=== PATIENT | male | born 1970 | race American Indian/Alaskan Native ===

== ENCOUNTER 2018-06-04 22:02 | Inpatient (IN) | payer OTHER ==
[2018-06-04 22:39] LABS: BASO # 0.1 K/uL (0.0-0.2); BASO % 0.5 % (0.0-2.0); EOS # 0.1 K/uL (0.0-0.7); EOS % 0.4 % (0.0-4.0); HEMOGLOBIN 8.1 g/dL (12.0-18.0); LYMPH # 3.1 K/uL (1.0-4.3); LYMPH % 21.9 % (20.0-40.0); MEAN CELL VOLUME 86.6 fL (80.0-94.0); MEAN CORPUSCULAR HEMOGLOBIN 28.3 pg (27.0-31.0); MEAN CORPUSCULAR HGB CONC 32.7 g/dL (33.0-37.0); MEAN PLATELET VOLUME 7.8 fL (7.2-11.7); MONO # 1.3 K/uL (0.0-0.8); MONO % 8.7 % (0.0-10.0); NEUT # 9.8 K/uL (1.8-7.0); NEUT % 68.5 % (50.0-75.0); RBC 2.86 Mil/uL (4.40-5.90); RED CELL DISTRIBUTION WIDTH 17.2 % (11.5-14.5); WHITE BLOOD COUNT 14.4 K/uL (4.8-10.8)
[2018-06-04 23:05] LABS: ALB/GLOB RATIO 1.1 (1.0-2.1); ALBUMIN 4.2 g/dL (3.5-5.0)
[2018-06-04 23:08] LABS: TROPONIN I 11.7 ng/mL (0.00-0.120)
[2018-06-04] MEDS ORDERED: Labetalol 25mg/5ml Syringe IVP STA (23:13)
--- NOTE | 2018-06-04 23:14 | C.PDOC ---
History Of Present Illness 47yo male with history of hypertension (ran out of medications 2 days ago), stage 4 kidney failure (last creatinine was 7.5), CAD, 2x Coronary stents (last placed 08/[address] Alba) comes to ER with complaints of a stuttering chest pain, present all day and noted to be 5/10 earlier but now is 3/10. Patient states he has had the stuttering pain for 1-2 months and the worst episode was on 05/18/18 where the pain was 10/10 and associated with shortness of breath, nausea and vomiting; patient states he did not seek medical care at that time. He had severe pain again yesterday with nausea, vomiting and shortness of breath and came today for evaluation. At present, denies any nausea, vomiting and shortness of breath and offers no other complaints. PMD: Dr. Alec Allen Gis Professor: Dr. Davison Medications reviewed, patient has no known allergies Time Seen by Provider: 06/04/18 22:23 Chief Complaint (Nursing): Chest Pain History Per: Patient History/Exam Limitations: no limitations Onset/Duration Of Symptoms: Intermittent Episodes, Persistent Current Symptoms Are (Timing): Still Present Severity: Moderate Pain Scale Rating Of: 3 Quality: "Pain" Past Medical History Reviewed: Historical Data, Nursing Documentation, Vital Signs Vital Signs: Last Vital Signs Temp 98.3 F 06/04/18 22:11 Pulse 83 06/05/18 01:21 Resp 16 06/05/18 01:21 BP 203/146 H 06/05/18 01:21 Pulse Ox 95 06/05/18 01:21 - Medical History PMH: CAD, HTN, End Stage Renal Disease Surgical History: Coronary Stent Other Surgeries: deviated septum repair, gastric sleeve Family History: States: No Known Family Hx - Social History Hx Tobacco Use: No Hx Alcohol Use: Yes Hx Substance Use: No - Immunization History Hx Influenza Vaccination: No Hx Pneumococcal Vaccination: No Review Of Systems Except As Marked, All Systems Reviewed And Found Negative. Constitutional: Negative for: Fever, Chills, Weakness, Malaise, Weight loss Eyes: Negative for: Vision Change, Eyelid Inflammation ENT: Negative for: Nose Congestion Cardiovascular: Positive for: Chest Pain. Negative for: Palpitations, Orthopnea , Paroxysmal Noc. Dyspnea, Edema Respiratory: Negative for: Cough, Shortness of Breath, Hemoptysis, SOB with Excertion, Pleuritic Pain, Sputum Gastrointestinal: Negative for: Nausea, Vomiting, Constipation Genitourinary: Negative for: Dysuria Musculoskeletal: Negative for: Shoulder Pain, Arm Pain Skin: Negative for: Rash Neurological: Negative for: Weakness, Numbness Psych: Negative for: Anxiety Physical Exam - Physical Exam Appears: Non-toxic Skin: Normal Color, Warm, Dry Head: Atraumatic, Normacephalic Eye(s): bilateral: Normal Inspection, PERRL, EOMI Ear(s): Bilateral: Normal Nose: Normal Oral Mucosa: Moist Throat: Normal Neck: Normal, Supple Chest: Symmetrical, No Tenderness Cardiovascular: Rhythm Regular, Other (elevated blood pressure) Respiratory: Normal Breath Sounds Gastrointestinal/Abdominal: Normal Exam, Soft, No Tenderness Back: Normal Inspection, No CVA Tenderness, No Vertebral Tenderness, No Paraspinal Tenderness Extremity: Normal ROM, No Pedal Edema Extremity: Bilateral: Atraumatic, No Pedal Edema, Normal Color And Temperature, Normal ROM Neurological/Psych: Oriented x3, Normal Speech, Normal Cognition, Normal Motor, Normal Sensation ED Course And Treatment - Laboratory Results Result Diagrams: 06/04/18 22:34 06/04/18 22:34 ECG: Interpreted By Me, Viewed By Me ECG Rhythm: Sinus Rhythm Interpretation Of ECG: WV 174, QRS 102, QT/QTc 432/525. Prolonged QT. LVH with repolarization changes. Deep inverted T-wave in V5 and V6. ST elevation in V3 V4 suspicious for ST elevation TX. Rate From EC O2 Sat by Pulse Oximetry: 100 (RA) Pulse Ox Interpretation: Normal Critical Care Time - Critical Care Note Total Time (in mins): 45 Documented critical care: time excludes all time spent performing seperately billable procedures. Medical Decision Making Medical Decision Making: Impression: Chest pain [address] Alba 2320 Case discussed with patient's PMD Dr. Alec Allen who recommends admission to Dr. Coronado [address] Davison, patient's manager of pharmacy who is aware. 2326 Code heart called [address] Alba who recommends treating patient as a NSTEMI. [address] Coronado Plan: * Aspirin 324mg PO * Plavix 300mg PO * Fentanyl 50mcg IVP * Heparin 4000 units IV * Labetalol 20mg IVP * Nitroglycerin 0.4mg SL [address] Coronado. [address] Heller branch sales manager utilization management um nurse, patient to be admitted to ICU. 0055 CXR reviewed and shows cardiomegaly. No pulmonary vascular congestion noted. [address] in contacting Dr. Coronado, 5 calls placed. Call placed to Dr. Burrell medicine utilization management um nurse. Disposition - Disposition Disposition Time: 01:48 Condition: GUARDED - POA Core Measure Indicators: Code Heart, Chest Pain - Clinical Impression Clinical Impression: Chest pain, NSTEMI (non-ST elevated myocardial infarction), Acute renal failure , Hypertensive emergency - Scribe Statement The provider has reviewed the documentation as recorded by the Ranjith Eastman Provider Attestation: All medical record entries made by the Ranjith were at my direction and personally dictated by me. I have reviewed the chart and agree that the record accurately reflects my personal performance of the history, physical exam, medical decision making, and the department course for this patient. I have also personally directed, reviewed, and agree with the discharge instructions and disposition.
[2018-06-05] MEDS ORDERED: Nitroglycerin 50mg in D5W 50 MG/250 ML BOTTLE IV ONE (00:26)
[2018-06-05] MEDS ORDERED: Nitroglycerin 50mg in D5W 50 MG/250 ML BOTTLE IV SCH (00:30)
[2018-06-05] MEDS: Heparin25000 units/250ml 1/2NS 25,000 UNITS/250 ML BAG IV PRN ×2 (00:44→19:33)
--- NOTE | 2018-06-05 01:07 | CP.PCM.CON ---
History of Present Illness - History of Present Illness History of Present Illness: 47yo M. PMHx HTN, stage 4 CKD, CAD, stents x 2. p/w chest pain, NSTEMI, acute on chronic kidney injury. Review of Systems - Review of Systems All systems: reviewed and no additional remarkable complaints except - Cardiovascular Cardiovascular: Chest Pain Past Patient History - Past Social History Smoking Status: Never Smoked - CARDIAC Hx Hypertension: Yes - ENDOCRINE/METABOLIC Hx Diabetes Mellitus Type 2: Yes - MUSCULOSKELETAL/RHEUMATOLOGICAL Hx Falls: No - PSYCHIATRIC Hx Substance Use: No - SURGICAL HISTORY Hx Coronary Stent: Yes - ANESTHESIA Hx Anesthesia: Yes Hx Anesthesia Reactions: No Hx Malignant Hyperthermia: No Meds Allergies/Adverse Reactions: Allergies Allergy/AdvReac Type Severity Reaction Status Date / Time No Known Allergies Allergy Verified 06/04/18 22:17 - Medications Medications: Current Medications Heparin Sodium/Sodium Chloride (Heparin 58844 Units/250ml 1/2 Normal Saline) 25 ,000 units in 250 mls @ 12.791 mls/hr IV .[id number] PRN; Protocol; 12 UNITS/KG/HR PRN Reason: ADJUST RATE PER PROTOCOL Last Admin: 06/05/18 00:44 Dose: 12 units/kg/hr, 12.791 mls/hr Nitroglycerin/Dextrose (Nitroglycerin 50 Mg/250 Ml D5w) 50 mg in 250 mls @ 18 mls/hr IV .[id number] CLARICE; 60 MCG/MIN PRN Reason: Protocol Last Titration: 06/05/18 01:01 Dose: 70 mcg/min, 21 mls/hr Physical Exam - Head Exam Head Exam: ATRAUMATIC, NORMAL INSPECTION - Eye Exam Eye Exam: EOMI, Normal appearance, PERRL - ENT Exam ENT Exam: Mucous Membranes Moist, Normal Exam - Neck Exam Neck exam: Positive for: Normal Inspection - Respiratory Exam Respiratory Exam: Clear to Auscultation Bilateral, NORMAL BREATHING PATTERN - Cardiovascular Exam Cardiovascular Exam: REGULAR RHYTHM - GI/Abdominal Exam GI & Abdominal Exam: Normal Bowel Sounds, Soft. absent: Tenderness - Neurological Exam Neurological exam: Alert, CN II-XII Intact, Normal Gait, Oriented x3, Reflexes Normal - Psychiatric Exam Psychiatric exam: Normal Affect, Normal Mood Results - Vital Signs Recent Vital Signs: Last Vital Signs Temp 98.3 F 06/04/18 22:11 Pulse 80 06/05/18 01:02 Resp 14 06/05/18 01:02 BP 200/132 H 06/05/18 01:02 Pulse Ox 100 06/05/18 01:03 - Labs Result Diagrams: 06/04/18 22:34 06/04/18 22:34 Labs: Laboratory Results - last 24 hr 06/04/18 06/04/18 06/04/18 22:34 22:34 23:44 WBC 14.4 H RBC 2.86 L Hgb 8.1 L Hct 24.7 L MCV 86.6 MCH 28.3 MCHC 32.7 L RDW 17.2 H Plt Count 279 MPV 7.8 Neut % (Auto) 68.5 Lymph % (Auto) 21.9 Barren % (Auto) 8.7 Eos % (Auto) 0.4 Baso % (Auto) 0.5 Neut # (Auto) 9.8 H Lymph # (Auto) 3.1 Barren # (Auto) 1.3 H Eos # (Auto) 0.1 Baso # (Auto) 0.1 APTT 38 H Sodium 144 Potassium 4.0 Chloride 108 H Carbon Dioxide 20 L Anion Gap 20 BUN 81 H Creatinine 10.5 H* Est GFR ( Amer) 6 Est GFR (Non-Af Amer) 5 Random Glucose 118 H Calcium 9.0 Total Bilirubin 0.5 AST 44 ALT 28 Alkaline Phosphatase 66 Troponin I 11.7000 H* Total Protein 7.9 Albumin 4.2 Globulin 3.7 Albumin/Globulin Ratio 1.1 Triglycerides 135 Cholesterol 197 LDL Cholesterol Direct 113 HDL Cholesterol 29 L Assessment & Plan (1) NSTEMI (non-ST elevated myocardial infarction) Assessment and Plan: 47yo M. PMHx HTN, stage 4 CKD, CAD, stents x 2. p/w chest pain, NSTEMI, acute on chronic kidney injury. Neuro: alert and oriented x 3 Pulm: no acute issues, breathing spontaneously on room air. CV: hemodynamically stable. EKG changes indicative of NSTEMI, continue heparin drip, ASA, Plavix. Nitro drip relieving chest pain, and lowering BP. Eventual cath, cardio - DrMg Alba. Hem: no acute issues Renal: worsening acute on chronic kidney injury, will monitor. NS@75 Endo: no acute issues GI: heart healthy diet. ID: no acute issues DVT proph - heparin gtt GI proph - protonix Code status - full code Critical Care Time spent 35 minutes Multi-disciplinary rounds were performed with house staff, nursing, speech therapy, respiratory therapy, pharmacy and nutrition with integrated input from the primary team/attending and other consulting services. The documented time is cumulative and includes review of patient data/exams/labs/chart review and examination of the patient on rounds and throughout the day; time is exclusive of any procedures or teaching time. Status: Acute
[2018-06-05 06:59] LABS: BASO # 0.1 K/uL (0.0-0.2); BASO % 0.9 % (0.0-2.0); EOS # 0.1 K/uL (0.0-0.7); EOS % 0.9 % (0.0-4.0); HEMOGLOBIN 7.5 g/dL (12.0-18.0); LYMPH # 3.1 K/uL (1.0-4.3); LYMPH % 25.3 % (20.0-40.0); MEAN CELL VOLUME 88.2 fL (80.0-94.0); MEAN CORPUSCULAR HEMOGLOBIN 28.8 pg (27.0-31.0); MEAN CORPUSCULAR HGB CONC 32.6 g/dL (33.0-37.0); MEAN PLATELET VOLUME 8.2 fL (7.2-11.7); MONO # 1.2 K/uL (0.0-0.8); MONO % 9.6 % (0.0-10.0); NEUT # 7.8 K/uL (1.8-7.0); NEUT % 63.3 % (50.0-75.0); RBC 2.62 Mil/uL (4.40-5.90); WHITE BLOOD COUNT 12.3 K/uL (4.8-10.8)
[2018-06-05] MEDS: Nitroglycerin 50mg in D5W 50 MG/250 ML BOTTLE IV SCH ×4 (07:28→21:15)
[2018-06-05 08:13] LABS: ALB/GLOB RATIO 1.1 (1.0-2.1); ALBUMIN 3.6 g/dL (3.5-5.0); CALCIUM 8.7 mg/dl (8.6-10.4)
[2018-06-05] MEDS: Pantoprazole 20 mg EC Tab PO SCH (09:09)
--- NOTE | 2018-06-05 09:23 | RAD ---
Date of service: 06/04/2018 HISTORY: chest pain COMPARISON: Comparison made with prior study 12/08/2013. TECHNIQUE: Chest PA and lateral FINDINGS: LUNGS: No active pulmonary disease. PLEURA: No significant pleural effusion identified. No pneumothorax apparent. CARDIOVASCULAR: Heart size appears borderline/mildly enlarged. OSSEOUS STRUCTURES: Minor multilevel degenerative spondylosis of the thoracic spine. VISUALIZED UPPER ABDOMEN: Normal. OTHER FINDINGS: None. IMPRESSION: No active disease.
[2018-06-05 09:51] LABS: CK-MB 12.4 ng/mL (0.0-3.38)
[2018-06-05 09:57] LABS: TROPONIN I 10.4 ng/mL (0.00-0.120)
[2018-06-05] MEDS ORDERED: Labetalol 25mg/5ml Syringe IVP ONE (11:45)
[2018-06-05 18:08] LABS: CK-MB 9.44 ng/mL (0.0-3.38); TROPONIN I 8.06 ng/mL (0.00-0.120)
--- NOTE | 2018-06-05 20:21 | CP.CCUPN ---
<Gissell Casiano P - Last Filed: 06/05/18 20:09> CCU Subjective - Physician Review Subjective (Free Text): PGY-1 critical care consult note for Dr. Montelongo. Patient seen and evaluated at bedside. States he feels better. Chest pain, shortness of breath, nausea and vomiting have resolved. Overnight blood pressure was elevated in 190s, nitro drip was titrated to 140mcg with improvement of bp. Patient is complaining of low back pain that worsens with lying in bed and improves with sitting. Patient with Cr of 10.1. Patient states he saw his loan assistant Dr. Guillen approximately 1.5 months ago ( Cr at the time was 5) and was told he needed dialysis. Patient missed his scheduled vein mapping session 1 month ago because he was contemplating getting a second opinion, but never followed up. CCU Objective - Vital Signs / Intake & Output Vital Signs (Last 4 hours): Vital Signs Pulse Resp BP Pulse Ox 06/05/18 19:32 89 18 158/90 H 98 06/05/18 19:27 80 20 158/90 H 97 06/05/18 19:00 81 22 95 06/05/18 18:00 90 27 H 98 06/05/18 17:59 92 H 22 159/99 H 99 06/05/18 17:00 82 24 97 06/05/18 16:58 80 26 H 173/113 H 97 Intake and Output (Last 8hrs): Intake & Output 06/05/18 06/05/18 06/05/18 06:59 14:59 22:59 Intake Total 343.8 1722.0 1056.0 Output Total 1000 1000 200 Balance -656.2 722.0 856.0 Weight 290 lb 12.635 oz Intake: IV 54 250 500 Intake, IV Amount 289.8 572.0 256.0 Left Antecubital 76.8 128.0 64.0 Right Antecubital 213 444 192 Oral 0 900 300 Output: Urine 1000 1000 200 Urine, Voided 1000 1000 200 Other: # Voids Urine, Voided 1 1 1 # Bowel Movements 0 0 - Physical Exam Head: Positive for: Atraumatic, Normocephalic Extroacular Muscles: Positive for: EOMI Neck: Positive for: Normal Range of Motion Respiratory/Chest: Positive for: Clear to Auscultation. Negative for: Wheezes, Rales, Rhonchi Cardiovascular: Positive for: Regular Rate and Rhythm, Normal S1, S2 Abdomen: Positive for: Normal Bowel Sounds. Negative for: Tenderness, Distention, Rebound, Guarding Back: Negative for: Paraspinal Tenderness Lower Extremity: Negative for: Edema, CALF TENDERNESS Neurological: Positive for: CN II-XII Intact, Speech Normal, Motor Func Grossly Intact Skin: Positive for: Warm, Dry Psychiatric: Positive for: Alert, Oriented x 3 - Medications Active Medications: Active Medications Generic Name Dose Route Start Last Admin Trade Name Freq PRN Reason Stop Dose Admin Acetaminophen 650 mg 06/05/18 08:30 06/05/18 09:08 Tylenol 325mg Tab PO 650 mg Q6 PRN Administration Pain, Mild (1-3) Allopurinol 100 mg 06/06/18 10:00 Zyloprim PO DAILY [facility] Aspirin 81 mg 06/06/18 10:00 Ecotrin PO DAILY [facility] Calcitriol 0.25 mcg 06/06/18 09:00 Rocaltrol PO MWF [facility] Clonidine HCl 0.2 mg 06/05/18 22:00 Catapres PO Q8H [facility] Clopidogrel Bisulfate 75 mg 06/06/18 10:00 Plavix PO DAILY [facility] Diltiazem HCl 300 mg 06/06/18 10:00 Cardizem Cd PO DAILY [facility] Heparin Sodium/Sodium Chloride 25,000 units in 250 mls @ 12.791 mls/hr 00:15 06/05/18 19:33 Heparin 16115 Units/250ml 1/2 Normal Saline IV 12 units/kg/hr .[id number] PRN 12.791 mls/hr ADJUST RATE PER PROTOCOL Administration Protocol 12 UNITS/KG/HR Nitroglycerin/Dextrose 50 mg in 250 mls @ 36 mls/hr 06/05/18 07:18 06/05/18 19:32 Nitroglycerin 50 Mg/250 Ml D5w IV 160 mcg/min .[id number] [facility] 48 mls/hr Protocol Administration 120 MCG/MIN Pantoprazole Sodium 20 mg 06/05/18 10:00 06/05/18 09:09 Protonix Ec Tab PO 20 mg DAILY [facility] Administration Rosuvastatin Calcium 40 mg 06/05/18 22:00 Crestor PO HS [facility] Sitagliptin Phosphate 25 mg 06/06/18 10:00 Januvia PO DAILY [facility] - Patient Studies Lab Studies: Lab Studies 06/05/18 06/05/18 06/05/18 Range/Units 17:11 12:41 06:53 WBC (4.8-10.8) K/uL RBC (4.40-5.90) Mil/uL Hgb (12.0-18.0) g/dL Hct (35.0-51.0) % MCV (80.0-94.0) fL MCH (27.0-31.0) pg MCHC (33.0-37.0) g/dL RDW (11.5-14.5) % Plt Count (130-400) K/uL MPV (7.2-11.7) fL Neut % (Auto) (50.0-75.0) % Lymph % (Auto) (20.0-40.0) % Morgan % (Auto) (0.0-10.0) % Eos % (Auto) (0.0-4.0) % Baso % (Auto) (0.0-2.0) % Neut # (Auto) (1.8-7.0) K/uL Lymph # (Auto) (1.0-4.3) K/uL Morgan # (Auto) (0.0-0.8) K/uL Eos # (Auto) (0.0-0.7) K/uL Baso # (Auto) (0.0-0.2) K/uL APTT 75 H 79 H D (21-34) SECONDS Sodium (132-148) mmol/L Potassium (3.6-5.2) mmol/L Chloride (98-107) mmol/L Carbon Dioxide (22-30) mmol/L Anion Gap (10-20) BUN (9-20) mg/dL Creatinine (0.8-1.5) mg/dL Est GFR ( Amer) Est GFR (Non-Af Amer) Random Glucose (75-110) mg/dL Calcium (8.6-10.4) mg/dl Phosphorus (2.5-4.5) mg/dL Magnesium (1.6-2.3) mg/dL Total Bilirubin (0.2-1.3) mg/dL AST (17-59) U/L ALT (21-72) U/L Alkaline Phosphatase (38-126) U/L Total Creatine Kinase 469 H (55-170) U/L CK-MB (Mass) 9.44 H (0.0-3.38) ng/mL Troponin I 8.0600 H* (0.00-0.120) ng/mL Total Protein (6.3-8.3) g/dL Albumin (3.5-5.0) g/dL Globulin (2.2-3.9) gm/dL Albumin/Globulin Ratio (1.0-2.1) Triglycerides (0-149) mg/dL Cholesterol (0-199) mg/dL LDL Cholesterol Direct (0-129) mg/dL HDL Cholesterol (30-70) mg/dL 06/05/18 06/05/18 06/04/18 Range/Units 06:53 06:53 23:44 WBC 12.3 H (4.8-10.8) K/uL RBC 2.62 L (4.40-5.90) Mil/uL Hgb 7.5 L (12.0-18.0) g/dL Hct 23.1 L (35.0-51.0) % MCV 88.2 (80.0-94.0) fL MCH 28.8 (27.0-31.0) pg MCHC 32.6 L (33.0-37.0) g/dL RDW 17.0 H (11.5-14.5) % Plt Count 243 (130-400) K/uL MPV 8.2 (7.2-11.7) fL Neut % (Auto) 63.3 (50.0-75.0) % Lymph % (Auto) 25.3 (20.0-40.0) % Morgan % (Auto) 9.6 (0.0-10.0) % Eos % (Auto) 0.9 (0.0-4.0) % Baso % (Auto) 0.9 (0.0-2.0) % Neut # (Auto) 7.8 H (1.8-7.0) K/uL Lymph # (Auto) 3.1 (1.0-4.3) K/uL Morgan # (Auto) 1.2 H (0.0-0.8) K/uL Eos # (Auto) 0.1 (0.0-0.7) K/uL Baso # (Auto) 0.1 (0.0-0.2) K/uL APTT 38 H (21-34) SECONDS Sodium 142 (132-148) mmol/L Potassium 4.0 (3.6-5.2) mmol/L Chloride 107 (98-107) mmol/L Carbon Dioxide 19 L (22-30) mmol/L Anion Gap 20 (10-20) BUN 81 H (9-20) mg/dL Creatinine 10.1 H* (0.8-1.5) mg/dL Est GFR ( Amer) 7 Est GFR (Non-Af Amer) 6 Random Glucose 164 H (75-110) mg/dL Calcium 8.7 (8.6-10.4) mg/dl Phosphorus 7.2 H (2.5-4.5) mg/dL Magnesium 1.8 (1.6-2.3) mg/dL Total Bilirubin 0.5 (0.2-1.3) mg/dL AST 38 (17-59) U/L ALT 32 (21-72) U/L Alkaline Phosphatase 55 (38-126) U/L Total Creatine Kinase 579 H (55-170) U/L CK-MB (Mass) 12.4 H (0.0-3.38) ng/mL Troponin I 10.4000 H* (0.00-0.120) ng/mL Total Protein 6.7 (6.3-8.3) g/dL Albumin 3.6 (3.5-5.0) g/dL Globulin 3.2 (2.2-3.9) gm/dL Albumin/Globulin Ratio 1.1 (1.0-2.1) Triglycerides (0-149) mg/dL Cholesterol (0-199) mg/dL LDL Cholesterol Direct (0-129) mg/dL HDL Cholesterol (30-70) mg/dL 06/04/18 06/04/18 Range/Units 22:34 22:34 WBC 14.4 H (4.8-10.8) K/uL RBC 2.86 L (4.40-5.90) Mil/uL Hgb 8.1 L (12.0-18.0) g/dL Hct 24.7 L (35.0-51.0) % MCV 86.6 (80.0-94.0) fL MCH 28.3 (27.0-31.0) pg MCHC 32.7 L (33.0-37.0) g/dL RDW 17.2 H (11.5-14.5) % Plt Count 279 (130-400) K/uL MPV 7.8 (7.2-11.7) fL Neut % (Auto) 68.5 (50.0-75.0) % Lymph % (Auto) 21.9 (20.0-40.0) % Morgan % (Auto) 8.7 (0.0-10.0) % Eos % (Auto) 0.4 (0.0-4.0) % Baso % (Auto) 0.5 (0.0-2.0) % Neut # (Auto) 9.8 H (1.8-7.0) K/uL Lymph # (Auto) 3.1 (1.0-4.3) K/uL Morgan # (Auto) 1.3 H (0.0-0.8) K/uL Eos # (Auto) 0.1 (0.0-0.7) K/uL Baso # (Auto) 0.1 (0.0-0.2) K/uL APTT (21-34) SECONDS Sodium 144 (132-148) mmol/L Potassium 4.0 (3.6-5.2) mmol/L Chloride 108 H (98-107) mmol/L Carbon Dioxide 20 L (22-30) mmol/L Anion Gap 20 (10-20) BUN 81 H (9-20) mg/dL Creatinine 10.5 H* (0.8-1.5) mg/dL Est GFR ( Amer) 6 Est GFR (Non-Af Amer) 5 Random Glucose 118 H (75-110) mg/dL Calcium 9.0 (8.6-10.4) mg/dl Phosphorus (2.5-4.5) mg/dL Magnesium (1.6-2.3) mg/dL Total Bilirubin 0.5 (0.2-1.3) mg/dL AST 44 (17-59) U/L ALT 28 (21-72) U/L Alkaline Phosphatase 66 (38-126) U/L Total Creatine Kinase (55-170) U/L CK-MB (Mass) (0.0-3.38) ng/mL Troponin I 11.7000 H* (0.00-0.120) ng/mL Total Protein 7.9 (6.3-8.3) g/dL Albumin 4.2 (3.5-5.0) g/dL Globulin 3.7 (2.2-3.9) gm/dL Albumin/Globulin Ratio 1.1 (1.0-2.1) Triglycerides 135 (0-149) mg/dL Cholesterol 197 (0-199) mg/dL LDL Cholesterol Direct 113 (0-129) mg/dL HDL Cholesterol 29 L (30-70) mg/dL Laboratory Results - last 24 hr 06/04/18 06/04/18 06/04/18 22:34 22:34 23:44 WBC 14.4 H RBC 2.86 L Hgb 8.1 L Hct 24.7 L MCV 86.6 MCH 28.3 MCHC 32.7 L RDW 17.2 H Plt Count 279 MPV 7.8 Neut % (Auto) 68.5 Lymph % (Auto) 21.9 Morgan % (Auto) 8.7 Eos % (Auto) 0.4 Baso % (Auto) 0.5 Neut # (Auto) 9.8 H Lymph # (Auto) 3.1 Morgan # (Auto) 1.3 H Eos # (Auto) 0.1 Baso # (Auto) 0.1 APTT 38 H Sodium 144 Potassium 4.0 Chloride 108 H Carbon Dioxide 20 L Anion Gap 20 BUN 81 H Creatinine 10.5 H* Est GFR ( Amer) 6 Est GFR (Non-Af Amer) 5 Random Glucose 118 H Calcium 9.0 Phosphorus Magnesium Total Bilirubin 0.5 AST 44 ALT 28 Alkaline Phosphatase 66 Total Creatine Kinase CK-MB (Mass) Troponin I 11.7000 H* Total Protein 7.9 Albumin 4.2 Globulin 3.7 Albumin/Globulin Ratio 1.1 Triglycerides 135 Cholesterol 197 LDL Cholesterol Direct 113 HDL Cholesterol 29 L 06/05/18 06/05/18 06/05/18 06:53 06:53 06:53 WBC 12.3 H RBC 2.62 L Hgb 7.5 L Hct 23.1 L MCV 88.2 MCH 28.8 MCHC 32.6 L RDW 17.0 H Plt Count 243 MPV 8.2 Neut % (Auto) 63.3 Lymph % (Auto) 25.3 Morgan % (Auto) 9.6 Eos % (Auto) 0.9 Baso % (Auto) 0.9 Neut # (Auto) 7.8 H Lymph # (Auto) 3.1 Morgan # (Auto) 1.2 H Eos # (Auto) 0.1 Baso # (Auto) 0.1 APTT 79 H D Sodium 142 Potassium 4.0 Chloride 107 Carbon Dioxide 19 L Anion Gap 20 BUN 81 H Creatinine 10.1 H* Est GFR ( Amer) 7 Est GFR (Non-Af Amer) 6 Random Glucose 164 H Calcium 8.7 Phosphorus 7.2 H Magnesium 1.8 Total Bilirubin 0.5 AST 38 ALT 32 Alkaline Phosphatase 55 Total Creatine Kinase 579 H CK-MB (Mass) 12.4 H Troponin I 10.4000 H* Total Protein 6.7 Albumin 3.6 Globulin 3.2 Albumin/Globulin Ratio 1.1 Triglycerides Cholesterol LDL Cholesterol Direct HDL Cholesterol 06/05/18 06/05/18 12:41 17:11 WBC RBC Hgb Hct MCV MCH MCHC RDW Plt Count MPV Neut % (Auto) Lymph % (Auto) Morgan % (Auto) Eos % (Auto) Baso % (Auto) Neut # (Auto) Lymph # (Auto) Morgan # (Auto) Eos # (Auto) Baso # (Auto) APTT 75 H Sodium Potassium Chloride Carbon Dioxide Anion Gap BUN Creatinine Est GFR ( Amer) Est GFR (Non-Af Amer) Random Glucose Calcium Phosphorus Magnesium Total Bilirubin AST ALT Alkaline Phosphatase Total Creatine Kinase 469 H CK-MB (Mass) 9.44 H Troponin I 8.0600 H* Total Protein Albumin Globulin Albumin/Globulin Ratio Triglycerides Cholesterol LDL Cholesterol Direct HDL Cholesterol EKG/Cardiology Studies: Cardiology / EKG Studies 06/04/18 22:24 ELECTROCARDIOGRAM Stat Comment: Mode Of Transportation: BED Reason For Exam: chest pain Review of Systems - Review of Systems All systems: reviewed and no additional remarkable complaints except (as per HPI ) Critical Care Progress Note - Prophylaxis GI Prophylaxis GI: PPI - Prophylaxis DVT Prophylaxis DVT: Heparin SQ - Nutrition Nutrition: Nutrition Category Date Time Status Renal Diet [DIET] Diets 06/05/18 Breakfast Active Assessment/Plan - Assessment and Plan (Free Text) Plan: 47 yo M PMHx of HTN, DM2, stage 5 CKD, CAD with stent placement x2 (latest 2016) presented to ED with chest pain, SOB, nausea and vomiting. Admitted to ICU for NSTEMI and hypertensive emergency. On Heparin drip, nitro drip, ASA, plavix. placed on home antihypertensive meds. Elevated Cr, nephro consulted. Neuro: Patient awake, alert, oriented x3. Resting comfortably. Acetaminophen 650mg PO Q6H PRN for back pain Cardio: Patient chest pain free today Troponin downtrendin.7->10.4->8.06 Heparin drip Nitro drip ASA 81mg clonidine 0.2mg PO Q8H Plavix 75mg PO daily Diltiazem 300mg PO daily Crestor 40mg PO HS Pulm: Maintain SpO2>95% GI: Renal diet Renal: Cr. 10.1, increased from 5 one month ago Elevated troponin possibly secondary to worsening renal function. Dr. Villatoro consulted. Recommending dialysis. calcitriol ID: WBC: 12. 3, no bands afebrile Heme: H/H: 7.5/23.1 monitor Endo: Sitagliptin 25mg daily Ppx: Protonix, Heparin drip Discussed with Dr. Montelongo. <Candelario Montelongo - Last Filed: 06/10/18 21:50> CCU Objective - Vital Signs / Intake & Output Vital Signs (Last 4 hours): Vital Signs Temp Pulse Resp BP Pulse Ox 06/10/18 21:26 142/77 06/10/18 21:00 77 21 93 L 06/10/18 20:26 79 22 132/82 90 L 06/10/18 20:00 98.9 F 80 18 91 L 06/10/18 19:26 77 13 140/78 87 L 06/10/18 19:00 78 16 92 L 06/10/18 18:30 79 32 H 90 L 06/10/18 18:27 79 23 136/77 93 L 06/10/18 18:00 77 25 H 129/78 90 L 06/10/18 17:57 78 29 H 129/78 89 L Intake and Output (Last 8hrs): Intake & Output 06/10/18 06/10/18 06/10/18 06:59 14:59 22:59 Intake Total 100 500 640 Output Total 600 550 400 Balance -500 -50 240 Weight 235 lb 14.4 oz Intake: IV 200 Intake, IV Amount 30 0 Left Antecubital 10 0 Right Antecubital 10 Right Wrist 10 0 Oral 100 270 640 Output: Urine 600 550 400 Urine, Voided 600 550 400 Emesis 0 Other: # Voids Urine, Voided 0 1 # Bowel Movements 0 0 0 - Medications Active Medications: Active Medications Generic Name Dose Route Start Last Admin Trade Name Freq PRN Reason Stop Dose Admin Acetaminophen 650 mg 06/05/18 08:30 06/05/18 09:08 Tylenol 325mg Tab PO 650 mg Q6 PRN Administration Pain, Mild (1-3) Allopurinol 100 mg 06/06/18 10:00 06/10/18 09:28 Zyloprim PO 100 mg DAILY [facility] Administration Aspirin 81 mg 06/06/18 10:00 06/10/18 09:28 Ecotrin PO 81 mg DAILY [facility] Administration Calcitriol 0.25 mcg 06/06/18 09:00 06/09/18 09:00 Rocaltrol PO Not Given MWF [facility] Clonidine HCl 0.2 mg 06/05/18 22:00 06/10/18 21:28 Catapres PO 0.2 mg Q8H [facility] Administration Dextrose 0 ml 06/05/18 20:46 Dextrose 50% Inj IV STAT PRN Hypoglycemia Protocol Protocol Dextrose 0 gm 06/05/18 20:46 Glutose 15 PO ONCE PRN Hypoglycemia Protocol Protocol Diltiazem HCl 300 mg 06/06/18 10:00 06/10/18 09:28 Cardizem Cd PO 300 mg DAILY [facility] Administration Epoetin Ender 20,000 unit 06/09/18 09:00 06/09/18 16:39 Procrit SC 20,000 unit MWF [facility] Administration Glucagon 0 mg 06/05/18 20:46 Glucagen Diagnostic Kit IM STAT PRN Hypoglycemia Protocol Protocol Heparin Sodium (Porcine) 5,000 units 06/09/18 14:00 06/10/18 21:28 Heparin SC 5,000 units Q8 [facility] Administration Hydralazine HCl 100 mg 06/06/18 10:30 06/10/18 17:21 Apresoline PO 100 mg TID [facility] Administration Dextrose 1,000 mls @ 0 mls/hr 06/05/18 20:46 Dextrose 5% In Water 1000 Ml IV .Q0M PRN Hypoglycemia Protocol Protocol Per Protocol Isosorbide Mononitrate 30 mg 06/06/18 10:15 06/10/18 09:28 Imdur Er PO 30 mg DAILY [facility] Administration Pantoprazole Sodium 20 mg 06/05/18 10:00 06/10/18 09:28 Protonix Ec Tab PO 20 mg DAILY [facility] Administration Rosuvastatin Calcium 40 mg 06/05/18 22:00 06/10/18 21:28 Crestor PO 40 mg HS [facility] Administration Sevelamer Carbonate 0.8 gm 06/06/18 08:00 06/10/18 16:12 Renvela PO 0.8 gm TIDCC [facility] Administration Sitagliptin Phosphate 25 mg 06/06/18 10:00 06/10/18 09:29 Januvia PO Not Given DAILY [facility] Sodium Chloride 0 ml 06/07/18 03:30 06/07/18 04:10 Johnson Baby Saline 30 Ml KASIE 1 spr Q4H PRN Administration Dry nasal passages Ticagrelor 90 mg 06/11/18 18:00 Brilinta PO BID [facility] Vitamin B Complex/Vit C/Folic Acid 1 tab 06/09/18 08:00 06/10/18 08:09 Nephro-Gabriela PO Not Given 0800 [facility] - Patient Studies Lab Studies: Lab Studies 06/10/18 06/10/18 06/10/18 Range/Units 16:07 12:40 07:37 WBC (4.8-10.8) K/uL RBC (4.40-5.90) Mil/uL Hgb (12.0-18.0) g/dL Hct (35.0-51.0) % MCV (80.0-94.0) fL MCH (27.0-31.0) pg MCHC (33.0-37.0) g/dL RDW (11.5-14.5) % Plt Count (130-400) K/uL MPV (7.2-11.7) fL Neut % (Auto) (50.0-75.0) % Lymph % (Auto) (20.0-40.0) % Morgan % (Auto) (0.0-10.0) % Eos % (Auto) (0.0-4.0) % Baso % (Auto) (0.0-2.0) % Neut # (Auto) (1.8-7.0) K/uL Lymph # (Auto) (1.0-4.3) K/uL Morgan # (Auto) (0.0-0.8) K/uL Eos # (Auto) (0.0-0.7) K/uL Baso # (Auto) (0.0-0.2) K/uL Sodium (132-148) mmol/L Potassium (3.6-5.2) mmol/L Chloride (98-107) mmol/L Carbon Dioxide (22-30) mmol/L Anion Gap (10-20) BUN (9-20) mg/dL Creatinine (0.8-1.5) mg/dL Est GFR ( Amer) Est GFR (Non-Af Amer) POC Glucose (mg/dL) 160 H 127 H 120 H (65-110) mg/dL Random Glucose (75-110) mg/dL Calcium (8.6-10.4) mg/dl Phosphorus (2.5-4.5) mg/dL Magnesium (1.6-2.3) mg/dL Total Bilirubin (0.2-1.3) mg/dL AST (17-59) U/L ALT (21-72) U/L Alkaline Phosphatase (38-126) U/L Total Protein (6.3-8.3) g/dL Albumin (3.5-5.0) g/dL Globulin (2.2-3.9) gm/dL Albumin/Globulin Ratio (1.0-2.1) 06/10/18 06/10/18 06/09/18 Range/Units 05:57 05:57 21:24 WBC 14.1 H (4.8-10.8) K/uL RBC 2.93 L (4.40-5.90) Mil/uL Hgb 8.5 L (12.0-18.0) g/dL Hct 25.9 L (35.0-51.0) % MCV 88.1 (80.0-94.0) fL MCH 29.1 (27.0-31.0) pg MCHC 33.0 (33.0-37.0) g/dL RDW 16.5 H (11.5-14.5) % Plt Count 221 (130-400) K/uL MPV 8.8 (7.2-11.7) fL Neut % (Auto) 68.8 (50.0-75.0) % Lymph % (Auto) 19.3 L (20.0-40.0) % Morgan % (Auto) 9.4 (0.0-10.0) % Eos % (Auto) 2.0 (0.0-4.0) % Baso % (Auto) 0.5 (0.0-2.0) % Neut # (Auto) 9.7 H (1.8-7.0) K/uL Lymph # (Auto) 2.7 (1.0-4.3) K/uL Morgan # (Auto) 1.3 H (0.0-0.8) K/uL Eos # (Auto) 0.3 (0.0-0.7) K/uL Baso # (Auto) 0.1 (0.0-0.2) K/uL Sodium 138 (132-148) mmol/L Potassium 4.4 (3.6-5.2) mmol/L Chloride 103 (98-107) mmol/L Carbon Dioxide 27 (22-30) mmol/L Anion Gap 13 (10-20) BUN 40 H (9-20) mg/dL Creatinine 6.6 H (0.8-1.5) mg/dL Est GFR ( Amer) 11 Est GFR (Non-Af Amer) 9 POC Glucose (mg/dL) 94 (65-110) mg/dL Random Glucose 111 H (75-110) mg/dL Calcium 8.9 (8.6-10.4) mg/dl Phosphorus 4.9 H (2.5-4.5) mg/dL Magnesium 1.9 (1.6-2.3) mg/dL Total Bilirubin 0.3 (0.2-1.3) mg/dL AST 14 L (17-59) U/L ALT 22 (21-72) U/L Alkaline Phosphatase 52 (38-126) U/L Total Protein 6.2 L (6.3-8.3) g/dL Albumin 3.4 L (3.5-5.0) g/dL Globulin 2.8 (2.2-3.9) gm/dL Albumin/Globulin Ratio 1.2 (1.0-2.1) Laboratory Results - last 24 hr 06/09/18 06/10/18 06/10/18 21:24 05:57 05:57 WBC 14.1 H RBC 2.93 L Hgb 8.5 L Hct 25.9 L MCV 88.1 MCH 29.1 MCHC 33.0 RDW 16.5 H Plt Count 221 MPV 8.8 Neut % (Auto) 68.8 Lymph % (Auto) 19.3 L Morgan % (Auto) 9.4 Eos % (Auto) 2.0 Baso % (Auto) 0.5 Neut # (Auto) 9.7 H Lymph # (Auto) 2.7 Morgan # (Auto) 1.3 H Eos # (Auto) 0.3 Baso # (Auto) 0.1 Sodium 138 Potassium 4.4 Chloride 103 Carbon Dioxide 27 Anion Gap 13 BUN 40 H Creatinine 6.6 H Est GFR ( Amer) 11 Est GFR (Non-Af Amer) 9 POC Glucose (mg/dL) 94 Random Glucose 111 H Calcium 8.9 Phosphorus 4.9 H Magnesium 1.9 Total Bilirubin 0.3 AST 14 L ALT 22 Alkaline Phosphatase 52 Total Protein 6.2 L Albumin 3.4 L Globulin 2.8 Albumin/Globulin Ratio 1.2 06/10/18 06/10/18 06/10/18 07:37 12:40 16:07 WBC RBC Hgb Hct MCV MCH MCHC RDW Plt Count MPV Neut % (Auto) Lymph % (Auto) Morgan % (Auto) Eos % (Auto) Baso % (Auto) Neut # (Auto) Lymph # (Auto) Morgan # (Auto) Eos # (Auto) Baso # (Auto) Sodium Potassium Chloride Carbon Dioxide Anion Gap BUN Creatinine Est GFR ( Amer) Est GFR (Non-Af Amer) POC Glucose (mg/dL) 120 H 127 H 160 H Random Glucose Calcium Phosphorus Magnesium Total Bilirubin AST ALT Alkaline Phosphatase Total Protein Albumin Globulin Albumin/Globulin Ratio EKG/Cardiology Studies: Cardiology / EKG Studies 06/10/18 07:15 EKG [ELECTROCARDIOGRAM] DAILY Comment: Mode Of Transportation: PORTABLE Reason For Exam: CAD 06/11/18 07:15 EKG [ELECTROCARDIOGRAM] DAILY Comment: Mode Of Transportation: PORTABLE Reason For Exam: CAD Critical Care Progress Note - Nutrition Nutrition: Nutrition Category Date Time Status Renal Diet [DIET] Diets 06/10/18 Dinner Active Attending/Attestation - Attestation I have personally seen and examined this patient.: Yes I have fully participated in the care of the patient.: Yes I have reviewed all pertinent clinical information: Yes Notes (Text): 06/05/18 Today: May The Patient was seen and examined at the bedside, Medical records reviewed, and management issues were discussed and formulated with the house staff. I have reviewed all the relevant clinical, laboratory, hemodynamic, radiographic data and medications Events reviewed Pain issues, skin care, head of the bed elevation, glycemic control were addressed. Agree with above resident's assessment and treatment plans of care as transcribed in Dr. Casiano's note.
[2018-06-05] MEDS ORDERED: Glucagon Recombinant 1 mg Inj IM PRN (20:46)
[2018-06-05] MEDS ORDERED: Dextrose 50% SYRINGE Inj (50 ml) IV PRN (20:46)
--- NOTE | 2018-06-05 21:31 | CP.PCM.CON ---
Past Patient History - Past Medical History & Family History Past Medical History?: Yes - Past Social History Smoking Status: Never Smoked - CARDIAC Hx Hypertension: Yes - PULMONARY Hx Respiratory Disorders: No - NEUROLOGICAL Hx Neurological Disorder: No - HEENT Hx HEENT Problems: No - RENAL Hx Chronic Kidney Disease: Yes Hx Dialysis: No - ENDOCRINE/METABOLIC Hx Diabetes Mellitus Type 2: Yes - HEMATOLOGICAL/ONCOLOGICAL Hx Blood Disorders: No - INTEGUMENTARY Hx Dermatological Problems: No - MUSCULOSKELETAL/RHEUMATOLOGICAL Hx Falls: No - GASTROINTESTINAL Hx Gastrointestinal Disorders: No - GENITOURINARY/GYNECOLOGICAL Hx Genitourinary Disorders: No - PSYCHIATRIC Hx Substance Use: No - SURGICAL HISTORY Hx Coronary Stent: Yes - ANESTHESIA Hx Anesthesia: Yes Hx Anesthesia Reactions: No Hx Malignant Hyperthermia: No Meds Allergies/Adverse Reactions: Allergies Allergy/AdvReac Type Severity Reaction Status Date / Time No Known Allergies Allergy Verified 06/04/18 22:17 - Medications Medications: Current Medications Acetaminophen (Tylenol 325mg Tab) 650 mg PO Q6 PRN PRN Reason: Pain, Mild (1-3) Last Admin: 06/05/18 09:08 Dose: 650 mg Allopurinol (Zyloprim) 100 mg PO DAILY [facility] Aspirin (Ecotrin) 81 mg PO DAILY [facility] Calcitriol (Rocaltrol) 0.25 mcg PO MWF [facility] Clonidine HCl (Catapres) 0.2 mg PO Q8H [facility] Clopidogrel Bisulfate (Plavix) 75 mg PO DAILY [facility] Dextrose (Dextrose 50% Inj) 0 ml IV STAT PRN; Protocol PRN Reason: Hypoglycemia Protocol Dextrose (Glutose 15) 0 gm PO ONCE PRN; Protocol PRN Reason: Hypoglycemia Protocol Diltiazem HCl (Cardizem Cd) 300 mg PO DAILY [facility] Glucagon (Glucagen Diagnostic Kit) 0 mg IM STAT PRN; Protocol PRN Reason: Hypoglycemia Protocol Heparin Sodium/Sodium Chloride (Heparin 37641 Units/250ml 1/2 Normal Saline) 25 ,000 units in 250 mls @ 12.791 mls/hr IV .[id number] PRN; Protocol; 12 UNITS/KG/HR PRN Reason: ADJUST RATE PER PROTOCOL Last Admin: 06/05/18 19:33 Dose: 12 units/kg/hr, 12.791 mls/hr Nitroglycerin/Dextrose (Nitroglycerin 50 Mg/250 Ml D5w) 50 mg in 250 mls @ 36 mls/hr IV .Q6H57M [facility]; 120 MCG/MIN PRN Reason: Protocol Last Admin: 06/05/18 19:32 Dose: 160 mcg/min, 48 mls/hr Dextrose (Dextrose 5% In Water 1000 Ml) 1,000 mls @ 0 mls/hr IV .Q0M PRN; Protocol; Per Protocol PRN Reason: Hypoglycemia Protocol Pantoprazole Sodium (Protonix Ec Tab) 20 mg PO DAILY [facility] Last Admin: 06/05/18 09:09 Dose: 20 mg Rosuvastatin Calcium (Crestor) 40 mg PO HS [facility] Sitagliptin Phosphate (Januvia) 25 mg PO DAILY [facility] Results - Vital Signs Recent Vital Signs: Last Vital Signs Temp 98.1 F 06/05/18 16:00 Pulse 89 06/05/18 19:32 Resp 18 06/05/18 19:32 BP 158/90 H 06/05/18 19:32 Pulse Ox 98 06/05/18 19:32 - Labs Result Diagrams: 06/05/18 06:53 06/05/18 06:53 Labs: Laboratory Results - last 24 hr 06/04/18 06/04/18 06/04/18 22:34 22:34 23:44 WBC 14.4 H RBC 2.86 L Hgb 8.1 L Hct 24.7 L MCV 86.6 MCH 28.3 MCHC 32.7 L RDW 17.2 H Plt Count 279 MPV 7.8 Neut % (Auto) 68.5 Lymph % (Auto) 21.9 [place] % (Auto) 8.7 Eos % (Auto) 0.4 Baso % (Auto) 0.5 Neut # (Auto) 9.8 H Lymph # (Auto) 3.1 [place] # (Auto) 1.3 H Eos # (Auto) 0.1 Baso # (Auto) 0.1 APTT 38 H Sodium 144 Potassium 4.0 Chloride 108 H Carbon Dioxide 20 L Anion Gap 20 BUN 81 H Creatinine 10.5 H* Est GFR ( Amer) 6 Est GFR (Non-Af Amer) 5 Random Glucose 118 H Calcium 9.0 Phosphorus Magnesium Total Bilirubin 0.5 AST 44 ALT 28 Alkaline Phosphatase 66 Total Creatine Kinase CK-MB (Mass) Troponin I 11.7000 H* Total Protein 7.9 Albumin 4.2 Globulin 3.7 Albumin/Globulin Ratio 1.1 Triglycerides 135 Cholesterol 197 LDL Cholesterol Direct 113 HDL Cholesterol 29 L 06/05/18 06/05/18 06/05/18 06:53 06:53 06:53 WBC 12.3 H RBC 2.62 L Hgb 7.5 L Hct 23.1 L MCV 88.2 MCH 28.8 MCHC 32.6 L RDW 17.0 H Plt Count 243 MPV 8.2 Neut % (Auto) 63.3 Lymph % (Auto) 25.3 [place] % (Auto) 9.6 Eos % (Auto) 0.9 Baso % (Auto) 0.9 Neut # (Auto) 7.8 H Lymph # (Auto) 3.1 [place] # (Auto) 1.2 H Eos # (Auto) 0.1 Baso # (Auto) 0.1 APTT 79 H D Sodium 142 Potassium 4.0 Chloride 107 Carbon Dioxide 19 L Anion Gap 20 BUN 81 H Creatinine 10.1 H* Est GFR ( Amer) 7 Est GFR (Non-Af Amer) 6 Random Glucose 164 H Calcium 8.7 Phosphorus 7.2 H Magnesium 1.8 Total Bilirubin 0.5 AST 38 ALT 32 Alkaline Phosphatase 55 Total Creatine Kinase 579 H CK-MB (Mass) 12.4 H Troponin I 10.4000 H* Total Protein 6.7 Albumin 3.6 Globulin 3.2 Albumin/Globulin Ratio 1.1 Triglycerides Cholesterol LDL Cholesterol Direct HDL Cholesterol 06/05/18 06/05/18 12:41 17:11 WBC RBC Hgb Hct MCV MCH MCHC RDW Plt Count MPV Neut % (Auto) Lymph % (Auto) [place] % (Auto) Eos % (Auto) Baso % (Auto) Neut # (Auto) Lymph # (Auto) [place] # (Auto) Eos # (Auto) Baso # (Auto) APTT 75 H Sodium Potassium Chloride Carbon Dioxide Anion Gap BUN Creatinine Est GFR ( Amer) Est GFR (Non-Af Amer) Random Glucose Calcium Phosphorus Magnesium Total Bilirubin AST ALT Alkaline Phosphatase Total Creatine Kinase 469 H CK-MB (Mass) 9.44 H Troponin I 8.0600 H* Total Protein Albumin Globulin Albumin/Globulin Ratio Triglycerides Cholesterol LDL Cholesterol Direct HDL Cholesterol
--- NOTE | 2018-06-05 22:59 | CP.PCM.CON ---
History of Present Illness - History of Present Illness History of Present Illness: Patient seen and evaluated Admitted for ARF, anemia and Non ST [facility] Past Patient History - Past Medical History & Family History Past Medical History?: Yes - Past Social History Smoking Status: Never Smoked - CARDIAC Hx Hypertension: Yes - PULMONARY Hx Respiratory Disorders: No - NEUROLOGICAL Hx Neurological Disorder: No - HEENT Hx HEENT Problems: No - RENAL Hx Chronic Kidney Disease: Yes Hx Dialysis: No - ENDOCRINE/METABOLIC Hx Diabetes Mellitus Type 2: Yes - HEMATOLOGICAL/ONCOLOGICAL Hx Blood Disorders: No - INTEGUMENTARY Hx Dermatological Problems: No - MUSCULOSKELETAL/RHEUMATOLOGICAL Hx Falls: No - GASTROINTESTINAL Hx Gastrointestinal Disorders: No - GENITOURINARY/GYNECOLOGICAL Hx Genitourinary Disorders: No - PSYCHIATRIC Hx Substance Use: No - SURGICAL HISTORY Hx Coronary Stent: Yes - ANESTHESIA Hx Anesthesia: Yes Hx Anesthesia Reactions: No Hx Malignant Hyperthermia: No Meds Allergies/Adverse Reactions: Allergies Allergy/AdvReac Type Severity Reaction Status Date / Time No Known Allergies Allergy Verified 06/04/18 22:17 - Medications Medications: Current Medications Acetaminophen (Tylenol 325mg Tab) 650 mg PO Q6 PRN PRN Reason: Pain, Mild (1-3) Last Admin: 06/05/18 09:08 Dose: 650 mg Allopurinol (Zyloprim) 100 mg PO DAILY [facility] Aspirin (Ecotrin) 81 mg PO DAILY [facility] Calcitriol (Rocaltrol) 0.25 mcg PO MWF [facility] Clonidine HCl (Catapres) 0.2 mg PO Q8H [facility] Last Admin: 06/05/18 21:48 Dose: 0.2 mg Clopidogrel Bisulfate (Plavix) 75 mg PO DAILY [facility] Dextrose (Dextrose 50% Inj) 0 ml IV STAT PRN; Protocol PRN Reason: Hypoglycemia Protocol Dextrose (Glutose 15) 0 gm PO ONCE PRN; Protocol PRN Reason: Hypoglycemia Protocol Diltiazem HCl (Cardizem Cd) 300 mg PO DAILY [facility] Glucagon (Glucagen Diagnostic Kit) 0 mg IM STAT PRN; Protocol PRN Reason: Hypoglycemia Protocol Heparin Sodium/Sodium Chloride (Heparin 92918 Units/250ml 1/2 Normal Saline) 25 ,000 units in 250 mls @ 12.791 mls/hr IV .[id number] PRN; Protocol; 12 UNITS/KG/HR PRN Reason: ADJUST RATE PER PROTOCOL Last Admin: 06/05/18 19:33 Dose: 12 units/kg/hr, 12.791 mls/hr Nitroglycerin/Dextrose (Nitroglycerin 50 Mg/250 Ml D5w) 50 mg in 250 mls @ 36 mls/hr IV .Q6H57M [facility]; 120 MCG/MIN PRN Reason: Protocol Last Admin: 06/05/18 19:32 Dose: 160 mcg/min, 48 mls/hr Dextrose (Dextrose 5% In Water 1000 Ml) 1,000 mls @ 0 mls/hr IV .Q0M PRN; Protocol; Per Protocol PRN Reason: Hypoglycemia Protocol Pantoprazole Sodium (Protonix Ec Tab) 20 mg PO DAILY [facility] Last Admin: 06/05/18 09:09 Dose: 20 mg Rosuvastatin Calcium (Crestor) 40 mg PO [facility] Last Admin: 06/05/18 21:48 Dose: 40 mg Sitagliptin Phosphate (Januvia) 25 mg PO DAILY [facility] Results - Vital Signs Recent Vital Signs: Last Vital Signs Temp 98.2 F 06/05/18 20:00 Pulse 83 06/05/18 21:00 Resp 16 06/05/18 21:00 BP 165/105 H 06/05/18 20:58 Pulse Ox 99 06/05/18 21:00 - Labs Result Diagrams: 06/05/18 06:53 06/05/18 06:53 Labs: Laboratory Results - last 24 hr 06/04/18 06/04/18 06/05/18 22:34 23:44 06:53 WBC 12.3 H RBC 2.62 L Hgb 7.5 L Hct 23.1 L MCV 88.2 MCH 28.8 MCHC 32.6 L RDW 17.0 H Plt Count 243 MPV 8.2 Neut % (Auto) 63.3 Lymph % (Auto) 25.3 [place] % (Auto) 9.6 Eos % (Auto) 0.9 Baso % (Auto) 0.9 Neut # (Auto) 7.8 H Lymph # (Auto) 3.1 [place] # (Auto) 1.2 H Eos # (Auto) 0.1 Baso # (Auto) 0.1 APTT 38 H Sodium 144 Potassium 4.0 Chloride 108 H Carbon Dioxide 20 L Anion Gap 20 BUN 81 H Creatinine 10.5 H* Est GFR ( Amer) 6 Est GFR (Non-Af Amer) 5 Random Glucose 118 H Calcium 9.0 Phosphorus Magnesium Total Bilirubin 0.5 AST 44 ALT 28 Alkaline Phosphatase 66 Total Creatine Kinase CK-MB (Mass) Troponin I 11.7000 H* Total Protein 7.9 Albumin 4.2 Globulin 3.7 Albumin/Globulin Ratio 1.1 Triglycerides 135 Cholesterol 197 LDL Cholesterol Direct 113 HDL Cholesterol 29 L Blood Type Blood Type Confirm Antibody Screen 06/05/18 06/05/18 06/05/18 06:53 06:53 12:41 WBC RBC Hgb Hct MCV MCH MCHC RDW Plt Count MPV Neut % (Auto) Lymph % (Auto) [place] % (Auto) Eos % (Auto) Baso % (Auto) Neut # (Auto) Lymph # (Auto) [place] # (Auto) Eos # (Auto) Baso # (Auto) APTT 79 H D 75 H Sodium 142 Potassium 4.0 Chloride 107 Carbon Dioxide 19 L Anion Gap 20 BUN 81 H Creatinine 10.1 H* Est GFR ( Amer) 7 Est GFR (Non-Af Amer) 6 Random Glucose 164 H Calcium 8.7 Phosphorus 7.2 H Magnesium 1.8 Total Bilirubin 0.5 AST 38 ALT 32 Alkaline Phosphatase 55 Total Creatine Kinase 579 H CK-MB (Mass) 12.4 H Troponin I 10.4000 H* Total Protein 6.7 Albumin 3.6 Globulin 3.2 Albumin/Globulin Ratio 1.1 Triglycerides Cholesterol LDL Cholesterol Direct HDL Cholesterol Blood Type Blood Type Confirm Antibody Screen 06/05/18 06/05/18 17:11 21:23 WBC RBC Hgb Hct MCV MCH MCHC RDW Plt Count MPV Neut % (Auto) Lymph % (Auto) [place] % (Auto) Eos % (Auto) Baso % (Auto) Neut # (Auto) Lymph # (Auto) [place] # (Auto) Eos # (Auto) Baso # (Auto) APTT Sodium Potassium Chloride Carbon Dioxide Anion Gap BUN Creatinine Est GFR ( Amer) Est GFR (Non-Af Amer) Random Glucose Calcium Phosphorus Magnesium Total Bilirubin AST ALT Alkaline Phosphatase Total Creatine Kinase 469 H CK-MB (Mass) 9.44 H Troponin I 8.0600 H* Total Protein Albumin Globulin Albumin/Globulin Ratio Triglycerides Cholesterol LDL Cholesterol Direct HDL Cholesterol Blood Type B NEGATIVE Blood Type Confirm B NEGATIVE Antibody Screen Negative
--- NOTE | 2018-06-05 23:40 | CP.PCM.CON ---
History of Present Illness - History of Present Illness History of Present Illness: pt is seen and examined, full consult is dictated #[id number] Past Patient History - Past Medical History & Family History Past Medical History?: Yes - Past Social History Smoking Status: Never Smoked - CARDIAC Hx Hypertension: Yes - PULMONARY Hx Respiratory Disorders: No - NEUROLOGICAL Hx Neurological Disorder: No - HEENT Hx HEENT Problems: No - RENAL Hx Chronic Kidney Disease: Yes Hx Dialysis: No - ENDOCRINE/METABOLIC Hx Diabetes Mellitus Type 2: Yes - HEMATOLOGICAL/ONCOLOGICAL Hx Blood Disorders: No - INTEGUMENTARY Hx Dermatological Problems: No - MUSCULOSKELETAL/RHEUMATOLOGICAL Hx Falls: No - GASTROINTESTINAL Hx Gastrointestinal Disorders: No - GENITOURINARY/GYNECOLOGICAL Hx Genitourinary Disorders: No - PSYCHIATRIC Hx Substance Use: No - SURGICAL HISTORY Hx Coronary Stent: Yes - ANESTHESIA Hx Anesthesia: Yes Hx Anesthesia Reactions: No Hx Malignant Hyperthermia: No Meds Allergies/Adverse Reactions: Allergies Allergy/AdvReac Type Severity Reaction Status Date / Time No Known Allergies Allergy Verified 06/04/18 22:17 - Medications Medications: Current Medications Acetaminophen (Tylenol 325mg Tab) 650 mg PO Q6 PRN PRN Reason: Pain, Mild (1-3) Last Admin: 06/05/18 09:08 Dose: 650 mg Allopurinol (Zyloprim) 100 mg PO DAILY [facility] Aspirin (Ecotrin) 81 mg PO DAILY [facility] Calcitriol (Rocaltrol) 0.25 mcg PO MWF [facility] Clonidine HCl (Catapres) 0.2 mg PO Q8H [facility] Last Admin: 06/05/18 21:48 Dose: 0.2 mg Clopidogrel Bisulfate (Plavix) 75 mg PO DAILY [facility] Dextrose (Dextrose 50% Inj) 0 ml IV STAT PRN; Protocol PRN Reason: Hypoglycemia Protocol Dextrose (Glutose 15) 0 gm PO ONCE PRN; Protocol PRN Reason: Hypoglycemia Protocol Diltiazem HCl (Cardizem Cd) 300 mg PO DAILY [facility] Glucagon (Glucagen Diagnostic Kit) 0 mg IM STAT PRN; Protocol PRN Reason: Hypoglycemia Protocol Heparin Sodium/Sodium Chloride (Heparin 99701 Units/250ml 1/2 Normal Saline) 25 ,000 units in 250 mls @ 12.791 mls/hr IV .[id number] PRN; Protocol; 12 UNITS/KG/HR PRN Reason: ADJUST RATE PER PROTOCOL Last Admin: 06/05/18 19:33 Dose: 12 units/kg/hr, 12.791 mls/hr Nitroglycerin/Dextrose (Nitroglycerin 50 Mg/250 Ml D5w) 50 mg in 250 mls @ 36 mls/hr IV .Q6H57M [facility]; 120 MCG/MIN PRN Reason: Protocol Last Admin: 06/05/18 19:32 Dose: 160 mcg/min, 48 mls/hr Dextrose (Dextrose 5% In Water 1000 Ml) 1,000 mls @ 0 mls/hr IV .Q0M PRN; Protocol; Per Protocol PRN Reason: Hypoglycemia Protocol Pantoprazole Sodium (Protonix Ec Tab) 20 mg PO DAILY [facility] Last Admin: 06/05/18 09:09 Dose: 20 mg Rosuvastatin Calcium (Crestor) 40 mg PO [facility] Last Admin: 06/05/18 21:48 Dose: 40 mg Sitagliptin Phosphate (Januvia) 25 mg PO DAILY [facility] Results - Vital Signs Recent Vital Signs: Last Vital Signs Temp 98.4 F 06/05/18 23:20 Pulse 87 06/05/18 23:20 Resp 18 06/05/18 23:20 BP 137/57 L 06/05/18 23:20 Pulse Ox 97 06/05/18 23:00 - Labs Result Diagrams: 06/05/18 06:53 06/05/18 06:53 Labs: Laboratory Results - last 24 hr 06/04/18 06/05/18 06/05/18 23:44 06:53 06:53 WBC 12.3 H RBC 2.62 L Hgb 7.5 L Hct 23.1 L MCV 88.2 MCH 28.8 MCHC 32.6 L RDW 17.0 H Plt Count 243 MPV 8.2 Neut % (Auto) 63.3 Lymph % (Auto) 25.3 [place] % (Auto) 9.6 Eos % (Auto) 0.9 Baso % (Auto) 0.9 Neut # (Auto) 7.8 H Lymph # (Auto) 3.1 [place] # (Auto) 1.2 H Eos # (Auto) 0.1 Baso # (Auto) 0.1 APTT 38 H Sodium 142 Potassium 4.0 Chloride 107 Carbon Dioxide 19 L Anion Gap 20 BUN 81 H Creatinine 10.1 H* Est GFR ( Amer) 7 Est GFR (Non-Af Amer) 6 Random Glucose 164 H Calcium 8.7 Phosphorus 7.2 H Magnesium 1.8 Total Bilirubin 0.5 AST 38 ALT 32 Alkaline Phosphatase 55 Total Creatine Kinase 579 H CK-MB (Mass) 12.4 H Troponin I 10.4000 H* Total Protein 6.7 Albumin 3.6 Globulin 3.2 Albumin/Globulin Ratio 1.1 Blood Type Blood Type Confirm Antibody Screen 06/05/18 06/05/18 06/05/18 06:53 12:41 17:11 WBC RBC Hgb Hct MCV MCH MCHC RDW Plt Count MPV Neut % (Auto) Lymph % (Auto) [place] % (Auto) Eos % (Auto) Baso % (Auto) Neut # (Auto) Lymph # (Auto) [place] # (Auto) Eos # (Auto) Baso # (Auto) APTT 79 H D 75 H Sodium Potassium Chloride Carbon Dioxide Anion Gap BUN Creatinine Est GFR ( Amer) Est GFR (Non-Af Amer) Random Glucose Calcium Phosphorus Magnesium Total Bilirubin AST ALT Alkaline Phosphatase Total Creatine Kinase 469 H CK-MB (Mass) 9.44 H Troponin I 8.0600 H* Total Protein Albumin Globulin Albumin/Globulin Ratio Blood Type Blood Type Confirm Antibody Screen 06/05/18 21:23 WBC RBC Hgb Hct MCV MCH MCHC RDW Plt Count MPV Neut % (Auto) Lymph % (Auto) [place] % (Auto) Eos % (Auto) Baso % (Auto) Neut # (Auto) Lymph # (Auto) [place] # (Auto) Eos # (Auto) Baso # (Auto) APTT Sodium Potassium Chloride Carbon Dioxide Anion Gap BUN Creatinine Est GFR ( Amer) Est GFR (Non-Af Amer) Random Glucose Calcium Phosphorus Magnesium Total Bilirubin AST ALT Alkaline Phosphatase Total Creatine Kinase CK-MB (Mass) Troponin I Total Protein Albumin Globulin Albumin/Globulin Ratio Blood Type B NEGATIVE Blood Type Confirm B NEGATIVE Antibody Screen Negative
--- NOTE | 2018-06-06 01:53 | CARD ---
APPROVED REPORT Date of service: 06/04/2018 EKG Measurement Heart [id number] <Conclusion> Normal sinus rhythm Left ventricular hypertrophy with repolarization abnormality Prolonged QT Abnormal ECG
[2018-06-06] MEDS: Nitroglycerin 50mg in D5W 50 MG/250 ML BOTTLE IV SCH ×3 (04:21→15:20)
[2018-06-06 06:57] LABS: BASO # 0.1 K/uL (0.0-0.2); BASO % 0.5 % (0.0-2.0); EOS # 0.2 K/uL (0.0-0.7); EOS % 1.6 % (0.0-4.0); HEMOGLOBIN 7.6 g/dL (12.0-18.0); LYMPH # 2.5 K/uL (1.0-4.3); LYMPH % 20.7 % (20.0-40.0); MEAN CELL VOLUME 86.4 fL (80.0-94.0); MEAN CORPUSCULAR HGB CONC 33.6 g/dL (33.0-37.0); MEAN PLATELET VOLUME 8.4 fL (7.2-11.7); MONO # 1.2 K/uL (0.0-0.8); MONO % 9.8 % (0.0-10.0); NEUT % 67.4 % (50.0-75.0); NRBC % 0.1 % (0.0-2.0); RBC 2.62 Mil/uL (4.40-5.90); RED CELL DISTRIBUTION WIDTH 16.7 % (11.5-14.5); WHITE BLOOD COUNT 11.9 K/uL (4.8-10.8)
[2018-06-06 07:55] LABS: IRON 58 ug/dL (49-181)
[2018-06-06] MEDS: Sevelamer Carb 0.8 gm/Packet PO SCH ×3 (08:00→17:02)
[2018-06-06 08:04] LABS: % IRON SATURATION 26 (20-55); TOTAL IRON BINDING CAPACITY 227 ug/dL (250-450)
[2018-06-06 08:10] LABS: ALB/GLOB RATIO 1.1 (1.0-2.1); ALBUMIN 3.4 g/dL (3.5-5.0); CALCIUM 8.7 mg/dl (8.6-10.4)
--- NOTE | 2018-06-06 08:37 | CON ---
Copied To: Thelma Guillen MD Attending MD: Thelma Guillen MD DATE: 06/05/2018 RENAL CONSULTATION LOCATION: The patient is located in ICU, bed 14B. REQUESTED BY: Juan Coronado MD REASON FOR EVALUATION: End-stage renal disease, anemia, for further management and initiation of the renal replacement therapy. HISTORY OF PRESENT ILLNESS: Mr. Aftab Talamantes is a 47-year-old obese male with a past medical history significant for morbidly obese, status post weight reduction surgery, diabetes, hypertension, nephrotic-range proteinuria, coronary artery disease, status post stents x2, first one about 9 years ago, second one about 6 months ago, hyperlipidemia, CKD 5 about four months ago with creatinine between 5 and 6, referred to the Vascular Surgery for evaluation, and AV fistula placement. The patient never went to Vascular Surgery. Now, the patient was admitted with a chief complaint of chest pain which started about two weeks ago while he was on a vacation which lasted for few hours and then subsided. 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 He suddenly developed chest discomfort associated with some nausea and some radiation of pain to the anterior chest wall and also to the right upper extremity. The patient claims his pain subsided after taking some rest, and he went home. That evening, that is two days ago, he ate his dinner, and suddenly, he felt again chest discomfort and felt nauseous and vomited all his dinner, and he felt nauseous for about 3 to 4 hours, associated with chest discomfort and pain radiating to the right arm and shoulder. The patient went to shower and took the shower for a period of time and the patient refused to go to the emergency room. The patient claims he was having shortness of breath and gasping for air and afraid of going to sleep on BiPAP, machine and claims he was sleeping in the chair. The next morning, the patient went to the PMD office, Dr. Alec Allen, who advised him to go to the emergency room immediately, pack his stuff and go to the hospital as soon as possible. The patient waited until his comes back from her work and came to the emergency room. The patient was found to have severe anemia and also elevated BUN and creatinine and also elevated troponin levels. The patient was admitted to ICU, on IV nitro and IV heparin. The patient is resting comfortably. No chest pain at this time. No nausea or vomiting at this time. PAST MEDICAL HISTORY: Significant for hypertension, diabetes, chronic kidney disease, anemia, secondary hyperparathyroidism, on nephrotic-range proteinuria. PAST SURGICAL HISTORY: Status post cardiac cath and stents x2, also status post weight reduction surgery. ALLERGIES: NO KNOWN DRUG ALLERGIES. SOCIAL HISTORY: He denies any smoking, alcohol, or drugs. He is , and he lives with his . FAMILY HISTORY: Not significant. MEDICATIONS: His current medications include as follows: Cardizem CD 300 mg p.o. daily, clonidine 0.2 mg p.o. every 8 hours, Crestor 40 mg p.o. at bedtime, aspirin 81 mg daily, heparin 12 units/kg per hour, Januvia 25 mg p.o. daily, nitroglycerin IV at 120 mcg per minute, Plavix 75 mg daily, Protonix 20 mg p.o. daily, Rocaltrol 0.25 mcg p.o. three times a week, Tylenol, and allopurinol 100 mg p.o. daily. REVIEW OF SYSTEMS: Significant for feeling nauseous, vomiting, chest discomfort, pain, and also feeling weak and tired, and also significant for anemia. All other review of systems are reviewed and negative except as mentioned above. PHYSICAL EXAMINATION: VITAL SIGNS: As follows: Blood pressure on admission in the emergency room 192/121 and then increased to this morning 226/100. His current blood pressure 137/57, pulse 87, respirations 18, temperature 98.4, saturation 93% to 97%. Height 5 feet 7 inches, weight is 290 pounds. GENERAL: Mr. Albin Ugalde is a 47-year-old obese male, well-built, well-nourished, not in distress. HEENT: Pupils normal and reactive to light and accommodation. Conjunctivae slightly pale. Sclerae anicteric. Tongue is moist. Trachea is midline. LUNGS: Symmetric on both sides. Bilateral breath sounds present. Clear to auscultation. CVS: Beaver at the fifth intercostal space, midclavicular line. S1, S2 audible. No murmur or gallop. ABDOMEN: Normal in appearance, soft, tympanitic. No guarding. No rigidity. No hepatosplenomegaly. GROCERY STORE CLERK: The patient is alert, awake, oriented x3. Nonfocal neuro examination. Cranial nerves II through XII grossly intact. Sensory and motor system within normal limits. EXTREMITIES: No cyanosis, no clubbing, no edema. LABORATORY DATA: His laboratory data include as follows: As of 06/04/2018 at 2234 hours, WBC 14.4, hemoglobin 8.1, hematocrit is 24.7, platelets 279. As of 06/05/2018 at 06:53 a.m., WBC 12.3, hemoglobin 7.5, hematocrit is 23, and platelets 243. His PT on admission is 38, and on IV heparin, PT is 79 and 75. Other laboratory data as of 06/04/2018: Sodium 144, potassium is 4, chloride 108, CO2 of 20, BUN 81, creatinine 10.5, glucose 118, calcium is 9. Total bili 0.5, AST 44, ALT 28, alkaline phosphatase 66. Troponin 11.7, total protein 7.9, albumin is 4.2, globulin 3.7, triglycerides 135, cholesterol 197, LDL is 113, HDL is 29. His other troponin levels are 10.4 and 8.06. Sodium 142, potassium is 4, chloride 107, CO2 of 19, BUN 81, creatinine 10.1, calcium 8.7, phosphorus 7.2, glucose 164, magnesium 1.8. Total bili 0.5, AST 38, ALT 32, alkaline phosphatase 55. CPK 579 and 464. Total protein is 6.7, albumin is 3.6. His other laboratory data as of 06/04/2018, no active disease. ASSESSMENT: In summary, Mr. Aftab Talamantes is a 47-year-old obese male with a history of hypertension, diabetes, coronary artery disease, hyperlipidemia, status post stents x2, nephrotic-range proteinuria, chronic kidney disease, anemia, secondary hyperparathyroidism, lost to follow up for the last four months after referring to the Vascular Surgery for hemodialysis access. The patient lost followup with the trauma registrar also and admitted with a chief complaint of chest pain two weeks ago, and also again, the patient developed chest pain two days ago with elevated troponin levels, low hemoglobin and hematocrit, and worsening renal function. 1. End-stage renal disease, most likely secondary to diabetic nephropathy, cannot rule out underlying chronic glomerulonephritis such as focal segmental glomerulosclerosis or hypertensive nephrosclerosis. 2. Anemia secondary to renal failure, rule out iron-deficiency anemia. 3. Acute myocardial infarction. 4. Diabetes. 5. Hyperphosphatemia, rule out secondary hyperparathyroidism. 6. Mild metabolic acidosis. 7. Anemia secondary to renal failure, cannot rule out iron-deficiency anemia. Discussed with the patient and the patient's at bedside in detail regarding the need for the renal replacement therapy. I agreed for Perm-A-Cath or temporary catheter placement and initiation of the renal replacement therapy. The patient is leaning towards peritoneal dialysis in the long-term. And also, we will do type and cross and transfuse one unit of packed red blood cells tonight and another unit during dialysis tomorrow after Steven catheter placement or Perm-A-Cath placement. 8. Uncontrolled hypertension secondary to noncompliance with medications. Continue all his current medications. Continue IV nitroglycerin. PLAN: 1. We will request Vascular Surgery consult for Perm-A-Cath or Steven catheter placement tomorrow. 2. We will check PTH intact level, and also we will add Renvela 800 mg p.o. t.i.d. with food and also check iron TIBC, ferritin levels, also stool for occult blood. 3. Repeat CBC, BMP in a.m. 4. Follow up with manager database administration, Dr. Ever Alba, for further management for acute myocardial infarction. 5. We will also add Nephrocaps and also calcitriol. We will continue calcitriol. We will add Epogen when the patient is medically stable, when the blood pressure is under control. 6. Also case discussed with , ICU attending vasiliy regarding the transfusion. The patient signed consent for the blood transfusion and for hemodialysis in a.m. Thelma Guillen MD
--- NOTE | 2018-06-06 10:08 | CP.PCM.PN ---
Subjective - Date & Time of Evaluation Date of Evaluation: 06/06/18 Time of Evaluation: 07:30 - Subjective Subjective: Vascular Surgery note for Dr. Byrnes Patient was seen and examined at bedside today in no acute distress. Nurse reported no overnight events. Patient is unclear about the severity of his condition, and it was re-explained to him. Denies CP, SOB, abdominal pain. Poor urination, no bowel movements overnight. Objective - Vital Signs/Intake and Output Vital Signs (last 24 hours): Temp Pulse Resp BP Pulse Ox 98.3 F 99 H 15 145/98 H 98 06/06/18 04:00 06/06/18 08:00 06/06/18 08:00 06/06/18 08:00 06/06/18 08:00 Intake and Output: 06/06/18 06/06/18 06:59 18:59 Intake Total 3822.4 567.6 Output Total 880 275 Balance 2942.4 292.6 - Medications Medications: Current Medications Acetaminophen (Tylenol 325mg Tab) 650 mg PO Q6 PRN PRN Reason: Pain, Mild (1-3) Last Admin: 06/05/18 09:08 Dose: 650 mg Allopurinol (Zyloprim) 100 mg PO DAILY [facility] Aspirin (Ecotrin) 81 mg PO DAILY [facility] Calcitriol (Rocaltrol) 0.25 mcg PO MWF [facility] Clonidine HCl (Catapres) 0.2 mg PO Q8H [facility] Last Admin: 06/06/18 06:24 Dose: 0.2 mg Clopidogrel Bisulfate (Plavix) 75 mg PO DAILY [facility] Dextrose (Dextrose 50% Inj) 0 ml IV STAT PRN; Protocol PRN Reason: Hypoglycemia Protocol Dextrose (Glutose 15) 0 gm PO ONCE PRN; Protocol PRN Reason: Hypoglycemia Protocol Diltiazem HCl (Cardizem Cd) 300 mg PO DAILY [facility] Glucagon (Glucagen Diagnostic Kit) 0 mg IM STAT PRN; Protocol PRN Reason: Hypoglycemia Protocol Heparin Sodium/Sodium Chloride (Heparin 42742 Units/250ml 1/2 Normal Saline) 25 ,000 units in 250 mls @ 12.791 mls/hr IV .[id number] PRN; Protocol; 12 UNITS/KG/HR PRN Reason: ADJUST RATE PER PROTOCOL Last Admin: 06/05/18 19:33 Dose: 12 units/kg/hr, 12.791 mls/hr Nitroglycerin/Dextrose (Nitroglycerin 50 Mg/250 Ml D5w) 50 mg in 250 mls @ 36 mls/hr IV .Q6H57M [facility]; 120 MCG/MIN PRN Reason: Protocol Last Admin: 06/06/18 08:00 Dose: 120 mcg/min, 36 mls/hr Dextrose (Dextrose 5% In Water 1000 Ml) 1,000 mls @ 0 mls/hr IV .Q0M PRN; Protocol; Per Protocol PRN Reason: Hypoglycemia Protocol Pantoprazole Sodium (Protonix Ec Tab) 20 mg PO DAILY [facility] Last Admin: 06/05/18 09:09 Dose: 20 mg Rosuvastatin Calcium (Crestor) 40 mg PO HS [facility] Last Admin: 06/05/18 21:48 Dose: 40 mg Sevelamer Carbonate (Renvela) 0.8 gm PO TIDCC [facility] Last Admin: 06/06/18 08:00 Dose: 0.8 gm Sitagliptin Phosphate (Januvia) 25 mg PO DAILY [facility] - Labs Labs: 06/06/18 06:46 06/06/18 06:46 APTT 62 SECONDS (21-34) H D 06/06/18 06:46 - Constitutional Appears: No Acute Distress - Head Exam Head Exam: ATRAUMATIC, NORMOCEPHALIC - Eye Exam Eye Exam: EOMI, Normal appearance - ENT Exam ENT Exam: Mucous Membranes Moist, Normal Exam - Respiratory Exam Respiratory Exam: NORMAL BREATHING PATTERN. absent: Respiratory Distress, Stridor - Cardiovascular Exam Cardiovascular Exam: +S1, +S2 - GI/Abdominal Exam GI & Abdominal Exam: Soft. absent: Firm, Guarding, Rigid, Tenderness - Neurological Exam Neurological Exam: Alert, Awake, Oriented x3 - Skin Skin Exam: Dry, Intact, Warm Assessment and Plan - Assessment and Plan (Free Text) Assessment: 47yoM with ESRD Plan: - unable to do Permacath placement without cardio clearance s/p NSTEMI ( troponins x3 elevated) - doing bedside femoral Shiley placement later this AM - has been NPO since midnight, remain NPO through procedure - f/u AM labs, today Cr remains elevated: 9.9 - may cont heparin and Plavix - medical management per primary - further recs per Dr. Fitz Hawkins PGY1
[2018-06-06] MEDS: Pantoprazole 20 mg EC Tab PO SCH (10:22)
[2018-06-06] MEDS: diltiaZEM 300 mg/24 Hours CD Cap PO SCH (10:24)
--- NOTE | 2018-06-06 12:38 | CP.PCM.HP ---
History of Present Illness - History of Present Illness History of Present Illness: COMPREHENSIVE HISTORY & PHYSICAL EXAM HPI Patient was admitted from the emergency room with chest pain. The EKG showed some T wave changes in the anterolateral leads and the first set of cardiac enzymes were positive. Patients creatinine was 10.0. Patient was admitted in the ICU ICU protocol for acute coronary syndrome and was started PAST HIST. Patient has history of coronary artery disease. Patient had 2 stents placed 2 years apart the [facility]. Patient also has a chronic renal insufficiency stage III with a creatinine of between 5-6. Patient has a history of hypertension and diabetes PERSONAL HIST: Smoking. N Alcohol. N Allergy N Travel_- . FAMILY HIST : ROS : Constitutional: Negative for weight change, chills, night sweats, fatigue and usage of assist device. Eyes: Negative for redness, swelling, itching, discharge, vision changes, blurry vision, double vision, glaucoma, cataracts, Ears: Negative for hearing loss, ringing, , tinnitus, vertigo Nose: Negative for rhinorrhea, stuffiness, sniffing, itching, postnasal drip, discoloration, nasal congestion and epistaxis. Throat: Negative for throat clearing, sore throat, hoarseness, difficulty swallowing and difficulty speaking. Respiratory: Negative for cough, , sputum production, chest tightness, wheezing, pleuritic chest pain ,daytime somnolence, chronic cough, hemoptysis, snoring at night, Cardiovascular: Negative for, orthopnea, PND, Edema of legs, leg cramps, angina , claudication, , irregular heartbeat, Neurology: Negative for irritability, muscle weakness, numbness and tingling, seizures, tremors, migraines, slurred speech, syncope, memory loss, mood changes , recurrent headaches Gastrointestinal: Negative for difficulty swallowing, diarrhea, constipation, black stools, rectal bleeding, nausea, flatulence, reflux, poor appetite, changes in bowel habits, abdominal pain Genitourinary: Negative for frequent urination, hematuria, discharge, incontinence, urinary retention, frequent UTI, Psychiatric: Negative for depression, anxiety/panic, suicidal tendencies, Musculoskeletal: Negative for swollen joints, back pain, , neck pain, morning stiffness of joints, . Skin: Negative for rash, ulcers, itching, dry skin and pigmented lesions. P/E: Constitutional: Appears stated age and in no apparent distress. Head: Normocephalic. Ears: External ear canals patent without inflammation. Tympanic membranes intact with normal light reflex and landmark. Eyes: Pupils are central, bilaterally equal, symmetrical and reacts to light with normal movements and no icterus or pallor. Nose: External nares are patent. Mucosa is pink Mouth-Throat: Good general appearance and condition. No post-pharyngeal/oropharyngeal erythema and tonsillar hypertrophy. Good dental hygiene. Neck-Lymphatic: Neck is supple with normal ROM, no thyromegaly, lymph nodes or masses. JVD is normal with no carotid bruit. Lungs: Clear to percussion and auscultation with bilateral normal air entry. Cardiovascular: S1 and S2 are normal with no murmurs, gallops and rub. GI Exam: No hepatomegaly. Abdomen is soft and non-tender. No Organomegaly , masses or hernias are evident and bowel sounds are normal and active. Neurology: Higher function and all cranial nerves intact, with no gross motor or sensory deficit. Superficial and deep reflexes are normal with downwards planters. No cerebellar deficit with normal gait. Musculoskeletal: No tender spots with normal curvature of the spine with no swelling or restricted ROM of the small and large joints. Extremities: Homans sign absent. Intact pulses with no pitting edema, calf tenderness or skin color changes. Skin: No rash, eruptions or abnormal skin pigmentation LAB/RADIOLOGY: ASSESMENT : Acute non-ST AK with stable hemodynamics. Acute on chronic renal failure. Hypertension PLAN: Continue the present management. Patient will need cardiac catheterization after stabilizing with dialysis. Present on Admission - Present on Admission Any Indicators Present on Admission: No Past Patient History - Past Medical History & Family History Past Medical History?: Yes - Past Social History Smoking Status: Never Smoked - CARDIAC Hx Hypertension: Yes - PULMONARY Hx Respiratory Disorders: No - NEUROLOGICAL Hx Neurological Disorder: No - HEENT Hx HEENT Problems: No - RENAL Hx Chronic Kidney Disease: Yes Hx Dialysis: No - ENDOCRINE/METABOLIC Hx Diabetes Mellitus Type 2: Yes - HEMATOLOGICAL/ONCOLOGICAL Hx Blood Disorders: No - INTEGUMENTARY Hx Dermatological Problems: No - MUSCULOSKELETAL/RHEUMATOLOGICAL Hx Falls: No - GASTROINTESTINAL Hx Gastrointestinal Disorders: No - GENITOURINARY/GYNECOLOGICAL Hx Genitourinary Disorders: No - PSYCHIATRIC Hx Substance Use: No - SURGICAL HISTORY Hx Coronary Stent: Yes - ANESTHESIA Hx Anesthesia: Yes Hx Anesthesia Reactions: No Hx Malignant Hyperthermia: No Meds Allergies/Adverse Reactions: Allergies Allergy/AdvReac Type Severity Reaction Status Date / Time No Known Allergies Allergy Verified 06/04/18 22:17 Results - Vital Signs Recent Vital Signs: Last Vital Signs Temp 98.8 F 06/06/18 08:00 Pulse 106 H 06/06/18 11:03 Resp 32 H 06/06/18 11:03 BP 157/89 H 06/06/18 11:58 Pulse Ox 97 06/06/18 08:00 - Labs Result Diagrams: 06/06/18 06:46 06/06/18 06:46 Labs: Laboratory Results - last 24 hr 06/05/18 06/05/18 06/05/18 12:41 17:11 21:23 WBC RBC Hgb Hct MCV MCH MCHC RDW Plt Count MPV Neut % (Auto) Lymph % (Auto) Bath % (Auto) Eos % (Auto) Baso % (Auto) Neut # (Auto) Lymph # (Auto) Bath # (Auto) Eos # (Auto) Baso # (Auto) APTT 75 H Sodium Potassium Chloride Carbon Dioxide Anion Gap BUN Creatinine Est GFR ( Amer) Est GFR (Non-Af Amer) Random Glucose Calcium Phosphorus Magnesium Iron TIBC % Saturation Total Bilirubin AST ALT Alkaline Phosphatase Total Creatine Kinase 469 H CK-MB (Mass) 9.44 H Troponin I 8.0600 H* Total Protein Albumin Globulin Albumin/Globulin Ratio Blood Type B NEGATIVE Blood Type Confirm B NEGATIVE Antibody Screen Negative 06/06/18 06/06/18 06/06/18 06:46 06:46 06:46 WBC 11.9 H RBC 2.62 L Hgb 7.6 L Hct 22.7 L MCV 86.4 MCH 29.0 MCHC 33.6 RDW 16.7 H Plt Count 240 MPV 8.4 Neut % (Auto) 67.4 Lymph % (Auto) 20.7 Bath % (Auto) 9.8 Eos % (Auto) 1.6 Baso % (Auto) 0.5 Neut # (Auto) 8.0 H Lymph # (Auto) 2.5 Bath # (Auto) 1.2 H Eos # (Auto) 0.2 Baso # (Auto) 0.1 APTT Sodium 140 Potassium 4.2 Chloride 106 Carbon Dioxide 21 L Anion Gap 18 BUN 78 H Creatinine 9.9 H* Est GFR ( Amer) 7 Est GFR (Non-Af Amer) 6 Random Glucose 116 H Calcium 8.7 Phosphorus 7.1 H Magnesium 1.7 Iron 58 TIBC 227 L % Saturation 26 Total Bilirubin 0.5 AST 37 ALT 27 Alkaline Phosphatase 56 Total Creatine Kinase CK-MB (Mass) Troponin I Total Protein 6.4 Albumin 3.4 L Globulin 3.0 Albumin/Globulin Ratio 1.1 Blood Type Blood Type Confirm Antibody Screen 06/06/18 06:46 WBC RBC Hgb Hct MCV MCH MCHC RDW Plt Count MPV Neut % (Auto) Lymph % (Auto) Bath % (Auto) Eos % (Auto) Baso % (Auto) Neut # (Auto) Lymph # (Auto) Bath # (Auto) Eos # (Auto) Baso # (Auto) APTT 62 H D Sodium Potassium Chloride Carbon Dioxide Anion Gap BUN Creatinine Est GFR ( Amer) Est GFR (Non-Af Amer) Random Glucose Calcium Phosphorus Magnesium Iron TIBC % Saturation Total Bilirubin AST ALT Alkaline Phosphatase Total Creatine Kinase CK-MB (Mass) Troponin I Total Protein Albumin Globulin Albumin/Globulin Ratio Blood Type Blood Type Confirm Antibody Screen
--- NOTE | 2018-06-06 14:51 | CP.PCM.PN ---
<Faye Mckeon - Last Filed: 06/06/18 18:54> Subjective - Date & Time of Evaluation Date of Evaluation: 06/06/18 Time of Evaluation: 14:51 - Subjective Subjective: Cardiology Progress Note - Dr Alba Patient seen and examined at bedside. Patient is s/p 2 units of PRBCs. Patient to be started on dialysis. Offers no complaints at this time. Denies chest pain or dyspnea. Objective - Vital Signs/Intake and Output Vital Signs (last 24 hours): Temp Pulse Resp BP Pulse Ox 98.8 F 106 H 32 H 157/89 H 97 06/06/18 08:00 06/06/18 11:03 06/06/18 11:03 06/06/18 11:58 06/06/18 08:00 Intake and Output: 06/06/18 06/06/18 06:59 18:59 Intake Total 3822.4 567.6 Output Total 880 275 Balance 2942.4 292.6 - Medications Medications: Current Medications Acetaminophen (Tylenol 325mg Tab) 650 mg PO Q6 PRN PRN Reason: Pain, Mild (1-3) Last Admin: 06/05/18 09:08 Dose: 650 mg Allopurinol (Zyloprim) 100 mg PO DAILY [facility] Last Admin: 06/06/18 10:24 Dose: 100 mg Aspirin (Ecotrin) 81 mg PO DAILY [facility] Last Admin: 06/06/18 10:23 Dose: 81 mg Calcitriol (Rocaltrol) 0.25 mcg PO MWF [facility] Last Admin: 06/06/18 10:22 Dose: 0.25 mcg Clonidine HCl (Catapres) 0.2 mg PO Q8H [facility] Last Admin: 06/06/18 14:14 Dose: 0.2 mg Clopidogrel Bisulfate (Plavix) 75 mg PO DAILY [facility] Last Admin: 06/06/18 10:23 Dose: 75 mg Dextrose (Dextrose 50% Inj) 0 ml IV STAT PRN; Protocol PRN Reason: Hypoglycemia Protocol Dextrose (Glutose 15) 0 gm PO ONCE PRN; Protocol PRN Reason: Hypoglycemia Protocol Diltiazem HCl (Cardizem Cd) 300 mg PO DAILY [facility] Last Admin: 06/06/18 10:24 Dose: 300 mg Glucagon (Glucagen Diagnostic Kit) 0 mg IM STAT PRN; Protocol PRN Reason: Hypoglycemia Protocol Hydralazine HCl (Apresoline) 100 mg PO TID [facility] Last Admin: 06/06/18 14:13 Dose: 100 mg Heparin Sodium/Sodium Chloride (Heparin 27921 Units/250ml 1/2 Normal Saline) 25 ,000 units in 250 mls @ 12.791 mls/hr IV .[id number] PRN; Protocol; 12 UNITS/KG/HR PRN Reason: ADJUST RATE PER PROTOCOL Last Admin: 06/05/18 19:33 Dose: 12 units/kg/hr, 12.791 mls/hr Nitroglycerin/Dextrose (Nitroglycerin 50 Mg/250 Ml D5w) 50 mg in 250 mls @ 36 mls/hr IV .Q6H57M CLARICE; 120 MCG/MIN PRN Reason: Protocol Last Admin: 06/06/18 08:00 Dose: 120 mcg/min, 36 mls/hr Dextrose (Dextrose 5% In Water 1000 Ml) 1,000 mls @ 0 mls/hr IV .Q0M PRN; Protocol; Per Protocol PRN Reason: Hypoglycemia Protocol Isosorbide Mononitrate (Imdur Er) 30 mg PO DAILY [facility] Last Admin: 06/06/18 10:22 Dose: 30 mg Pantoprazole Sodium (Protonix Ec Tab) 20 mg PO DAILY [facility] Last Admin: 06/06/18 10:22 Dose: 20 mg Rosuvastatin Calcium (Crestor) 40 mg PO HS [facility] Last Admin: 06/05/18 21:48 Dose: 40 mg Sevelamer Carbonate (Renvela) 0.8 gm PO TIDCC [facility] Last Admin: 06/06/18 12:11 Dose: 0.8 gm Sitagliptin Phosphate (Januvia) 25 mg PO DAILY [facility] Last Admin: 06/06/18 10:22 Dose: 25 mg - Labs Labs: 06/06/18 06:46 06/06/18 06:46 APTT 62 SECONDS (21-34) H D 06/06/18 06:46 - Constitutional Appears: Non-toxic, No Acute Distress - Head Exam Head Exam: ATRAUMATIC, NORMAL INSPECTION - Eye Exam Eye Exam: EOMI, Normal appearance - ENT Exam ENT Exam: Mucous Membranes Moist - Respiratory Exam Respiratory Exam: Clear to Ausculation Bilateral, NORMAL BREATHING PATTERN - Cardiovascular Exam Cardiovascular Exam: REGULAR RHYTHM, +S1, +S2 - GI/Abdominal Exam GI & Abdominal Exam: Soft. absent: Tenderness - Extremities Exam Extremities Exam: Normal Inspection - Neurological Exam Neurological Exam: Alert, Awake, Oriented x3 - Psychiatric Exam Psychiatric exam: Normal Affect, Normal Mood Assessment and Plan - Assessment and Plan (Free Text) Assessment: A/P: Patient is a 47 year old male with past medical history of CKD, diabetes mellitus, HTN who presented with chest pain and shortness of breath. Patient found to have NSTEMI and acute renal failure. NSTEMI -Stable, afebrile -F/U echocardiogram -Continue Aspirin 81mg PO daily and plavix 75mg PO daily -Continue Heparin drip -For possible cardiac cath on Saturday Hypercholesterolemia -Crestor 40mg PO HS Hypertension -Nitro drip -Hydralazine 100mg PO TID -Cardizem 300mg PO daily Acute on Chronic kidney disease -Patient to start HD -Nephro on consult, help appreciated Plan to be discussed with Dr Parth Mckeon DO PGY-2 <Ever Alba - Last Filed: 06/07/18 08:33> Objective - Vital Signs/Intake and Output Vital Signs (last 24 hours): Temp Pulse Resp BP Pulse Ox 98.5 F 73 23 156/86 H 97 06/07/18 04:00 06/07/18 07:00 06/07/18 07:00 06/07/18 06:31 06/07/18 07:00 Intake and Output: 06/07/18 06/07/18 06:59 18:59 Intake Total 1029.6 212.8 Output Total 200 0 Balance 829.6 212.8 - Medications Medications: Current Medications Acetaminophen (Tylenol 325mg Tab) 650 mg PO Q6 PRN PRN Reason: Pain, Mild (1-3) Last Admin: 06/05/18 09:08 Dose: 650 mg Allopurinol (Zyloprim) 100 mg PO DAILY [facility] Last Admin: 06/06/18 10:24 Dose: 100 mg Aspirin (Ecotrin) 81 mg PO DAILY [facility] Last Admin: 06/06/18 10:23 Dose: 81 mg Calcitriol (Rocaltrol) 0.25 mcg PO MWF [facility] Last Admin: 06/06/18 10:22 Dose: 0.25 mcg Clonidine HCl (Catapres) 0.2 mg PO Q8H [facility] Last Admin: 06/07/18 05:59 Dose: 0.2 mg Clopidogrel Bisulfate (Plavix) 75 mg PO DAILY [facility] Last Admin: 06/06/18 10:23 Dose: 75 mg Dextrose (Dextrose 50% Inj) 0 ml IV STAT PRN; Protocol PRN Reason: Hypoglycemia Protocol Dextrose (Glutose 15) 0 gm PO ONCE PRN; Protocol PRN Reason: Hypoglycemia Protocol Diltiazem HCl (Cardizem Cd) 300 mg PO DAILY [facility] Last Admin: 06/06/18 10:24 Dose: 300 mg Glucagon (Glucagen Diagnostic Kit) 0 mg IM STAT PRN; Protocol PRN Reason: Hypoglycemia Protocol Heparin Sodium (Porcine) (Heparin) 2,600 units IVP MWF [facility] Stop: 06/18/18 09:01 Last Admin: 06/06/18 22:04 Dose: 2,600 units Hydralazine HCl (Apresoline) 100 mg PO TID [facility] Last Admin: 06/06/18 17:02 Dose: 100 mg Heparin Sodium/Sodium Chloride (Heparin 08522 Units/250ml 1/2 Normal Saline) 25 ,000 units in 250 mls @ 12.791 mls/hr IV .[id number] PRN; Protocol; 12 UNITS/KG/HR PRN Reason: ADJUST RATE PER PROTOCOL Last Admin: 06/06/18 15:24 Dose: 12 units/kg/hr, 12.791 mls/hr Dextrose (Dextrose 5% In Water 1000 Ml) 1,000 mls @ 0 mls/hr IV .Q0M PRN; Protocol; Per Protocol PRN Reason: Hypoglycemia Protocol Isosorbide Mononitrate (Imdur Er) 30 mg PO DAILY [facility] Last Admin: 06/06/18 10:22 Dose: 30 mg Pantoprazole Sodium (Protonix Ec Tab) 20 mg PO DAILY [facility] Last Admin: 06/06/18 10:22 Dose: 20 mg Rosuvastatin Calcium (Crestor) 40 mg PO HS [facility] Last Admin: 06/06/18 22:29 Dose: 40 mg Sevelamer Carbonate (Renvela) 0.8 gm PO TIDCC [facility] Last Admin: 06/06/18 17:02 Dose: 0.8 gm Sitagliptin Phosphate (Januvia) 25 mg PO DAILY [facility] Last Admin: 06/06/18 10:22 Dose: 25 mg Sodium Chloride ([place] Baby Saline 30 Ml) 0 ml KASIE Q4H PRN PRN Reason: Dry nasal passages Last Admin: 06/07/18 04:10 Dose: 1 spr - Labs Labs: 06/07/18 06:11 06/07/18 06:11 APTT 52 SECONDS (21-34) H D 06/07/18 06:11 Assessment and Plan - Assessment and Plan (Free Text) Assessment: Patient seen and evaluated personally by me Plan of care d/w the medical psychotherapist and as documented
[2018-06-06] MEDS: Heparin25000 units/250ml 1/2NS 25,000 UNITS/250 ML BAG IV PRN (15:24)
--- NOTE | 2018-06-06 17:26 | PCM.PROC ---
Procedures Attestation:: I certify that I have explained the specified Operation(s) or Procedure(s), risks, benefits and reasonable alternatives to the Patient and/or other person responsible. The opportunity was given to ask questions and all questions answered - Central Line Placement Right Femoral Hemodialysis Access Aseptic technique was employed throughout the procedure: Hand Hygiene done prior to procedure, Full sterile barriers (mask, hair cover, sterile gown, sterile gloves), Full body sterile drape, Chloraprep Antiseptic: 2 minute prep for Femoral Pt. Placed on Pulse Ox Monitor: Yes Central Line Prep: Chlorhexidine-Alcohol Combination Local Anesthesia Used: Lidocaine 1% Amount of Anesthesia Used (mls): 5 Ultrasound Used for Placement: Yes Central Line Lumen Inserted: triple Central Line Length: 20 cm Post Procedure: Sutured in Place, Good Blood Return, All Ports Aspirated, Flushed, Capped, Sterile Dressing Applied Secured by: Suture Post procedure dressing: Clear vapor permeable, Chlorhexidine disc (Biopatch) Patient Tolerated Procedure: Well, No Complications Immediate Complications: None
--- NOTE | 2018-06-06 18:23 | CP.CCUPN ---
<Gissell Casiano P - Last Filed: 06/06/18 18:22> CCU Subjective - Physician Review Subjective (Free Text): PGY-1 critical care consult note for Dr. Perez. Patient seen and evaluated at bedside. Patient resting comfortably. States he feels better and back pain has improved. Denies chest pain, SOB, nausea, vomiting, abdominal pain, lightheadedness, and dizziness. Patient received 2 units of PRBC yesterday. Patient consented to dialysis and had femoral shiley placed today. CCU Objective - Vital Signs / Intake & Output Vital Signs (Last 4 hours): Vital Signs Pulse Resp BP Pulse Ox 06/06/18 16:00 87 17 06/06/18 15:59 95 H 17 159/75 H 06/06/18 15:20 87 18 143/72 98 06/06/18 15:00 87 26 H 98 06/06/18 14:58 90 13 143/72 99 Intake and Output (Last 8hrs): Intake & Output 06/06/18 06/06/18 06/06/18 06:59 14:59 22:59 Intake Total 2929.2 986.4 323 Output Total 480 275 Balance 2449.2 711.4 323 Weight 289 lb Intake: IV 250 500 323 Intake, IV Amount 1779.2 146.4 Left Antecubital 115.2 38.4 Right Antecubital 264 108 Right Wrist 1400 Oral 800 340 Blood Product 0 Apheresis Rbc Cp2d As3 Lr 0 2nd Unit [id number] Other 100 Apheresis Rbc Cp2d As3 Lr 100 2nd Unit [id number] Output: Urine 480 275 Urine, Voided 480 275 Other: # Voids Urine, Voided 1 # Bowel Movements 0 0 - Physical Exam Head: Positive for: Atraumatic, Normocephalic Extroacular Muscles: Positive for: EOMI Neck: Positive for: Normal Range of Motion Respiratory/Chest: Positive for: Clear to Auscultation. Negative for: Wheezes, Rales, Rhonchi Cardiovascular: Positive for: Regular Rate and Rhythm, Normal S1, S2 Abdomen: Positive for: Normal Bowel Sounds. Negative for: Tenderness, Distention, Rebound, Guarding Back: Negative for: Paraspinal Tenderness Lower Extremity: Negative for: Edema, CALF TENDERNESS Neurological: Positive for: CN II-XII Intact, Speech Normal, Motor Func Grossly Intact Skin: Positive for: Warm, Dry Psychiatric: Positive for: Alert, Oriented x 3 - Medications Active Medications: Active Medications Generic Name Dose Route Start Last Admin Trade Name Freq PRN Reason Stop Dose Admin Acetaminophen 650 mg 06/05/18 08:30 06/05/18 09:08 Tylenol 325mg Tab PO 650 mg Q6 PRN Administration Pain, Mild (1-3) Allopurinol 100 mg 06/06/18 10:00 06/06/18 10:24 Zyloprim PO 100 mg DAILY [facility] Administration Aspirin 81 mg 06/06/18 10:00 06/06/18 10:23 Ecotrin PO 81 mg DAILY [facility] Administration Calcitriol 0.25 mcg 06/06/18 09:00 06/06/18 10:22 Rocaltrol PO 0.25 mcg MWF [facility] Administration Clonidine HCl 0.2 mg 06/05/18 22:00 06/06/18 14:14 Catapres PO 0.2 mg Q8H [facility] Administration Clopidogrel Bisulfate 75 mg 06/06/18 10:00 06/06/18 10:23 Plavix PO 75 mg DAILY [facility] Administration Dextrose 0 ml 06/05/18 20:46 Dextrose 50% Inj IV STAT PRN Hypoglycemia Protocol Protocol Dextrose 0 gm 06/05/18 20:46 Glutose 15 PO ONCE PRN Hypoglycemia Protocol Protocol Diltiazem HCl 300 mg 06/06/18 10:00 06/06/18 10:24 Cardizem Cd PO 300 mg DAILY [facility] Administration Glucagon 0 mg 06/05/18 20:46 Glucagen Diagnostic Kit IM STAT PRN Hypoglycemia Protocol Protocol Hydralazine HCl 100 mg 06/06/18 10:30 06/06/18 17:02 Apresoline PO 100 mg TID [facility] Administration Heparin Sodium/Sodium Chloride 25,000 units in 250 mls @ 12.791 mls/hr 00:15 06/06/18 15:24 Heparin 17771 Units/250ml 1/2 Normal Saline IV 12 units/kg/hr .[id number] PRN 12.791 mls/hr ADJUST RATE PER PROTOCOL Administration Protocol 12 UNITS/KG/HR Nitroglycerin/Dextrose 50 mg in 250 mls @ 36 mls/hr 06/05/18 07:18 06/06/18 17:00 Nitroglycerin 50 Mg/250 Ml D5w IV 110 mcg/min .[id number] [facility] 33 mls/hr Protocol Titration 120 MCG/MIN Dextrose 1,000 mls @ 0 mls/hr 06/05/18 20:46 Dextrose 5% In Water 1000 Ml IV .Q0M PRN Hypoglycemia Protocol Protocol Per Protocol Isosorbide Mononitrate 30 mg 06/06/18 10:15 06/06/18 10:22 Imdur Er PO 30 mg DAILY [facility] Administration Pantoprazole Sodium 20 mg 06/05/18 10:00 06/06/18 10:22 Protonix Ec Tab PO 20 mg DAILY [facility] Administration Rosuvastatin Calcium 40 mg 06/05/18 22:00 06/05/18 21:48 Crestor PO 40 mg HS [facility] Administration Sevelamer Carbonate 0.8 gm 06/06/18 08:00 06/06/18 17:02 Renvela PO 0.8 gm TIDCC [facility] Administration Sitagliptin Phosphate 25 mg 06/06/18 10:00 06/06/18 10:22 Januvia PO 25 mg DAILY [facility] Administration - Patient Studies Lab Studies: Lab Studies 06/06/18 06/06/18 06/06/18 Range/Units 06:46 06:46 06:46 WBC 11.9 H (4.8-10.8) K/uL RBC 2.62 L (4.40-5.90) Mil/uL Hgb 7.6 L (12.0-18.0) g/dL Hct 22.7 L (35.0-51.0) % MCV 86.4 (80.0-94.0) fL MCH 29.0 (27.0-31.0) pg MCHC 33.6 (33.0-37.0) g/dL RDW 16.7 H (11.5-14.5) % Plt Count 240 (130-400) K/uL MPV 8.4 (7.2-11.7) fL Neut % (Auto) 67.4 (50.0-75.0) % Lymph % (Auto) 20.7 (20.0-40.0) % [place] % (Auto) 9.8 (0.0-10.0) % Eos % (Auto) 1.6 (0.0-4.0) % Baso % (Auto) 0.5 (0.0-2.0) % Neut # (Auto) 8.0 H (1.8-7.0) K/uL Lymph # (Auto) 2.5 (1.0-4.3) K/uL [place] # (Auto) 1.2 H (0.0-0.8) K/uL Eos # (Auto) 0.2 (0.0-0.7) K/uL Baso # (Auto) 0.1 (0.0-0.2) K/uL APTT 62 H D (21-34) SECONDS Sodium 140 (132-148) mmol/L Potassium 4.2 (3.6-5.2) mmol/L Chloride 106 (98-107) mmol/L Carbon Dioxide 21 L (22-30) mmol/L Anion Gap 18 (10-20) BUN 78 H (9-20) mg/dL Creatinine 9.9 H* (0.8-1.5) mg/dL Est GFR ( Amer) 7 Est GFR (Non-Af Amer) 6 Random Glucose 116 H (75-110) mg/dL Calcium 8.7 (8.6-10.4) mg/dl Phosphorus 7.1 H (2.5-4.5) mg/dL Magnesium 1.7 (1.6-2.3) mg/dL Iron (49-181) ug/dL TIBC (250-450) ug/dL % Saturation (20-55) Total Bilirubin 0.5 (0.2-1.3) mg/dL AST 37 (17-59) U/L ALT 27 (21-72) U/L Alkaline Phosphatase 56 (38-126) U/L Total Protein 6.4 (6.3-8.3) g/dL Albumin 3.4 L (3.5-5.0) g/dL Globulin 3.0 (2.2-3.9) gm/dL Albumin/Globulin Ratio 1.1 (1.0-2.1) Blood Type Blood Type Confirm Antibody Screen 06/06/18 06/05/18 Range/Units 06:46 21:23 WBC (4.8-10.8) K/uL RBC (4.40-5.90) Mil/uL Hgb (12.0-18.0) g/dL Hct (35.0-51.0) % MCV (80.0-94.0) fL MCH (27.0-31.0) pg MCHC (33.0-37.0) g/dL RDW (11.5-14.5) % Plt Count (130-400) K/uL MPV (7.2-11.7) fL Neut % (Auto) (50.0-75.0) % Lymph % (Auto) (20.0-40.0) % [place] % (Auto) (0.0-10.0) % Eos % (Auto) (0.0-4.0) % Baso % (Auto) (0.0-2.0) % Neut # (Auto) (1.8-7.0) K/uL Lymph # (Auto) (1.0-4.3) K/uL [place] # (Auto) (0.0-0.8) K/uL Eos # (Auto) (0.0-0.7) K/uL Baso # (Auto) (0.0-0.2) K/uL APTT (21-34) SECONDS Sodium (132-148) mmol/L Potassium (3.6-5.2) mmol/L Chloride (98-107) mmol/L Carbon Dioxide (22-30) mmol/L Anion Gap (10-20) BUN (9-20) mg/dL Creatinine (0.8-1.5) mg/dL Est GFR ( Amer) Est GFR (Non-Af Amer) Random Glucose (75-110) mg/dL Calcium (8.6-10.4) mg/dl Phosphorus (2.5-4.5) mg/dL Magnesium (1.6-2.3) mg/dL Iron 58 (49-181) ug/dL TIBC 227 L (250-450) ug/dL % Saturation 26 (20-55) Total Bilirubin (0.2-1.3) mg/dL AST (17-59) U/L ALT (21-72) U/L Alkaline Phosphatase (38-126) U/L Total Protein (6.3-8.3) g/dL Albumin (3.5-5.0) g/dL Globulin (2.2-3.9) gm/dL Albumin/Globulin Ratio (1.0-2.1) Blood Type B NEGATIVE Blood Type Confirm B NEGATIVE Antibody Screen Negative Laboratory Results - last 24 hr 06/05/18 06/06/18 06/06/18 21:23 06:46 06:46 WBC 11.9 H RBC 2.62 L Hgb 7.6 L Hct 22.7 L MCV 86.4 MCH 29.0 MCHC 33.6 RDW 16.7 H Plt Count 240 MPV 8.4 Neut % (Auto) 67.4 Lymph % (Auto) 20.7 [place] % (Auto) 9.8 Eos % (Auto) 1.6 Baso % (Auto) 0.5 Neut # (Auto) 8.0 H Lymph # (Auto) 2.5 [place] # (Auto) 1.2 H Eos # (Auto) 0.2 Baso # (Auto) 0.1 APTT Sodium Potassium Chloride Carbon Dioxide Anion Gap BUN Creatinine Est GFR ( Amer) Est GFR (Non-Af Amer) Random Glucose Calcium Phosphorus Magnesium Iron 58 TIBC 227 L % Saturation 26 Total Bilirubin AST ALT Alkaline Phosphatase Total Protein Albumin Globulin Albumin/Globulin Ratio Blood Type B NEGATIVE Blood Type Confirm B NEGATIVE Antibody Screen Negative 06/06/18 06/06/18 06:46 06:46 WBC RBC Hgb Hct MCV MCH MCHC RDW Plt Count MPV Neut % (Auto) Lymph % (Auto) [place] % (Auto) Eos % (Auto) Baso % (Auto) Neut # (Auto) Lymph # (Auto) [place] # (Auto) Eos # (Auto) Baso # (Auto) APTT 62 H D Sodium 140 Potassium 4.2 Chloride 106 Carbon Dioxide 21 L Anion Gap 18 BUN 78 H Creatinine 9.9 H* Est GFR ( Amer) 7 Est GFR (Non-Af Amer) 6 Random Glucose 116 H Calcium 8.7 Phosphorus 7.1 H Magnesium 1.7 Iron TIBC % Saturation Total Bilirubin 0.5 AST 37 ALT 27 Alkaline Phosphatase 56 Total Protein 6.4 Albumin 3.4 L Globulin 3.0 Albumin/Globulin Ratio 1.1 Blood Type Blood Type Confirm Antibody Screen Review of Systems - Review of Systems All systems: reviewed and no additional remarkable complaints except (as per HPI ) Critical Care Progress Note - Nutrition Nutrition: Nutrition Category Date Time Status Renal Diet [DIET] Diets 06/06/18 Dinner Active Assessment/Plan - Assessment and Plan (Free Text) Plan: 47 yo M PMHx of HTN, DM2, stage 5 CKD, CAD with stent placement x2 (latest 2016) presented to ED with chest pain, SOB, nausea and vomiting. Admitted to ICU for NSTEMI and hypertensive emergency. On Heparin drip, nitro drip, ASA, plavix. placed on home antihypertensive meds. Elevated Cr, nephro consulted. Patient consented to dialysis. Had R femoral Shiley placed 06/06/18. Tapering off nitro drip and transitioning to PO Neuro: Patient awake, alert, oriented x3. Resting comfortably. Acetaminophen 650mg PO Q6H PRN for back pain Cardio: Patient chest pain free today Troponin downtrendin.7->10.4->8.06 BP 160s-140s/100-70s today Heparin drip, stop at 12am 06/07 tapering off Nitro drip ASA 81mg Plavix 75mg PO daily Crestor 40mg PO HS clonidine 0.2mg PO Q8H Diltiazem 300mg PO daily Hydralazine 100mg PO TID Isosorbide Mononitrate ER 30mg PO daily Pulm: Maintain SpO2>95% GI: Renal diet Renal: Cr. 9.9, increased from 5.[address] Villatoro consulted. Recommending dialysis. Patient signed consent and had R femoral dialysis access placed today. Surgery consulted. F/u recs. calcitriol ID: WBC: 11.9, down trending afebrile Heme: H/H: 7.6/22.7 following 2 units of PRBC 06/04/18 monitor Endo: Sitagliptin 25mg daily MSK: Allopurinol 100mg PO daily Ppx: Protonix Discussed with Dr. Chen Perez. <Nohemy Perez - Last Filed: 06/06/18 19:01> CCU Subjective - Physician Review Critical Care Time Spent (in minutes): 32 CCU Objective - Vital Signs / Intake & Output Vital Signs (Last 4 hours): Vital Signs Pulse Resp BP Pulse Ox 06/06/18 16:00 87 17 06/06/18 15:59 95 H 17 159/75 H 06/06/18 15:20 87 18 143/72 98 06/06/18 15:00 87 26 H 98 Intake and Output (Last 8hrs): Intake & Output 06/06/18 06/06/18 06/06/18 06:59 14:59 22:59 Intake Total 2929.2 986.4 323 Output Total 480 275 Balance 2449.2 711.4 323 Weight 289 lb Intake: IV 250 500 323 Intake, IV Amount 1779.2 146.4 Left Antecubital 115.2 38.4 Right Antecubital 264 108 Right Wrist 1400 Oral 800 340 Blood Product 0 Apheresis Rbc Cp2d As3 Lr 0 2nd Unit [id number] Other 100 Apheresis Rbc Cp2d As3 Lr 100 2nd Unit [id number] Output: Urine 480 275 Urine, Voided 480 275 Other: # Voids Urine, Voided 1 # Bowel Movements 0 0 - Medications Active Medications: Active Medications Generic Name Dose Route Start Last Admin Trade Name Freq PRN Reason Stop Dose Admin Acetaminophen 650 mg 06/05/18 08:30 06/05/18 09:08 Tylenol 325mg Tab PO 650 mg Q6 PRN Administration Pain, Mild (1-3) Allopurinol 100 mg 06/06/18 10:00 06/06/18 10:24 Zyloprim PO 100 mg DAILY [facility] Administration Aspirin 81 mg 06/06/18 10:00 06/06/18 10:23 Ecotrin PO 81 mg DAILY [facility] Administration Calcitriol 0.25 mcg 06/06/18 09:00 06/06/18 10:22 Rocaltrol PO 0.25 mcg MWF [facility] Administration Clonidine HCl 0.2 mg 06/05/18 22:00 06/06/18 14:14 Catapres PO 0.2 mg Q8H [facility] Administration Clopidogrel Bisulfate 75 mg 06/06/18 10:00 06/06/18 10:23 Plavix PO 75 mg DAILY [facility] Administration Dextrose 0 ml 06/05/18 20:46 Dextrose 50% Inj IV STAT PRN Hypoglycemia Protocol Protocol Dextrose 0 gm 06/05/18 20:46 Glutose 15 PO ONCE PRN Hypoglycemia Protocol Protocol Diltiazem HCl 300 mg 06/06/18 10:00 06/06/18 10:24 Cardizem Cd PO 300 mg DAILY [facility] Administration Glucagon 0 mg 06/05/18 20:46 Glucagen Diagnostic Kit IM STAT PRN Hypoglycemia Protocol Protocol Hydralazine HCl 100 mg 06/06/18 10:30 06/06/18 17:02 Apresoline PO 100 mg TID [facility] Administration Heparin Sodium/Sodium Chloride 25,000 units in 250 mls @ 12.791 mls/hr 00:15 06/06/18 15:24 Heparin 44210 Units/250ml 1/2 Normal Saline IV 12 units/kg/hr .[id number] PRN 12.791 mls/hr ADJUST RATE PER PROTOCOL Administration Protocol 12 UNITS/KG/HR Nitroglycerin/Dextrose 50 mg in 250 mls @ 36 mls/hr 06/05/18 07:18 06/06/18 17:00 Nitroglycerin 50 Mg/250 Ml D5w IV 110 mcg/min .Q6H57M [facility] 33 mls/hr Protocol Titration 120 MCG/MIN Dextrose 1,000 mls @ 0 mls/hr 06/05/18 20:46 Dextrose 5% In Water 1000 Ml IV .Q0M PRN Hypoglycemia Protocol Protocol Per Protocol Isosorbide Mononitrate 30 mg 06/06/18 10:15 06/06/18 10:22 Imdur Er PO 30 mg DAILY [facility] Administration Pantoprazole Sodium 20 mg 06/05/18 10:00 06/06/18 10:22 Protonix Ec Tab PO 20 mg DAILY [facility] Administration Rosuvastatin Calcium 40 mg 06/05/18 22:00 06/05/18 21:48 Crestor PO 40 mg HS [facility] Administration Sevelamer Carbonate 0.8 gm 06/06/18 08:00 06/06/18 17:02 Renvela PO 0.8 gm TIDCC [facility] Administration Sitagliptin Phosphate 25 mg 06/06/18 10:00 06/06/18 10:22 Januvia PO 25 mg DAILY [facility] Administration - Patient Studies Lab Studies: Lab Studies 06/06/18 06/06/18 06/06/18 Range/Units 06:46 06:46 06:46 WBC 11.9 H (4.8-10.8) K/uL RBC 2.62 L (4.40-5.90) Mil/uL Hgb 7.6 L (12.0-18.0) g/dL Hct 22.7 L (35.0-51.0) % MCV 86.4 (80.0-94.0) fL MCH 29.0 (27.0-31.0) pg MCHC 33.6 (33.0-37.0) g/dL RDW 16.7 H (11.5-14.5) % Plt Count 240 (130-400) K/uL MPV 8.4 (7.2-11.7) fL Neut % (Auto) 67.4 (50.0-75.0) % Lymph % (Auto) 20.7 (20.0-40.0) % [place] % (Auto) 9.8 (0.0-10.0) % Eos % (Auto) 1.6 (0.0-4.0) % Baso % (Auto) 0.5 (0.0-2.0) % Neut # (Auto) 8.0 H (1.8-7.0) K/uL Lymph # (Auto) 2.5 (1.0-4.3) K/uL [place] # (Auto) 1.2 H (0.0-0.8) K/uL Eos # (Auto) 0.2 (0.0-0.7) K/uL Baso # (Auto) 0.1 (0.0-0.2) K/uL APTT 62 H D (21-34) SECONDS Sodium 140 (132-148) mmol/L Potassium 4.2 (3.6-5.2) mmol/L Chloride 106 (98-107) mmol/L Carbon Dioxide 21 L (22-30) mmol/L Anion Gap 18 (10-20) BUN 78 H (9-20) mg/dL Creatinine 9.9 H* (0.8-1.5) mg/dL Est GFR ( Amer) 7 Est GFR (Non-Af Amer) 6 Random Glucose 116 H (75-110) mg/dL Calcium 8.7 (8.6-10.4) mg/dl Phosphorus 7.1 H (2.5-4.5) mg/dL Magnesium 1.7 (1.6-2.3) mg/dL Iron (49-181) ug/dL TIBC (250-450) ug/dL % Saturation (20-55) Total Bilirubin 0.5 (0.2-1.3) mg/dL AST 37 (17-59) U/L ALT 27 (21-72) U/L Alkaline Phosphatase 56 (38-126) U/L Total Protein 6.4 (6.3-8.3) g/dL Albumin 3.4 L (3.5-5.0) g/dL Globulin 3.0 (2.2-3.9) gm/dL Albumin/Globulin Ratio 1.1 (1.0-2.1) Blood Type Blood Type Confirm Antibody Screen 06/06/18 06/05/18 Range/Units 06:46 21:23 WBC (4.8-10.8) K/uL RBC (4.40-5.90) Mil/uL Hgb (12.0-18.0) g/dL Hct (35.0-51.0) % MCV (80.0-94.0) fL MCH (27.0-31.0) pg MCHC (33.0-37.0) g/dL RDW (11.5-14.5) % Plt Count (130-400) K/uL MPV (7.2-11.7) fL Neut % (Auto) (50.0-75.0) % Lymph % (Auto) (20.0-40.0) % [place] % (Auto) (0.0-10.0) % Eos % (Auto) (0.0-4.0) % Baso % (Auto) (0.0-2.0) % Neut # (Auto) (1.8-7.0) K/uL Lymph # (Auto) (1.0-4.3) K/uL [place] # (Auto) (0.0-0.8) K/uL Eos # (Auto) (0.0-0.7) K/uL Baso # (Auto) (0.0-0.2) K/uL APTT (21-34) SECONDS Sodium (132-148) mmol/L Potassium (3.6-5.2) mmol/L Chloride (98-107) mmol/L Carbon Dioxide (22-30) mmol/L Anion Gap (10-20) BUN (9-20) mg/dL Creatinine (0.8-1.5) mg/dL Est GFR ( Amer) Est GFR (Non-Af Amer) Random Glucose (75-110) mg/dL Calcium (8.6-10.4) mg/dl Phosphorus (2.5-4.5) mg/dL Magnesium (1.6-2.3) mg/dL Iron 58 (49-181) ug/dL TIBC 227 L (250-450) ug/dL % Saturation 26 (20-55) Total Bilirubin (0.2-1.3) mg/dL AST (17-59) U/L ALT (21-72) U/L Alkaline Phosphatase (38-126) U/L Total Protein (6.3-8.3) g/dL Albumin (3.5-5.0) g/dL Globulin (2.2-3.9) gm/dL Albumin/Globulin Ratio (1.0-2.1) Blood Type B NEGATIVE Blood Type Confirm B NEGATIVE Antibody Screen Negative Laboratory Results - last 24 hr 06/05/18 06/06/18 06/06/18 21:23 06:46 06:46 WBC 11.9 H RBC 2.62 L Hgb 7.6 L Hct 22.7 L MCV 86.4 MCH 29.0 MCHC 33.6 RDW 16.7 H Plt Count 240 MPV 8.4 Neut % (Auto) 67.4 Lymph % (Auto) 20.7 [place] % (Auto) 9.8 Eos % (Auto) 1.6 Baso % (Auto) 0.5 Neut # (Auto) 8.0 H Lymph # (Auto) 2.5 [place] # (Auto) 1.2 H Eos # (Auto) 0.2 Baso # (Auto) 0.1 APTT Sodium Potassium Chloride Carbon Dioxide Anion Gap BUN Creatinine Est GFR ( Amer) Est GFR (Non-Af Amer) Random Glucose Calcium Phosphorus Magnesium Iron 58 TIBC 227 L % Saturation 26 Total Bilirubin AST ALT Alkaline Phosphatase Total Protein Albumin Globulin Albumin/Globulin Ratio Blood Type B NEGATIVE Blood Type Confirm B NEGATIVE Antibody Screen Negative 06/06/18 06/06/18 06:46 06:46 WBC RBC Hgb Hct MCV MCH MCHC RDW Plt Count MPV Neut % (Auto) Lymph % (Auto) [place] % (Auto) Eos % (Auto) Baso % (Auto) Neut # (Auto) Lymph # (Auto) [place] # (Auto) Eos # (Auto) Baso # (Auto) APTT 62 H D Sodium 140 Potassium 4.2 Chloride 106 Carbon Dioxide 21 L Anion Gap 18 BUN 78 H Creatinine 9.9 H* Est GFR ( Amer) 7 Est GFR (Non-Af Amer) 6 Random Glucose 116 H Calcium 8.7 Phosphorus 7.1 H Magnesium 1.7 Iron TIBC % Saturation Total Bilirubin 0.5 AST 37 ALT 27 Alkaline Phosphatase 56 Total Protein 6.4 Albumin 3.4 L Globulin 3.0 Albumin/Globulin Ratio 1.1 Blood Type Blood Type Confirm Antibody Screen Critical Care Progress Note - Nutrition Nutrition: Nutrition Category Date Time Status Renal Diet [DIET] Diets 06/06/18 Dinner Active Assessment/Plan - Assessment and Plan (Free Text) Plan: Patient admitted to ICU for HTN urgency with chronic Kidney failure stage III- IV requireing HD and NSTEMI. -Patient seen and examined at bedside wit satish lorenzo. Above resident documents my clinical management -[facility] HTN -NSTEMI -CKD reqiuring HT cc time 32 minutes cc time 32 minutes - Date & Time Date: 06/06/18 Time: 19:01
--- NOTE | 2018-06-06 19:26 | CP.PCM.PN ---
Subjective - Date & Time of Evaluation Date of Evaluation: 06/06/18 Time of Evaluation: 19:26 - Subjective Subjective: pt is seen and examined, follow up consult is dictated #[id number] type and cross and transfuse 1 unit prbc during hd, pt is being dialyzed Objective - Vital Signs/Intake and Output Vital Signs (last 24 hours): Temp Pulse Resp BP Pulse Ox 98.2 F 84 16 151/86 H 99 06/06/18 18:45 06/06/18 18:45 06/06/18 18:45 06/06/18 19:00 06/06/18 18:45 Intake and Output: 06/06/18 06/07/18 18:59 06:59 Intake Total 1342.4 30 Output Total 275 Balance 1067.4 30 - Medications Medications: Current Medications Acetaminophen (Tylenol 325mg Tab) 650 mg PO Q6 PRN PRN Reason: Pain, Mild (1-3) Last Admin: 06/05/18 09:08 Dose: 650 mg Allopurinol (Zyloprim) 100 mg PO DAILY [facility] Last Admin: 06/06/18 10:24 Dose: 100 mg Aspirin (Ecotrin) 81 mg PO DAILY [facility] Last Admin: 06/06/18 10:23 Dose: 81 mg Calcitriol (Rocaltrol) 0.25 mcg PO MWF [facility] Last Admin: 06/06/18 10:22 Dose: 0.25 mcg Clonidine HCl (Catapres) 0.2 mg PO Q8H [facility] Last Admin: 06/06/18 14:14 Dose: 0.2 mg Clopidogrel Bisulfate (Plavix) 75 mg PO DAILY [facility] Last Admin: 06/06/18 10:23 Dose: 75 mg Dextrose (Dextrose 50% Inj) 0 ml IV STAT PRN; Protocol PRN Reason: Hypoglycemia Protocol Dextrose (Glutose 15) 0 gm PO ONCE PRN; Protocol PRN Reason: Hypoglycemia Protocol Diltiazem HCl (Cardizem Cd) 300 mg PO DAILY [facility] Last Admin: 06/06/18 10:24 Dose: 300 mg Glucagon (Glucagen Diagnostic Kit) 0 mg IM STAT PRN; Protocol PRN Reason: Hypoglycemia Protocol Hydralazine HCl (Apresoline) 100 mg PO TID [facility] Last Admin: 06/06/18 17:02 Dose: 100 mg Heparin Sodium/Sodium Chloride (Heparin 84362 Units/250ml 1/2 Normal Saline) 25 ,000 units in 250 mls @ 12.791 mls/hr IV .[id number] PRN; Protocol; 12 UNITS/KG/HR PRN Reason: ADJUST RATE PER PROTOCOL Last Admin: 06/06/18 15:24 Dose: 12 units/kg/hr, 12.791 mls/hr Nitroglycerin/Dextrose (Nitroglycerin 50 Mg/250 Ml D5w) 50 mg in 250 mls @ 36 mls/hr IV .Q6H57M [facility]; 120 MCG/MIN PRN Reason: Protocol Last Titration: 06/06/18 19:00 Dose: 90 mcg/min, 27 mls/hr Dextrose (Dextrose 5% In Water 1000 Ml) 1,000 mls @ 0 mls/hr IV .Q0M PRN; Protocol; Per Protocol PRN Reason: Hypoglycemia Protocol Isosorbide Mononitrate (Imdur Er) 30 mg PO DAILY [facility] Last Admin: 06/06/18 10:22 Dose: 30 mg Pantoprazole Sodium (Protonix Ec Tab) 20 mg PO DAILY [facility] Last Admin: 06/06/18 10:22 Dose: 20 mg Rosuvastatin Calcium (Crestor) 40 mg PO HS [facility] Last Admin: 06/05/18 21:48 Dose: 40 mg Sevelamer Carbonate (Renvela) 0.8 gm PO TIDCC [facility] Last Admin: 06/06/18 17:02 Dose: 0.8 gm Sitagliptin Phosphate (Januvia) 25 mg PO DAILY [facility] Last Admin: 06/06/18 10:22 Dose: 25 mg - Labs Labs: 06/06/18 06:46 06/06/18 06:46 APTT 62 SECONDS (21-34) H D 06/06/18 06:46
[2018-06-06 20:04] LABS: HEPATITIS B SURFACE AG Negative (NEGATIVE)
[2018-06-06 20:09] LABS: HEPATITIS B CORE AB NEGATIVE (NEGATIVE)
[2018-06-06 20:22] LABS: HEPATITIS C ANTIBODY NEGATIVE (NEGATIVE)
[2018-06-06] MEDS ORDERED: EPOETIN ALFA 10,000 UNIT/ML ML SC ONE ×2 (20:40→21:45)
[2018-06-07] MEDS ORDERED: Sodium Chloride Nasal 0.65% Soln (30ml) NAS PRN (03:30)
--- NOTE | 2018-06-07 04:50 | PN ---
Copied To: Thelma Guillen MD Attending MD: Thelma Guillen MD DATE: 06/06/2018 FOLLOWUP RENAL CONSULTATION LOCATION: The patient is located in ICU 14B. REQUESTED BY: Juan Coronado MD SUBJECTIVE: Mr. Ugalde is a 47-year-old obese middle-aged male with a past medical history significant for longstanding hypertension, diabetes, chronic kidney disease, nephrotic-range proteinuria, status post gastric bypass surgery for obesity and history of proteinuria, anemia, secondary hyperparathyroidism and coronary artery disease, status post stents x2, hyperlipidemia who was initially referred for vascular access about four months ago. Then, the patient lost follow up and did not see the Vascular Surgery. Now, the patient was admitted with two weeks' history of chest pain on and off and shortness of breath, dyspnea on exertion, feeling weak, tired, nausea and vomiting. The patient was found to have a very high elevated troponin level, low H and H, low bicarbonate, elevated BUN and creatinine. Admitted to ICU, started on IV heparin and IV nitroglycerin. The patient is feeling better. No chest pain. No palpitation. The patient was given 1 unit of packed RBC transfusion last night and requested vascular surgery consult for Steven catheter, Perm-A-Cath placement. After discussing with the patient for the need for hemodialysis, the patient agreed and signed the consent for the dialysis. Vascular Surgery placed Steven catheter this evening for hemodialysis. The patient is not in acute distress. The patient is being dialyzed at this time, UF goal is about 500 mL. No chest pain. No palpitation. PHYSICAL EXAMINATION: VITAL SIGNS: As follows: Blood pressure 154/86, pulse 90, respirations 80, temperature 98, saturation 99%. Height 5 feet 7 inches. Weight is about 110 kg. GENERAL: Mr. Ugalde is a 47-year-old middle-aged obese male, well built, well nourished, not in acute distress. HEENT: Pupils are normal and reactive to light and accommodation. Conjunctivae pink. Sclerae anicteric. Tongue is moist. Trachea is midline. LUNGS: Symmetric on both sides. Bilateral breath sounds present. Clear to auscultation. CARDIOVASCULAR SYSTEM: [place] at the fifth intercostal space, midclavicular line. S1, S2 audible. No murmur or gallop. ABDOMEN: Slightly protuberant, soft, tympanitic. No guarding. No rigidity. No hepatosplenomegaly. CENTRAL VENOUS SYSTEM: The patient is alert, awake, oriented x3. Nonfocal neuro examination. Cranial nerves II-XII grossly intact. Sensory and motor system is within normal limits. EXTREMITIES: No cyanosis, no clubbing, no edema. CURRENT MEDICATIONS: Include as follows: Hydralazine 100 mg p.o. t.i.d., Cardizem 300 mg p.o. daily, clonidine 0.2 mg p.o. every 8 hours, Crestor 40 mg p.o. at bedtime, aspirin 81 mg daily, heparin 2600 units IV push in the catheter three times a week and now IV heparin 12 units/kg per hour, Imdur 30 mg p.o. daily, Januvia 25 mg p.o. daily, nitroglycerin IV at 120 mcg per minute, Plavix 75 mg p.o. daily, Protonix 20 mg p.o. daily, Renvela 800 mg p.o. t.i.d., calcitriol 0.25 mcg p.o. three times a week on Saturday, Saturday and Saturday, Tylenol, and allopurinol 100 mg p.o. daily. LABORATORY DATA: Include as follows: WBC 11.9, hemoglobin 7.6, hematocrit is 22.7, platelets 240. . Sodium 140, potassium 4.2, chloride 106, CO2 of 21, BUN 78, creatinine 9.9, glucose 116, calcium 8.7, phosphorus is 7.1, magnesium 1.7. Iron 58, TIBC 227, saturation 26. Total bili 0.5, AST 37, ALT 27, alkaline phosphatase 56, total protein 6.4, albumin is 3.4. Hepatitis B surface antigen negative. Hepatitis B core antibody is negative. Hepatitis C antibody is negative. ASSESSMENT AND PLAN: In summary, Mr. Ugalde is a 47-year-old middle-aged obese male with hypertension, diabetes, nephrotic-range proteinuria, chronic kidney disease stage 5 with worsening renal function, anemia who was admitted with chest pain, started about two weeks ago and now with nausea, vomiting, dyspnea on exertion, shortness of breath, and feeling weak and tired. 1. End-stage renal disease, most likely secondary to diabetic nephropathy, cannot rule out underlying chronic glomerulonephritis such as focal segmental glomerulosclerosis secondary to obesity. The patient refused kidney biopsy on multiple occasions in the past. 2. Anemia secondary to end-stage renal disease. Continue second unit of transfusion during dialysis today. Repeat complete blood cell count and basic metabolic panel in the morning. 3. Secondary hyperparathyroidism. Continue Renvela 800 mg p.o. three times a week and continue calcitriol 0.25 mcg by mouth three times a week. 4. [id number] myocardial infarction. Continue intravenous nitroglycerin and intravenous heparin as per Cardiology. Continue Plavix, aspirin, and Crestor. We will request Perm-A-Cath placement once the patient is cleared by Cardiology. We will also add Epogen 10,000 units three times a week. Thank you for allowing me to participate in your patient's care. Follow up with Cardiology for further management. Thelma Guillen MD
[2018-06-07 06:21] LABS: BASO # 0.1 K/uL (0.0-0.2); BASO % 0.9 % (0.0-2.0); EOS # 0.1 K/uL (0.0-0.7); LYMPH # 2.4 K/uL (1.0-4.3); LYMPH % 21.3 % (20.0-40.0); MEAN CELL VOLUME 85.2 fL (80.0-94.0); MEAN CORPUSCULAR HEMOGLOBIN 28.6 pg (27.0-31.0); MEAN CORPUSCULAR HGB CONC 33.6 g/dL (33.0-37.0); MEAN PLATELET VOLUME 8.1 fL (7.2-11.7); MONO # 1.2 K/uL (0.0-0.8); MONO % 10.8 % (0.0-10.0); NEUT # 7.4 K/uL (1.8-7.0); RBC 2.79 Mil/uL (4.40-5.90); RED CELL DISTRIBUTION WIDTH 17.2 % (11.5-14.5); WHITE BLOOD COUNT 11.2 K/uL (4.8-10.8)
[2018-06-07 06:36] LABS: ALB/GLOB RATIO 1.2 (1.0-2.1); ALBUMIN 3.5 g/dL (3.5-5.0); CALCIUM 8.4 mg/dl (8.6-10.4)
[2018-06-07] MEDS: Sevelamer Carb 0.8 gm/Packet PO SCH ×3 (08:11→19:18)
--- NOTE | 2018-06-07 08:31 | CP.PCM.PN ---
Subjective - Date & Time of Evaluation Date of Evaluation: 06/06/18 Time of Evaluation: 21:10 - Subjective Subjective: Patient started on HD Cardiac cath plan for Saturday Check ECHO Objective - Vital Signs/Intake and Output Vital Signs (last 24 hours): Temp Pulse Resp BP Pulse Ox 98.5 F 73 23 156/86 H 97 06/07/18 04:00 06/07/18 07:00 06/07/18 07:00 06/07/18 06:31 06/07/18 07:00 Intake and Output: 06/07/18 06/07/18 06:59 18:59 Intake Total 1029.6 212.8 Output Total 200 0 Balance 829.6 212.8 - Medications Medications: Current Medications Acetaminophen (Tylenol 325mg Tab) 650 mg PO Q6 PRN PRN Reason: Pain, Mild (1-3) Last Admin: 06/05/18 09:08 Dose: 650 mg Allopurinol (Zyloprim) [address] [facility] Last Admin: 06/06/18 10:24 Dose: 100 mg Aspirin (Ecotrin) [address] [facility] Last Admin: 06/06/18 10:23 Dose: 81 mg Calcitriol (Rocaltrol) 0.[address] [facility] Last Admin: 06/06/18 10:22 Dose: 0.25 mcg Clonidine HCl (Catapres) 0.[address] [facility] Last Admin: 06/07/18 05:59 Dose: 0.2 mg Clopidogrel Bisulfate (Plavix) [address] [facility] Last Admin: 06/06/18 10:23 Dose: 75 mg Dextrose (Dextrose 50% Inj) 0 ml IV STAT PRN; Protocol PRN Reason: Hypoglycemia Protocol Dextrose (Glutose 15) 0 gm PO ONCE PRN; Protocol PRN Reason: Hypoglycemia Protocol Diltiazem HCl (Cardizem Cd) [address] [facility] Last Admin: 06/06/18 10:24 Dose: 300 mg Glucagon (Glucagen Diagnostic Kit) 0 mg IM STAT PRN; Protocol PRN Reason: Hypoglycemia Protocol Heparin Sodium (Porcine) (Heparin) 2,600 units IVP [facility] Stop: 06/18/18 09:01 Last Admin: 06/06/18 22:04 Dose: 2,600 units Hydralazine HCl (Apresoline) [address] [facility] Last Admin: 06/06/18 17:02 Dose: 100 mg Heparin Sodium/Sodium Chloride (Heparin 66117 Units/250ml 1/2 Normal Saline) 25 ,000 units in 250 mls @ 12.791 mls/hr IV .[id number] PRN; Protocol; 12 UNITS/KG/HR PRN Reason: ADJUST RATE PER PROTOCOL Last Admin: 06/06/18 15:24 Dose: 12 units/kg/hr, 12.791 mls/hr Nitroglycerin/Dextrose (Nitroglycerin 50 Mg/250 Ml D5w) 50 mg in 250 mls @ 36 mls/hr IV .Q6H57M CLARICE; 120 MCG/MIN PRN Reason: Protocol Last Titration: 06/07/18 00:15 Dose: 0 mcg/min, 0 mls/hr Dextrose (Dextrose 5% In Water 1000 Ml) 1,000 mls @ 0 mls/hr IV .Q0M PRN; Protocol; Per Protocol PRN Reason: Hypoglycemia Protocol Isosorbide Mononitrate (Imdur Er) [address] [facility] Last Admin: 06/06/18 10:22 Dose: 30 mg Pantoprazole Sodium (Protonix Ec Tab) [address] [facility] Last Admin: 06/06/18 10:22 Dose: 20 mg Rosuvastatin Calcium (Crestor) [address] [facility] Last Admin: 06/06/18 22:29 Dose: 40 mg Sevelamer Carbonate (Renvela) 0.[address] [facility] Last Admin: 06/06/18 17:02 Dose: 0.8 gm Sitagliptin Phosphate (Januvia) [address] [facility] Last Admin: 06/06/18 10:22 Dose: 25 mg Sodium Chloride ([place] Baby Saline 30 Ml) 0 ml KASIE Q4H PRN PRN Reason: Dry nasal passages Last Admin: 06/07/18 04:10 Dose: 1 spr - Labs Labs: 06/07/18 06:11 06/07/18 06:11 APTT 52 SECONDS (21-34) H D 06/07/18 06:11
--- NOTE | 2018-06-07 10:34 | CP.PCM.PN ---
Subjective - Date & Time of Evaluation Date of Evaluation: 06/07/18 Time of Evaluation: 07:10 - Subjective Subjective: Vascular Surgery consult note for Dr. Byrnes Pt seen and exmaned at bedside this AM withi Dr. Byrnes. Patient receiving dialysis without complication this AM. Denies any left leg pain or swelling. Objective - Vital Signs/Intake and Output Vital Signs (last 24 hours): Temp Pulse Resp BP Pulse Ox 98.5 F 77 23 152/86 H 97 06/07/18 04:00 06/07/18 10:30 06/07/18 07:00 06/07/18 10:30 06/07/18 07:00 Intake and Output: 06/07/18 06/07/18 06:59 18:59 Intake Total 1029.6 212.8 Output Total 200 0 Balance 829.6 212.8 - Medications Medications: Current Medications Acetaminophen (Tylenol 325mg Tab) 650 mg PO Q6 PRN PRN Reason: Pain, Mild (1-3) Last Admin: 06/05/18 09:08 Dose: 650 mg Allopurinol (Zyloprim) 100 mg PO DAILY [facility] Last Admin: 06/06/18 10:24 Dose: 100 mg Aspirin (Ecotrin) 81 mg PO DAILY [facility] Last Admin: 06/06/18 10:23 Dose: 81 mg Calcitriol (Rocaltrol) 0.25 mcg PO MWF [facility] Last Admin: 06/06/18 10:22 Dose: 0.25 mcg Clonidine HCl (Catapres) 0.2 mg PO Q8H [facility] Last Admin: 06/07/18 05:59 Dose: 0.2 mg Clopidogrel Bisulfate (Plavix) 75 mg PO DAILY [facility] Last Admin: 06/06/18 10:23 Dose: 75 mg Dextrose (Dextrose 50% Inj) 0 ml IV STAT PRN; Protocol PRN Reason: Hypoglycemia Protocol Dextrose (Glutose 15) 0 gm PO ONCE PRN; Protocol PRN Reason: Hypoglycemia Protocol Diltiazem HCl (Cardizem Cd) 300 mg PO DAILY [facility] Last Admin: 06/06/18 10:24 Dose: 300 mg Glucagon (Glucagen Diagnostic Kit) 0 mg IM STAT PRN; Protocol PRN Reason: Hypoglycemia Protocol Heparin Sodium (Porcine) (Heparin) 2,600 units IVP MWF PRN PRN Reason: every after dialysis Stop: 06/18/18 09:01 Hydralazine HCl (Apresoline) 100 mg PO TID [facility] Last Admin: 06/06/18 17:02 Dose: 100 mg Heparin Sodium/Sodium Chloride (Heparin 97617 Units/250ml 1/2 Normal Saline) 25 ,000 units in 250 mls @ 12.791 mls/hr IV .[id number] PRN; Protocol; 12 UNITS/KG/HR PRN Reason: ADJUST RATE PER PROTOCOL Last Admin: 06/06/18 15:24 Dose: 12 units/kg/hr, 12.791 mls/hr Dextrose (Dextrose 5% In Water 1000 Ml) 1,000 mls @ 0 mls/hr IV .Q0M PRN; Protocol; Per Protocol PRN Reason: Hypoglycemia Protocol Isosorbide Mononitrate (Imdur Er) 30 mg PO DAILY [facility] Last Admin: 06/06/18 10:22 Dose: 30 mg Pantoprazole Sodium (Protonix Ec Tab) 20 mg PO DAILY [facility] Last Admin: 06/06/18 10:22 Dose: 20 mg Rosuvastatin Calcium (Crestor) 40 mg PO HS [facility] Last Admin: 06/06/18 22:29 Dose: 40 mg Sevelamer Carbonate (Renvela) 0.8 gm PO TIDCC [facility] Last Admin: 06/06/18 17:02 Dose: 0.8 gm Sitagliptin Phosphate (Januvia) 25 mg PO DAILY [facility] Last Admin: 06/06/18 10:22 Dose: 25 mg Sodium Chloride ([place] Baby Saline 30 Ml) 0 ml KASIE Q4H PRN PRN Reason: Dry nasal passages Last Admin: 06/07/18 04:10 Dose: 1 spr - Labs Labs: 06/07/18 06:11 06/07/18 06:11 APTT 52 SECONDS (21-34) H D 06/07/18 06:11 - Constitutional Appears: Well, Non-toxic, No Acute Distress - Head Exam Head Exam: ATRAUMATIC, NORMOCEPHALIC - Eye Exam Eye Exam: Normal appearance. absent: Conjunctival injection, Scleral icterus - ENT Exam ENT Exam: Mucous Membranes Moist, Normal Oropharynx - Respiratory Exam Respiratory Exam: NORMAL BREATHING PATTERN. absent: Accessory Muscle Use, Respiratory Distress - Cardiovascular Exam Cardiovascular Exam: RRR - GI/Abdominal Exam GI & Abdominal Exam: Soft. absent: Distended, Tenderness - Extremities Exam Additional comments: Right groin with shiley catheter in place, no surrounding bleeding or erythema or sign of hematoma - Neurological Exam Neurological Exam: Alert, Awake, Oriented x3 - Psychiatric Exam Psychiatric exam: Normal Affect, Normal Mood - Skin Skin Exam: Dry, Normal Color, Warm Assessment and Plan - Assessment and Plan (Free Text) Assessment: 47M with acute on chronic kidney disease with need for dialysis and recent OH s/ p right femoral shiley catheter insertion Plan: Patient would benefit from permacath insertion for HD, however, patient's recent OH puts patient at extreme risk for anesthesia. Once patient's cardiac status is stabilized and optimized, will consider permacath F/U cardiology recs Continue dialysis as recommended by nephrology Seen and discussed with Dr. Byrnes
--- NOTE | 2018-06-07 11:30 | CP.PCM.PN ---
Subjective - Date & Time of Evaluation Date of Evaluation: 06/07/18 Time of Evaluation: 11:27 - Subjective Subjective: Patient tolerating oral diet, tolerating HD Objective - Vital Signs/Intake and Output Vital Signs (last 24 hours): Temp Pulse Resp BP Pulse Ox 98.5 F 74 23 159/88 H 97 06/07/18 04:00 06/07/18 11:15 06/07/18 07:00 06/07/18 11:15 06/07/18 07:00 Intake and Output: 06/07/18 06/07/18 06:59 18:59 Intake Total 1029.6 212.8 Output Total 200 0 Balance 829.6 212.8 - Medications Medications: Current Medications Acetaminophen (Tylenol 325mg Tab) 650 mg PO Q6 PRN PRN Reason: Pain, Mild (1-3) Last Admin: 06/05/18 09:08 Dose: 650 mg Allopurinol (Zyloprim) 100 mg PO DAILY [facility] Last Admin: 06/06/18 10:24 Dose: 100 mg Aspirin (Ecotrin) 81 mg PO DAILY [facility] Last Admin: 06/06/18 10:23 Dose: 81 mg Calcitriol (Rocaltrol) 0.25 mcg PO MWF [facility] Last Admin: 06/06/18 10:22 Dose: 0.25 mcg Clonidine HCl (Catapres) 0.2 mg PO Q8H [facility] Last Admin: 06/07/18 05:59 Dose: 0.2 mg Clopidogrel Bisulfate (Plavix) 75 mg PO DAILY [facility] Last Admin: 06/06/18 10:23 Dose: 75 mg Dextrose (Dextrose 50% Inj) 0 ml IV STAT PRN; Protocol PRN Reason: Hypoglycemia Protocol Dextrose (Glutose 15) 0 gm PO ONCE PRN; Protocol PRN Reason: Hypoglycemia Protocol Diltiazem HCl (Cardizem Cd) 300 mg PO DAILY [facility] Last Admin: 06/06/18 10:24 Dose: 300 mg Glucagon (Glucagen Diagnostic Kit) 0 mg IM STAT PRN; Protocol PRN Reason: Hypoglycemia Protocol Heparin Sodium (Porcine) (Heparin) 2,600 units IVP MWF PRN PRN Reason: every after dialysis Stop: 06/18/18 09:01 Hydralazine HCl (Apresoline) 100 mg PO TID [facility] Last Admin: 06/06/18 17:02 Dose: 100 mg Heparin Sodium/Sodium Chloride (Heparin 16248 Units/250ml 1/2 Normal Saline) 25 ,000 units in 250 mls @ 12.791 mls/hr IV .[id number] PRN; Protocol; 12 UNITS/KG/HR PRN Reason: ADJUST RATE PER PROTOCOL Last Admin: 06/06/18 15:24 Dose: 12 units/kg/hr, 12.791 mls/hr Dextrose (Dextrose 5% In Water 1000 Ml) 1,000 mls @ 0 mls/hr IV .Q0M PRN; Protocol; Per Protocol PRN Reason: Hypoglycemia Protocol Isosorbide Mononitrate (Imdur Er) 30 mg PO DAILY [facility] Last Admin: 06/06/18 10:22 Dose: 30 mg Pantoprazole Sodium (Protonix Ec Tab) 20 mg PO DAILY [facility] Last Admin: 06/06/18 10:22 Dose: 20 mg Rosuvastatin Calcium (Crestor) 40 mg PO HS [facility] Last Admin: 06/06/18 22:29 Dose: 40 mg Sevelamer Carbonate (Renvela) 0.8 gm PO TIDCC [facility] Last Admin: 06/06/18 17:02 Dose: 0.8 gm Sitagliptin Phosphate (Januvia) 25 mg PO DAILY [facility] Last Admin: 06/06/18 10:22 Dose: 25 mg Sodium Chloride ([place] Baby Saline 30 Ml) 0 ml KASIE Q4H PRN PRN Reason: Dry nasal passages Last Admin: 06/07/18 04:10 Dose: 1 spr - Labs Labs: 06/07/18 06:11 06/07/18 06:11 APTT 52 SECONDS (21-34) H D 06/07/18 06:11 - Constitutional Appears: Well, Non-toxic, No Acute Distress - Head Exam Head Exam: ATRAUMATIC, NORMAL INSPECTION - Eye Exam Eye Exam: Periorbital swelling - ENT Exam ENT Exam: Mucous Membranes Moist - Neck Exam Neck Exam: Full ROM - Respiratory Exam Respiratory Exam: NORMAL BREATHING PATTERN - Cardiovascular Exam Cardiovascular Exam: REGULAR RHYTHM, +S1, +S2, +S4 - GI/Abdominal Exam GI & Abdominal Exam: Normal Bowel Sounds - Extremities Exam Extremities Exam: Normal Inspection Assessment and Plan - Assessment and Plan (Free Text) Assessment: HTN urgency: resolved, off IV nitro -NSTEMI: continue DAPT, statin and IV heparin (for 24 hours), Patient remains chest pain free -ESRD ON HD: tolerating HD via groin, groin area no bleeding continue dvt/pud ppx Patient remains hemodynamically stable.
--- NOTE | 2018-06-07 13:39 | CARD ---
APPROVED REPORT Date of service: 06/07/2018 EXAM: Two-dimensional and M-mode echocardiogram with Doppler and color Doppler. Other Information Quality : TDSRhythm : INDICATION Chest Pain Non STEMI RISK FACTORS Hypertension 2D DIMENSIONS IVSd1.2 (0.7-1.1cm)LVDd4.6 (3.9-5.9cm) PWd1.3 (0.7-1.1cm)LVDs2.5 (2.5-4.0cm) FS (%) 46.7 %LVEF (%)65.0 (>50%) M-Mode DIMENSIONS Left Atrium (MM)4.27 (2.5-4.0cm)IVSd1.26 (0.7-1.1cm) Aortic Root3.71 (2.2-3.7cm)LVDd5.32 (4.0-5.6cm) Aortic Cusp Exc.2.47 (1.5-2.0cm)PWd1.45 (0.7-1.1cm) FS (%) 44 %LVDs2.96 (2.0-3.8cm) LVEF (%)65 (>50%) Mitral Valve MV E Iqgbmnof68.8cm/sMV A Qruqihhj74.9cm/sE/A ratio1.0 TDI E/Lateral E'0.0E/Medial E'0.0 LEFT VENTRICLE The left ventricle is normal size. There is borderline concentric left ventricular hypertrophy. The left ventricular function is normal. The left ventricular ejection fraction is within the normal range. There is normal LV segmental wall motion. Transmitral Doppler flow pattern is Grade I-abnormal relaxation pattern. RIGHT VENTRICLE The right ventricle is normal size. There is normal right ventricular wall thickness. The right ventricular systolic function is normal. ATRIA The left atrium is borderline dilated. The right atrium size is normal. AORTIC VALVE The aortic valve is not well visualized. No aortic regurgitation is present. There is no aortic valvular stenosis. MITRAL VALVE The mitral valve is normal in structure. There is no mitral valve stenosis. There is no mitral valve regurgitation noted. TRICUSPID VALVE The tricuspid valve is normal in structure. There is no tricuspid valve regurgitation noted. PULMONIC VALVE The pulmonary valve is normal in structure. There is no pulmonic valvular regurgitation. GREAT VESSELS The aortic root is borderline enlarged. The IVC is normal in size and collapses >50% with inspiration. PERICARDIAL EFFUSION There is a trace circumferential pericardial effusion. <Conclusion> The left ventricle is normal size. There is borderline concentric left ventricular hypertrophy. The left ventricular function is normal. The left ventricular ejection fraction is within the normal range. There is normal LV segmental wall motion. Transmitral Doppler flow pattern is Grade I-abnormal relaxation pattern.
[2018-06-07] MEDS: Pantoprazole 20 mg EC Tab PO SCH (13:44)
[2018-06-07] MEDS: diltiaZEM 300 mg/24 Hours CD Cap PO SCH (13:45)
[2018-06-07] MEDS: Heparin25000 units/250ml 1/2NS 25,000 UNITS/250 ML BAG IV PRN (13:46)
--- NOTE | 2018-06-07 14:39 | CP.PCM.PN ---
Subjective - Date & Time of Evaluation Date of Evaluation: 06/07/18 Time of Evaluation: 14:38 - Subjective Subjective: Patient currently stable with no chest pain. Vital signs are stable. Patient is getting hemodialysis through the right femoral access. Discussed with Dr. Burrell to go ahead with cardiac catheterization and any further intervention for coronary artery disease and non-ST [place]. Post cardiac catheterization patient then will undergo permanent access for dialysis. Objective - Vital Signs/Intake and Output Vital Signs (last 24 hours): Temp Pulse Resp BP Pulse Ox 97 F L 71 12 164/85 H 99 06/07/18 09:50 06/07/18 14:00 06/07/18 14:00 06/07/18 13:39 06/07/18 14:00 Intake and Output: 06/07/18 06/07/18 11:59 23:59 Intake Total 965.6 38.4 Output Total 400 Balance 565.6 38.4 - Medications Medications: Current Medications Acetaminophen (Tylenol 325mg Tab) 650 mg PO Q6 PRN PRN Reason: Pain, Mild (1-3) Last Admin: 06/05/18 09:08 Dose: 650 mg Allopurinol (Zyloprim) 100 mg PO DAILY [facility] Last Admin: 06/07/18 13:45 Dose: 100 mg Aspirin (Ecotrin) 81 mg PO DAILY [facility] Last Admin: 06/07/18 13:45 Dose: 81 mg Calcitriol (Rocaltrol) 0.25 mcg PO MWF [facility] Last Admin: 06/06/18 10:22 Dose: 0.25 mcg Clonidine HCl (Catapres) 0.2 mg PO Q8H [facility] Last Admin: 06/07/18 13:46 Dose: 0.2 mg Clopidogrel Bisulfate (Plavix) 75 mg PO DAILY [facility] Last Admin: 06/07/18 13:45 Dose: 75 mg Dextrose (Dextrose 50% Inj) 0 ml IV STAT PRN; Protocol PRN Reason: Hypoglycemia Protocol Dextrose (Glutose 15) 0 gm PO ONCE PRN; Protocol PRN Reason: Hypoglycemia Protocol Diltiazem HCl (Cardizem Cd) 300 mg PO DAILY [facility] Last Admin: 06/07/18 13:45 Dose: 300 mg Glucagon (Glucagen Diagnostic Kit) 0 mg IM STAT PRN; Protocol PRN Reason: Hypoglycemia Protocol Heparin Sodium (Porcine) (Heparin) 2,600 units IVP MWF PRN PRN Reason: every after dialysis Stop: 06/18/18 09:01 Last Admin: 06/07/18 12:01 Dose: 2,600 units Hydralazine HCl (Apresoline) 100 mg PO TID [facility] Last Admin: 06/07/18 13:45 Dose: 100 mg Heparin Sodium/Sodium Chloride (Heparin 69752 Units/250ml 1/2 Normal Saline) 25 ,000 units in 250 mls @ 12.791 mls/hr IV .[id number] PRN; Protocol; 12 UNITS/KG/HR PRN Reason: ADJUST RATE PER PROTOCOL Last Admin: 06/07/18 13:46 Dose: 12 units/kg/hr, 12.791 mls/hr Dextrose (Dextrose 5% In Water 1000 Ml) 1,000 mls @ 0 mls/hr IV .Q0M PRN; Protocol; Per Protocol PRN Reason: Hypoglycemia Protocol Isosorbide Mononitrate (Imdur Er) 30 mg PO DAILY [facility] Last Admin: 06/07/18 13:44 Dose: 30 mg Pantoprazole Sodium (Protonix Ec Tab) 20 mg PO DAILY [facility] Last Admin: 06/07/18 13:44 Dose: 20 mg Rosuvastatin Calcium (Crestor) 40 mg PO HS [facility] Last Admin: 06/06/18 22:29 Dose: 40 mg Sevelamer Carbonate (Renvela) 0.8 gm PO TIDCC [facility] Last Admin: 06/07/18 13:44 Dose: Not Given Sitagliptin Phosphate (Januvia) 25 mg PO DAILY [facility] Last Admin: 06/07/18 13:45 Dose: 25 mg Sodium Chloride ([place] Baby Saline 30 Ml) 0 ml KASIE Q4H PRN PRN Reason: Dry nasal passages Last Admin: 06/07/18 04:10 Dose: 1 spr - Labs Labs: 06/07/18 06:11 06/07/18 06:11 APTT 52 SECONDS (21-34) H D 06/07/18 06:11
--- NOTE | 2018-06-07 15:47 | CP.PCM.PN ---
Subjective - Date & Time of Evaluation Date of Evaluation: 06/07/18 Time of Evaluation: 15:46 - Subjective Subjective: pt is seen and examined, follow up consult is dictated #[id number] add procrit s/p hd yesterday and today. tolerated well Objective - Vital Signs/Intake and Output Vital Signs (last 24 hours): Temp Pulse Resp BP Pulse Ox 97 F L 71 12 164/85 H 99 06/07/18 09:50 06/07/18 14:00 06/07/18 14:00 06/07/18 13:39 06/07/18 14:00 Intake and Output: 06/07/18 06/07/18 06:59 18:59 Intake Total 1029.6 802.4 Output Total 200 200 Balance 829.6 602.4 - Medications Medications: Current Medications Acetaminophen (Tylenol 325mg Tab) 650 mg PO Q6 PRN PRN Reason: Pain, Mild (1-3) Last Admin: 06/05/18 09:08 Dose: 650 mg Allopurinol (Zyloprim) 100 mg PO DAILY [facility] Last Admin: 06/07/18 13:45 Dose: 100 mg Aspirin (Ecotrin) 81 mg PO DAILY [facility] Last Admin: 06/07/18 13:45 Dose: 81 mg Calcitriol (Rocaltrol) 0.25 mcg PO MWF [facility] Last Admin: 06/06/18 10:22 Dose: 0.25 mcg Clonidine HCl (Catapres) 0.2 mg PO Q8H [facility] Last Admin: 06/07/18 13:46 Dose: 0.2 mg Clopidogrel Bisulfate (Plavix) 75 mg PO DAILY [facility] Last Admin: 06/07/18 13:45 Dose: 75 mg Dextrose (Dextrose 50% Inj) 0 ml IV STAT PRN; Protocol PRN Reason: Hypoglycemia Protocol Dextrose (Glutose 15) 0 gm PO ONCE PRN; Protocol PRN Reason: Hypoglycemia Protocol Diltiazem HCl (Cardizem Cd) 300 mg PO DAILY [facility] Last Admin: 06/07/18 13:45 Dose: 300 mg Glucagon (Glucagen Diagnostic Kit) 0 mg IM STAT PRN; Protocol PRN Reason: Hypoglycemia Protocol Heparin Sodium (Porcine) (Heparin) 2,600 units IVP MWF PRN PRN Reason: every after dialysis Stop: 06/18/18 09:01 Last Admin: 06/07/18 12:01 Dose: 2,600 units Hydralazine HCl (Apresoline) 100 mg PO TID [facility] Last Admin: 06/07/18 13:45 Dose: 100 mg Heparin Sodium/Sodium Chloride (Heparin 16920 Units/250ml 1/2 Normal Saline) 25 ,000 units in 250 mls @ 12.791 mls/hr IV .[id number] PRN; Protocol; 12 UNITS/KG/HR PRN Reason: ADJUST RATE PER PROTOCOL Last Admin: 06/07/18 13:46 Dose: 12 units/kg/hr, 12.791 mls/hr Dextrose (Dextrose 5% In Water 1000 Ml) 1,000 mls @ 0 mls/hr IV .Q0M PRN; Protocol; Per Protocol PRN Reason: Hypoglycemia Protocol Isosorbide Mononitrate (Imdur Er) 30 mg PO DAILY [facility] Last Admin: 06/07/18 13:44 Dose: 30 mg Pantoprazole Sodium (Protonix Ec Tab) 20 mg PO DAILY [facility] Last Admin: 06/07/18 13:44 Dose: 20 mg Rosuvastatin Calcium (Crestor) 40 mg PO HS [facility] Last Admin: 06/06/18 22:29 Dose: 40 mg Sevelamer Carbonate (Renvela) 0.8 gm PO TIDCC [facility] Last Admin: 06/07/18 13:44 Dose: Not Given Sitagliptin Phosphate (Januvia) 25 mg PO DAILY [facility] Last Admin: 06/07/18 13:45 Dose: 25 mg Sodium Chloride ([place] Baby Saline 30 Ml) 0 ml KASIE Q4H PRN PRN Reason: Dry nasal passages Last Admin: 06/07/18 04:10 Dose: 1 spr - Labs Labs: 06/07/18 06:11 06/07/18 06:11 APTT 52 SECONDS (21-34) H D 06/07/18 06:11
--- NOTE | 2018-06-07 21:15 | PN ---
Copied To: Thelma Guillen MD Attending MD: Thelma Guillen MD DATE: 06/07/2018 FOLLOWUP RENAL CONSULTATION LOCATION: The patient is located in ICU, bed 14B. REQUESTED BY: Juan Coronado MD. REASON FOR FOLLOWUP: End-stage renal disease, continuation of hemodialysis. HISTORY OF PRESENT ILLNESS: Mr. Ugalde is a 47-year-old obese middle-aged male with a past medical history significant for longstanding hypertension, diabetes, coronary artery disease, status post gastric bypass surgery, anemia, secondary hyperparathyroidism, nephrotic-range proteinuria, refused kidney biopsy in the past who was admitted with worsening renal function, chest pain for the last 2 weeks on and off, associated with nausea, vomiting, and dyspnea on exertion and poor appetite who was found to have worsening renal function, elevated troponins, low H and H, and metabolic acidosis. The patient agreed for initiation of the renal replacement therapy. The patient underwent right femoral vein catheter placement for hemodialysis. The patient underwent dialysis yesterday and today without any complication. Denies any chest pain or palpitation. Denies any nausea or vomiting at this time. The patient is on IV heparin. PHYSICAL EXAMINATION: VITAL SIGNS: As follows: Blood pressure 164/85, pulse 69, respirations 13, temperature 97, saturation 99%. Height 5 feet 7 inches, weight is 235 pounds. GENERAL: Mr. Ugalde is a 47-year-old male well-built, well-nourished, not in distress. HEENT: Pupils normal and reactive to light and accommodation. Conjunctivae pink. Sclerae anicteric. Tongue is moist. Trachea is midline. LUNGS: Symmetric on both sides. Bilateral breath sounds present. Clear to auscultation. CVS: [place] at the fifth intercostal space, midclavicular line. S1, S2 audible. No murmur or gallop. ABDOMEN: Protuberant, soft, tympanitic. No guarding. No rigidity. No hepatosplenomegaly. [employer]ES DEPARTMENT CHAIR: The patient is alert, awake and oriented x3. Nonfocal neuro examination. Cranial nerves II through XII grossly intact. Sensory and motor system is within normal limits. EXTREMITIES: No cyanosis, clubbing, no edema. MEDICATIONS: His current medications include as follows: Hydralazine 100 mg p.o. t.i.d.; diltiazem 300 mg p.o. daily; clonidine 0.2 mg p.o. every 8 hours; Crestor 40 mg p.o. at bedtime; aspirin 81 mg daily; heparin 2600 units IV push three times a week in the catheter and the patient is also on IV heparin drip 12 units per kg per hour; Imdur 30 mg p.o. daily; Januvia 25 mg p.o. daily; Plavix 75 mg daily; Protonix 20 mg p.o. daily; Renvela 800 mg p.o. t.i.d.; calcitriol 0.25 mcg three times a week, Saturday, Saturday, and Saturday; Tylenol; and allopurinol 100 mg p.o. daily. LABORATORY DATA: Include as follows: As of 06/07/2018, WBC 11.2, hemoglobin 8, hematocrit is 23.7, platelets 229, PT 52. Sodium 139, potassium 4.5, chloride 104, CO2 of 24, BUN 49, creatinine 7.3, glucose 106, calcium 8.4, phosphorus 5.6, magnesium 1.7, total bili 0.5, AST 45, ALT 23, alkaline phosphatase 49, total protein 6.5, albumin is 3.5. Hepatitis B surface antigen is negative, hepatitis B surface antibody is negative, hepatitis B core antibody is negative, hepatitis C antibody is negative. IMPRESSION: In summary, Mr. Ugalde is a 47-year-old obese male with history of hypertension, diabetes, coronary artery disease, hyperlipidemia, status post stents x2, status post weight reduction surgery with chronic kidney disease 5 who was admitted with worsening renal function, low hemoglobin and hematocrit, and acute myocardial infarction. 1. End-stage renal disease. Continue hemodialysis three times a week. The patient underwent first hemodialysis yesterday, tolerated very well yesterday and today without any complications. 2. Non-ST elevation myocardial infarction. Continue IV heparin. Follow up with Cardiology for further management for possible cardiac cath. 3. Diabetes. 4. Anemia, status post transfusion of 2 units of packed RBC. We will start Procrit 20,000, units subcu three times a week, and follow up with Vascular Surgery for PermCath placement, and the patient is leaning towards continuation of hemodialysis rather than peritoneal dialysis. We will follow with the patient. Thank you for allowing me to participate in your patient's care. Thelma Guillen MD [facility] # [id number]
--- NOTE | 2018-06-07 23:42 | CP.PCM.PN ---
Subjective - Date & Time of Evaluation Date of Evaluation: 06/07/18 Time of Evaluation: 16:15 - Subjective Subjective: Patient seen and evaluated Denies chest pain and dyspnea Objective - Vital Signs/Intake and Output Vital Signs (last 24 hours): Temp Pulse Resp BP Pulse Ox 98.4 F 78 13 148/74 99 06/07/18 20:00 06/07/18 20:00 06/07/18 14:39 06/07/18 14:39 06/07/18 19:00 Intake and Output: 06/07/18 06/08/18 18:59 06:59 Intake Total 802.4 171.2 Output Total 350 0 Balance 452.4 171.2 - Medications Medications: Current Medications Acetaminophen (Tylenol 325mg Tab) 650 mg PO Q6 PRN PRN Reason: Pain, Mild (1-3) Last Admin: 06/05/18 09:08 Dose: 650 mg Allopurinol (Zyloprim) 100 mg PO DAILY [facility] Last Admin: 06/07/18 13:45 Dose: 100 mg Aspirin (Ecotrin) 81 mg PO DAILY [facility] Last Admin: 06/07/18 13:45 Dose: 81 mg Calcitriol (Rocaltrol) 0.25 mcg PO MWF [facility] Last Admin: 06/06/18 10:22 Dose: 0.25 mcg Clonidine HCl (Catapres) 0.2 mg PO Q8H [facility] Last Admin: 06/07/18 22:20 Dose: 0.2 mg Clopidogrel Bisulfate (Plavix) 75 mg PO DAILY [facility] Last Admin: 06/07/18 13:45 Dose: 75 mg Dextrose (Dextrose 50% Inj) 0 ml IV STAT PRN; Protocol PRN Reason: Hypoglycemia Protocol Dextrose (Glutose 15) 0 gm PO ONCE PRN; Protocol PRN Reason: Hypoglycemia Protocol Diltiazem HCl (Cardizem Cd) 300 mg PO DAILY [facility] Last Admin: 06/07/18 13:45 Dose: 300 mg Epoetin Ender (Procrit) 20,000 unit SC MWF [facility] Glucagon (Glucagen Diagnostic Kit) 0 mg IM STAT PRN; Protocol PRN Reason: Hypoglycemia Protocol Heparin Sodium (Porcine) (Heparin) 2,600 units IVP MWF PRN PRN Reason: every after dialysis Stop: 06/18/18 09:01 Last Admin: 06/07/18 12:01 Dose: 2,600 units Hydralazine HCl (Apresoline) 100 mg PO TID [facility] Last Admin: 06/07/18 19:19 Dose: Not Given Heparin Sodium/Sodium Chloride (Heparin 80704 Units/250ml 1/2 Normal Saline) 25 ,000 units in 250 mls @ 12.791 mls/hr IV .[id number] PRN; Protocol; 12 UNITS/KG/HR PRN Reason: ADJUST RATE PER PROTOCOL Last Admin: 06/07/18 13:46 Dose: 12 units/kg/hr, 12.791 mls/hr Dextrose (Dextrose 5% In Water 1000 Ml) 1,000 mls @ 0 mls/hr IV .Q0M PRN; Protocol; Per Protocol PRN Reason: Hypoglycemia Protocol Isosorbide Mononitrate (Imdur Er) 30 mg PO DAILY [facility] Last Admin: 06/07/18 13:44 Dose: 30 mg Pantoprazole Sodium (Protonix Ec Tab) 20 mg PO DAILY [facility] Last Admin: 06/07/18 13:44 Dose: 20 mg Rosuvastatin Calcium (Crestor) 40 mg PO HS [facility] Last Admin: 06/07/18 22:19 Dose: 40 mg Sevelamer Carbonate (Renvela) 0.8 gm PO TIDCC [facility] Last Admin: 06/07/18 19:18 Dose: 0.8 gm Sitagliptin Phosphate (Januvia) 25 mg PO DAILY [facility] Last Admin: 06/07/18 13:45 Dose: 25 mg Sodium Chloride ([place] Baby Saline 30 Ml) 0 ml KASIE Q4H PRN PRN Reason: Dry nasal passages Last Admin: 06/07/18 04:10 Dose: 1 spr - Labs Labs: 06/07/18 06:11 06/07/18 06:11 APTT 52 SECONDS (21-34) H D 06/07/18 06:11 Assessment and Plan - Assessment and Plan (Free Text) Assessment: 47 yo M PMHx of HTN, DM2, stage 5 CKD, CAD with stent placement x2 (latest 2016) presented to ED with chest pain, SOB, nausea and vomiting. Admitted to ICU for NSTEMI and hypertensive emergency. On Heparin drip, nitro drip, ASA, plavix. placed on home antihypertensive meds. Elevated Cr, nephro consulted. Patient consented to dialysis. Had R femoral Shiley placed 06/06/18. Tapering off nitro drip and transitioning to PO Neuro: Patient awake, alert, oriented x3. Resting comfortably. Acetaminophen 650mg PO Q6H PRN for back pain Cardio: Patient chest pain free today Troponin downtrendin.7->10.4->8.06 BP 160s-140s/100-70s today Heparin drip, stop at 12am 06/07 tapering off Nitro drip ASA 81mg Plavix 75mg PO daily Crestor 40mg PO HS clonidine 0.2mg PO Q8H Diltiazem 300mg PO daily Hydralazine 100mg PO TID Isosorbide Mononitrate ER 30mg PO daily Pulm: Maintain SpO2>95% GI: Renal diet Renal: Cr. 9.9, increased from 5.[address] Villatoro consulted. Recommending dialysis. Patient signed consent and had R femoral dialysis access placed today. Surgery consulted. F/u recs. calcitriol ID: WBC: 11.9, down trending afebrile Heme: H/H: 7.6/22.7 following 2 units of PRBC 06/04/18 monitor Endo: Sitagliptin 25mg daily MSK: Allopurinol 100mg PO daily Ppx: Protonix
[2018-06-08 05:50] LABS: BASO # 0.1 K/uL (0.0-0.2); BASO % 0.6 % (0.0-2.0); EOS # 0.2 K/uL (0.0-0.7); EOS % 1.2 % (0.0-4.0); HEMOGLOBIN 8.7 g/dL (12.0-18.0); MEAN CELL VOLUME 87.4 fL (80.0-94.0); MEAN CORPUSCULAR HEMOGLOBIN 29.2 pg (27.0-31.0); MEAN CORPUSCULAR HGB CONC 33.4 g/dL (33.0-37.0); MEAN PLATELET VOLUME 8.4 fL (7.2-11.7); MONO # 1.3 K/uL (0.0-0.8); NEUT # 8.1 K/uL (1.8-7.0); NEUT % 64.2 % (50.0-75.0); RBC 2.97 Mil/uL (4.40-5.90); RED CELL DISTRIBUTION WIDTH 16.8 % (11.5-14.5); WHITE BLOOD COUNT 12.6 K/uL (4.8-10.8)
[2018-06-08 06:11] LABS: ALB/GLOB RATIO 1.1 (1.0-2.1); ALBUMIN 3.5 g/dL (3.5-5.0); CALCIUM 8.9 mg/dl (8.6-10.4)
[2018-06-08] MEDS ORDERED: Heparin25000 units/250ml 1/2NS 25,000 UNITS/250 ML BAG IV PRN (06:38)
[2018-06-08] MEDS: Sevelamer Carb 0.8 gm/Packet PO SCH ×3 (08:00→17:04)
[2018-06-08] MEDS: Pantoprazole 20 mg EC Tab PO SCH (09:24)
[2018-06-08] MEDS: diltiaZEM 300 mg/24 Hours CD Cap PO SCH (09:25)
--- NOTE | 2018-06-08 11:07 | CP.CCUPN ---
CCU Subjective - Physician Review Subjective (Free Text): 06/08/18 19:01 Patient seen and examined at bedside in ICU. No acute complaints, no acute events reported overnight as per nursing. Remains on heparin drip, pending cardiac cath and permacath placement Saturday. Denies chest pain, shortness of breath, nausea, emesis, fevers, chills. CCU Objective - Vital Signs / Intake & Output Vital Signs (Last 4 hours): Vital Signs Temp Pulse Resp BP Pulse Ox 06/08/18 10:00 80 06/08/18 08:33 100.1 F H 78 18 158/88 H 96 06/08/18 08:00 77 26 H 97 06/08/18 07:39 75 28 H 158/88 H 93 L Intake and Output (Last 8hrs): Intake & Output 06/07/18 06/08/18 06/08/18 22:59 06:59 14:59 Intake Total 171.2 942.4 251.2 Output Total 150 220 500 Balance 21.2 722.4 -248.8 Weight 107.955 kg Intake: Intake, IV Amount 51.2 102.4 51.2 Left Antecubital 51.2 102.4 51.2 Oral 120 840 200 Output: Urine 150 220 500 Urine, Voided 150 220 500 Stool 0 0 0 Emesis 0 0 0 Other: # Voids Urine, Voided 1 - Physical Exam Head: Positive for: Atraumatic, Normocephalic Pupils: Positive for: PERRL Extroacular Muscles: Positive for: EOMI Conjunctiva: Negative for: Injected, Icteric Mouth: Positive for: Moist Mucous Membranes, Normal Teeth Nose (External): Positive for: Atraumatic. Negative for: Abrasion, Contusion, Laceration Nose (Internal): Positive for: No Active Bleeding. Negative for: Epistaxis Neck: Positive for: Normal Range of Motion, Trachea Midline. Negative for: JVD Respiratory/Chest: Positive for: Clear to Auscultation, Good Air Exchange. Negative for: Wheezes, Rales, Rhonchi, Tachypneic, Tender to Palpation Cardiovascular: Positive for: Regular Rate and Rhythm, Normal S1, S2, Peripheal Pulses Present (+2 radials and dorsalis pedis). Negative for: Tachycardic, Bradycardic Abdomen: Positive for: Normal Bowel Sounds. Negative for: Tenderness, Distention, Rebound, Guarding Genitourinary Male: Positive for: Other (Right groin dialysis cath) Back: Negative for: Paraspinal Tenderness Upper Extremity: Positive for: Normal Inspection, Normal ROM, NORMAL PULSES. Negative for: Cyanosis, Edema, Tenderness, Swelling, Erythema Lower Extremity: Positive for: Normal Inspection, NORMAL PULSES, Normal ROM. Negative for: Edema, CALF TENDERNESS, Cyanosis, Tenderness, Swelling, Erythema Neurological: Positive for: GCS=15, Speech Normal, Motor Func Grossly Intact, Normal Sensory Function Skin: Positive for: Warm, Dry, Normal Color. Negative for: Rashes Psychiatric: Positive for: Alert, Oriented x 3 - Medications Active Medications: Active Medications Generic Name Dose Route Start Last Admin Trade Name Freq PRN Reason Stop Dose Admin Acetaminophen 650 mg 06/05/18 08:30 06/05/18 09:08 Tylenol 325mg Tab PO 650 mg Q6 PRN Administration Pain, Mild (1-3) Allopurinol 100 mg 06/06/18 10:00 06/08/18 09:25 Zyloprim PO 100 mg DAILY [facility] Administration Aspirin 81 mg 06/06/18 10:00 06/08/18 09:24 Ecotrin PO 81 mg DAILY [facility] Administration Calcitriol 0.25 mcg 06/06/18 09:00 06/06/18 10:22 Rocaltrol PO 0.25 mcg MWF [facility] Administration Clonidine HCl 0.2 mg 06/05/18 22:00 06/08/18 06:13 Catapres PO 0.2 mg Q8H [facility] Administration Clopidogrel Bisulfate 75 mg 06/06/18 10:00 06/08/18 09:23 Plavix PO 75 mg DAILY [facility] Administration Dextrose 0 ml 06/05/18 20:46 Dextrose 50% Inj IV STAT PRN Hypoglycemia Protocol Protocol Dextrose 0 gm 06/05/18 20:46 Glutose 15 PO ONCE PRN Hypoglycemia Protocol Protocol Diltiazem HCl 300 mg 06/06/18 10:00 06/08/18 09:25 Cardizem Cd PO 300 mg DAILY [facility] Administration Epoetin Ender 20,000 unit 06/09/18 09:00 Procrit SC MWF [facility] Glucagon 0 mg 06/05/18 20:46 Glucagen Diagnostic Kit IM STAT PRN Hypoglycemia Protocol Protocol Heparin Sodium (Porcine) 2,600 units 06/07/18 10:09 06/07/18 12:01 Heparin IVP 06/18/18 09:01 2,600 units MWF PRN Administration every after dialysis Hydralazine HCl 100 mg 06/06/18 10:30 06/08/18 09:23 Apresoline PO 100 mg TID [facility] Administration Dextrose 1,000 mls @ 0 mls/hr 06/05/18 20:46 Dextrose 5% In Water 1000 Ml IV .Q0M PRN Hypoglycemia Protocol Protocol Per Protocol Heparin Sodium/Sodium Chloride 25,000 units in 250 mls @ 0 mls/hr 06/08/18 06: 38 Heparin 86727 Units/250ml 1/2 Normal Saline IV .Q0M PRN PROTOCOL Protocol Per Protocol Isosorbide Mononitrate 30 mg 06/06/18 10:15 06/08/18 10:29 Imdur Er PO 30 mg DAILY [facility] Administration Pantoprazole Sodium 20 mg 06/05/18 10:00 06/08/18 09:24 Protonix Ec Tab PO 20 mg DAILY [facility] Administration Rosuvastatin Calcium 40 mg 06/05/18 22:00 06/07/18 22:19 Crestor PO 40 mg HS [facility] Administration Sevelamer Carbonate 0.8 gm 06/06/18 08:00 06/08/18 08:00 Renvela PO 0.8 gm TIDCC [facility] Administration Sitagliptin Phosphate 25 mg 06/06/18 10:00 06/08/18 09:23 Januvia PO 25 mg DAILY [facility] Administration Sodium Chloride 0 ml 06/07/18 03:30 06/07/18 04:10 [place] Baby Saline 30 Ml KASIE 1 spr Q4H PRN Administration Dry nasal passages - Patient Studies Lab Studies: Microbiology Studies 06/05/18 08:01 MRSA Culture (Admit) - Final Naris MRSA NOT DETECTED Lab Studies 06/08/18 06/08/18 06/08/18 Range/Units 05:46 05:46 05:46 WBC 12.6 H (4.8-10.8) K/uL RBC 2.97 L (4.40-5.90) Mil/uL Hgb 8.7 L (12.0-18.0) g/dL Hct 26.0 L (35.0-51.0) % MCV 87.4 D (80.0-94.0) fL MCH 29.2 (27.0-31.0) pg MCHC 33.4 (33.0-37.0) g/dL RDW 16.8 H (11.5-14.5) % Plt Count 212 (130-400) K/uL MPV 8.4 (7.2-11.7) fL Neut % (Auto) 64.2 (50.0-75.0) % Lymph % (Auto) 24.0 (20.0-40.0) % [place] % (Auto) 10.0 (0.0-10.0) % Eos % (Auto) 1.2 (0.0-4.0) % Baso % (Auto) 0.6 (0.0-2.0) % Neut # (Auto) 8.1 H (1.8-7.0) K/uL Lymph # (Auto) 3.0 (1.0-4.3) K/uL [place] # (Auto) 1.3 H (0.0-0.8) K/uL Eos # (Auto) 0.2 (0.0-0.7) K/uL Baso # (Auto) 0.1 (0.0-0.2) K/uL APTT 51 H (21-34) SECONDS Sodium 139 (132-148) mmol/L Potassium 4.9 (3.6-5.2) mmol/L Chloride 102 (98-107) mmol/L Carbon Dioxide 28 (22-30) mmol/L Anion Gap 14 (10-20) BUN 41 H (9-20) mg/dL Creatinine 6.6 H (0.8-1.5) mg/dL Est GFR ( Amer) 11 Est GFR (Non-Af Amer) 9 Random Glucose 117 H (75-110) mg/dL Calcium 8.9 (8.6-10.4) mg/dl Phosphorus 4.4 (2.5-4.5) mg/dL Magnesium 1.8 (1.6-2.3) mg/dL Total Bilirubin 0.5 (0.2-1.3) mg/dL AST 15 L D (17-59) U/L ALT 21 (21-72) U/L Alkaline Phosphatase 60 (38-126) U/L Total Protein 6.7 (6.3-8.3) g/dL Albumin 3.5 (3.5-5.0) g/dL Globulin 3.1 (2.2-3.9) gm/dL Albumin/Globulin Ratio 1.1 (1.0-2.1) Laboratory Results - last 24 hr 06/08/18 06/08/18 06/08/18 05:46 05:46 05:46 WBC 12.6 H RBC 2.97 L Hgb 8.7 L Hct 26.0 L MCV 87.4 D MCH 29.2 MCHC 33.4 RDW 16.8 H Plt Count 212 MPV 8.4 Neut % (Auto) 64.2 Lymph % (Auto) 24.0 [place] % (Auto) 10.0 Eos % (Auto) 1.2 Baso % (Auto) 0.6 Neut # (Auto) 8.1 H Lymph # (Auto) 3.0 [place] # (Auto) 1.3 H Eos # (Auto) 0.2 Baso # (Auto) 0.1 APTT 51 H Sodium 139 Potassium 4.9 Chloride 102 Carbon Dioxide 28 Anion Gap 14 BUN 41 H Creatinine 6.6 H Est GFR ( Amer) 11 Est GFR (Non-Af Amer) 9 Random Glucose 117 H Calcium 8.9 Phosphorus 4.4 Magnesium 1.8 Total Bilirubin 0.5 AST 15 L D ALT 21 Alkaline Phosphatase 60 Total Protein 6.7 Albumin 3.5 Globulin 3.1 Albumin/Globulin Ratio 1.1 Fingerstick Blood Sugar Results: 125 Review of Systems - Review of Systems All systems: reviewed and no additional remarkable complaints except (as per HPI ) Critical Care Progress Note - Nutrition Nutrition: Nutrition Category Date Time Status Renal Diet [DIET] Diets 06/06/18 Dinner Active Assessment/Plan - Assessment and Plan (Free Text) Assessment: This is a 47 yo M with PMH of HTN, DM2, stage 5 CKD, and CAD with stent placement x2 (latest 08/2017) who presented to [facility] with chest pain, SOB, nausea and vomiting. He was admitted to ICU for NSTEMI and hypertensive emergency. Remains on Heparin drip, off nitro drip. R femoral Shiley placed , s/p 2 episodes of HD. Pending transfer to telemetry. Plan: Neuro: -Patient awake, alert, oriented x3. Resting comfortably. -Maintain normothermia Cardio: -Troponin downtrendin.7->10.4->8.06 -BP 120s-140s/60's-80's today -remains on Heparin drip, now off Nitro drip -continue ASA 81mg, Plavix 75mg PO daily, Crestor 40mg PO HS, clonidine 0.2mg PO Q8H, Diltiazem 300mg PO daily, Hydralazine 100mg PO TID, Isosorbide Mononitrate ER 30mg PO daily -Pending Cardiac cath and permacath placement, as per Cardio and Surgery Pulm: -Maintain SpO2>95% GI: -Renal diet, tolerating well -Protonix for GI ppx Renal: -Cr. improved to 6.6; s/p 2 HD rounds -Nephro following, appreciate all recs -Surgery consulted, appreciate all recs; pending permacath placement -continue calcitriol ID: -WBC: 12.6 -afebrile -no indication for antibiotics at this time Heme: -H/H improved to 8.7/26, no indication for transfusion at this time -continue to monitor -Heparin drip covers for DVT Endo: -continue Sitagliptin 25mg daily MSK: -continue Allopurinol 100mg PO daily Dispo: pending transfer to telemetry, pending Cardiac cath and permacath placement FEN: Renal Diet Access: Peripheral IVs, R groin HD cath Consults: Nephro, Cardio, Vasc Surgery Ppx: Protonix for GI, Heparin drip covers for DVT Seen, reviewed, and discussed with attending, Dr. Garcia
--- NOTE | 2018-06-08 13:52 | CP.PCM.PN ---
Subjective - Date & Time of Evaluation Date of Evaluation: 06/08/18 Time of Evaluation: 13:50 - Subjective Subjective: Surgery: Dr. Byrnes Pt seen and examined. No acute events overnight. Pt has no complaints. Pattie is working without issue. Objective - Vital Signs/Intake and Output Vital Signs (last 24 hours): Temp Pulse Resp BP Pulse Ox 98.6 F 93 H 18 140/72 98 06/08/18 12:06 06/08/18 12:06 06/08/18 12:06 06/08/18 12:06 06/08/18 12:00 Intake and Output: 06/08/18 06/08/18 06:59 18:59 Intake Total 1113.6 376.8 Output Total 220 500 Balance 893.6 -123.2 - Medications Medications: Current Medications Acetaminophen (Tylenol 325mg Tab) 650 mg PO Q6 PRN PRN Reason: Pain, Mild (1-3) Last Admin: 06/05/18 09:08 Dose: 650 mg Allopurinol (Zyloprim) 100 mg PO DAILY [facility] Last Admin: 06/08/18 09:25 Dose: 100 mg Aspirin (Ecotrin) 81 mg PO DAILY [facility] Last Admin: 06/08/18 09:24 Dose: 81 mg Calcitriol (Rocaltrol) 0.25 mcg PO MWF [facility] Last Admin: 06/06/18 10:22 Dose: 0.25 mcg Clonidine HCl (Catapres) 0.2 mg PO Q8H [facility] Last Admin: 06/08/18 06:13 Dose: 0.2 mg Clopidogrel Bisulfate (Plavix) 75 mg PO DAILY [facility] Last Admin: 06/08/18 09:23 Dose: 75 mg Dextrose (Dextrose 50% Inj) 0 ml IV STAT PRN; Protocol PRN Reason: Hypoglycemia Protocol Dextrose (Glutose 15) 0 gm PO ONCE PRN; Protocol PRN Reason: Hypoglycemia Protocol Diltiazem HCl (Cardizem Cd) 300 mg PO DAILY [facility] Last Admin: 06/08/18 09:25 Dose: 300 mg Epoetin Ender (Procrit) 20,000 unit SC MWF [facility] Glucagon (Glucagen Diagnostic Kit) 0 mg IM STAT PRN; Protocol PRN Reason: Hypoglycemia Protocol Heparin Sodium (Porcine) (Heparin) 2,600 units IVP MWF PRN PRN Reason: every after dialysis Stop: 06/18/18 09:01 Last Admin: 06/07/18 12:01 Dose: 2,600 units Hydralazine HCl (Apresoline) 100 mg PO TID [facility] Last Admin: 06/08/18 09:23 Dose: 100 mg Dextrose (Dextrose 5% In Water 1000 Ml) 1,000 mls @ 0 mls/hr IV .Q0M PRN; Protocol; Per Protocol PRN Reason: Hypoglycemia Protocol Heparin Sodium/Sodium Chloride (Heparin 83202 Units/250ml 1/2 Normal Saline) 25 ,000 units in 250 mls @ 0 mls/hr IV .Q0M PRN; Protocol; Per Protocol PRN Reason: PROTOCOL Last Admin: 06/08/18 11:45 Dose: 12.8 mls/hr Isosorbide Mononitrate (Imdur Er) 30 mg PO DAILY [facility] Last Admin: 06/08/18 10:29 Dose: 30 mg Pantoprazole Sodium (Protonix Ec Tab) 20 mg PO DAILY [facility] Last Admin: 06/08/18 09:24 Dose: 20 mg Rosuvastatin Calcium (Crestor) 40 mg PO HS [facility] Last Admin: 06/07/18 22:19 Dose: 40 mg Sevelamer Carbonate (Renvela) 0.8 gm PO TIDCC [facility] Last Admin: 06/08/18 11:53 Dose: 0.8 gm Sitagliptin Phosphate (Januvia) 25 mg PO DAILY [facility] Last Admin: 06/08/18 09:23 Dose: 25 mg Sodium Chloride ([place] Baby Saline 30 Ml) 0 ml KASIE Q4H PRN PRN Reason: Dry nasal passages Last Admin: 06/07/18 04:10 Dose: 1 spr - Labs Labs: 06/08/18 05:46 06/08/18 05:46 APTT 51 SECONDS (21-34) H 06/08/18 05:46 - Constitutional Appears: Non-toxic, No Acute Distress - Head Exam Head Exam: ATRAUMATIC, NORMOCEPHALIC - Eye Exam Eye Exam: EOMI - ENT Exam ENT Exam: Mucous Membranes Moist - Neck Exam Neck Exam: Full ROM - Respiratory Exam Respiratory Exam: NORMAL BREATHING PATTERN. absent: Accessory Muscle Use, Respiratory Distress - GI/Abdominal Exam GI & Abdominal Exam: Soft. absent: Distended, Firm, Guarding, Rigid, Tenderness - Extremities Exam Additional comments: R femoral shiley in place - Neurological Exam Neurological Exam: Alert, Awake, Oriented x3 - Psychiatric Exam Psychiatric exam: Normal Affect, Normal Mood Assessment and Plan - Assessment and Plan (Free Text) Assessment: 47M s/p [place] w. ESRD s/p femoral shiley -Cardiac cath tomorrow -will plan for permacath once cleared from medical standpoint -d/w attending Lacy PGY4
--- NOTE | 2018-06-08 14:19 | CP.PCM.PN ---
Subjective - Date & Time of Evaluation Date of Evaluation: 06/08/18 Time of Evaluation: 14:18 - Subjective Subjective: pt is seen and examined, follow up consult is dictated #[id number] Objective - Vital Signs/Intake and Output Vital Signs (last 24 hours): Temp Pulse Resp BP Pulse Ox 98.6 F 93 H 18 140/72 98 06/08/18 12:06 06/08/18 12:06 06/08/18 12:06 06/08/18 12:06 06/08/18 12:00 Intake and Output: 06/08/18 06/08/18 06:59 18:59 Intake Total 1113.6 376.8 Output Total 220 500 Balance 893.6 -123.2 - Medications Medications: Current Medications Acetaminophen (Tylenol 325mg Tab) 650 mg PO Q6 PRN PRN Reason: Pain, Mild (1-3) Last Admin: 06/05/18 09:08 Dose: 650 mg Allopurinol (Zyloprim) 100 mg PO DAILY [facility] Last Admin: 06/08/18 09:25 Dose: 100 mg Aspirin (Ecotrin) 81 mg PO DAILY [facility] Last Admin: 06/08/18 09:24 Dose: 81 mg Calcitriol (Rocaltrol) 0.25 mcg PO MWF [facility] Last Admin: 06/06/18 10:22 Dose: 0.25 mcg Clonidine HCl (Catapres) 0.2 mg PO Q8H [facility] Last Admin: 06/08/18 06:13 Dose: 0.2 mg Clopidogrel Bisulfate (Plavix) 75 mg PO DAILY [facility] Last Admin: 06/08/18 09:23 Dose: 75 mg Dextrose (Dextrose 50% Inj) 0 ml IV STAT PRN; Protocol PRN Reason: Hypoglycemia Protocol Dextrose (Glutose 15) 0 gm PO ONCE PRN; Protocol PRN Reason: Hypoglycemia Protocol Diltiazem HCl (Cardizem Cd) 300 mg PO DAILY [facility] Last Admin: 06/08/18 09:25 Dose: 300 mg Epoetin Ender (Procrit) 20,000 unit SC MWF [facility] Glucagon (Glucagen Diagnostic Kit) 0 mg IM STAT PRN; Protocol PRN Reason: Hypoglycemia Protocol Heparin Sodium (Porcine) (Heparin) 2,600 units IVP MWF PRN PRN Reason: every after dialysis Stop: 06/18/18 09:01 Last Admin: 06/07/18 12:01 Dose: 2,600 units Hydralazine HCl (Apresoline) 100 mg PO TID [facility] Last Admin: 06/08/18 09:23 Dose: 100 mg Dextrose (Dextrose 5% In Water 1000 Ml) 1,000 mls @ 0 mls/hr IV .Q0M PRN; Protocol; Per Protocol PRN Reason: Hypoglycemia Protocol Heparin Sodium/Sodium Chloride (Heparin 55121 Units/250ml 1/2 Normal Saline) 25 ,000 units in 250 mls @ 0 mls/hr IV .Q0M PRN; Protocol; Per Protocol PRN Reason: PROTOCOL Last Admin: 06/08/18 11:45 Dose: 12.8 mls/hr Isosorbide Mononitrate (Imdur Er) 30 mg PO DAILY [facility] Last Admin: 06/08/18 10:29 Dose: 30 mg Pantoprazole Sodium (Protonix Ec Tab) 20 mg PO DAILY [facility] Last Admin: 06/08/18 09:24 Dose: 20 mg Rosuvastatin Calcium (Crestor) 40 mg PO HS [facility] Last Admin: 06/07/18 22:19 Dose: 40 mg Sevelamer Carbonate (Renvela) 0.8 gm PO TIDCC [facility] Last Admin: 06/08/18 11:53 Dose: 0.8 gm Sitagliptin Phosphate (Januvia) 25 mg PO DAILY [facility] Last Admin: 06/08/18 09:23 Dose: 25 mg Sodium Chloride ([place] Baby Saline 30 Ml) 0 ml KASIE Q4H PRN PRN Reason: Dry nasal passages Last Admin: 06/07/18 04:10 Dose: 1 spr - Labs Labs: 06/08/18 05:46 06/08/18 05:46 APTT 51 SECONDS (21-34) H 06/08/18 05:46
--- NOTE | 2018-06-08 15:19 | CP.PCM.PN ---
Subjective - Date & Time of Evaluation Date of Evaluation: 06/08/18 Time of Evaluation: 15:18 - Subjective Subjective: currently patient remained stable. Discussed with patient on short and long-term goals concerning his cardiac and renal disorder. Patient has finally agreed to go for permanent hemodialysis. Cardiac cath in a.m. Objective - Vital Signs/Intake and Output Vital Signs (last 24 hours): Temp Pulse Resp BP Pulse Ox 98.6 F 93 H 18 140/72 98 06/08/18 12:06 06/08/18 12:06 06/08/18 12:06 06/08/18 12:06 06/08/18 12:00 Intake and Output: 06/08/18 06/08/18 11:59 23:59 Intake Total 1293.6 258.4 Output Total 540 0 Balance 753.6 258.4 - Medications Medications: Current Medications Acetaminophen (Tylenol 325mg Tab) 650 mg PO Q6 PRN PRN Reason: Pain, Mild (1-3) Last Admin: 06/05/18 09:08 Dose: 650 mg Allopurinol (Zyloprim) 100 mg PO DAILY [facility] Last Admin: 06/08/18 09:25 Dose: 100 mg Aspirin (Ecotrin) 81 mg PO DAILY [facility] Last Admin: 06/08/18 09:24 Dose: 81 mg Calcitriol (Rocaltrol) 0.25 mcg PO MWF [facility] Last Admin: 06/06/18 10:22 Dose: 0.25 mcg Clonidine HCl (Catapres) 0.2 mg PO Q8H [facility] Last Admin: 06/08/18 14:14 Dose: 0.2 mg Clopidogrel Bisulfate (Plavix) 75 mg PO DAILY [facility] Last Admin: 06/08/18 09:23 Dose: 75 mg Dextrose (Dextrose 50% Inj) 0 ml IV STAT PRN; Protocol PRN Reason: Hypoglycemia Protocol Dextrose (Glutose 15) 0 gm PO ONCE PRN; Protocol PRN Reason: Hypoglycemia Protocol Diltiazem HCl (Cardizem Cd) 300 mg PO DAILY [facility] Last Admin: 06/08/18 09:25 Dose: 300 mg Epoetin Ender (Procrit) 20,000 unit SC MWF [facility] Glucagon (Glucagen Diagnostic Kit) 0 mg IM STAT PRN; Protocol PRN Reason: Hypoglycemia Protocol Heparin Sodium (Porcine) (Heparin) 2,600 units IVP MWF PRN PRN Reason: every after dialysis Stop: 06/18/18 09:01 Last Admin: 06/07/18 12:01 Dose: 2,600 units Hydralazine HCl (Apresoline) 100 mg PO TID [facility] Last Admin: 06/08/18 14:19 Dose: 100 mg Dextrose (Dextrose 5% In Water 1000 Ml) 1,000 mls @ 0 mls/hr IV .Q0M PRN; Protocol; Per Protocol PRN Reason: Hypoglycemia Protocol Heparin Sodium/Sodium Chloride (Heparin 46095 Units/250ml 1/2 Normal Saline) 25 ,000 units in 250 mls @ 0 mls/hr IV .Q0M PRN; Protocol; Per Protocol PRN Reason: PROTOCOL Last Admin: 06/08/18 11:45 Dose: 12.8 mls/hr Isosorbide Mononitrate (Imdur Er) 30 mg PO DAILY [facility] Last Admin: 06/08/18 10:29 Dose: 30 mg Pantoprazole Sodium (Protonix Ec Tab) 20 mg PO DAILY [facility] Last Admin: 06/08/18 09:24 Dose: 20 mg Rosuvastatin Calcium (Crestor) 40 mg PO HS [facility] Last Admin: 06/07/18 22:19 Dose: 40 mg Sevelamer Carbonate (Renvela) 0.8 gm PO TIDCC [facility] Last Admin: 06/08/18 11:53 Dose: 0.8 gm Sitagliptin Phosphate (Januvia) 25 mg PO DAILY [facility] Last Admin: 06/08/18 09:23 Dose: 25 mg Sodium Chloride ([place] Baby Saline 30 Ml) 0 ml KASIE Q4H PRN PRN Reason: Dry nasal passages Last Admin: 06/07/18 04:10 Dose: 1 spr - Labs Labs: 06/08/18 05:46 06/08/18 05:46 APTT 51 SECONDS (21-34) H 06/08/18 05:46
--- NOTE | 2018-06-08 21:14 | CP.PCM.PN ---
Subjective - Date & Time of Evaluation Date of Evaluation: 06/08/18 Time of Evaluation: 10:15 - Subjective Subjective: Patient s/p Non STEMI Hx of CAD and RCA stent CKD on HD DM 2 Hyperlipdemia For Cath in am NPO after MN except meds D/C Heparin drip from Midnight Objective - Vital Signs/Intake and Output Vital Signs (last 24 hours): Temp Pulse Resp BP Pulse Ox 98.4 F 71 18 130/74 95 06/08/18 20:37 06/08/18 20:37 06/08/18 20:37 06/08/18 20:37 06/08/18 20:37 Intake and Output: 06/08/18 06/09/18 18:59 06:59 Intake Total 853.6 145.6 Output Total 320 0 Balance 533.6 145.6 - Medications Medications: Current Medications Acetaminophen (Tylenol 325mg Tab) 650 mg PO Q6 PRN PRN Reason: Pain, Mild (1-3) Last Admin: 06/05/18 09:08 Dose: 650 mg Allopurinol (Zyloprim) 100 mg PO DAILY [facility] Last Admin: 06/08/18 09:25 Dose: 100 mg Aspirin (Ecotrin) 81 mg PO DAILY [facility] Last Admin: 06/08/18 09:24 Dose: 81 mg Calcitriol (Rocaltrol) 0.25 mcg PO MWF [facility] Last Admin: 06/06/18 10:22 Dose: 0.25 mcg Clonidine HCl (Catapres) 0.2 mg PO Q8H [facility] Last Admin: 06/08/18 14:14 Dose: 0.2 mg Clopidogrel Bisulfate (Plavix) 75 mg PO DAILY [facility] Last Admin: 06/08/18 09:23 Dose: 75 mg Dextrose (Dextrose 50% Inj) 0 ml IV STAT PRN; Protocol PRN Reason: Hypoglycemia Protocol Dextrose (Glutose 15) 0 gm PO ONCE PRN; Protocol PRN Reason: Hypoglycemia Protocol Diltiazem HCl (Cardizem Cd) 300 mg PO DAILY [facility] Last Admin: 06/08/18 09:25 Dose: 300 mg Epoetin Ender (Procrit) 20,000 unit SC MWF [facility] Glucagon (Glucagen Diagnostic Kit) 0 mg IM STAT PRN; Protocol PRN Reason: Hypoglycemia Protocol Heparin Sodium (Porcine) (Heparin) 2,600 units IVP MWF PRN PRN Reason: every after dialysis Stop: 06/18/18 09:01 Last Admin: 06/07/18 12:01 Dose: 2,600 units Hydralazine HCl (Apresoline) 100 mg PO TID [facility] Last Admin: 06/08/18 17:04 Dose: 100 mg Dextrose (Dextrose 5% In Water 1000 Ml) 1,000 mls @ 0 mls/hr IV .Q0M PRN; Protocol; Per Protocol PRN Reason: Hypoglycemia Protocol Heparin Sodium/Sodium Chloride (Heparin 59920 Units/250ml 1/2 Normal Saline) 25 ,000 units in 250 mls @ 0 mls/hr IV .Q0M PRN; Protocol; Per Protocol PRN Reason: PROTOCOL Last Admin: 06/08/18 11:45 Dose: 12.8 mls/hr Isosorbide Mononitrate (Imdur Er) 30 mg PO DAILY [facility] Last Admin: 06/08/18 10:29 Dose: 30 mg Pantoprazole Sodium (Protonix Ec Tab) 20 mg PO DAILY [facility] Last Admin: 06/08/18 09:24 Dose: 20 mg Rosuvastatin Calcium (Crestor) 40 mg PO HS [facility] Last Admin: 06/07/18 22:19 Dose: 40 mg Sevelamer Carbonate (Renvela) 0.8 gm PO TIDCC [facility] 234 [facility]S [facility] Last Admin: 06/08/18 17:04 Dose: 0.8 gm Sitagliptin Phosphate (Januvia) 25 mg PO DAILY [facility] Last Admin: 06/08/18 09:23 Dose: 25 mg Sodium Chloride ([place] Baby Saline 30 Ml) 0 ml KASIE Q4H PRN PRN Reason: Dry nasal passages Last Admin: 06/07/18 04:10 Dose: 1 spr Vitamin B Complex/Vit C/Folic Acid (Nephro-Gabriela) 1 tab PO 0800 [facility] - Labs Labs: 06/08/18 05:46 06/08/18 05:46 APTT 51 SECONDS (21-34) H 06/08/18 05:46
--- NOTE | 2018-06-08 21:16 | PN ---
Copied To: Thelma Guillen MD Attending MD: Thelma Guillen MD DATE: 06/08/2018 LOCATION: ICU bed 14B. REQUESTING BY: Juan Coronado MD REASON FOR FOLLOWUP: Endstage renal disease, continuation of hemodialysis. SUBJECTIVE: Mr. Ugalde is a 47-year-old obese male with a history of longstanding hypertension, diabetes, status post weight reduction surgery, nephrotic-range proteinuria, chronic kidney disease stage 5, CAD, status post stents twice, and hyperlipidemia who was admitted with a chest pain here which started about 2 weeks ago, lasted for few hours. Had recurrence of the chest pain 2 days prior to the admission this time and decided to come to the hospital with shortness of breath, dyspnea on exertion, and feeling weak, tired, nausea, vomiting, and chest discomfort, and found to have elevated troponin levels of more than 13 and also found to have low H and H and increased BUN and creatinine. The patient agreed for the renal replacement therapy, status post right femoral vein catheter placement by Dr. Byrnes, started on hemodialysis on Saturday and also underwent second dialysis on Saturday. The patient is feeling better. Also, received 2 units of packed RBC and denies any headache, dizziness. Denies any chest pain or palpitation. Denies any fever or cough. No abdominal pain. No nausea, vomiting, or diarrhea. PHYSICAL EXAMINATION: VITAL SIGNS: As follows: Blood pressure 140/72, pulse 93, respirations 18, temperature 98.6, and saturation 98%. Height 5 feet 7 inches and weight is 238 pounds. GENERAL: Mr. Ugalde is a 47-year-old middle-aged male, moderately built, moderately nourished, not in distress. HEENT: Pupils are normally reactive to light and accommodation. Conjunctivae pink. Sclerae anicteric. Tongue is moist and trachea is midline. LUNGS: Symmetric on both sides. Bilateral breath sounds present. Clear to auscultation. CVS: Friona at the fifth intercostal space, 1/2 inch medial to midclavicular line. S1, S2 audible. No murmur or gallop. ABDOMEN: Normal in appearance. Soft and tympanitic. No guarding. No rigidity. No hepatosplenomegaly. FREIGHT CLAIM INVESTIGATOR: The patient is alert, awake, oriented x3. Nonfocal neuro examination. Cranial nerves II-XII grossly intact. Sensory and motor system is within normal limits. EXTREMITIES: No cyanosis. No clubbing. No edema. CURRENT MEDICATIONS: Include as follows: Hydralazine 100 mg p.o. t.i.d., diltiazem 300 mg p.o. daily, clonidine 0.2 mg p.o. every 8 hours, Crestor 40 mg p.o. at bedtime, aspirin 81 mg daily, heparin 2600 units in the catheter three times a week; Saturday, Saturday, and Saturday; and IV heparin as per the protocol, Imdur 30 mg p.o. daily, Januvia 25 mg p.o. daily, Plavix 75 mg p.o. daily, Procrit 20,000 units three times a week, Renvela 800 mg p.o. t.i.d., calcitriol 0.25 mcg p.o. three times a week, Tylenol, and allopurinol 100 mg p.o. daily. LABORATORY DATA: Includes as follows: As of 06/08/2018; WBC 12.6, hemoglobin 8.7, hematocrit is 26, and platelets 212. Sodium 139, potassium 4.9, chloride 102, CO2 of 28, BUN 41, creatinine 6.6, glucose 117, calcium 8.9, phosphorus 4.4, and magnesium 1.8. Total bili 0.3, AST 15, ALT 21, alkaline phos 60, total protein 6.7, and albumin is 3.5. ASSESSMENT AND PLAN: In summary, Mr. Ugalde is a 47-year-old obese, middle-aged male with hypertension, diabetes, coronary artery disease, hyperlipidemia, status post stents twice, status post weight reduction surgery, chronic kidney disease stage 5; reluctant to get access in the last 6 months, who was admitted with chest pain on and off for the last 2 weeks, admitted with elevated troponin levels. On admission, troponin level was 11.7, 10.4, and the last one is 8 with elevated CPK levels 579 and 469. 1. 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 2. Anemia secondary to end-stage renal disease. 3. Acute myocardial infarction and stenting. 4. Hypertension. 5. Diabetes. We will continue hemodialysis three times a week, Saturday, Saturday, and Saturday and follow with Cardiology for possible cardiac catheterization. 3. Anemia secondary to endstage renal disease. Continue Epogen three times a week. Continue Nephro-Gabriela and Renvela. Continue Procrit. We will follow with you. Thank you for allowing me to participate in your patient's care. Thelma Guillen MD
[2018-06-09 06:30] LABS: BASO # 0.1 K/uL (0.0-0.2); BASO % 0.4 % (0.0-2.0); EOS # 0.2 K/uL (0.0-0.7); HEMOGLOBIN 8.6 g/dL (12.0-18.0); LYMPH % 24.9 % (20.0-40.0); MEAN CELL VOLUME 87.8 fL (80.0-94.0); MEAN CORPUSCULAR HGB CONC 33.1 g/dL (33.0-37.0); MEAN PLATELET VOLUME 8.6 fL (7.2-11.7); MONO # 1.4 K/uL (0.0-0.8); MONO % 11.4 % (0.0-10.0); NEUT # 7.5 K/uL (1.8-7.0); NEUT % 61.3 % (50.0-75.0); RBC 2.95 Mil/uL (4.40-5.90); RED CELL DISTRIBUTION WIDTH 16.7 % (11.5-14.5); WHITE BLOOD COUNT 12.2 K/uL (4.8-10.8)
[2018-06-09 06:35] LABS: PROTHROMBIN TIME 11.2 SECONDS (9.7-12.2)
[2018-06-09 06:49] LABS: ALB/GLOB RATIO 1.2 (1.0-2.1); ALBUMIN 3.4 g/dL (3.5-5.0); CALCIUM 8.9 mg/dl (8.6-10.4)
[2018-06-09] MEDS ORDERED: Iodixanol 320 MG/ML 200 ML BOTTLE IV ONE (07:41)
[2018-06-09] MEDS: Sevelamer Carb 0.8 gm/Packet PO SCH ×3 (08:00→18:47)
[2018-06-09] MEDS: Multivitamin Vitamin B Complex (Nephro-Vite) Tab PO SCH (08:00)
[2018-06-09] MEDS ORDERED: Lidocaine 2% MPF (5 ml) Inj ONE (08:14)
[2018-06-09] MEDS ORDERED: Midazolam 2 MG/2 ML VIAL ONE (08:27)
--- NOTE | 2018-06-09 09:03 | CP.PCM.PN ---
Subjective - Date & Time of Evaluation Date of Evaluation: 06/09/18 Time of Evaluation: 08:53 - Subjective Subjective: PGY-[address] Byrnes Patient is seen and examined at bedside. Patient has no complains at this time. Patient is to go for cardiac catheterization this morning. Objective - Vital Signs/Intake and Output Vital Signs (last 24 hours): Temp Pulse Resp BP Pulse Ox 98.2 F 67 18 160/91 H 95 06/09/18 07:20 06/09/18 07:20 06/09/18 05:00 06/09/18 07:20 06/09/18 07:20 Intake and Output: 06/09/18 06/09/18 06:59 18:59 Intake Total 387.9 0 Output Total 1000 0 Balance -612.1 0 - Medications Medications: Current Medications Acetaminophen (Tylenol 325mg Tab) 650 mg PO Q6 PRN PRN Reason: Pain, Mild (1-3) Last Admin: 06/05/18 09:08 Dose: 650 mg Allopurinol (Zyloprim) 100 mg PO DAILY [facility] Last Admin: 06/08/18 09:25 Dose: 100 mg Aspirin (Ecotrin) 81 mg PO DAILY [facility] Last Admin: 06/08/18 09:24 Dose: 81 mg Calcitriol (Rocaltrol) 0.25 mcg PO MWF [facility] Last Admin: 06/06/18 10:22 Dose: 0.25 mcg Clonidine HCl (Catapres) 0.2 mg PO Q8H [facility] Last Admin: 06/09/18 06:22 Dose: 0.2 mg Clopidogrel Bisulfate (Plavix) 75 mg PO DAILY [facility] Last Admin: 06/08/18 09:23 Dose: 75 mg Dextrose (Dextrose 50% Inj) 0 ml IV STAT PRN; Protocol PRN Reason: Hypoglycemia Protocol Dextrose (Glutose 15) 0 gm PO ONCE PRN; Protocol PRN Reason: Hypoglycemia Protocol Diltiazem HCl (Cardizem Cd) 300 mg PO DAILY [facility] Last Admin: 06/08/18 09:25 Dose: 300 mg Epoetin Ender (Procrit) 20,000 unit SC MWF [facility] Glucagon (Glucagen Diagnostic Kit) 0 mg IM STAT PRN; Protocol PRN Reason: Hypoglycemia Protocol Heparin Sodium (Porcine) (Heparin) 2,600 units IVP MWF PRN PRN Reason: every after dialysis Stop: 06/18/18 09:01 Last Admin: 06/07/18 12:01 Dose: 2,600 units Hydralazine HCl (Apresoline) 100 mg PO TID [facility] Last Admin: 06/08/18 17:04 Dose: 100 mg Dextrose (Dextrose 5% In Water 1000 Ml) 1,000 mls @ 0 mls/hr IV .Q0M PRN; Protocol; Per Protocol PRN Reason: Hypoglycemia Protocol Heparin Sodium/Sodium Chloride (Heparin 36460 Units/250ml 1/2 Normal Saline) 25 ,000 units in 250 mls @ 0 mls/hr IV .Q0M PRN; Protocol; Per Protocol PRN Reason: PROTOCOL Last Titration: 06/09/18 00:00 Dose: 0 mls/hr Isosorbide Mononitrate (Imdur Er) 30 mg PO DAILY [facility] Last Admin: 06/08/18 10:29 Dose: 30 mg Pantoprazole Sodium (Protonix Ec Tab) 20 mg PO DAILY [facility] Last Admin: 06/08/18 09:24 Dose: 20 mg Rosuvastatin Calcium (Crestor) 40 mg PO HS [facility] Last Admin: 06/08/18 21:44 Dose: 40 mg Sevelamer Carbonate (Renvela) 0.8 gm PO TIDCC [facility] Last Admin: 06/08/18 17:04 Dose: 0.8 gm Sitagliptin Phosphate (Januvia) 25 mg PO DAILY [facility] Last Admin: 06/08/18 09:23 Dose: 25 mg Sodium Chloride ([place] Baby Saline 30 Ml) 0 ml KASIE Q4H PRN PRN Reason: Dry nasal passages Last Admin: 06/07/18 04:10 Dose: 1 spr Vitamin B Complex/Vit C/Folic Acid (Nephro-Gabriela) 1 tab PO 0800 [facility] - Labs Labs: 06/09/18 06:24 06/09/18 06:24 PT 11.2 SECONDS (9.7-12.2) 06/09/18 06:24 INR 1.0 06/09/18 06:24 APTT 33 SECONDS (21-34) D 06/09/18 06:24 - Constitutional Appears: Well, Non-toxic, No Acute Distress - Head Exam Head Exam: ATRAUMATIC, NORMAL INSPECTION - Eye Exam Eye Exam: EOMI - Neck Exam Neck Exam: Full ROM - Respiratory Exam Respiratory Exam: NORMAL BREATHING PATTERN. absent: Accessory Muscle Use, Respiratory Distress - GI/Abdominal Exam GI & Abdominal Exam: Soft - Extremities Exam Additional comments: R femoral shiley in place - Neurological Exam Neurological Exam: Alert, Awake, Oriented x3 - Psychiatric Exam Psychiatric exam: Normal Affect, Normal Mood - Skin Skin Exam: Intact, Normal Color Assessment and Plan - Assessment and Plan (Free Text) Assessment: 47 yo M with pmhx ESRD s/p femoral shiermelinda POD#3 Plan: - Clear per cardio, we will plan to place permacath tomorrow am - NPO past midnight - F/A am labs Plan discussed with Dr. Fitz Flowers, PGY-1
[2018-06-09] MEDS: diltiaZEM 300 mg/24 Hours CD Cap PO SCH (12:56)
--- NOTE | 2018-06-09 13:42 | CP.PCM.PN ---
Subjective - Date & Time of Evaluation Date of Evaluation: 06/09/18 Time of Evaluation: 13:42 - Subjective Subjective: patient had a left heart cardiac catheterization today. We will wait for the official report. Clinically patient remained same creatinine is 8.5 Continue ICU management Objective - Vital Signs/Intake and Output Vital Signs (last 24 hours): Temp Pulse Resp BP Pulse Ox 97.4 F L 58 L 96 H 169/110 H 95 06/09/18 12:00 06/09/18 12:40 06/09/18 12:00 06/09/18 12:40 06/09/18 07:20 Intake and Output: 06/09/18 06/09/18 11:59 23:59 Intake Total 153.9 200 Output Total 1000 550 Balance -846.1 -350 - Medications Medications: Current Medications Acetaminophen (Tylenol 325mg Tab) 650 mg PO Q6 PRN PRN Reason: Pain, Mild (1-3) Last Admin: 06/05/18 09:08 Dose: 650 mg Allopurinol (Zyloprim) 100 mg PO DAILY [facility] Last Admin: 06/08/18 09:25 Dose: 100 mg Aspirin (Ecotrin) 81 mg PO DAILY [facility] Last Admin: 06/09/18 12:56 Dose: 81 mg Calcitriol (Rocaltrol) 0.25 mcg PO MWF [facility] Last Admin: 06/06/18 10:22 Dose: 0.25 mcg Clonidine HCl (Catapres) 0.2 mg PO Q8H [facility] Last Admin: 06/09/18 13:07 Dose: 0.2 mg Clopidogrel Bisulfate (Plavix) 75 mg PO DAILY [facility] Last Admin: 06/08/18 09:23 Dose: 75 mg Dextrose (Dextrose 50% Inj) 0 ml IV STAT PRN; Protocol PRN Reason: Hypoglycemia Protocol Dextrose (Glutose 15) 0 gm PO ONCE PRN; Protocol PRN Reason: Hypoglycemia Protocol Diltiazem HCl (Cardizem Cd) 300 mg PO DAILY [facility] Last Admin: 06/09/18 12:56 Dose: 300 mg Epoetin Ender (Procrit) 20,000 unit SC MWF [facility] Glucagon (Glucagen Diagnostic Kit) 0 mg IM STAT PRN; Protocol PRN Reason: Hypoglycemia Protocol Heparin Sodium (Porcine) (Heparin) 2,600 units IVP MWF PRN PRN Reason: every after dialysis Stop: 06/18/18 09:01 Last Admin: 06/07/18 12:01 Dose: 2,600 units Heparin Sodium (Porcine) (Heparin) 5,000 units SC Q8 [facility] Hydralazine HCl (Apresoline) 100 mg PO TID [facility] Last Admin: 06/09/18 12:15 Dose: 100 mg Dextrose (Dextrose 5% In Water 1000 Ml) 1,000 mls @ 0 mls/hr IV .Q0M PRN; Protocol; Per Protocol PRN Reason: Hypoglycemia Protocol Isosorbide Mononitrate (Imdur Er) 30 mg PO DAILY [facility] Last Admin: 06/09/18 12:15 Dose: 30 mg Pantoprazole Sodium (Protonix Ec Tab) 20 mg PO DAILY [facility] Last Admin: 06/08/18 09:24 Dose: 20 mg Rosuvastatin Calcium (Crestor) 40 mg PO HS [facility] Last Admin: 06/08/18 21:44 Dose: 40 mg Sevelamer Carbonate (Renvela) 0.8 gm PO TIDCC [facility] Last Admin: 06/09/18 12:56 Dose: 0.8 gm Sitagliptin Phosphate (Januvia) 25 mg PO DAILY [facility] Last Admin: 06/08/18 09:23 Dose: 25 mg Sodium Chloride ([place] Baby Saline 30 Ml) 0 ml KASIE Q4H PRN PRN Reason: Dry nasal passages Last Admin: 06/07/18 04:10 Dose: 1 spr Vitamin B Complex/Vit C/Folic Acid (Nephro-Gabriela) 1 tab PO 0800 [facility] Last Admin: 06/09/18 08:00 Dose: Not Given - Labs Labs: 06/09/18 06:24 06/09/18 06:24 PT 11.2 SECONDS (9.7-12.2) 06/09/18 06:24 INR 1.0 06/09/18 06:24 APTT 33 SECONDS (21-34) D 06/09/18 06:24
[2018-06-09] MEDS: Epoetin Alfa Dialysis 20000 UNIT/ML Inj SC SCH (16:39)
[2018-06-09] MEDS: Pantoprazole 20 mg EC Tab PO SCH (18:47)
--- NOTE | 2018-06-09 18:48 | CP.PCM.PN ---
Subjective - Date & Time of Evaluation Date of Evaluation: 06/09/18 Time of Evaluation: 18:48 - Subjective Subjective: pt is seen and examined, follow up consult is dictated #[id number] s/p cardiac cath s/p hd today, had a uf about 1.5 lit Objective - Vital Signs/Intake and Output Vital Signs (last 24 hours): Temp Pulse Resp BP Pulse Ox 97.6 F 69 20 120/85 98 06/09/18 18:10 06/09/18 18:10 06/09/18 18:10 06/09/18 18:10 06/09/18 18:10 Intake and Output: 06/09/18 06/09/18 06:59 18:59 Intake Total 387.9 550 Output Total 1000 950 Balance -612.1 -400 - Medications Medications: Current Medications Acetaminophen (Tylenol 325mg Tab) 650 mg PO Q6 PRN PRN Reason: Pain, Mild (1-3) Last Admin: 06/05/18 09:08 Dose: 650 mg Allopurinol (Zyloprim) 100 mg PO DAILY [facility] Last Admin: 06/09/18 18:46 Dose: 100 mg Aspirin (Ecotrin) 81 mg PO DAILY [facility] Last Admin: 06/09/18 12:56 Dose: 81 mg Calcitriol (Rocaltrol) 0.25 mcg PO MWF [facility] Last Admin: 06/09/18 09:00 Dose: Not Given Clonidine HCl (Catapres) 0.2 mg PO Q8H [facility] Last Admin: 06/09/18 13:07 Dose: 0.2 mg Clopidogrel Bisulfate (Plavix) 75 mg PO DAILY [facility] Last Admin: 06/09/18 18:46 Dose: 75 mg Dextrose (Dextrose 50% Inj) 0 ml IV STAT PRN; Protocol PRN Reason: Hypoglycemia Protocol Dextrose (Glutose 15) 0 gm PO ONCE PRN; Protocol PRN Reason: Hypoglycemia Protocol Diltiazem HCl (Cardizem Cd) 300 mg PO DAILY [facility] Last Admin: 06/09/18 12:56 Dose: 300 mg Epoetin Ender (Procrit) 20,000 unit SC MWF [facility] Last Admin: 06/09/18 16:39 Dose: 20,000 unit Glucagon (Glucagen Diagnostic Kit) 0 mg IM STAT PRN; Protocol PRN Reason: Hypoglycemia Protocol Heparin Sodium (Porcine) (Heparin) 2,600 units IVP MWF PRN PRN Reason: every after dialysis Stop: 06/18/18 09:01 Last Admin: 06/07/18 12:01 Dose: 2,600 units Heparin Sodium (Porcine) (Heparin) 5,000 units SC Q8 [facility] Last Admin: 06/09/18 14:36 Dose: 5,000 units Hydralazine HCl (Apresoline) 100 mg PO TID [facility] Last Admin: 06/09/18 18:39 Dose: Not Given Dextrose (Dextrose 5% In Water 1000 Ml) 1,000 mls @ 0 mls/hr IV .Q0M PRN; Protocol; Per Protocol PRN Reason: Hypoglycemia Protocol Isosorbide Mononitrate (Imdur Er) 30 mg PO DAILY [facility] Last Admin: 06/09/18 12:15 Dose: 30 mg Pantoprazole Sodium (Protonix Ec Tab) 20 mg PO DAILY [facility] Last Admin: 06/09/18 18:47 Dose: 20 mg Rosuvastatin Calcium (Crestor) 40 mg PO HS [facility] Last Admin: 06/08/18 21:44 Dose: 40 mg Sevelamer Carbonate (Renvela) 0.8 gm PO TIDCC [facility] Last Admin: 06/09/18 18:47 Dose: 0.8 gm Sitagliptin Phosphate (Januvia) 25 mg PO DAILY [facility] Last Admin: 06/09/18 10:00 Dose: Not Given Sodium Chloride ([place] Baby Saline 30 Ml) 0 ml KASIE Q4H PRN PRN Reason: Dry nasal passages Last Admin: 06/07/18 04:10 Dose: 1 spr Vitamin B Complex/Vit C/Folic Acid (Nephro-Gabriela) 1 tab PO 0800 [facility] Last Admin: 06/09/18 08:00 Dose: Not Given - Labs Labs: 06/09/18 06:24 06/09/18 06:24 PT 11.2 SECONDS (9.7-12.2) 06/09/18 06:24 INR 1.0 06/09/18 06:24 APTT 33 SECONDS (21-34) D 06/09/18 06:24
--- NOTE | 2018-06-09 23:23 | CP.PCM.PN ---
Subjective - Date & Time of Evaluation Date of Evaluation: 06/09/18 Time of Evaluation: 07:20 - Subjective Subjective: Patient s/p cath Triple vessel disease Recommend CABG due to DM 2 If patient not agreeable will perform multi vessel PCI Objective - Vital Signs/Intake and Output Vital Signs (last 24 hours): Temp Pulse Resp BP Pulse Ox 98.0 F 75 26 H 161/96 H 96 06/09/18 20:00 06/09/18 22:45 06/09/18 22:45 06/09/18 22:45 06/09/18 22:45 Intake and Output: 06/09/18 06/10/18 18:59 06:59 Intake Total 870 400 Output Total 950 400 Balance -80 0 - Medications Medications: Current Medications Acetaminophen (Tylenol 325mg Tab) 650 mg PO Q6 PRN PRN Reason: Pain, Mild (1-3) Last Admin: 06/05/18 09:08 Dose: 650 mg Allopurinol (Zyloprim) 100 mg PO DAILY [facility] Last Admin: 06/09/18 18:46 Dose: 100 mg Aspirin (Ecotrin) 81 mg PO DAILY [facility] Last Admin: 06/09/18 12:56 Dose: 81 mg Calcitriol (Rocaltrol) 0.25 mcg PO MWF [facility] Last Admin: 06/09/18 09:00 Dose: Not Given Clonidine HCl (Catapres) 0.2 mg PO Q8H [facility] Last Admin: 06/09/18 21:15 Dose: 0.2 mg Clopidogrel Bisulfate (Plavix) 75 mg PO DAILY [facility] Last Admin: 06/09/18 18:46 Dose: 75 mg Dextrose (Dextrose 50% Inj) 0 ml IV STAT PRN; Protocol PRN Reason: Hypoglycemia Protocol Dextrose (Glutose 15) 0 gm PO ONCE PRN; Protocol PRN Reason: Hypoglycemia Protocol Diltiazem HCl (Cardizem Cd) 300 mg PO DAILY [facility] Last Admin: 06/09/18 12:56 Dose: 300 mg Epoetin Ender (Procrit) 20,000 unit SC MWF [facility] Last Admin: 06/09/18 16:39 Dose: 20,000 unit Glucagon (Glucagen Diagnostic Kit) 0 mg IM STAT PRN; Protocol PRN Reason: Hypoglycemia Protocol Heparin Sodium (Porcine) (Heparin) 2,600 units IVP MWF PRN PRN Reason: every after dialysis Stop: 06/18/18 09:01 Last Admin: 06/07/18 12:01 Dose: 2,600 units Heparin Sodium (Porcine) (Heparin) 5,000 units SC Q8 [facility] Last Admin: 06/09/18 21:15 Dose: 5,000 units Hydralazine HCl (Apresoline) 100 mg PO TID [facility] Last Admin: 06/09/18 19:38 Dose: 100 mg Dextrose (Dextrose 5% In Water 1000 Ml) 1,000 mls @ 0 mls/hr IV .Q0M PRN; Protocol; Per Protocol PRN Reason: Hypoglycemia Protocol Isosorbide Mononitrate (Imdur Er) 30 mg PO DAILY [facility] Last Admin: 06/09/18 12:15 Dose: 30 mg Pantoprazole Sodium (Protonix Ec Tab) 20 mg PO DAILY [facility] Last Admin: 06/09/18 18:47 Dose: 20 mg Rosuvastatin Calcium (Crestor) 40 mg PO HS [facility] Last Admin: 06/09/18 21:15 Dose: 40 mg Sevelamer Carbonate (Renvela) 0.8 gm PO TIDCC [facility] Last Admin: 06/09/18 18:47 Dose: 0.8 gm Sitagliptin Phosphate (Januvia) 25 mg PO DAILY [facility] Last Admin: 06/09/18 10:00 Dose: Not Given Sodium Chloride ([place] Baby Saline 30 Ml) 0 ml KASIE Q4H PRN PRN Reason: Dry nasal passages Last Admin: 06/07/18 04:10 Dose: 1 spr Vitamin B Complex/Vit C/Folic Acid (Nephro-Gabriela) 1 tab PO 0800 [facility] Last Admin: 06/09/18 08:00 Dose: Not Given - Labs Labs: 06/09/18 06:24 06/09/18 06:24 PT 11.2 SECONDS (9.7-12.2) 06/09/18 06:24 INR 1.0 06/09/18 06:24 APTT 33 SECONDS (21-34) D 06/09/18 06:24 - Head Exam Head Exam: ATRAUMATIC, NORMAL INSPECTION - Eye Exam Eye Exam: EOMI Pupil Exam: NORMAL ACCOMODATION - ENT Exam ENT Exam: Mucous Membranes Moist - Neck Exam Neck Exam: Full ROM, Normal Inspection - Respiratory Exam Respiratory Exam: Clear to Ausculation Bilateral - Cardiovascular Exam Cardiovascular Exam: REGULAR RHYTHM, +S1, +S2 - Extremities Exam Extremities Exam: Full ROM - Neurological Exam Neurological Exam: Alert, Awake, CN II-XII Intact - Skin Skin Exam: Warm Assessment and Plan - Assessment and Plan (Free Text) Assessment: CAD: Triple Vessel disease with Normal LV function (CABG Vs. multi vessel PCI- Patient to make decision) S/P Non STEMI Acute Oncronic renal failure DM2 Anemia This patient assessed as low to intermediate risk for cardiac events for tunnel catheter placement under conscious sedation
--- NOTE | 2018-06-10 04:49 | PN ---
Copied To: Thelma Guillen MD Attending MD: Thelma Guillen MD DATE: 06/09/2018 FOLLOWUP RENAL CONSULTATION LOCATION: The patient is located in [facility]. REASON FOR FOLLOWUP: End-stage renal disease, continuation of hemodialysis. HISTORY OF PRESENT ILLNESS: Mr. Ugalde is a 47-year-old obese middle-aged male with a history of hypertension, diabetes, coronary artery disease, status post stents, hyperlipidemia, status post gastric weight reduction surgery who was admitted with chest pain on and off, shortness of breath, nausea, vomiting, and dyspnea on exertion, and found to have worsening renal function, and also low H and H and elevated troponin levels. The patient underwent a cardiac cath and also underwent hemodialysis after cardiac cath; this afternoon, had ultrafiltration about 1.5 liters. The patient is not in distress, resting comfortably. No chest pain. No palpitation. No fever. No cough. No abdominal pain. No nausea, vomiting, diarrhea. PHYSICAL EXAMINATION: VITAL SIGNS: Blood pressure 145/100, pulse 66, respirations about 15, saturation 98%, and temperature is 97.6. Height is 5 feet 7 inches, weight is 235 pounds. HEENT: Pupils normal and reactive to light and accommodation. Conjunctivae pink. Sclerae anicteric. Tongue is moist. Trachea is midline. LUNGS: Symmetric on both sides. Bilateral breath sounds present. Clear to auscultation. CVS: [place] at the fifth intercostal space, midclavicular line. S1, S2 audible. No murmur or gallop. ABDOMEN: Normal in appearance, soft, tympanitic. No guarding. No rigidity. No hepatosplenomegaly. PLANNING AIDE: The patient is alert, awake, oriented x3. Nonfocal neuro examination. Cranial nerves II through XII grossly intact. Sensory and motor system is within normal limits. EXTREMITIES: No cyanosis, no clubbing, no edema. MEDICATIONS: His current medications include as follows: Hydralazine 100 mg p.o. t.i.d., diltiazem 300 mg p.o. daily, clonidine 0.2 mg p.o. every 8 hours, Crestor 40 mg at bedtime, aspirin 81 mg daily, heparin 2600 units IV push three times a week in the catheter, subcu heparin 5000 units every 8 hours, Imdur 30 mg p.o. daily, Januvia 25 mg p.o. daily, Nephro-Gabriela 1 tablet daily, Plavix 75 mg p.o. daily, Procrit 20,000 units 3 times a week, Protonix 20 mg p.o. daily, Renvela 800 mg p.o. t.i.d., calcitriol 0.25 mcg three times a week, allopurinol 100 mg p.o. daily. LABORATORY DATA: His other laboratory data as of 06/09/2018, WBC 12.2, hemoglobin 8.6, hematocrit is 25.9, platelets 209. PT 11.2, PTT 33. Sodium 139, potassium 4.1, chloride 102, CO2 of 25, BUN 51, creatinine 8, glucose 110, calcium 8.9, phosphorus 4.6. Total bili 0.3, magnesium 2. AST 12, ALT 24, alkaline phosphatase 53, total protein 6.3, albumin is 3.4, and PTH intact level is 378. IMPRESSION: In summary, Mr. Ugalde is a 47-year-old middle-aged male with hypertension, diabetes, coronary artery disease, status post stents twice, hyperlipidemia, status post gastric weight reduction surgery and proteinuria, chronic kidney disease 5 who was admitted with worsening renal function and elevated troponin, and low hemoglobin and hematocrit. 1. End-stage renal disease, most likely secondary to diabetic nephropathy, cannot rule out underlying chronic glomerulonephritis such as focal segmental glomerulonephritis secondary to obesity. 2. Hypertension. 3. Anemia secondary to renal failure. 4. Coronary artery disease with acute myocardial infarction, status post cardiac cath. Follow up with Cardiology for further management, stents versus bypass. 5. Second hyperparathyroidism. Continue Zemplar three times a week. We will discontinue calcitriol, and we will start Zemplar. We will follow with you. Thank you for allowing me to participate in your patient's care. Continue Epogen three times a week 20,000 units. Thelma Guillen MD
[2018-06-10 06:07] LABS: BASO # 0.1 K/uL (0.0-0.2); EOS # 0.3 K/uL (0.0-0.7); WHITE BLOOD COUNT 14.1 K/uL (4.8-10.8)
[2018-06-10 06:25] LABS: BASO % 0.5 % (0.0-2.0); HEMOGLOBIN 8.5 g/dL (12.0-18.0); LYMPH # 2.7 K/uL (1.0-4.3); LYMPH % 19.3 % (20.0-40.0); MEAN CELL VOLUME 88.1 fL (80.0-94.0); MEAN CORPUSCULAR HEMOGLOBIN 29.1 pg (27.0-31.0); MEAN PLATELET VOLUME 8.8 fL (7.2-11.7); MONO # 1.3 K/uL (0.0-0.8); MONO % 9.4 % (0.0-10.0); NEUT # 9.7 K/uL (1.8-7.0); NEUT % 68.8 % (50.0-75.0); NRBC % 0.1 % (0.0-2.0); RBC 2.93 Mil/uL (4.40-5.90); RED CELL DISTRIBUTION WIDTH 16.5 % (11.5-14.5)
[2018-06-10 06:34] LABS: ALB/GLOB RATIO 1.2 (1.0-2.1); ALBUMIN 3.4 g/dL (3.5-5.0); CALCIUM 8.9 mg/dl (8.6-10.4)
[2018-06-10] MEDS: Multivitamin Vitamin B Complex (Nephro-Vite) Tab PO SCH (08:09)
[2018-06-10] MEDS: Sevelamer Carb 0.8 gm/Packet PO SCH ×3 (08:09→16:12)
[2018-06-10] MEDS: Pantoprazole 20 mg EC Tab PO SCH (09:28)
[2018-06-10] MEDS: diltiaZEM 300 mg/24 Hours CD Cap PO SCH (09:28)
--- NOTE | 2018-06-10 10:23 | CP.CCUPN ---
<Carlene Webb - Last Filed: 06/10/18 15:36> CCU Subjective - Physician Review Subjective (Free Text): 06/10/18 12:22 ICU progress note for Dr. Alvarez Patient seen and examined at bedside. He has no acute complaints at this time. He denies chest pain, shortness of breath, palpitations, fever, chills, abdominal pain, nausea, vomiting, leg pain. He states he is currently not sure of his plan of whether he wants to have stents placed or a CABG. CCU Objective - Vital Signs / Intake & Output Vital Signs (Last 4 hours): Vital Signs Temp Pulse Resp BP Pulse Ox 06/10/18 09:30 70 11 L 99 06/10/18 09:00 72 12 98 06/10/18 08:45 72 12 168/96 H 96 06/10/18 08:30 73 25 H 98 06/10/18 08:00 98.7 F 71 24 97 06/10/18 07:45 70 21 174/84 H 06/10/18 07:30 73 23 97 06/10/18 07:00 75 21 98 06/10/18 06:46 71 18 169/91 H 97 Intake and Output (Last 8hrs): Intake & Output 06/09/18 06/10/18 06/10/18 22:59 06:59 14:59 Intake Total 970 100 50 Output Total 800 600 350 Balance 170 -500 -300 Weight 235 lb 14.4 oz Intake: Oral 970 100 50 Output: Urine 800 600 350 Urine, Voided 800 600 350 Emesis 0 Other: # Voids Urine, Voided 1 1 # Bowel Movements 0 0 0 - Physical Exam Head: Positive for: Atraumatic, Normocephalic Pupils: Positive for: PERRL Extroacular Muscles: Positive for: EOMI Conjunctiva: Negative for: Injected, Icteric Mouth: Positive for: Moist Mucous Membranes, Normal Teeth Nose (External): Positive for: Atraumatic. Negative for: Abrasion, Contusion, Laceration Nose (Internal): Positive for: No Active Bleeding. Negative for: Epistaxis Neck: Positive for: Normal Range of Motion, Trachea Midline. Negative for: JVD Respiratory/Chest: Positive for: Clear to Auscultation, Good Air Exchange. Negative for: Wheezes, Rales, Rhonchi, Tachypneic, Tender to Palpation Cardiovascular: Positive for: Regular Rate and Rhythm, Normal S1, S2, Peripheal Pulses Present. Negative for: Tachycardic, Bradycardic Abdomen: Positive for: Normal Bowel Sounds. Negative for: Tenderness, Distention, Rebound, Guarding Genitourinary Male: Positive for: Other (Right groin dialysis cath) Back: Negative for: Paraspinal Tenderness Upper Extremity: Positive for: Normal Inspection, Normal ROM, NORMAL PULSES. Negative for: Cyanosis, Edema, Tenderness, Swelling, Erythema Lower Extremity: Positive for: Normal Inspection, NORMAL PULSES, Normal ROM. Negative for: Edema, CALF TENDERNESS, Cyanosis, Tenderness, Swelling, Erythema Neurological: Positive for: GCS=15, Speech Normal, Motor Func Grossly Intact, Normal Sensory Function Skin: Positive for: Warm, Dry, Normal Color. Negative for: Rashes Psychiatric: Positive for: Alert, Oriented x 3 - Medications Active Medications: Active Medications Generic Name Dose Route Start Last Admin Trade Name Freq PRN Reason Stop Dose Admin Acetaminophen 650 mg 06/05/18 08:30 06/05/18 09:08 Tylenol 325mg Tab PO 650 mg Q6 PRN Administration Pain, Mild (1-3) Allopurinol 100 mg 06/06/18 10:00 06/10/18 09:28 Zyloprim PO 100 mg DAILY [facility] Administration Aspirin 81 mg 06/06/18 10:00 06/10/18 09:28 Ecotrin PO 81 mg DAILY [facility] Administration Calcitriol 0.25 mcg 06/06/18 09:00 06/09/18 09:00 Rocaltrol PO Not Given [facility] Clonidine HCl 0.2 mg 06/05/18 22:00 06/10/18 05:05 Catapres PO 0.2 mg Q8H [facility] Administration Clopidogrel Bisulfate 75 mg 06/06/18 10:00 06/10/18 09:28 Plavix PO 75 mg DAILY [facility] Administration Dextrose 0 ml 06/05/18 20:46 Dextrose 50% Inj IV STAT PRN Hypoglycemia Protocol Protocol Dextrose 0 gm 06/05/18 20:46 Glutose 15 PO ONCE PRN Hypoglycemia Protocol Protocol Diltiazem HCl 300 mg 06/06/18 10:00 06/10/18 09:28 Cardizem Cd PO 300 mg DAILY [facility] Administration Epoetin Ender 20,000 unit 06/09/18 09:00 06/09/18 16:39 Procrit SC 20,000 unit MWF [facility] Administration Glucagon 0 mg 06/05/18 20:46 Glucagen Diagnostic Kit IM STAT PRN Hypoglycemia Protocol Protocol Heparin Sodium (Porcine) 5,000 units 06/09/18 14:00 06/10/18 05:01 Heparin SC Not Given Q8 [facility] Hydralazine HCl 100 mg 06/06/18 10:30 06/10/18 09:28 Apresoline PO 100 mg TID [facility] Administration Dextrose 1,000 mls @ 0 mls/hr 06/05/18 20:46 Dextrose 5% In Water 1000 Ml IV .Q0M PRN Hypoglycemia Protocol Protocol Per Protocol Isosorbide Mononitrate 30 mg 06/06/18 10:15 06/10/18 09:28 Imdur Er PO 30 mg DAILY [facility] Administration Pantoprazole Sodium 20 mg 06/05/18 10:00 06/10/18 09:28 Protonix Ec Tab PO 20 mg DAILY [facility] Administration Rosuvastatin Calcium 40 mg 06/05/18 22:00 06/09/18 21:15 Crestor PO 40 mg HS [facility] Administration Sevelamer Carbonate 0.8 gm 06/06/18 08:00 06/10/18 08:09 Renvela PO Not Given TIDCC [facility] Sitagliptin Phosphate 25 mg 06/06/18 10:00 06/10/18 09:29 Januvia PO Not Given DAILY [facility] Sodium Chloride 0 ml 06/07/18 03:30 06/07/18 04:10 [place] Baby Saline 30 Ml KASIE 1 spr Q4H PRN Administration Dry nasal passages Vitamin B Complex/Vit C/Folic Acid 1 tab 06/09/18 08:00 06/10/18 08:09 Nephro-Gabriela PO Not Given 0800 [facility] - Patient Studies Lab Studies: Lab Studies 06/10/18 06/10/18 06/10/18 Range/Units 07:37 05:57 05:57 WBC 14.1 H (4.8-10.8) K/uL RBC 2.93 L (4.40-5.90) Mil/uL Hgb 8.5 L (12.0-18.0) g/dL Hct 25.9 L (35.0-51.0) % MCV 88.1 (80.0-94.0) fL MCH 29.1 (27.0-31.0) pg MCHC 33.0 (33.0-37.0) g/dL RDW 16.5 H (11.5-14.5) % Plt Count 221 (130-400) K/uL MPV 8.8 (7.2-11.7) fL Neut % (Auto) 68.8 (50.0-75.0) % Lymph % (Auto) 19.3 L (20.0-40.0) % [place] % (Auto) 9.4 (0.0-10.0) % Eos % (Auto) 2.0 (0.0-4.0) % Baso % (Auto) 0.5 (0.0-2.0) % Neut # (Auto) 9.7 H (1.8-7.0) K/uL Lymph # (Auto) 2.7 (1.0-4.3) K/uL [place] # (Auto) 1.3 H (0.0-0.8) K/uL Eos # (Auto) 0.3 (0.0-0.7) K/uL Baso # (Auto) 0.1 (0.0-0.2) K/uL Sodium 138 (132-148) mmol/L Potassium 4.4 (3.6-5.2) mmol/L Chloride 103 (98-107) mmol/L Carbon Dioxide 27 (22-30) mmol/L Anion Gap 13 (10-20) BUN 40 H (9-20) mg/dL Creatinine 6.6 H (0.8-1.5) mg/dL Est GFR ( Amer) 11 Est GFR (Non-Af Amer) 9 POC Glucose (mg/dL) 120 H (65-110) mg/dL Random Glucose 111 H (75-110) mg/dL Calcium 8.9 (8.6-10.4) mg/dl Phosphorus 4.9 H (2.5-4.5) mg/dL Magnesium 1.9 (1.6-2.3) mg/dL Total Bilirubin 0.3 (0.2-1.3) mg/dL AST 14 L (17-59) U/L ALT 22 (21-72) U/L Alkaline Phosphatase 52 (38-126) U/L Total Protein 6.2 L (6.3-8.3) g/dL Albumin 3.4 L (3.5-5.0) g/dL Globulin 2.8 (2.2-3.9) gm/dL Albumin/Globulin Ratio 1.2 (1.0-2.1) PTH Intact Whole Molec (14-64) pg/mL 06/08/18 06/06/18 Range/Units 05:46 06:46 WBC (4.8-10.8) K/uL RBC (4.40-5.90) Mil/uL Hgb (12.0-18.0) g/dL Hct (35.0-51.0) % MCV (80.0-94.0) fL MCH (27.0-31.0) pg MCHC (33.0-37.0) g/dL RDW (11.5-14.5) % Plt Count (130-400) K/uL MPV (7.2-11.7) fL Neut % (Auto) (50.0-75.0) % Lymph % (Auto) (20.0-40.0) % [place] % (Auto) (0.0-10.0) % Eos % (Auto) (0.0-4.0) % Baso % (Auto) (0.0-2.0) % Neut # (Auto) (1.8-7.0) K/uL Lymph # (Auto) (1.0-4.3) K/uL [place] # (Auto) (0.0-0.8) K/uL Eos # (Auto) (0.0-0.7) K/uL Baso # (Auto) (0.0-0.2) K/uL Sodium (132-148) mmol/L Potassium (3.6-5.2) mmol/L Chloride (98-107) mmol/L Carbon Dioxide (22-30) mmol/L Anion Gap (10-20) BUN (9-20) mg/dL Creatinine (0.8-1.5) mg/dL Est GFR ( Amer) Est GFR (Non-Af Amer) POC Glucose (mg/dL) (65-110) mg/dL Random Glucose (75-110) mg/dL Calcium (8.6-10.4) mg/dl Phosphorus (2.5-4.5) mg/dL Magnesium (1.6-2.3) mg/dL Total Bilirubin (0.2-1.3) mg/dL AST (17-59) U/L ALT (21-72) U/L Alkaline Phosphatase (38-126) U/L Total Protein (6.3-8.3) g/dL Albumin (3.5-5.0) g/dL Globulin (2.2-3.9) gm/dL Albumin/Globulin Ratio (1.0-2.1) PTH Intact Whole Molec 378 H 564 H (14-64) pg/mL Laboratory Results - last 24 hr 06/06/18 06/08/18 06/10/18 06:46 05:46 05:57 WBC 14.1 H RBC 2.93 L Hgb 8.5 L Hct 25.9 L MCV 88.1 MCH 29.1 MCHC 33.0 RDW 16.5 H Plt Count 221 MPV 8.8 Neut % (Auto) 68.8 Lymph % (Auto) 19.3 L [place] % (Auto) 9.4 Eos % (Auto) 2.0 Baso % (Auto) 0.5 Neut # (Auto) 9.7 H Lymph # (Auto) 2.7 [place] # (Auto) 1.3 H Eos # (Auto) 0.3 Baso # (Auto) 0.1 Sodium Potassium Chloride Carbon Dioxide Anion Gap BUN Creatinine Est GFR ( Amer) Est GFR (Non-Af Amer) POC Glucose (mg/dL) Random Glucose Calcium Phosphorus Magnesium Total Bilirubin AST ALT Alkaline Phosphatase Total Protein Albumin Globulin Albumin/Globulin Ratio PTH Intact Whole Molec 564 H 378 H 06/10/18 06/10/18 05:57 07:37 WBC RBC Hgb Hct MCV MCH MCHC RDW Plt Count MPV Neut % (Auto) Lymph % (Auto) [place] % (Auto) Eos % (Auto) Baso % (Auto) Neut # (Auto) Lymph # (Auto) [place] # (Auto) Eos # (Auto) Baso # (Auto) Sodium 138 Potassium 4.4 Chloride 103 Carbon Dioxide 27 Anion Gap 13 BUN 40 H Creatinine 6.6 H Est GFR ( Amer) 11 Est GFR (Non-Af Amer) 9 POC Glucose (mg/dL) 120 H Random Glucose 111 H Calcium 8.9 Phosphorus 4.9 H Magnesium 1.9 Total Bilirubin 0.3 AST 14 L ALT 22 Alkaline Phosphatase 52 Total Protein 6.2 L Albumin 3.4 L Globulin 2.8 Albumin/Globulin Ratio 1.2 PTH Intact Whole Molec EKG/Cardiology Studies: Cardiology / EKG Studies 06/10/18 07:15 EKG [ELECTROCARDIOGRAM] DAILY Comment: Mode Of Transportation: PORTABLE Reason For Exam: CAD 06/11/18 07:15 EKG [ELECTROCARDIOGRAM] DAILY Comment: Mode Of Transportation: PORTABLE Reason For Exam: CAD Fingerstick Blood Sugar Results: 94 Critical Care Progress Note - Nutrition Nutrition: Nutrition Category Date Time Status NPO Diet [DIET] Diets 06/10/18 Breakfast Active Assessment/Plan - Assessment and Plan (Free Text) Assessment: 47 year old male with history of HTN, Type 2 DM, CKD on HD, CAD with stent placement x2 who presented for complaints of chest pain, shortness of breath, nausea and vomiting. He was admitted for NSTEMI and hypertensive emergency. He had cardiac cath o 06/09 which revealed triple vessel disease. Patient needs to make decision regarding choice of CABG vs. PCI. Scheduled for permacath today. Plan: Neuro alert and oriented x3 Cardio: Troponins 11.7->10.4->8.06 BP 145/80 Continue ASA 81,g Clonidine 0.2mg PO Q8, Plavix 75mg PO, Cardizem 300mg PO, Hydralazine 100mg PO TID, Isosorbide 30mg PO, Crestor 40mg PO, Heparin held Pulmonology Maintain O2 sat >95% Renal: Calcitriol 0.25mcg PO MWF Procrit 70956 unit SC MWF Renvel 0.8g PO TIDCC Cr 6.6 today Permacath to be placed by vascular surgery today. ID: White count 14.1 Afebrile MSK Allopurinol 100mg PO daily Heme: H/H 8.5/25.9 Continue to monitor Endo: Continue to monitor blood glucose levels. GI: Protonix 20mg PO daily Renal diet, tolerating well. Dispo: pending patient's decision to have CABG vs. PCI. Case discussed with Dr. Alvarez <Fady Alvarez - Last Filed: 06/10/18 17:13> CCU Objective - Vital Signs / Intake & Output Vital Signs (Last 4 hours): Vital Signs Temp Pulse Resp BP Pulse Ox 06/10/18 17:00 84 28 H 89 L 06/10/18 16:30 87 28 H 93 L 06/10/18 16:26 85 27 H 156/81 H 87 L 06/10/18 16:00 98.1 F 91 H 22 95 06/10/18 15:30 83 17 92 L 06/10/18 15:27 82 11 L 145/91 H 89 L 06/10/18 15:00 76 27 H 95 06/10/18 14:30 80 17 93 L 06/10/18 14:27 75 21 156/85 H 92 L 06/10/18 14:00 68 21 91 L 06/10/18 13:30 71 20 92 L 06/10/18 13:26 66 18 145/87 93 L 06/10/18 13:13 66 18 142/79 97 Intake and Output (Last 8hrs): Intake & Output 06/10/18 06/10/18 06/10/18 06:59 14:59 22:59 Intake Total 100 500 120 Output Total 600 550 Balance -500 -50 120 Weight 235 lb 14.4 oz Intake: IV 200 Intake, IV Amount 30 Left Antecubital 10 Right Antecubital 10 Right Wrist 10 Oral 100 270 120 Output: Urine 600 550 Urine, Voided 600 550 Emesis 0 Other: # Voids Urine, Voided 0 0 # Bowel Movements 0 0 0 - Medications Active Medications: Active Medications Generic Name Dose Route Start Last Admin Trade Name Freq PRN Reason Stop Dose Admin Acetaminophen 650 mg 06/05/18 08:30 06/05/18 09:08 Tylenol 325mg Tab PO 650 mg Q6 PRN Administration Pain, Mild (1-3) Allopurinol 100 mg 06/06/18 10:00 06/10/18 09:28 Zyloprim PO 100 mg DAILY [facility] Administration Aspirin 81 mg 06/06/18 10:00 06/10/18 09:28 Ecotrin PO 81 mg DAILY [facility] Administration Calcitriol 0.25 mcg 06/06/18 09:00 06/09/18 09:00 Rocaltrol PO Not Given [facility] Clonidine HCl 0.2 mg 06/05/18 22:00 06/10/18 14:48 Catapres PO 0.2 mg Q8H [facility] Administration Dextrose 0 ml 06/05/18 20:46 Dextrose 50% Inj IV STAT PRN Hypoglycemia Protocol Protocol Dextrose 0 gm 06/05/18 20:46 Glutose 15 PO ONCE PRN Hypoglycemia Protocol Protocol Diltiazem HCl 300 mg 06/06/18 10:00 06/10/18 09:28 Cardizem Cd PO 300 mg DAILY [facility] Administration Epoetin Ender 20,000 unit 06/09/18 09:00 06/09/18 16:39 Procrit SC 20,000 unit MWF [facility] Administration Glucagon 0 mg 06/05/18 20:46 Glucagen Diagnostic Kit IM STAT PRN Hypoglycemia Protocol Protocol Heparin Sodium (Porcine) 5,000 units 06/09/18 14:00 06/10/18 14:48 Heparin SC 5,000 units Q8 [facility] Administration Hydralazine HCl 100 mg 06/06/18 10:30 06/10/18 14:49 Apresoline PO 100 mg TID [facility] Administration Dextrose 1,000 mls @ 0 mls/hr 06/05/18 20:46 Dextrose 5% In Water 1000 Ml IV .Q0M PRN Hypoglycemia Protocol Protocol Per Protocol Isosorbide Mononitrate 30 mg 06/06/18 10:15 06/10/18 09:28 Imdur Er PO 30 mg DAILY [facility] Administration Pantoprazole Sodium 20 mg 06/05/18 10:00 06/10/18 09:28 Protonix Ec Tab PO 20 mg DAILY [facility] Administration Rosuvastatin Calcium 40 mg 06/05/18 22:00 06/09/18 21:15 Crestor PO 40 mg HS [facility] Administration Sevelamer Carbonate 0.8 gm 06/06/18 08:00 06/10/18 16:12 Renvela PO 0.8 gm TIDCC [facility] Administration Sitagliptin Phosphate 25 mg 06/06/18 10:00 06/10/18 09:29 Januvia PO Not Given DAILY [facility] Sodium Chloride 0 ml 06/07/18 03:30 06/07/18 04:10 [place] Baby Saline 30 Ml KASIE 1 spr Q4H PRN Administration Dry nasal passages Ticagrelor 90 mg 06/11/18 18:00 Brilinta PO BID [facility] Vitamin B Complex/Vit C/Folic Acid 1 tab 06/09/18 08:00 06/10/18 08:09 Nephro-Gabriela PO Not Given 0800 [facility] - Patient Studies Lab Studies: Lab Studies 06/10/18 06/10/18 06/10/18 Range/Units 16:07 12:40 07:37 WBC (4.8-10.8) K/uL RBC (4.40-5.90) Mil/uL Hgb (12.0-18.0) g/dL Hct (35.0-51.0) % MCV (80.0-94.0) fL MCH (27.0-31.0) pg MCHC (33.0-37.0) g/dL RDW (11.5-14.5) % Plt Count (130-400) K/uL MPV (7.2-11.7) fL Neut % (Auto) (50.0-75.0) % Lymph % (Auto) (20.0-40.0) % [place] % (Auto) (0.0-10.0) % Eos % (Auto) (0.0-4.0) % Baso % (Auto) (0.0-2.0) % Neut # (Auto) (1.8-7.0) K/uL Lymph # (Auto) (1.0-4.3) K/uL [place] # (Auto) (0.0-0.8) K/uL Eos # (Auto) (0.0-0.7) K/uL Baso # (Auto) (0.0-0.2) K/uL Sodium (132-148) mmol/L Potassium (3.6-5.2) mmol/L Chloride (98-107) mmol/L Carbon Dioxide (22-30) mmol/L Anion Gap (10-20) BUN (9-20) mg/dL Creatinine (0.8-1.5) mg/dL Est GFR ( Amer) Est GFR (Non-Af Amer) POC Glucose (mg/dL) 160 H 127 H 120 H (65-110) mg/dL Random Glucose (75-110) mg/dL Calcium (8.6-10.4) mg/dl Phosphorus (2.5-4.5) mg/dL Magnesium (1.6-2.3) mg/dL Total Bilirubin (0.2-1.3) mg/dL AST (17-59) U/L ALT (21-72) U/L Alkaline Phosphatase (38-126) U/L Total Protein (6.3-8.3) g/dL Albumin (3.5-5.0) g/dL Globulin (2.2-3.9) gm/dL Albumin/Globulin Ratio (1.0-2.1) 06/10/18 06/10/18 06/09/18 Range/Units 05:57 05:57 21:24 WBC 14.1 H (4.8-10.8) K/uL RBC 2.93 L (4.40-5.90) Mil/uL Hgb 8.5 L (12.0-18.0) g/dL Hct 25.9 L (35.0-51.0) % MCV 88.1 (80.0-94.0) fL MCH 29.1 (27.0-31.0) pg MCHC 33.0 (33.0-37.0) g/dL RDW 16.5 H (11.5-14.5) % Plt Count 221 (130-400) K/uL MPV 8.8 (7.2-11.7) fL Neut % (Auto) 68.8 (50.0-75.0) % Lymph % (Auto) 19.3 L (20.0-40.0) % [place] % (Auto) 9.4 (0.0-10.0) % Eos % (Auto) 2.0 (0.0-4.0) % Baso % (Auto) 0.5 (0.0-2.0) % Neut # (Auto) 9.7 H (1.8-7.0) K/uL Lymph # (Auto) 2.7 (1.0-4.3) K/uL [place] # (Auto) 1.3 H (0.0-0.8) K/uL Eos # (Auto) 0.3 (0.0-0.7) K/uL Baso # (Auto) 0.1 (0.0-0.2) K/uL Sodium 138 (132-148) mmol/L Potassium 4.4 (3.6-5.2) mmol/L Chloride 103 (98-107) mmol/L Carbon Dioxide 27 (22-30) mmol/L Anion Gap 13 (10-20) BUN 40 H (9-20) mg/dL Creatinine 6.6 H (0.8-1.5) mg/dL Est GFR ( Amer) 11 Est GFR (Non-Af Amer) 9 POC Glucose (mg/dL) 94 (65-110) mg/dL Random Glucose 111 H (75-110) mg/dL Calcium 8.9 (8.6-10.4) mg/dl Phosphorus 4.9 H (2.5-4.5) mg/dL Magnesium 1.9 (1.6-2.3) mg/dL Total Bilirubin 0.3 (0.2-1.3) mg/dL AST 14 L (17-59) U/L ALT 22 (21-72) U/L Alkaline Phosphatase 52 (38-126) U/L Total Protein 6.2 L (6.3-8.3) g/dL Albumin 3.4 L (3.5-5.0) g/dL Globulin 2.8 (2.2-3.9) gm/dL Albumin/Globulin Ratio 1.2 (1.0-2.1) Laboratory Results - last 24 hr 06/09/18 06/10/18 06/10/18 21:24 05:57 05:57 WBC 14.1 H RBC 2.93 L Hgb 8.5 L Hct 25.9 L MCV 88.1 MCH 29.1 MCHC 33.0 RDW 16.5 H Plt Count 221 MPV 8.8 Neut % (Auto) 68.8 Lymph % (Auto) 19.3 L [place] % (Auto) 9.4 Eos % (Auto) 2.0 Baso % (Auto) 0.5 Neut # (Auto) 9.7 H Lymph # (Auto) 2.7 [place] # (Auto) 1.3 H Eos # (Auto) 0.3 Baso # (Auto) 0.1 Sodium 138 Potassium 4.4 Chloride 103 Carbon Dioxide 27 Anion Gap 13 BUN 40 H Creatinine 6.6 H Est GFR ( Amer) 11 Est GFR (Non-Af Amer) 9 POC Glucose (mg/dL) 94 Random Glucose 111 H Calcium 8.9 Phosphorus 4.9 H Magnesium 1.9 Total Bilirubin 0.3 AST 14 L ALT 22 Alkaline Phosphatase 52 Total Protein 6.2 L Albumin 3.4 L Globulin 2.8 Albumin/Globulin Ratio 1.2 06/10/18 06/10/18 06/10/18 07:37 12:40 16:07 WBC RBC Hgb Hct MCV MCH MCHC RDW Plt Count MPV Neut % (Auto) Lymph % (Auto) [place] % (Auto) Eos % (Auto) Baso % (Auto) Neut # (Auto) Lymph # (Auto) [place] # (Auto) Eos # (Auto) Baso # (Auto) Sodium Potassium Chloride Carbon Dioxide Anion Gap BUN Creatinine Est GFR ( Amer) Est GFR (Non-Af Amer) POC Glucose (mg/dL) 120 H 127 H 160 H Random Glucose Calcium Phosphorus Magnesium Total Bilirubin AST ALT Alkaline Phosphatase Total Protein Albumin Globulin Albumin/Globulin Ratio EKG/Cardiology Studies: Cardiology / EKG Studies 06/10/18 07:15 EKG [ELECTROCARDIOGRAM] DAILY Comment: Mode Of Transportation: PORTABLE Reason For Exam: CAD 06/11/18 07:15 EKG [ELECTROCARDIOGRAM] DAILY Comment: Mode Of Transportation: PORTABLE Reason For Exam: CAD Critical Care Progress Note - Nutrition Nutrition: Nutrition Category Date Time Status Renal Diet [DIET] Diets 06/10/18 Dinner Active Attending/Attestation - Attestation I have personally seen and examined this patient.: Yes I have fully participated in the care of the patient.: Yes I have reviewed all pertinent clinical information: Yes Notes (Text): 06/10/18 17:12 Patient seen and examined in the intensive care unit. Post cardiac cath consistent with triple-vessel disease Patient needs to make decision regarding choice of CABG vs. PCI. Scheduled for permacath today
[2018-06-10] MEDS ORDERED: Midazolam 2 MG/2 ML VIAL ONE (10:46)
[2018-06-10] MEDS ORDERED: HEPARIN-NS 5,000 UNITS/500 ML 5,000 UNIT/500 ML BAG IV ONE (10:52)
[2018-06-10] MEDS ORDERED: ceFAZolin IV 1 gm in Dextrose 2 GM/100 ML BAG IVPB ONE (10:53)
[2018-06-10] MEDS ORDERED: Lidocaine 2% MPF (5 ml) Inj ONE (10:53)
--- NOTE | 2018-06-10 12:20 | PCM.SURG1 ---
Surgeon's Initial Post Op Note - Surgeon's Notes Surgeon: xiomy [facility] Supervisor: o Type of Anesthesia: IV Sedation Anesthesia Administered By: jenn Pre-Operative Diagnosis: renal failure Operative Findings: cath to svc via right jugular Post-Operative Diagnosis: same Operation Performed: permacath Specimen/Specimens Removed: old catheter discarded Estimated Blood Loss: EBL {In ML}: 5 Blood Products Given: N/A Drains Used: No Drains Post-Op Condition: Good Date of Surgery/Procedure: 06/10/18 Time of Surgery/Procedure: 12:19
--- NOTE | 2018-06-10 13:28 | CP.PCM.PN ---
Subjective - Date & Time of Evaluation Date of Evaluation: 06/10/18 Time of Evaluation: 13:27 - Subjective Subjective: left heart cardiac catheterization reportedly three-vessel disease. The current recommendation is CABG. Will discuss extensively with the patient pros and cons of CABG versus PCI. Patient had a permacath exchange right internal jugular vein. Continue dialysis and current state. Objective - Vital Signs/Intake and Output Vital Signs (last 24 hours): Temp Pulse Resp BP Pulse Ox 98.7 F 80 19 146/80 95 06/10/18 08:00 06/10/18 12:27 06/10/18 12:27 06/10/18 12:27 06/10/18 12:27 Intake and Output: 06/10/18 06/10/18 11:59 23:59 Intake Total 280 Output Total 1150 Balance -870 - Medications Medications: Current Medications Acetaminophen (Tylenol 325mg Tab) 650 mg PO Q6 PRN PRN Reason: Pain, Mild (1-3) Last Admin: 06/05/18 09:08 Dose: 650 mg Allopurinol (Zyloprim) 100 mg PO DAILY [facility] Last Admin: 06/10/18 09:28 Dose: 100 mg Aspirin (Ecotrin) 81 mg PO DAILY [facility] Last Admin: 06/10/18 09:28 Dose: 81 mg Calcitriol (Rocaltrol) 0.25 mcg PO MWF [facility] Last Admin: 06/09/18 09:00 Dose: Not Given Clonidine HCl (Catapres) 0.2 mg PO Q8H [facility] Last Admin: 06/10/18 05:05 Dose: 0.2 mg Clopidogrel Bisulfate (Plavix) 75 mg PO DAILY [facility] Last Admin: 06/10/18 09:28 Dose: 75 mg Dextrose (Dextrose 50% Inj) 0 ml IV STAT PRN; Protocol PRN Reason: Hypoglycemia Protocol Dextrose (Glutose 15) 0 gm PO ONCE PRN; Protocol PRN Reason: Hypoglycemia Protocol Diltiazem HCl (Cardizem Cd) 300 mg PO DAILY [facility] Last Admin: 06/10/18 09:28 Dose: 300 mg Epoetin Ender (Procrit) 20,000 unit SC MWF [facility] Last Admin: 06/09/18 16:39 Dose: 20,000 unit Glucagon (Glucagen Diagnostic Kit) 0 mg IM STAT PRN; Protocol PRN Reason: Hypoglycemia Protocol Heparin Sodium (Porcine) (Heparin) 5,000 units SC Q8 [facility] Last Admin: 06/10/18 05:01 Dose: Not Given Hydralazine HCl (Apresoline) 100 mg PO TID [facility] Last Admin: 06/10/18 09:28 Dose: 100 mg Dextrose (Dextrose 5% In Water 1000 Ml) 1,000 mls @ 0 mls/hr IV .Q0M PRN; Protocol; Per Protocol PRN Reason: Hypoglycemia Protocol Isosorbide Mononitrate (Imdur Er) 30 mg PO DAILY [facility] Last Admin: 06/10/18 09:28 Dose: 30 mg Pantoprazole Sodium (Protonix Ec Tab) 20 mg PO DAILY [facility] Last Admin: 06/10/18 09:28 Dose: 20 mg Rosuvastatin Calcium (Crestor) 40 mg PO HS [facility] Last Admin: 06/09/18 21:15 Dose: 40 mg Sevelamer Carbonate (Renvela) 0.8 gm PO TIDCC [facility] Last Admin: 06/10/18 08:09 Dose: Not Given Sitagliptin Phosphate (Januvia) 25 mg PO DAILY [facility] Last Admin: 06/10/18 09:29 Dose: Not Given Sodium Chloride ([place] Baby Saline 30 Ml) 0 ml [facility] Q4H PRN PRN Reason: Dry nasal passages Last Admin: 06/07/18 04:10 Dose: 1 spr Vitamin B Complex/Vit C/Folic Acid (Nephro-Gabriela) 1 tab PO 0800 [facility] Last Admin: 06/10/18 08:09 Dose: Not Given - Labs Labs: 06/10/18 05:57 06/10/18 05:57 PT 11.2 SECONDS (9.7-12.2) 06/09/18 06:24 INR 1.0 06/09/18 06:24 APTT 33 SECONDS (21-34) D 06/09/18 06:24
--- NOTE | 2018-06-10 13:36 | RAD ---
Chest x-ray single frontal view History: PermCath placement. Comparison: 06/04/2018 Findings: Right PermCath with tip extending to the cavoatrial junction. No evidence of postprocedure pneumothorax. Mild venous congestion. Hazy opacity in the right infrahilar region. Tortuous ectatic aorta. Mild cardiomegaly. Impression: Right PermCath with tip extending to the cavoatrial junction. No evidence of postprocedure pneumothorax. Mild venous congestion. Hazy opacity in the right infrahilar region. Tortuous ectatic aorta. Mild cardiomegaly.
--- NOTE | 2018-06-10 13:51 | RAD ---
Date of service: 06/10/2018 PROCEDURE: Intraoperative Fluoroscopy. HISTORY: RENAL FAILURE FINDINGS: Fluoroscopic assistance was provided for right-sided PermCath placement. Please refer to the operative report from KAMRYN Gottlieb.
--- NOTE | 2018-06-10 18:05 | CP.PCM.PN ---
<Adam Horowitz E - Last Filed: 06/10/18 18:15> Subjective - Date & Time of Evaluation Date of Evaluation: 06/10/18 Time of Evaluation: 03:05 - Subjective Subjective: Cardiology progress service ( Dr. Pack's service) Patient was seen and examined at bedside after permacath placement. Patient states that he is doing well and has no complaint. Patient denies chest pain, palpitations, SOB, diaphoresis, nausea, vomiting, abdominal pain. During the encounter, patient states that he is agreeable to PCI rather than CABG. Patient is aware of the benefits of CABG versus PCI for his triple vessels disease in combination with his risk factors. Objective - Vital Signs/Intake and Output Vital Signs (last 24 hours): Temp Pulse Resp BP Pulse Ox 98.1 F 84 28 H 156/81 H 89 L 06/10/18 16:00 06/10/18 17:00 06/10/18 17:00 06/10/18 16:26 06/10/18 17:00 Intake and Output: 06/10/18 06/10/18 06:59 18:59 Intake Total 400 620 Output Total 1000 550 Balance -600 70 - Medications Medications: Current Medications Acetaminophen (Tylenol 325mg Tab) 650 mg PO Q6 PRN PRN Reason: Pain, Mild (1-3) Last Admin: 06/05/18 09:08 Dose: 650 mg Allopurinol (Zyloprim) 100 mg PO DAILY [facility] Last Admin: 06/10/18 09:28 Dose: 100 mg Aspirin (Ecotrin) 81 mg PO DAILY [facility] Last Admin: 06/10/18 09:28 Dose: 81 mg Calcitriol (Rocaltrol) 0.25 mcg PO MWF [facility] Last Admin: 06/09/18 09:00 Dose: Not Given Clonidine HCl (Catapres) 0.2 mg PO Q8H [facility] Last Admin: 06/10/18 14:48 Dose: 0.2 mg Dextrose (Dextrose 50% Inj) 0 ml IV STAT PRN; Protocol PRN Reason: Hypoglycemia Protocol Dextrose (Glutose 15) 0 gm PO ONCE PRN; Protocol PRN Reason: Hypoglycemia Protocol Diltiazem HCl (Cardizem Cd) 300 mg PO DAILY [facility] Last Admin: 06/10/18 09:28 Dose: 300 mg Epoetin Enedr (Procrit) 20,000 unit SC MWF [facility] Last Admin: 06/09/18 16:39 Dose: 20,000 unit Glucagon (Glucagen Diagnostic Kit) 0 mg IM STAT PRN; Protocol PRN Reason: Hypoglycemia Protocol Heparin Sodium (Porcine) (Heparin) 5,000 units SC Q8 [facility] Last Admin: 06/10/18 14:48 Dose: 5,000 units Hydralazine HCl (Apresoline) 100 mg PO TID [facility] Last Admin: 06/10/18 17:21 Dose: 100 mg Dextrose (Dextrose 5% In Water 1000 Ml) 1,000 mls @ 0 mls/hr IV .Q0M PRN; Protocol; Per Protocol PRN Reason: Hypoglycemia Protocol Isosorbide Mononitrate (Imdur Er) 30 mg PO DAILY [facility] Last Admin: 06/10/18 09:28 Dose: 30 mg Pantoprazole Sodium (Protonix Ec Tab) 20 mg PO DAILY [facility] Last Admin: 06/10/18 09:28 Dose: 20 mg Rosuvastatin Calcium (Crestor) 40 mg PO HS [facility] Last Admin: 06/09/18 21:15 Dose: 40 mg Sevelamer Carbonate (Renvela) 0.8 gm PO TIDCC [facility] Last Admin: 06/10/18 16:12 Dose: 0.8 gm Sitagliptin Phosphate (Januvia) 25 mg PO DAILY [facility] Last Admin: 06/10/18 09:29 Dose: Not Given Sodium Chloride ([place] Baby Saline 30 Ml) 0 ml KASIE Q4H PRN PRN Reason: Dry nasal passages Last Admin: 06/07/18 04:10 Dose: 1 spr Ticagrelor (Brilinta) 90 mg PO BID [facility] Vitamin B Complex/Vit C/Folic Acid (Nephro-Gabriela) 1 tab PO 0800 [facility] Last Admin: 06/10/18 08:09 Dose: Not Given - Labs Labs: 06/10/18 05:57 06/10/18 05:57 PT 11.2 SECONDS (9.7-12.2) 06/09/18 06:24 INR 1.0 06/09/18 06:24 APTT 33 SECONDS (21-34) D 06/09/18 06:24 - Constitutional Appears: Well, No Acute Distress - Head Exam Head Exam: ATRAUMATIC, NORMAL INSPECTION - Eye Exam Eye Exam: EOMI, Normal appearance - ENT Exam ENT Exam: Mucous Membranes Moist - Neck Exam Additional comments: cath to svc via right jugular - Respiratory Exam Respiratory Exam: Clear to Ausculation Bilateral, NORMAL BREATHING PATTERN. absent: Chest Wall Tenderness, Decreased Breath Sounds, Prolonged Expiratory Phase, Rhonchi, Wheezes, Respiratory Distress - Cardiovascular Exam Cardiovascular Exam: REGULAR RHYTHM, +S1, +S2 Assessment and Plan - Assessment and Plan (Free Text) Assessment: 47 yo M PMHx of HTN, DM2, stage 5 CKD, CAD with stent placement x2 (latest 2016) presented to ED with chest pain, SOB, nausea and vomiting. 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 - Troponins 11.7->10.4->8.06, no EKG changes - Patient is agreeable to PCI rather than a CABG - Echo (06/06/18): LV is normal size. Borderline concentric ventricular hypertrophy. LV function is normal. EJ is normal and LV segmental wall motion - Brillinta 90mg PO BID - ASA 81mg PO daily - Crestor 40mg PO HS - Continue present management All plans and management discussed with Dr. pack <Ever Pack - Last Filed: 06/10/18 21:43> Objective - Vital Signs/Intake and Output Vital Signs (last 24 hours): Temp Pulse Resp BP Pulse Ox 98.9 F 77 21 142/77 93 L 06/10/18 20:00 06/10/18 21:00 06/10/18 21:00 06/10/18 21:26 06/10/18 21:00 Intake and Output: 06/10/18 06/11/18 18:59 06:59 Intake Total 1140 0 Output Total 950 Balance 190 0 - Medications Medications: Current Medications Acetaminophen (Tylenol 325mg Tab) 650 mg PO Q6 PRN PRN Reason: Pain, Mild (1-3) Last Admin: 06/05/18 09:08 Dose: 650 mg Allopurinol (Zyloprim) 100 mg PO DAILY [facility] Last Admin: 06/10/18 09:28 Dose: 100 mg Aspirin (Ecotrin) 81 mg PO DAILY [facility] Last Admin: 06/10/18 09:28 Dose: 81 mg Calcitriol (Rocaltrol) 0.25 mcg PO MWF [facility] Last Admin: 06/09/18 09:00 Dose: Not Given Clonidine HCl (Catapres) 0.2 mg PO Q8H [facility] Last Admin: 06/10/18 21:28 Dose: 0.2 mg Dextrose (Dextrose 50% Inj) 0 ml IV STAT PRN; Protocol PRN Reason: Hypoglycemia Protocol Dextrose (Glutose 15) 0 gm PO ONCE PRN; Protocol PRN Reason: Hypoglycemia Protocol Diltiazem HCl (Cardizem Cd) 300 mg PO DAILY [facility] Last Admin: 06/10/18 09:28 Dose: 300 mg Epoetin Ender (Procrit) 20,000 unit SC MWF [facility] Last Admin: 06/09/18 16:39 Dose: 20,000 unit Glucagon (Glucagen Diagnostic Kit) 0 mg IM STAT PRN; Protocol PRN Reason: Hypoglycemia Protocol Heparin Sodium (Porcine) (Heparin) 5,000 units SC Q8 [facility] Last Admin: 06/10/18 21:28 Dose: 5,000 units Hydralazine HCl (Apresoline) 100 mg PO TID [facility] Last Admin: 06/10/18 17:21 Dose: 100 mg Dextrose (Dextrose 5% In Water 1000 Ml) 1,000 mls @ 0 mls/hr IV .Q0M PRN; Protocol; Per Protocol PRN Reason: Hypoglycemia Protocol Isosorbide Mononitrate (Imdur Er) 30 mg PO DAILY [facility] Last Admin: 06/10/18 09:28 Dose: 30 mg Pantoprazole Sodium (Protonix Ec Tab) 20 mg PO DAILY [facility] Last Admin: 06/10/18 09:28 Dose: 20 mg Rosuvastatin Calcium (Crestor) 40 mg PO HS [facility] Last Admin: 06/10/18 21:28 Dose: 40 mg Sevelamer Carbonate (Renvela) 0.8 gm PO TIDCC [facility] Last Admin: 06/10/18 16:12 Dose: 0.8 gm Sitagliptin Phosphate (Januvia) 25 mg PO DAILY [facility] Last Admin: 06/10/18 09:29 Dose: Not Given Sodium Chloride ([place] Baby Saline 30 Ml) 0 ml KASIE Q4H PRN PRN Reason: Dry nasal passages Last Admin: 06/07/18 04:10 Dose: 1 spr Ticagrelor (Brilinta) 90 mg PO BID [facility] Vitamin B Complex/Vit C/Folic Acid (Nephro-Gabriela) 1 tab PO 0800 [facility] Last Admin: 06/10/18 08:09 Dose: Not Given - Labs Labs: 06/10/18 05:57 06/10/18 05:57 PT 11.2 SECONDS (9.7-12.2) 06/09/18 06:24 INR 1.0 06/09/18 06:24 APTT 33 SECONDS (21-34) D 06/09/18 06:24 Assessment and Plan - Assessment and Plan (Free Text) Assessment: Patient seen and evaluated personally by me Plan of care d/w the medical consultant and as documented
--- NOTE | 2018-06-10 19:36 | CP.PCM.PN ---
Subjective - Date & Time of Evaluation Date of Evaluation: 06/10/18 Time of Evaluation: 19:35 - Subjective Subjective: pt is seen and examined, follow up consult is dictated #[id number] for hd in am s/p rt IJV perma cath Objective - Vital Signs/Intake and Output Vital Signs (last 24 hours): Temp Pulse Resp BP Pulse Ox 98.1 F 78 16 136/77 92 L 06/10/18 16:00 06/10/18 19:00 06/10/18 19:00 06/10/18 18:27 06/10/18 19:00 Intake and Output: 06/10/18 06/11/18 18:59 06:59 Intake Total 1140 Output Total 950 Balance 190 - Medications Medications: Current Medications Acetaminophen (Tylenol 325mg Tab) 650 mg PO Q6 PRN PRN Reason: Pain, Mild (1-3) Last Admin: 06/05/18 09:08 Dose: 650 mg Allopurinol (Zyloprim) 100 mg PO DAILY [facility] Last Admin: 06/10/18 09:28 Dose: 100 mg Aspirin (Ecotrin) 81 mg PO DAILY [facility] Last Admin: 06/10/18 09:28 Dose: 81 mg Calcitriol (Rocaltrol) 0.25 mcg PO MWF [facility] Last Admin: 06/09/18 09:00 Dose: Not Given Clonidine HCl (Catapres) 0.2 mg PO Q8H [facility] Last Admin: 06/10/18 14:48 Dose: 0.2 mg Dextrose (Dextrose 50% Inj) 0 ml IV STAT PRN; Protocol PRN Reason: Hypoglycemia Protocol Dextrose (Glutose 15) 0 gm PO ONCE PRN; Protocol PRN Reason: Hypoglycemia Protocol Diltiazem HCl (Cardizem Cd) 300 mg PO DAILY [facility] Last Admin: 06/10/18 09:28 Dose: 300 mg Epoetin Ender (Procrit) 20,000 unit SC MWF [facility] Last Admin: 06/09/18 16:39 Dose: 20,000 unit Glucagon (Glucagen Diagnostic Kit) 0 mg IM STAT PRN; Protocol PRN Reason: Hypoglycemia Protocol Heparin Sodium (Porcine) (Heparin) 5,000 units SC Q8 [facility] Last Admin: 06/10/18 14:48 Dose: 5,000 units Hydralazine HCl (Apresoline) 100 mg PO TID [facility] Last Admin: 06/10/18 17:21 Dose: 100 mg Dextrose (Dextrose 5% In Water 1000 Ml) 1,000 mls @ 0 mls/hr IV .Q0M PRN; Protocol; Per Protocol PRN Reason: Hypoglycemia Protocol Isosorbide Mononitrate (Imdur Er) 30 mg PO DAILY [facility] Last Admin: 06/10/18 09:28 Dose: 30 mg Pantoprazole Sodium (Protonix Ec Tab) 20 mg PO DAILY [facility] Last Admin: 06/10/18 09:28 Dose: 20 mg Rosuvastatin Calcium (Crestor) 40 mg PO HS [facility] Last Admin: 06/09/18 21:15 Dose: 40 mg Sevelamer Carbonate (Renvela) 0.8 gm PO TIDCC [facility] Last Admin: 06/10/18 16:12 Dose: 0.8 gm Sitagliptin Phosphate (Januvia) 25 mg PO DAILY [facility] Last Admin: 06/10/18 09:29 Dose: Not Given Sodium Chloride ([place] Baby Saline 30 Ml) 0 ml KASIE Q4H PRN PRN Reason: Dry nasal passages Last Admin: 06/07/18 04:10 Dose: 1 spr Ticagrelor (Brilinta) 90 mg PO BID [facility] Vitamin B Complex/Vit C/Folic Acid (Nephro-Gabriela) 1 tab PO 0800 [facility] Last Admin: 06/10/18 08:09 Dose: Not Given - Labs Labs: 06/10/18 05:57 06/10/18 05:57 PT 11.2 SECONDS (9.7-12.2) 06/09/18 06:24 INR 1.0 06/09/18 06:24 APTT 33 SECONDS (21-34) D 06/09/18 06:24
--- NOTE | 2018-06-10 19:58 | OP ---
Copied To: Slava Byrnes Jr., MD Attending MD: Slava Byrnes Jr., MD PROCEDURE DATE: 06/10/2018 PREOPERATIVE DIAGNOSIS: Renal failure. POSTOPERATIVE DIAGNOSIS: Renal failure. PROCEDURE CARRIED OUT: Permcath right jugular vein with C-arm fluoroscopy, ultrasound guided puncture, and micropuncture technique. SURGEON: Slava Byrnes Jr., MD. BACTERIOLOGY RESEARCH ASSISTANT: None. ANESTHESIOLOGIST: Dr. Jeong INDICATIONS: The patient is a middle aged man recently admitted with cardiac events and requiring emergency dialysis which was placed via femoral catheter. OPERATIVE FINDINGS: Catheter was inserted uneventfully via the right jugular vein and terminated in the superior vena cava. DESCRIPTION OF PROCEDURE: The patient was given local anesthesia. Using ultrasound guidance and micropuncture technique, the right jugular vein was punctured. Under fluoroscopic control, the guidewire was advanced centrally. A sheath dilator was passed over this. Catheter was exchanged via appropriate wire and then sheath dilator was then passed. The catheter was positioned with the tip in the superior vena cava and right atrial junction, and brought out on the chest wall. It was checked for flow which was excellent in both directions. Catheter was then secured to the skin with nylon sutures. Hemostasis was obtained in the neck and at the puncture site. Blood loss for the procedure was less than 5 mL. Operation carried out was Permcath in jugular vein with C-arm fluoroscopy, ultrasound guided puncture and micropuncture technique. Ultrasound images of the neck showed the vein was 18 mm in diameter with normal compressibility and no chance of an intraluminal thrombosis. Slava Byrnes Jr., MD
[2018-06-11 07:20] LABS: BASO # 0.1 K/uL (0.0-0.2); BASO % 0.5 % (0.0-2.0); EOS # 0.3 K/uL (0.0-0.7); EOS % 1.9 % (0.0-4.0); HEMOGLOBIN 8.5 g/dL (12.0-18.0); LYMPH # 2.9 K/uL (1.0-4.3); LYMPH % 20.2 % (20.0-40.0); MEAN CELL VOLUME 87.7 fL (80.0-94.0); MEAN CORPUSCULAR HEMOGLOBIN 28.9 pg (27.0-31.0); MEAN PLATELET VOLUME 8.3 fL (7.2-11.7); MONO # 1.5 K/uL (0.0-0.8); MONO % 10.7 % (0.0-10.0); NEUT # 9.5 K/uL (1.8-7.0); NEUT % 66.7 % (50.0-75.0); NRBC % 0.2 % (0.0-2.0); RBC 2.93 Mil/uL (4.40-5.90); RED CELL DISTRIBUTION WIDTH 16.2 % (11.5-14.5); WHITE BLOOD COUNT 14.2 K/uL (4.8-10.8)
[2018-06-11 08:00] LABS: ALB/GLOB RATIO 1.2 (1.0-2.1); ALBUMIN 3.6 g/dL (3.5-5.0); CALCIUM 9.1 mg/dl (8.6-10.4)
--- NOTE | 2018-06-11 09:02 | PN ---
Copied To: Thelma Guillen MD Attending MD: Thelma Guillen MD DATE: 06/10/2018 FOLLOWUP RENAL CONSULTATION LOCATION: The patient is located in ICU bed 14 B. REASON FOR FOLLOWUP: End-stage renal disease, continuation of hemodialysis. HISTORY OF PRESENT ILLNESS: Mr. Ugalde is a 47-year-old middle-aged obese male with a history of longstanding hypertension, diabetes, coronary artery disease, hyperlipidemia, status post weight reduction surgery, nephrotic-range proteinuria, CKD 5 with worsening renal function who was admitted with chest pain, elevated troponin levels, shortness of breath, nausea, vomiting and low H and H and worsening renal function and started on hemodialysis, status post cardiac cath yesterday and for dialysis post cath. The patient underwent a right internal jugular Perm-A-Cath placement today. The patient denies any complaints. No chest pain. No palpitation. No fever. No cough. No abdominal pain. No nausea, vomiting, or diarrhea. Resting comfortably. PHYSICAL EXAMINATION: VITAL SIGNS: As follows: Blood pressure 140/78, pulse 77, respirations about 16, temperature 98.9, and saturation 92% to 97% on room air. Height 5 feet 7 inches. Weight is 235 pounds. GENERAL: Mr. Ugalde is a 47-year-old middle-aged male, moderately built, moderately nourished, not in distress. HEENT: Pupils are normal and reactive to light and accommodation. Conjunctivae pink. Sclerae anicteric. Tongue is moist and trachea is midline. LUNGS: Symmetric on both sides. Bilateral breath sounds present. Clear to auscultation. CARDIOVASCULAR SYSTEM: [place] at the fifth intercostal space, midclavicular line. S1 and S2 audible. No murmur or gallop. ABDOMEN: Normal in appearance, soft, tympanitic. No guarding. No rigidity. No hepatosplenomegaly. CENTRAL NERVOUS SYSTEM: The patient is alert, awake and oriented x3. Nonfocal neuro examination. Cranial nerves II-XII grossly intact. Sensory and motor system is within normal limits. EXTREMITIES: No cyanosis, no clubbing, no edema. CURRENT MEDICATIONS: Include as follows: Hydralazine 100 mg p.o. t.i.d., Brilinta 90 mg p.o. b.i.d., diltiazem 300 mg p.o. daily, clonidine 0.2 mg p.o. every 8 hours, Crestor 40 mg p.o. at bedtime, aspirin 81 mg daily, heparin 5000 units subcutaneous every 8 hours, Imdur 30 mg p.o. daily, Januvia 25 mg p.o. daily, Nephro-Gabriela one tablet daily, Epogen 20,000 units three times a week on Saturday, Saturday and Saturday, Protonix 20 mg p.o. daily, Renvela 800 mg p.o. t.i.d., Rocaltrol 0.25 mcg p.o. three times a week, Tylenol, and allopurinol 100 mg p.o. daily. LABORATORY DATA: Include as follows as of 06/10/2018: WBC 14.1, hemoglobin 8.5, hematocrit is 25.9, platelets 221. Sodium 138, potassium 4.4, chloride 103, CO2 of 27, BUN 40, creatinine 6.6, glucose is 111, calcium 8.9, phosphorus 4.9, magnesium 1.9. Total bili 0.3, AST 14, ALT 22, alkaline phosphatase 52, total protein 6.2, albumin is 3.4. ASSESSMENT AND PLAN: In summary, Mr. Ugalde is a 47-year-old elderly male, obese with a history of hypertension, diabetes, hyperlipidemia, coronary artery disease, status post stents in the past, nephrotic-range proteinuria, worsening renal function who was admitted with chest pain, elevated troponin levels, status post cardiac catheterization yesterday consistent with triple-vessel disease due to diabetes, recommending coronary artery bypass graft by recep, Dr. Ever Alba, and if the patient is not agreeable, he will perform multivessel percutaneous coronary intervention. 1. End-stage renal disease. Continue hemodialysis three times a week, Saturday, Saturday and Saturday. 2. Anemia secondary to renal failure. Continue Epogen and Nephro-Gabriela. 3. Acute myocardial infarction. Continue aspirin, Brilinta, and statins. 4. Hypertension. Blood pressure is stable. Continue hydralazine, diltiazem, clonidine, and Imdur. We will follow with you. Thank you for allowing me to participate in your patient's care. Follow up with Cardiology for further intervention. We will request social service to refer for the outpatient hemodialysis in [facility] and also [facility]. The patient preferred to go to [facility] due to close to his workplace. We will discuss with the social sciences research scientist in the morning. Thelma Guillen MD
[2018-06-11] MEDS: Epoetin Alfa Dialysis 20000 UNIT/ML Inj SC SCH (10:18)
[2018-06-11] MEDS: Sevelamer Carb 0.8 gm/Packet PO SCH ×3 (11:07→17:23)
[2018-06-11] MEDS: Multivitamin Vitamin B Complex (Nephro-Vite) Tab PO SCH (11:15)
[2018-06-11] MEDS: Pantoprazole 20 mg EC Tab PO SCH (11:15)
[2018-06-11] MEDS: diltiaZEM 300 mg/24 Hours CD Cap PO SCH (11:15)
--- NOTE | 2018-06-11 11:56 | CP.PCM.PN ---
Subjective - Date & Time of Evaluation Date of Evaluation: 06/11/18 Time of Evaluation: 11:55 - Subjective Subjective: S/P CATH ON DIALYSIS AWAITING PT'S DECISION FOR PCI VS CABG Objective - Vital Signs/Intake and Output Vital Signs (last 24 hours): Temp Pulse Resp BP Pulse Ox 98 F 55 L 24 166/98 H 96 06/11/18 08:47 06/11/18 09:00 06/11/18 09:00 06/11/18 11:48 06/11/18 09:00 Intake and Output: 06/10/18 06/11/18 23:59 11:59 Intake Total 1180 0 Output Total 850 400 Balance 330 -400 - Medications Medications: Current Medications Acetaminophen (Tylenol 325mg Tab) 650 mg PO Q6 PRN PRN Reason: Pain, Mild (1-3) Last Admin: 06/05/18 09:08 Dose: 650 mg Allopurinol (Zyloprim) 100 mg PO DAILY [facility] Last Admin: 06/11/18 11:15 Dose: 100 mg Aspirin (Ecotrin) 81 mg PO DAILY [facility] Last Admin: 06/11/18 11:16 Dose: 81 mg Calcitriol (Rocaltrol) 0.25 mcg PO MWF [facility] Last Admin: 06/11/18 11:15 Dose: 0.25 mcg Clonidine HCl (Catapres) 0.2 mg PO Q8H [facility] Last Admin: 06/11/18 06:26 Dose: 0.2 mg Dextrose (Dextrose 50% Inj) 0 ml IV STAT PRN; Protocol PRN Reason: Hypoglycemia Protocol Dextrose (Glutose 15) 0 gm PO ONCE PRN; Protocol PRN Reason: Hypoglycemia Protocol Diltiazem HCl (Cardizem Cd) 300 mg PO DAILY [facility] Last Admin: 06/11/18 11:15 Dose: 300 mg Epoetin Ender (Procrit) 20,000 unit SC MWF [facility] Last Admin: 06/11/18 10:18 Dose: 20,000 unit Glucagon (Glucagen Diagnostic Kit) 0 mg IM STAT PRN; Protocol PRN Reason: Hypoglycemia Protocol Heparin Sodium (Porcine) (Heparin) 5,000 units SC Q8 [facility] Last Admin: 06/11/18 06:27 Dose: 5,000 units Heparin Sodium (Porcine) (Heparin) 3,700 units IVP [facility] Stop: 06/30/18 09:01 Last Admin: 06/11/18 10:17 Dose: 3,700 units Hydralazine HCl (Apresoline) 100 mg PO TID [facility] Last Admin: 06/11/18 09:02 Dose: Not Given Isosorbide Mononitrate (Imdur Er) 30 mg PO DAILY [facility] Last Admin: 06/11/18 11:15 Dose: 30 mg Pantoprazole Sodium (Protonix Ec Tab) 20 mg PO DAILY [facility] Last Admin: 06/11/18 11:15 Dose: 20 mg Rosuvastatin Calcium (Crestor) 40 mg PO HS [facility] Last Admin: 06/10/18 21:28 Dose: 40 mg Sevelamer Carbonate (Renvela) 0.8 gm PO TIDCC [facility] Last Admin: 06/11/18 11:15 Dose: 0.8 gm Sitagliptin Phosphate (Januvia) 25 mg PO DAILY [facility] Last Admin: 06/11/18 11:15 Dose: 25 mg Sodium Chloride ([place] Baby Saline 30 Ml) 0 ml KASIE Q4H PRN PRN Reason: Dry nasal passages Last Admin: 06/07/18 04:10 Dose: 1 spr Ticagrelor (Brilinta) 90 mg PO BID [facility] Vitamin B Complex/Vit C/Folic Acid (Nephro-Gabriela) 1 tab PO 0800 [facility] Last Admin: 06/11/18 11:15 Dose: 1 tab - Labs Labs: 06/11/18 07:10 06/11/18 07:10 PT 11.2 SECONDS (9.7-12.2) 06/09/18 06:24 INR 1.0 06/09/18 06:24 APTT 33 SECONDS (21-34) D 06/09/18 06:24
--- NOTE | 2018-06-11 12:36 | CP.PCM.PN ---
Subjective - Date & Time of Evaluation Date of Evaluation: 06/11/18 Time of Evaluation: 12:29 - Subjective Subjective: PGY-[address] Byrnes Patient is seen and examined at bedside. no acute events overnight. Patient feels mild soreness in permacath area. Tolerating renal diet. no hematoma in permacath area as per patient. denies fever, chills, nausea or vomiting. Patient receiving dialysis at time of encounter. Objective - Vital Signs/Intake and Output Vital Signs (last 24 hours): Temp Pulse Resp BP Pulse Ox 98 F 55 L 24 166/99 H 96 06/11/18 08:47 06/11/18 09:00 06/11/18 09:00 06/11/18 11:48 06/11/18 09:00 Intake and Output: 06/11/18 06/11/18 06:59 18:59 Intake Total 320 Output Total 850 Balance -530 - Medications Medications: Current Medications Acetaminophen (Tylenol 325mg Tab) 650 mg PO Q6 PRN PRN Reason: Pain, Mild (1-3) Last Admin: 06/05/18 09:08 Dose: 650 mg Allopurinol (Zyloprim) 100 mg PO DAILY [facility] Last Admin: 06/11/18 11:15 Dose: 100 mg Aspirin (Ecotrin) 81 mg PO DAILY [facility] Last Admin: 06/11/18 11:16 Dose: 81 mg Calcitriol (Rocaltrol) 0.25 mcg PO MWF [facility] Last Admin: 06/11/18 11:15 Dose: 0.25 mcg Clonidine HCl (Catapres) 0.2 mg PO Q8H [facility] Last Admin: 06/11/18 06:26 Dose: 0.2 mg Dextrose (Dextrose 50% Inj) 0 ml IV STAT PRN; Protocol PRN Reason: Hypoglycemia Protocol Dextrose (Glutose 15) 0 gm PO ONCE PRN; Protocol PRN Reason: Hypoglycemia Protocol Diltiazem HCl (Cardizem Cd) 300 mg PO DAILY [facility] Last Admin: 06/11/18 11:15 Dose: 300 mg Epoetin Ender (Procrit) 20,000 unit SC MWF [facility] Last Admin: 06/11/18 10:18 Dose: 20,000 unit Glucagon (Glucagen Diagnostic Kit) 0 mg IM STAT PRN; Protocol PRN Reason: Hypoglycemia Protocol Heparin Sodium (Porcine) (Heparin) 5,000 units SC Q8 [facility] Last Admin: 06/11/18 06:27 Dose: 5,000 units Heparin Sodium (Porcine) (Heparin) 3,700 units IVP MWF [facility] Stop: 06/30/18 09:01 Last Admin: 06/11/18 10:17 Dose: 3,700 units Hydralazine HCl (Apresoline) 100 mg PO TID [facility] Last Admin: 06/11/18 09:02 Dose: Not Given Isosorbide Mononitrate (Imdur Er) 30 mg PO DAILY [facility] Last Admin: 06/11/18 11:15 Dose: 30 mg Pantoprazole Sodium (Protonix Ec Tab) 20 mg PO DAILY [facility] Last Admin: 06/11/18 11:15 Dose: 20 mg Rosuvastatin Calcium (Crestor) 40 mg PO HS [facility] Last Admin: 06/10/18 21:28 Dose: 40 mg Sevelamer Carbonate (Renvela) 0.8 gm PO TIDCC [facility] Last Admin: 06/11/18 11:15 Dose: 0.8 gm Sitagliptin Phosphate (Januvia) 25 mg PO DAILY [facility] Last Admin: 06/11/18 11:15 Dose: 25 mg Sodium Chloride ([place] Baby Saline 30 Ml) 0 ml KASIE Q4H PRN PRN Reason: Dry nasal passages Last Admin: 06/07/18 04:10 Dose: 1 spr Ticagrelor (Brilinta) 90 mg PO BID [facility] Vitamin B Complex/Vit C/Folic Acid (Nephro-Gabriela) 1 tab PO 0800 [facility] Last Admin: 06/11/18 11:15 Dose: 1 tab - Labs Labs: 06/11/18 07:10 06/11/18 07:10 PT 11.2 SECONDS (9.7-12.2) 06/09/18 06:24 INR 1.0 06/09/18 06:24 APTT 33 SECONDS (21-34) D 06/09/18 06:24 - Constitutional Appears: Non-toxic, No Acute Distress - Head Exam Head Exam: ATRAUMATIC, NORMAL INSPECTION, NORMOCEPHALIC - Eye Exam Eye Exam: EOMI - ENT Exam ENT Exam: Mucous Membranes Moist, Normal Exam - Neck Exam Neck Exam: Full ROM, Normal Inspection Additional comments: right sided permacath, 4x4 covering area - Respiratory Exam Respiratory Exam: NORMAL BREATHING PATTERN. absent: Accessory Muscle Use, Respiratory Distress - GI/Abdominal Exam GI & Abdominal Exam: Soft - Extremities Exam Extremities Exam: Full ROM - Neurological Exam Neurological Exam: Alert, Awake, Oriented x3 - Psychiatric Exam Psychiatric exam: Normal Affect, Normal Mood - Skin Skin Exam: Intact, Normal Color Assessment and Plan - Assessment and Plan (Free Text) Assessment: 47 yo M with pmhx ESRD s/p permacath right internal jugular POD#1 Plan: -remove dressing tomorrow -await cardio clearance -f/u am labs Discussed with Dr Chris Flowers, PGY-1
--- NOTE | 2018-06-11 14:23 | CP.PCM.PN ---
<Carlos ManuelShilpikarel E - Last Filed: 06/11/18 14:20> Subjective - Date & Time of Evaluation Date of Evaluation: 06/11/18 Time of Evaluation: 09:00 - Subjective Subjective: Cardiology progress note ( Dr. Alba's service) Patient was seen and examined at bedside, while receiving HD. Patient reports that he is doing well with no acute or new issues. Patient is without chest pain , palpitations and SOB. Objective - Vital Signs/Intake and Output Vital Signs (last 24 hours): Temp Pulse Resp BP Pulse Ox 97.1 F L 75 13 146/88 97 06/11/18 12:18 06/11/18 13:00 06/11/18 13:00 06/11/18 12:44 06/11/18 12:18 Intake and Output: 06/11/18 06/11/18 06:59 18:59 Intake Total 320 250 Output Total 850 Balance -530 250 - Medications Medications: Current Medications Acetaminophen (Tylenol 325mg Tab) 650 mg PO Q6 PRN PRN Reason: Pain, Mild (1-3) Last Admin: 06/05/18 09:08 Dose: 650 mg Allopurinol (Zyloprim) 100 mg PO DAILY [facility] Last Admin: 06/11/18 11:15 Dose: 100 mg Aspirin (Ecotrin) 81 mg PO DAILY [facility] Last Admin: 06/11/18 11:16 Dose: 81 mg Calcitriol (Rocaltrol) 0.25 mcg PO MWF [facility] Last Admin: 06/11/18 11:15 Dose: 0.25 mcg Clonidine HCl (Catapres) 0.2 mg PO Q8H [facility] Last Admin: 06/11/18 06:26 Dose: 0.2 mg Dextrose (Dextrose 50% Inj) 0 ml IV STAT PRN; Protocol PRN Reason: Hypoglycemia Protocol Dextrose (Glutose 15) 0 gm PO ONCE PRN; Protocol PRN Reason: Hypoglycemia Protocol Diltiazem HCl (Cardizem Cd) 300 mg PO DAILY [facility] Last Admin: 06/11/18 11:15 Dose: 300 mg Epoetin Ender (Procrit) 20,000 unit SC MWF [facility] Last Admin: 06/11/18 10:18 Dose: 20,000 unit Glucagon (Glucagen Diagnostic Kit) 0 mg IM STAT PRN; Protocol PRN Reason: Hypoglycemia Protocol Heparin Sodium (Porcine) (Heparin) 5,000 units SC Q8 [facility] Last Admin: 06/11/18 06:27 Dose: 5,000 units Heparin Sodium (Porcine) (Heparin) 3,700 units IVP MWF [facility] Stop: 06/30/18 09:01 Last Admin: 06/11/18 10:17 Dose: 3,700 units Hydralazine HCl (Apresoline) 100 mg PO TID [facility] Last Admin: 06/11/18 09:02 Dose: Not Given Isosorbide Mononitrate (Imdur Er) 30 mg PO DAILY [facility] Last Admin: 06/11/18 11:15 Dose: 30 mg Pantoprazole Sodium (Protonix Ec Tab) 20 mg PO DAILY [facility] Last Admin: 06/11/18 11:15 Dose: 20 mg Rosuvastatin Calcium (Crestor) 40 mg PO HS [facility] Last Admin: 06/10/18 21:28 Dose: 40 mg Sevelamer Carbonate (Renvela) 0.8 gm PO TIDCC [facility] Last Admin: 06/11/18 11:15 Dose: 0.8 gm Sitagliptin Phosphate (Januvia) 25 mg PO DAILY [facility] Last Admin: 06/11/18 11:15 Dose: 25 mg Sodium Chloride ([place] Baby Saline 30 Ml) 0 ml KASIE Q4H PRN PRN Reason: Dry nasal passages Last Admin: 06/07/18 04:10 Dose: 1 spr Ticagrelor (Brilinta) 90 mg PO BID [facility] Vitamin B Complex/Vit C/Folic Acid (Nephro-Gabriela) 1 tab PO 0800 [facility] Last Admin: 06/11/18 11:15 Dose: 1 tab - Labs Labs: 06/11/18 07:10 06/11/18 07:10 PT 11.2 SECONDS (9.7-12.2) 06/09/18 06:24 INR 1.0 06/09/18 06:24 APTT 33 SECONDS (21-34) D 06/09/18 06:24 - Constitutional Appears: Well - Head Exam Head Exam: ATRAUMATIC, NORMAL INSPECTION - Eye Exam Eye Exam: EOMI - ENT Exam ENT Exam: Mucous Membranes Moist - Respiratory Exam Respiratory Exam: NORMAL BREATHING PATTERN - Cardiovascular Exam Cardiovascular Exam: REGULAR RHYTHM - GI/Abdominal Exam GI & Abdominal Exam: Soft, Normal Bowel Sounds. absent: Distended, Firm, Guarding, Rigid, Tenderness - Extremities Exam Extremities Exam: Normal Inspection - Neurological Exam Neurological Exam: Alert, Awake, Oriented x3 - Psychiatric Exam Psychiatric exam: Flat Affect Assessment and Plan (1) NSTEMI (non-ST elevated myocardial infarction) Assessment & Plan: 47 yo M PMHx of HTN, DM2, stage 5 CKD, CAD with stent placement x2 (latest 2016) presented to ED with chest pain, SOB, nausea and vomiting. 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 - Troponins 11.7->10.4->8.06, no EKG changes - Patient is agreeable to PCI rather than a CABG. Patient was educated on the benefits of CABG versus PCI due to his many risk factors. [place] [facility] [place] - Echo (06/06/18): LV is normal size. Borderline concentric ventricular hypertrophy. LV function is normal. EJ is normal and LV segmental wall motion - Brillinta 90mg PO BID - ASA 81mg PO daily - Crestor 40mg PO HS - Continue present management - Will continue follow course All plans and management discussed with Dr. Alba Status: Acute <Ever Alba - Last Filed: 06/12/18 06:07> Objective - Vital Signs/Intake and Output Vital Signs (last 24 hours): Temp Pulse Resp BP Pulse Ox 98.3 F 66 24 155/87 H 99 06/12/18 00:00 06/12/18 01:00 06/12/18 01:00 06/12/18 00:45 06/11/18 20:00 Intake and Output: 06/11/18 06/12/18 18:59 06:59 Intake Total 600 Balance 600 - Medications Medications: Current Medications Acetaminophen (Tylenol 325mg Tab) 650 mg PO Q6 PRN PRN Reason: Pain, Mild (1-3) Last Admin: 06/05/18 09:08 Dose: 650 mg Allopurinol (Zyloprim) 100 mg PO DAILY [facility] Last Admin: 06/11/18 11:15 Dose: 100 mg Aspirin (Ecotrin) 81 mg PO DAILY [facility] Last Admin: 06/11/18 11:16 Dose: 81 mg Calcitriol (Rocaltrol) 0.25 mcg PO MWF [facility] Last Admin: 06/11/18 11:15 Dose: 0.25 mcg Clonidine HCl (Catapres) 0.2 mg PO Q8H [facility] Last Admin: 06/12/18 05:28 Dose: 0.2 mg Colchicine (Colocrys) 0.6 mg PO DAILY PRN PRN Reason: Pain, moderate (4-7) Last Admin: 06/11/18 19:24 Dose: 0.6 mg Dextrose (Dextrose 50% Inj) 0 ml IV STAT PRN; Protocol PRN Reason: Hypoglycemia Protocol Dextrose (Glutose 15) 0 gm PO ONCE PRN; Protocol PRN Reason: Hypoglycemia Protocol Diltiazem HCl (Cardizem Cd) 300 mg PO DAILY [facility] Last Admin: 06/11/18 11:15 Dose: 300 mg Epoetin Ender (Procrit) 20,000 unit SC [facility] Last Admin: 06/11/18 10:18 Dose: 20,000 unit Glucagon (Glucagen Diagnostic Kit) 0 mg IM STAT PRN; Protocol PRN Reason: Hypoglycemia Protocol Heparin Sodium (Porcine) (Heparin) 5,000 units SC Q8 [facility] Last Admin: 06/12/18 05:28 Dose: 5,000 units Heparin Sodium (Porcine) (Heparin) 3,700 units IVP [facility] Stop: 06/30/18 09:01 Last Admin: 06/11/18 10:17 Dose: 3,700 units Hydralazine HCl (Apresoline) 100 mg PO TID [facility] Last Admin: 06/11/18 18:30 Dose: 100 mg Isosorbide Mononitrate (Imdur Er) 30 mg PO DAILY [facility] Last Admin: 06/11/18 11:15 Dose: 30 mg Pantoprazole Sodium (Protonix Ec Tab) 20 mg PO DAILY [facility] Last Admin: 06/11/18 11:15 Dose: 20 mg Rosuvastatin Calcium (Crestor) 40 mg PO HS [facility] Last Admin: 06/11/18 21:48 Dose: 40 mg Sevelamer Carbonate (Renvela) 0.8 gm PO TIDCC [facility] Last Admin: 06/11/18 17:23 Dose: 0.8 gm Sitagliptin Phosphate (Januvia) 25 mg PO DAILY [facility] Last Admin: 06/11/18 11:15 Dose: 25 mg Sodium Chloride ([place] Baby Saline 30 Ml) 0 ml KASIE Q4H PRN PRN Reason: Dry nasal passages Last Admin: 06/07/18 04:10 Dose: 1 spr Ticagrelor (Brilinta) 90 mg PO BID [facility] Last Admin: 06/11/18 18:35 Dose: 90 mg Vitamin B Complex/Vit C/Folic Acid (Nephro-Gabriela) 1 tab PO 0800 [facility] Last Admin: 06/11/18 11:15 Dose: 1 tab - Labs Labs: 06/11/18 07:10 06/11/18 07:10 PT 11.2 SECONDS (9.7-12.2) 06/09/18 06:24 INR 1.0 06/09/18 06:24 APTT 33 SECONDS (21-34) D 06/09/18 06:24 Assessment and Plan - Assessment and Plan (Free Text) Assessment: D/W patient about the advantages of Open heart surgery over multi vessel PCI due to his DM Patient does not want to have open heart surgery and prefers Stenting for his blocked arteries Would consider CABG if the stents get blocked up again in the future or develops complications during stenting Due to multi vessel disease and complex, high risk PCI [place] [facility]
--- NOTE | 2018-06-11 20:08 | CP.PCM.PN ---
Subjective - Date & Time of Evaluation Date of Evaluation: 06/11/18 Time of Evaluation: 20:07 - Subjective Subjective: pt is seen and examined, follow up consult is dictated #[id number] s/p hd today, had a uf about 1.3 lit Objective - Vital Signs/Intake and Output Vital Signs (last 24 hours): Temp Pulse Resp BP Pulse Ox 98.0 F 74 14 160/91 H 96 06/11/18 18:00 06/11/18 18:00 06/11/18 17:00 06/11/18 16:44 06/11/18 17:00 Intake and Output: 06/11/18 06/12/18 18:59 06:59 Intake Total 600 Balance 600 - Medications Medications: Current Medications Acetaminophen (Tylenol 325mg Tab) 650 mg PO Q6 PRN PRN Reason: Pain, Mild (1-3) Last Admin: 06/05/18 09:08 Dose: 650 mg Allopurinol (Zyloprim) 100 mg PO DAILY [facility] Last Admin: 06/11/18 11:15 Dose: 100 mg Aspirin (Ecotrin) 81 mg PO DAILY [facility] Last Admin: 06/11/18 11:16 Dose: 81 mg Calcitriol (Rocaltrol) 0.25 mcg PO MWF [facility] Last Admin: 06/11/18 11:15 Dose: 0.25 mcg Clonidine HCl (Catapres) 0.2 mg PO Q8H [facility] Last Admin: 06/11/18 14:23 Dose: 0.2 mg Colchicine (Colocrys) 0.6 mg PO DAILY PRN PRN Reason: Pain, moderate (4-7) Last Admin: 06/11/18 19:24 Dose: 0.6 mg Dextrose (Dextrose 50% Inj) 0 ml IV STAT PRN; Protocol PRN Reason: Hypoglycemia Protocol Dextrose (Glutose 15) 0 gm PO ONCE PRN; Protocol PRN Reason: Hypoglycemia Protocol Diltiazem HCl (Cardizem Cd) 300 mg PO DAILY [facility] Last Admin: 06/11/18 11:15 Dose: 300 mg Epoetin Ender (Procrit) 20,000 unit SC MWF [facility] Last Admin: 06/11/18 10:18 Dose: 20,000 unit Glucagon (Glucagen Diagnostic Kit) 0 mg IM STAT PRN; Protocol PRN Reason: Hypoglycemia Protocol Heparin Sodium (Porcine) (Heparin) 5,000 units SC Q8 [facility] Last Admin: 06/11/18 14:22 Dose: 5,000 units Heparin Sodium (Porcine) (Heparin) 3,700 units IVP MWF [facility] Stop: 06/30/18 09:01 Last Admin: 06/11/18 10:17 Dose: 3,700 units Hydralazine HCl (Apresoline) 100 mg PO TID [facility] Last Admin: 06/11/18 18:30 Dose: 100 mg Isosorbide Mononitrate (Imdur Er) 30 mg PO DAILY [facility] Last Admin: 06/11/18 11:15 Dose: 30 mg Pantoprazole Sodium (Protonix Ec Tab) 20 mg PO DAILY [facility] Last Admin: 06/11/18 11:15 Dose: 20 mg Rosuvastatin Calcium (Crestor) 40 mg PO HS [facility] Last Admin: 06/10/18 21:28 Dose: 40 mg Sevelamer Carbonate (Renvela) 0.8 gm PO TIDCC [facility] Last Admin: 06/11/18 17:23 Dose: 0.8 gm Sitagliptin Phosphate (Januvia) 25 mg PO DAILY [facility] Last Admin: 06/11/18 11:15 Dose: 25 mg Sodium Chloride ([place] Baby Saline 30 Ml) 0 ml KASIE Q4H PRN PRN Reason: Dry nasal passages Last Admin: 06/07/18 04:10 Dose: 1 spr Ticagrelor (Brilinta) 90 mg PO BID [facility] Last Admin: 06/11/18 18:35 Dose: 90 mg Vitamin B Complex/Vit C/Folic Acid (Nephro-Gabriela) 1 tab PO 0800 [facility] Last Admin: 06/11/18 11:15 Dose: 1 tab - Labs Labs: 06/11/18 07:10 06/11/18 07:10 PT 11.2 SECONDS (9.7-12.2) 06/09/18 06:24 INR 1.0 06/09/18 06:24 APTT 33 SECONDS (21-34) D 06/09/18 06:24
[2018-06-12 06:41] LABS: BASO # 0.1 K/uL (0.0-0.2); BASO % 0.5 % (0.0-2.0); EOS # 0.2 K/uL (0.0-0.7); EOS % 1.9 % (0.0-4.0); HEMOGLOBIN 8.5 g/dL (12.0-18.0); LYMPH # 2.4 K/uL (1.0-4.3); LYMPH % 20.6 % (20.0-40.0); MEAN CELL VOLUME 86.9 fL (80.0-94.0); MEAN CORPUSCULAR HEMOGLOBIN 29.2 pg (27.0-31.0); MEAN CORPUSCULAR HGB CONC 33.6 g/dL (33.0-37.0); MEAN PLATELET VOLUME 8.2 fL (7.2-11.7); MONO # 1.7 K/uL (0.0-0.8); MONO % 14.2 % (0.0-10.0); NEUT # 7.5 K/uL (1.8-7.0); NEUT % 62.8 % (50.0-75.0); NRBC % 0.2 % (0.0-2.0); RBC 2.92 Mil/uL (4.40-5.90); RED CELL DISTRIBUTION WIDTH 16.3 % (11.5-14.5); WHITE BLOOD COUNT 11.9 K/uL (4.8-10.8)
[2018-06-12 06:48] LABS: ALB/GLOB RATIO 1.1 (1.0-2.1); ALBUMIN 3.5 g/dL (3.5-5.0); CALCIUM 8.9 mg/dl (8.6-10.4)
[2018-06-12] MEDS: Multivitamin Vitamin B Complex (Nephro-Vite) Tab PO SCH (08:02)
--- NOTE | 2018-06-12 08:12 | PN ---
Copied To: Thelma Guillen MD Attending MD: Thelma Guillen MD DATE: 06/11/2018 FOLLOWUP RENAL CONSULTATION LOCATION: The patient is located in ICU, room 14 B. REQUESTED BY: Juan Coronado MD REASON FOR FOLLOWUP: End-stage renal disease, continuation of hemodialysis. HISTORY OF PRESENT ILLNESS: Mr. Ugalde is a 47-year-old elderly obese male with a past medical history significant for longstanding hypertension, diabetes, hyperlipidemia, coronary artery disease, status post stents twice, nephrotic-range proteinuria, worsening renal function, CKD V, was admitted with chief complaints of chest pain 2 weeks ago and again 2 days prior to the admission episode with nausea, vomiting, dyspnea on exertion, and feeling weak and tired and found to have a low H and H and also acute MS with elevated troponin levels, and subsequently the patient was transfused 2 units packed RBCs, and also started on renal replacement therapy with the patient's consent. The patient also underwent cardiac cath and found to have triple-vessel disease, requiring PCI versus CABG. The patient is leaning towards PCI. The patient is feeling much better today, not in acute distress. Denies any chest pain or palpitation. Denies any fever or cough. No abdominal pain. No nausea, vomiting, or diarrhea. The patient had ultrafiltration about 1.3 liters. PHYSICAL EXAMINATION: GENERAL: Mr. Ugalde is a 47-year-old male, moderately built, moderately nourished, not in distress. VITAL SIGNS: Blood pressure 131/70, pulse 80, respirations 19, temperature 98.3, saturation 99%. Height 5 feet 7 inches, weight is 234 pounds. HEENT: Pupils are normal and reactive to light and accommodation. Conjunctivae pink. Sclerae anicteric. Tongue is moist. Trachea is midline. LUNGS: Symmetric on both sides. Bilateral breath sounds present. Clear to auscultation. CVS: Moira at the fifth intercostal space, midclavicular line. S1 and S2 audible. No murmur or gallop. ABDOMEN: Normal in appearance. Soft, tympanic. No guarding. No rigidity. No hepatosplenomegaly. SPORTS TRAINER: The patient is alert, awake, and oriented x3. Nonfocal neuro examination. Cranial nerves II through XII grossly intact. Sensory and motor system are within normal limits. EXTREMITIES: No cyanosis, no clubbing, no edema. LABORATORY DATA: Include as follows: As of 06/11/2018, WBC 14.2, hemoglobin 8.5, hematocrit is 25.7, platelets 215. Sodium 138, potassium 4.1, chloride 102, CO2 21, BUN 47, creatinine 7.7, glucose 100, calcium 9.1, phosphorus 4.4, and magnesium is 2. Total bili 0.4. AST 15, ALT 20, alkaline phosphatase 62, total protein 6.6, albumin is 3.6. ASSESSMENT AND PLAN: In summary, Mr. Ugalde is 47-year-old middle-aged obese male with hypertension, diabetes, coronary artery disease, status post coronary stents twice, anemia, secondary hyperparathyroidism. 1. End-stage renal disease, continue hemodialysis 3 times a week Saturday, Saturday, Saturday. 2. Anemia secondary to renal failure. 3. Coronary artery disease with triple-vessel disease, awaiting for possible percutaneous coronary intervention. 4. Second hyperparathyroidism, continue calcitriol three times a week. CURRENT MEDICATIONS: Continue his current medications, hydralazine 100 mg p.o. t.i.d., Brilinta, Cardizem 300 mg p.o. daily, clonidine 0.2 mg p.o. every 8 hours, colchicine 0.6 mg p.o. daily, Crestor 40 mg p.o. at bedtime, aspirin 81 mg daily, subcutaneous heparin 5000 every 8 hours, Imdur 30 mg p.o. daily, Januvia 25 mg p.o. daily, Nephro-Gabriela, Procrit,. Protonix, Renvela, calcitriol, and allopurinol. Follow up with Cardiology for possible PCI. We will follow with you. The patient wants to go to the outpatient dialysis unit in [facility]. Case discussed with the social service technician for referral to the outpatient dialysis in [facility]. The patient underwent hemodialysis this afternoon without any complication, had UF of about 1.3 liters. Thank you for allowing me to participate in your patient's care. Thelma Guillen MD
[2018-06-12] MEDS: Sevelamer Carb 0.8 gm/Packet PO SCH ×3 (09:02→17:25)
[2018-06-12] MEDS: Pantoprazole 20 mg EC Tab PO SCH (09:40)
--- NOTE | 2018-06-12 17:28 | CP.PCM.PN ---
Subjective - Date & Time of Evaluation Date of Evaluation: 06/12/18 Time of Evaluation: 17:27 - Subjective Subjective: pt is seen and examined, follow up consult is dictated #[id number] for [place]CI [place] [facility] after pci tomorrow Objective - Vital Signs/Intake and Output Vital Signs (last 24 hours): Temp Pulse Resp BP Pulse Ox 98 F 64 18 157/75 H 99 06/12/18 04:00 06/12/18 06:00 06/12/18 06:00 06/12/18 06:44 06/12/18 04:00 Intake and Output: 06/12/18 06/12/18 06:59 18:59 Intake Total 320 Output Total 250 Balance 70 - Medications Medications: Current Medications Acetaminophen (Tylenol 325mg Tab) 650 mg PO Q6 PRN PRN Reason: Pain, Mild (1-3) Last Admin: 06/05/18 09:08 Dose: 650 mg Allopurinol (Zyloprim) 100 mg PO DAILY [facility] Last Admin: 06/11/18 11:15 Dose: 100 mg Aspirin (Ecotrin) 81 mg PO DAILY [facility] Last Admin: 06/11/18 11:16 Dose: 81 mg Calcitriol (Rocaltrol) 0.25 mcg PO MWF [facility] Last Admin: 06/11/18 11:15 Dose: 0.25 mcg Clonidine HCl (Catapres) 0.1 mg PO Q8H [facility] Colchicine (Colocrys) 0.6 mg PO DAILY PRN PRN Reason: Pain, moderate (4-7) Last Admin: 06/11/18 19:24 Dose: 0.6 mg Dextrose (Dextrose 50% Inj) 0 ml IV STAT PRN; Protocol PRN Reason: Hypoglycemia Protocol Dextrose (Glutose 15) 0 gm PO ONCE PRN; Protocol PRN Reason: Hypoglycemia Protocol Epoetin Ender (Procrit) 20,000 unit SC [facility] Last Admin: 06/11/18 10:18 Dose: 20,000 unit Glucagon (Glucagen Diagnostic Kit) 0 mg IM STAT PRN; Protocol PRN Reason: Hypoglycemia Protocol Heparin Sodium (Porcine) (Heparin) 3,700 units IVP [facility] Stop: 06/30/18 09:01 Last Admin: 06/11/18 10:17 Dose: 3,700 units Hydralazine HCl (Apresoline) 100 mg PO TID [facility] Last Admin: 06/11/18 18:30 Dose: 100 mg Isosorbide Mononitrate (Imdur Er) 30 mg PO DAILY [facility] Last Admin: 06/11/18 11:15 Dose: 30 mg Losartan Potassium (Cozaar) 25 mg PO DAILY [facility] Metoprolol Tartrate (Lopressor) 25 mg PO BID [facility] Pantoprazole Sodium (Protonix Ec Tab) 20 mg PO DAILY [facility] Last Admin: 06/11/18 11:15 Dose: 20 mg Rosuvastatin Calcium (Crestor) 40 mg PO HS [facility] Last Admin: 06/11/18 21:48 Dose: 40 mg Sevelamer Carbonate (Renvela) 0.8 gm PO TIDCC [facility] Last Admin: 06/11/18 17:23 Dose: 0.8 gm Sitagliptin Phosphate (Januvia) 25 mg PO DAILY [facility] Last Admin: 06/11/18 11:15 Dose: 25 mg Sodium Chloride ([place] Baby Saline 30 Ml) 0 ml KASIE Q4H PRN PRN Reason: Dry nasal passages Last Admin: 06/07/18 04:10 Dose: 1 spr Ticagrelor (Brilinta) 90 mg PO BID [facility] Last Admin: 06/11/18 18:35 Dose: 90 mg Vitamin B Complex/Vit C/Folic Acid (Nephro-Gabriela) 1 tab PO 0800 [facility] Last Admin: 06/11/18 11:15 Dose: 1 tab - Labs Labs: 06/12/18 06:26 06/12/18 06:26 PT 11.2 SECONDS (9.7-12.2) 06/09/18 06:24 INR 1.0 06/09/18 06:24 APTT 33 SECONDS (21-34) D 06/09/18 06:24
--- NOTE | 2018-06-12 18:04 | CP.PCM.PN ---
<Adam Horowitz E - Last Filed: 06/12/18 18:21> Subjective - Date & Time of Evaluation Date of Evaluation: 06/12/18 Time of Evaluation: 09:00 - Subjective Subjective: Cardiology progress note ( Dr. Alba's service) Patient was seen and examined at bedside. Patient reports that he is doing well with no acute complaints or new issues. Patient denies any symptoms of chest pain, SOB, palpitations, dizziness. Patient is aware that [place] [facility], [place]. Objective - Vital Signs/Intake and Output Vital Signs (last 24 hours): Temp Pulse Resp BP Pulse Ox 98 F 64 18 157/75 H 99 06/12/18 04:00 06/12/18 06:00 06/12/18 06:00 06/12/18 06:44 06/12/18 04:00 Intake and Output: 06/12/18 06/12/18 06:59 18:59 Intake Total 320 Output Total 250 Balance 70 - Medications Medications: Current Medications Acetaminophen (Tylenol 325mg Tab) 650 mg PO Q6 PRN PRN Reason: Pain, Mild (1-3) Last Admin: 06/05/18 09:08 Dose: 650 mg Allopurinol (Zyloprim) 100 mg PO DAILY [facility] Last Admin: 06/11/18 11:15 Dose: 100 mg Aspirin (Ecotrin) 81 mg PO DAILY [facility] Last Admin: 06/11/18 11:16 Dose: 81 mg Calcitriol (Rocaltrol) 0.25 mcg PO MWF [facility] Last Admin: 06/11/18 11:15 Dose: 0.25 mcg Clonidine HCl (Catapres) 0.1 mg PO Q8H [facility] Colchicine (Colocrys) 0.6 mg PO DAILY PRN PRN Reason: Pain, moderate (4-7) Last Admin: 06/11/18 19:24 Dose: 0.6 mg Dextrose (Dextrose 50% Inj) 0 ml IV STAT PRN; Protocol PRN Reason: Hypoglycemia Protocol Dextrose (Glutose 15) 0 gm PO ONCE PRN; Protocol PRN Reason: Hypoglycemia Protocol Epoetin Ender (Procrit) 20,000 unit SC MWF [facility] Last Admin: 06/11/18 10:18 Dose: 20,000 unit Glucagon (Glucagen Diagnostic Kit) 0 mg IM STAT PRN; Protocol PRN Reason: Hypoglycemia Protocol Heparin Sodium (Porcine) (Heparin) 3,700 units IVP MWF [facility] Stop: 06/30/18 09:01 Last Admin: 06/11/18 10:17 Dose: 3,700 units Hydralazine HCl (Apresoline) 100 mg PO TID [facility] Last Admin: 06/11/18 18:30 Dose: 100 mg Isosorbide Mononitrate (Imdur Er) 30 mg PO DAILY [facility] Last Admin: 06/11/18 11:15 Dose: 30 mg Losartan Potassium (Cozaar) 25 mg PO DAILY [facility] Metoprolol Tartrate (Lopressor) 25 mg PO BID [facility] Pantoprazole Sodium (Protonix Ec Tab) 20 mg PO DAILY [facility] Last Admin: 06/11/18 11:15 Dose: 20 mg Rosuvastatin Calcium (Crestor) 40 mg PO HS [facility] Last Admin: 06/11/18 21:48 Dose: 40 mg Sevelamer Carbonate (Renvela) 0.8 gm PO TIDCC [facility] Last Admin: 06/11/18 17:23 Dose: 0.8 gm Sitagliptin Phosphate (Januvia) 25 mg PO DAILY [facility] Last Admin: 06/11/18 11:15 Dose: 25 mg Sodium Chloride ([place] Baby Saline 30 Ml) 0 ml KASIE Q4H PRN PRN Reason: Dry nasal passages Last Admin: 06/07/18 04:10 Dose: 1 spr Ticagrelor (Brilinta) 90 mg PO BID [facility] Last Admin: 06/11/18 18:35 Dose: 90 mg Vitamin B Complex/Vit C/Folic Acid (Nephro-Gabriela) 1 tab PO 0800 [facility] Last Admin: 06/11/18 11:15 Dose: 1 tab - Labs Labs: 06/12/18 06:26 06/12/18 06:26 PT 11.2 SECONDS (9.7-12.2) 06/09/18 06:24 INR 1.0 06/09/18 06:24 APTT 33 SECONDS (21-34) D 06/09/18 06:24 - Head Exam Head Exam: ATRAUMATIC, NORMAL INSPECTION - Eye Exam Eye Exam: EOMI, Normal appearance - ENT Exam ENT Exam: Mucous Membranes Moist - Neck Exam Additional comments: S/p cath to svc via right jugular for HD - Respiratory Exam Respiratory Exam: NORMAL BREATHING PATTERN - Cardiovascular Exam Cardiovascular Exam: REGULAR RHYTHM - GI/Abdominal Exam GI & Abdominal Exam: Soft, Normal Bowel Sounds. absent: Firm, Guarding, Rigid, Tenderness - Extremities Exam Extremities Exam: Normal Inspection. absent: Calf Tenderness, Pedal Edema - Neurological Exam Neurological Exam: Alert, Awake, Oriented x3 - Psychiatric Exam Psychiatric exam: Flat Affect - Skin Skin Exam: Normal Color Assessment and Plan (1) NSTEMI (non-ST elevated myocardial infarction) Assessment & Plan: 47 yo M PMHx of HTN, DM2, stage 5 CKD, CAD with stent placement x2 (latest 2016) presented to ED with chest pain, SOB, nausea and vomiting. 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 - Troponins 11.7->10.4->8.06, no EKG changes - Patient is agreeable to PCI rather than a CABG. Patient was educated on the benefits of CABG versus PCI due to his many risk factors. Patient states that he understands but he desires stent placement instead of a CABG. [place] [facility] - Echo (06/06/18): LV is normal size. Borderline concentric ventricular hypertrophy. LV function is normal. EJ is normal and LV segmental wall motion - Brilinta 90mg PO BID - ASA 81mg PO daily - Crestor 40mg PO HS - Continue present management - Will continue follow course All plans and management discussed with Dr. Alba Status: Acute <Ever Alba - Last Filed: 06/12/18 22:00> Objective - Vital Signs/Intake and Output Vital Signs (last 24 hours): Temp Pulse Resp BP Pulse Ox 98.0 F 70 11 L 153/94 H 99 06/12/18 18:00 06/12/18 20:00 06/12/18 20:00 06/12/18 18:57 06/12/18 04:00 Intake and Output: 06/12/18 06/13/18 18:59 06:59 Intake Total 670 Output Total 950 Balance -280 - Medications Medications: Current Medications Acetaminophen (Tylenol 325mg Tab) 650 mg PO Q6 PRN PRN Reason: Pain, Mild (1-3) Last Admin: 06/05/18 09:08 Dose: 650 mg Allopurinol (Zyloprim) 100 mg PO DAILY [facility] Last Admin: 06/12/18 09:58 Dose: 100 mg Aspirin (Ecotrin) 81 mg PO DAILY [facility] Last Admin: 06/12/18 10:03 Dose: 81 mg Calcitriol (Rocaltrol) 0.25 mcg PO MWF [facility] Last Admin: 06/11/18 11:15 Dose: 0.25 mcg Clonidine HCl (Catapres) 0.1 mg PO Q8H [facility] Last Admin: 06/12/18 21:14 Dose: 0.1 mg Colchicine (Colocrys) 0.6 mg PO DAILY PRN PRN Reason: Pain, moderate (4-7) Last Admin: 06/12/18 18:02 Dose: 0.6 mg Dextrose (Dextrose 50% Inj) 0 ml IV STAT PRN; Protocol PRN Reason: Hypoglycemia Protocol Dextrose (Glutose 15) 0 gm PO ONCE PRN; Protocol PRN Reason: Hypoglycemia Protocol Epoetin Ender (Procrit) 20,000 unit SC [facility] [place] Last Admin: 06/11/18 10:18 Dose: 20,000 unit Glucagon (Glucagen Diagnostic Kit) 0 mg IM STAT PRN; Protocol PRN Reason: Hypoglycemia Protocol Heparin Sodium (Porcine) (Heparin) 3,700 units IVP [facility] [place] Stop: 06/30/18 09:01 Last Admin: 06/11/18 10:17 Dose: 3,700 units Hydralazine HCl (Apresoline) 100 mg PO TID [facility] Last Admin: 06/12/18 18:45 Dose: 100 mg Isosorbide Mononitrate (Imdur Er) 30 mg PO DAILY [facility] Last Admin: 06/12/18 18:40 Dose: 30 mg Losartan Potassium (Cozaar) 25 mg PO DAILY [facility] Last Admin: 06/12/18 18:30 Dose: 25 mg Metoprolol Tartrate (Lopressor) 25 mg PO BID [facility] Last Admin: 06/12/18 18:35 Dose: 25 mg Pantoprazole Sodium (Protonix Ec Tab) 20 mg PO DAILY [facility] Last Admin: 06/12/18 09:40 Dose: 20 mg Rosuvastatin Calcium (Crestor) 40 mg PO HS [facility] Last Admin: 06/12/18 21:07 Dose: 40 mg Sevelamer Carbonate (Renvela) 0.8 gm PO TIDCC [facility] Last Admin: 06/12/18 17:25 Dose: 0.8 gm Sitagliptin Phosphate (Januvia) 25 mg PO DAILY [facility] Last Admin: 06/12/18 09:59 Dose: 25 mg Sodium Chloride ([place] Baby Saline 30 Ml) 0 ml KASIE Q4H PRN PRN Reason: Dry nasal passages Last Admin: 06/07/18 04:10 Dose: 1 spr Ticagrelor (Brilinta) 90 mg PO BID [facility] Last Admin: 06/12/18 18:40 Dose: 90 mg Vitamin B Complex/Vit C/Folic Acid (Nephro-Gabriela) 1 tab PO 0800 [facility] Last Admin: 06/12/18 08:02 Dose: 1 tab - Labs Labs: 06/12/18 06:26 06/12/18 06:26 PT 11.2 SECONDS (9.7-12.2) 06/09/18 06:24 INR 1.0 06/09/18 06:24 APTT 33 SECONDS (21-34) D 06/09/18 06:24 Assessment and Plan - Assessment and Plan (Free Text) Assessment: Patient seen and evaluated personally by ny Plan of care d/w the medical supply technician as documented
--- NOTE | 2018-06-12 19:08 | CARDCATH ---
Copied To: Ever Alba MD Attending MD: Ever Alba MD PROCEDURE DATE: 06/09/2018 PROCEDURES: 1. Left heart catheterization. 2. Coronary angiogram. PRIMARY GROCERY CADDY: Jennifer Davison MD REFERRING PHYSICIAN: 1. Alec Allen MD 2. Juan Coronado MD PERFORMING PHYSICIAN: Ever Alba MD CLINICAL INDICATIONS: 1. Chest pain. 2. Non-ST elevation myocardial infarction. 3. History of coronary artery disease and stent placement. 4. Acute on chronic renal failure, on hemodialysis. 5. Hypertension. 6. Hyperlipidemia. 7. Diabetes. BRIEF CLINICAL HISTORY: Albin Ugalde is a 47-year-old gentleman with history of chronic kidney disease, diabetes, hypertension, hyperlipidemia, history of right coronary artery stenting, poor dietary and medication compliance, presents to [facility] for acute renal failure requiring hemodialysis. The patient also sustained non-ST elevation myocardial infarction with a peak troponin of 11. The patient had a history of two stent placement in the right coronary artery in the past. He has moderate nonobstructive coronary artery disease in the left anterior descending coronary artery and left circumflex, which was being treated medically. Due to non-ST elevation myocardial infarction and peak troponin of 11, the patient is scheduled for cardiac catheterization today. After informed consent, the patient was prepped and draped in the usual sterile fashion, 2% lidocaine was given in the groin for local anesthesia. Using micropuncture technique, 6-[place] sheath was introduced into common femoral artery. A JL4 6-[place] diagnostic catheter engaged into left main coronary artery. Contrast injected and left coronary angiogram was done. Right coronary artery crossed into left ventricle across the aortic valve. LV end diastolic pressure measured. Contrast injected and LV angiogram was done. Then, the catheter was pulled back across the aortic valve. The gradient across the aortic valve was measured. Then, the same catheter was engaged into right coronary artery. Contrast injected and right coronary angiogram was done. The patient tolerated the procedure well. Postprocedure, radiological supervision and radiological interpretation of the coronary imaging was done. FINDINGS: 1. Left main coronary artery is patent. 2. Proximal LAD has a 70% constant stenosis. Mid LAD has a 60% to 70% constant stenosis. Diagonal branches are patent. 3. Mid left circumflex has a 70% to 80% eccentric stenosis. Obtuse marginal branches are patent. 4. Right coronary artery is dominant. Mid right coronary artery has a long 60% to 70% stenosis. Prior stent in the distal RCA and PLV branch are patent. 5. LV ejection fraction is approximately 55%. No wall motion abnormalities is noted. EDP is 23. No gradient across the aortic valve. IMPRESSION: Triple-vessel coronary artery disease as described above. The patient also has history of dietary and medication noncompliance. Due to multivessel disease on diabetes, the patient will benefit from open heart surgery. We will discuss with the patient about the advantages of coronary artery bypass grafting over multivessel stenting. The patient agrees. The patient will go for surgery. Otherwise, we will perform multivessel percutaneous coronary intervention. We will educate the patient about dietary and medication compliance. Ever Alba MD
--- NOTE | 2018-06-12 20:03 | CP.PCM.PN ---
Subjective - Date & Time of Evaluation Date of Evaluation: 06/12/18 Time of Evaluation: 20:02 - Subjective Subjective: for ptca marv Objective - Vital Signs/Intake and Output Vital Signs (last 24 hours): Temp Pulse Resp BP Pulse Ox 98.0 F 74 15 151/80 H 99 06/12/18 18:00 06/12/18 18:00 06/12/18 17:00 06/12/18 18:35 06/12/18 04:00 Intake and Output: 06/12/18 06/12/18 11:59 23:59 Intake Total 320 350 Output Total 250 700 Balance 70 -350 - Medications Medications: Current Medications Acetaminophen (Tylenol 325mg Tab) 650 mg PO Q6 PRN PRN Reason: Pain, Mild (1-3) Last Admin: 06/05/18 09:08 Dose: 650 mg Allopurinol (Zyloprim) 100 mg PO DAILY [facility] Last Admin: 06/12/18 09:58 Dose: 100 mg Aspirin (Ecotrin) 81 mg PO DAILY [facility] Last Admin: 06/12/18 10:03 Dose: 81 mg Calcitriol (Rocaltrol) 0.25 mcg PO MWF [facility] Last Admin: 06/11/18 11:15 Dose: 0.25 mcg Clonidine HCl (Catapres) 0.1 mg PO Q8H [facility] Last Admin: 06/12/18 14:00 Dose: 0.1 mg Colchicine (Colocrys) 0.6 mg PO DAILY PRN PRN Reason: Pain, moderate (4-7) Last Admin: 06/12/18 18:02 Dose: 0.6 mg Dextrose (Dextrose 50% Inj) 0 ml IV STAT PRN; Protocol PRN Reason: Hypoglycemia Protocol Dextrose (Glutose 15) 0 gm PO ONCE PRN; Protocol PRN Reason: Hypoglycemia Protocol Epoetin Ender (Procrit) 20,000 unit SC [facility] [place] Last Admin: 06/11/18 10:18 Dose: 20,000 unit Glucagon (Glucagen Diagnostic Kit) 0 mg IM STAT PRN; Protocol PRN Reason: Hypoglycemia Protocol Heparin Sodium (Porcine) (Heparin) 3,700 units IVP [facility] [place] [facility] Stop: 06/30/18 09:01 Last Admin: 06/11/18 10:17 Dose: 3,700 units Hydralazine HCl (Apresoline) 100 mg PO TID [facility] Last Admin: 06/12/18 18:45 Dose: 100 mg Isosorbide Mononitrate (Imdur Er) 30 mg PO DAILY [facility] Last Admin: 06/12/18 18:40 Dose: 30 mg Losartan Potassium (Cozaar) 25 mg PO DAILY [facility] Last Admin: 06/12/18 18:30 Dose: 25 mg Metoprolol Tartrate (Lopressor) 25 mg PO BID [facility] Last Admin: 06/12/18 18:35 Dose: 25 mg Pantoprazole Sodium (Protonix Ec Tab) 20 mg PO DAILY [facility] Last Admin: 06/12/18 09:40 Dose: 20 mg Rosuvastatin Calcium (Crestor) 40 mg PO HS [facility] Last Admin: 06/11/18 21:48 Dose: 40 mg Sevelamer Carbonate (Renvela) 0.8 gm PO TIDCC [facility] Last Admin: 06/12/18 17:25 Dose: 0.8 gm Sitagliptin Phosphate (Januvia) 25 mg PO DAILY [facility] Last Admin: 06/12/18 09:59 Dose: 25 mg Sodium Chloride ([place] Baby Saline 30 Ml) 0 ml KASIE Q4H PRN PRN Reason: Dry nasal passages Last Admin: 06/07/18 04:10 Dose: 1 spr Ticagrelor (Brilinta) 90 mg PO BID [facility] Last Admin: 06/12/18 18:40 Dose: 90 mg Vitamin B Complex/Vit C/Folic Acid (Nephro-Gabriela) 1 tab PO 0800 [facility] Last Admin: 06/12/18 08:02 Dose: 1 tab - Labs Labs: 06/12/18 06:26 06/12/18 06:26 PT 11.2 SECONDS (9.7-12.2) 06/09/18 06:24 INR 1.0 06/09/18 06:24 APTT 33 SECONDS (21-34) D 06/09/18 06:24
[2018-06-13 00:09] VITALS: BP 155/115
--- NOTE | 2018-06-13 03:20 | PN ---
Copied To: Thelma Guillen MD Attending MD: Thelma Guillen MD DATE: 06/12/2018 FOLLOWUP RENAL CONSULTATION LOCATION: The patient is located in room 14B. REQUESTED BY: Juan Coronado MD HISTORY OF PRESENT ILLNESS: Mr. Ugalde is a 47-year-old male with a past medical history significant for longstanding hypertension, diabetes, obesity, status post weight reduction surgery, nephrotic range proteinuria, chronic kidney disease stage V, anemia, coronary artery disease, status post stents twice, and hyperlipidemia who was admitted with chest pain, started about 2 weeks prior to the admission, and subsided after few hours, and started again pain 2 days prior to the admission associated with dyspnea on exertion, feeling weak, tired, nausea, poor appetite, and found to have elevated troponin levels, and worsening renal function, started on renal replacement therapy, and also status post transfusion of 2 units of packed RBC. The patient is not in acute distress. The patient is feeling much better. No chest pain or palpitation. No fever. No cough. The patient is scheduled for PCI tomorrow in [facility]. PHYSICAL EXAMINATION: VITAL SIGNS: As follows: Blood pressure 151/80, repeat one 153/94, pulse 70, respirations 11, temperature 98. Height 5 feet 7 inches, weight is 231 pounds. GENERAL: Mr. Ugalde is a 47-year-old middle-aged male, moderately built, moderately nourished, not in distress. HEENT: Pupils normal and reactive to light and accommodation. Conjunctivae pink. Sclerae anicteric. Tongue is moist. Trachea is midline. LUNGS: Symmetric on both sides. Bilateral breath sounds present. Clear to auscultation. CVS: [place] at the fifth intercostal space, midclavicular line. S1, S2 audible. No murmur or gallop. Abdomen: Normal in appearance, soft, tympanitic. No guarding. No rigidity. No hepatosplenomegaly. SEMICONDUCTOR TECHNICIAN: The patient is alert, awake, oriented x3. Nonfocal neuro examination. Cranial nerves II through XII grossly intact. Sensory and motor system is within normal limits. EXTREMITIES: No cyanosis, no cyanosis, no edema. MEDICATIONS: His current medications include as follows: Hydralazine 100 mg p.o. t.i.d., Brilinta 90 mg p.o. b.i.d., clonidine 0.1 mg p.o. every 8 hours, colchicine 0.6 mg p.o. daily, Cozaar 25 mg p.o. daily, Crestor 40 mg p.o. at bedtime, Ecotrin 81 mg daily, Imdur 30 mg p.o. daily, Januvia 25 mg daily, metoprolol 25 mg p.o. b.i.d., Nephro-Gabriela 1 tablet daily, Procrit 20,000 units three times a week, Protonix 20 mg p.o. daily, Renvela 800 mg p.o. t.i.d., Rocaltrol 0.25 mcg p.o. three times a week, and allopurinol 100 mg p.o. daily. LABORATORY DATA: As of 06/12/2018, WBC 11.9, hemoglobin 8.5, hematocrit is 25.3, platelets 216. Sodium 137, potassium 4.2, chloride 100, CO2 of 6, BUN 30, creatinine 5.9, glucose 131, calcium 8.9, phosphorus 4.1, magnesium 2. Total bili 0.4. AST 23, ALT 9, alkaline phosphatase 59. Total protein 6.6, albumin is 3.5. IMPRESSION: In summary, Mr. Ugalde is 47-year-old middle-aged male with hypertension, diabetes, coronary artery disease, hyperlipidemia, status post stents, obesity, status post weight reduction surgery, nephrotic-range proteinuria, low hemoglobin and hematocrit, worsening renal function, and high parathyroid hormone. 1. End-stage renal disease, etiology is not clear, rule-out diabetic nephropathy versus chronic glomerulonephritis such as focal segmental glomerulonephritis. 2. Anemia secondary to renal failure. 3. Secondary hyperparathyroidism. 4. Non-ST elevation myocardial infarction. 5. Hypertension. 6. Type 2 diabetes. The patient is scheduled for PCI in the a.m., and we will schedule for hemodialysis after PCI. The patient is also awaiting for the outpatient hemodialysis unit placement. We will continue his antihypertensive medications hydralazine, clonidine, losartan, and metoprolol and titrate as needed. We will follow with you. Thank you for allowing me to participate in your patient's care. We will need AV fistula or AV graft if patient decides chronic hemodialysis outpatient peritoneal dialysis. Thelma Guillen MD [facility] # [id number]
[2018-06-13 04:16] VITALS: PULSE 64; RESP 16
[2018-06-13 04:17] VITALS: TEMP 97.6; O2SAT 97
[2018-06-13 06:17] LABS: PROTHROMBIN TIME 11.2 SECONDS (9.7-12.2)
[2018-06-13 06:40] LABS: ALBUMIN 3.4 g/dL (3.5-5.0)
--- NOTE | 2018-06-13 14:07 | CP.PCM.PN ---
Subjective - Date & Time of Evaluation Date of Evaluation: 06/13/18 Time of Evaluation: 14:07 - Subjective Subjective: patient is having angioplasty done [facility] Objective - Vital Signs/Intake and Output Vital Signs (last 24 hours): Temp Pulse Resp BP Pulse Ox 97.6 F 64 16 155/115 H 97 06/13/18 04:00 06/13/18 04:00 06/13/18 04:00 06/12/18 23:26 06/13/18 04:00 Intake and Output: 06/13/18 06/13/18 11:59 23:59 Intake Total 640 Output Total 900 Balance -260 - Medications Medications: Current Medications Acetaminophen (Tylenol 325mg Tab) 650 mg PO Q6 PRN PRN Reason: Pain, Mild (1-3) Last Admin: 06/05/18 09:08 Dose: 650 mg Allopurinol (Zyloprim) 100 mg PO DAILY [facility] Last Admin: 06/12/18 09:58 Dose: 100 mg Aspirin (Ecotrin) 81 mg PO DAILY [facility] Last Admin: 06/12/18 10:03 Dose: 81 mg Calcitriol (Rocaltrol) 0.25 mcg PO MWF [facility] Last Admin: 06/11/18 11:15 Dose: 0.25 mcg Clonidine HCl (Catapres) 0.1 mg PO Q8H [facility] Last Admin: 06/13/18 05:32 Dose: 0.1 mg Colchicine (Colocrys) 0.6 mg PO DAILY PRN PRN Reason: Pain, moderate (4-7) Last Admin: 06/12/18 18:02 Dose: 0.6 mg Dextrose (Dextrose 50% Inj) 0 ml IV STAT PRN; Protocol PRN Reason: Hypoglycemia Protocol Dextrose (Glutose 15) 0 gm PO ONCE PRN; Protocol PRN Reason: Hypoglycemia Protocol Epoetin Ender (Procrit) 20,000 unit [place] [facility] Last Admin: 06/11/18 10:18 Dose: 20,000 unit Glucagon (Glucagen Diagnostic Kit) 0 mg IM STAT PRN; Protocol PRN Reason: Hypoglycemia Protocol Heparin Sodium (Porcine) (Heparin) 3,700 units IVP [facility] Stop: 06/30/18 09:01 Last Admin: 06/11/18 10:17 Dose: 3,700 units Hydralazine HCl (Apresoline) 100 mg PO TID [facility] Last Admin: 06/12/18 18:45 Dose: 100 mg Isosorbide Mononitrate (Imdur Er) 30 mg PO DAILY [facility] Last Admin: 06/12/18 18:40 Dose: 30 mg Losartan Potassium (Cozaar) 25 mg PO DAILY [facility] Last Admin: 06/12/18 18:30 Dose: 25 mg Metoprolol Tartrate (Lopressor) 25 mg PO BID [facility] Last Admin: 06/12/18 18:35 Dose: 25 mg Pantoprazole Sodium (Protonix Ec Tab) 20 mg PO DAILY [facility] Last Admin: 06/12/18 09:40 Dose: 20 mg Rosuvastatin Calcium (Crestor) 40 mg PO HS [facility] Last Admin: 06/12/18 21:07 Dose: 40 mg Sevelamer Carbonate (Renvela) 0.8 gm PO TIDCC [facility] Last Admin: 06/12/18 17:25 Dose: 0.8 gm Sitagliptin Phosphate (Januvia) 25 mg PO DAILY [facility] Last Admin: 06/12/18 09:59 Dose: 25 mg Sodium Chloride ([place] Baby Saline 30 Ml) 0 ml KASIE Q4H PRN PRN Reason: Dry nasal passages Last Admin: 06/07/18 04:10 Dose: 1 spr Ticagrelor (Brilinta) 90 mg PO BID [facility] Last Admin: 06/12/18 18:40 Dose: 90 mg Vitamin B Complex/Vit C/Folic Acid (Nephro-Gabriela) 1 tab PO 0800 [facility] Last Admin: 06/12/18 08:02 Dose: 1 tab - Labs Labs: 06/12/18 06:26 06/13/18 06:01 PT 11.2 SECONDS (9.7-12.2) 06/13/18 06:02 INR 1.0 06/13/18 06:02 APTT 31 SECONDS (21-34) 06/13/18 06:02
--- NOTE | 2018-06-14 14:39 | CP.PCM.DIS ---
Provider - Provider Date of Admission: 06/05/18 00:12 Attending physician: Juan Coronado MD Time Spent in preparation of Discharge (in minutes): 36 Hospital Course - Lab Results Lab Results: Micro Results 06/05/18 08:01 Naris MRSA Culture (Admit) - Final MRSA NOT DETECTED Most Recent Lab Values WBC 11.9 K/uL (4.8-10.8) H 06/12/18 06:26 RBC 2.92 Mil/uL (4.40-5.90) L 06/12/18 06:26 Hgb 8.5 g/dL (12.0-18.0) L 06/12/18 06:26 Hct 25.3 % (35.0-51.0) L 06/12/18 06:26 MCV 86.9 fL (80.0-94.0) 06/12/18 06:26 MCH 29.2 pg (27.0-31.0) 06/12/18 06:26 MCHC 33.6 g/dL (33.0-37.0) 06/12/18 06:26 RDW 16.3 % (11.5-14.5) H 06/12/18 06:26 Plt Count 216 K/uL (130-400) 06/12/18 06:26 MPV 8.2 fL (7.2-11.7) 06/12/18 06:26 Neut % (Auto) 62.8 % (50.0-75.0) 06/12/18 06:26 Lymph % (Auto) 20.6 % (20.0-40.0) 06/12/18 06:26 [place] % (Auto) 14.2 % (0.0-10.0) H 06/12/18 06:26 Eos % (Auto) 1.9 % (0.0-4.0) 06/12/18 06:26 Baso % (Auto) 0.5 % (0.0-2.0) 06/12/18 06:26 Neut # (Auto) 7.5 K/uL (1.8-7.0) H 06/12/18 06:26 Lymph # (Auto) 2.4 K/uL (1.0-4.3) 06/12/18 06:26 [place] # (Auto) 1.7 K/uL (0.0-0.8) H 06/12/18 06:26 Eos # (Auto) 0.2 K/uL (0.0-0.7) 06/12/18 06:26 Baso # (Auto) 0.1 K/uL (0.0-0.2) 06/12/18 06:26 PT 11.2 SECONDS (9.7-12.2) 06/13/18 06:02 INR 1.0 06/13/18 06:02 APTT 31 SECONDS (21-34) 06/13/18 06:02 Sodium 137 mmol/L (132-148) 06/13/18 06:01 Potassium 4.5 mmol/L (3.6-5.2) 06/13/18 06:01 Chloride 101 mmol/L (98-107) 06/13/18 06:01 Carbon Dioxide 19 mmol/L (22-30) L 06/13/18 06:01 Anion Gap 20 (10-20) 06/13/18 06:01 BUN 42 mg/dL (9-20) H 06/13/18 06:01 Creatinine 7.3 mg/dL (0.8-1.5) H 06/13/18 06:01 Est GFR ( Amer) 10 06/13/18 06:01 Est GFR (Non-Af Amer) 8 06/13/18 06:01 POC Glucose (mg/dL) 150 mg/dL (65-110) H 06/12/18 22:29 Random Glucose 111 mg/dL (75-110) H 06/13/18 06:01 Calcium 9.0 mg/dl (8.6-10.4) 06/13/18 06:01 Phosphorus 5.5 mg/dL (2.5-4.5) H 06/13/18 06:01 Magnesium 2.1 mg/dL (1.6-2.3) 06/13/18 06:01 Iron 58 ug/dL (49-181) 06/06/18 06:46 TIBC 227 ug/dL (250-450) L 06/06/18 06:46 % Saturation 26 (20-55) 06/06/18 06:46 Total Bilirubin 0.4 mg/dL (0.2-1.3) 06/13/18 06:01 AST 31 U/L (17-59) 06/13/18 06:01 ALT 15 U/L (21-72) L D 06/13/18 06:01 Alkaline Phosphatase 56 U/L (38-126) 06/13/18 06:01 Total Creatine Kinase 469 U/L (55-170) H 06/05/18 17:11 CK-MB (Mass) 9.44 ng/mL (0.0-3.38) H 06/05/18 17:11 Troponin I 8.0600 ng/mL (0.00-0.120) H* 06/05/18 17:11 Total Protein 6.7 g/dL (6.3-8.3) 06/13/18 06:01 Albumin 3.4 g/dL (3.5-5.0) L 06/13/18 06:01 Globulin 3.3 gm/dL (2.2-3.9) 06/13/18 06:01 Albumin/Globulin Ratio 1.0 (1.0-2.1) 06/13/18 06:01 Triglycerides 135 mg/dL (0-149) 06/04/18 22:34 Cholesterol 197 mg/dL (0-199) 06/04/18 22:34 LDL Cholesterol Direct 113 mg/dL (0-129) 06/04/18 22:34 HDL Cholesterol 29 mg/dL (30-70) L 06/04/18 22:34 PTH Intact Whole Molec 378 pg/mL (14-64) H 06/08/18 05:46 Hep Bs Antigen Negative (NEGATIVE) 06/06/18 19:09 Hep Bs Antibody Negative (NEGATIVE) 06/06/18 20:38 Hep B Core IgM Ab Negative (NEGATIVE) 06/06/18 19:09 Hepatitis C Antibody Negative (NEGATIVE) 06/06/18 19:09 Blood Type B NEGATIVE 06/05/18 21:23 Blood Type Confirm B NEGATIVE 06/05/18 21:23 Antibody Screen Negative 06/05/18 21:23 - Hospital Course Hospital Course: Patient was admitted from the emergency room with chest pain. The EKG showed some T wave changes in the anterolateral leads and the first set of cardiac enzymes were positive. Patients creatinine was 10.0. Patient was admitted in the ICU ICU protocol for acute coronary syndrome and was started PAST HIST. Patient has history of coronary artery disease. Patient had 2 stents placed 2 years apart the last one was [facility] on the right coronary. Patient also has a chronic renal insufficiency stage III with a creatinine of between 5-6. Patient has a history of hypertension and diabetes Patient was observed in ICU. All sets of cardiac enzymes were positive. Patient underwent dialysis. 48 hour later patient had cardiac catheterization done. Showed three-vessel coronary artery disease patient was advised to go for coronary artery bypass surgery patient opted to go for angioplasty. On the pros and cons of the 2 procedures were explained to the patient and patient made an informed decision to try angioplasty first. Patient was transferred to [facility] for angioplasty and further dialysis. Discharge Exam - Head Exam Head Exam: ATRAUMATIC, NORMAL INSPECTION Discharge Plan - Follow Up Plan Condition: GUARDED [place]position[place] [facility] [place]: Heart Healthy Diet, Heart Attack (DC), Acute Kidney Failure (DC) , Medicines After a Heart Attack, Clot Dissolving Drugs for Heart Attack or Stroke
== END 2018-06-13 15:00 | disposition short-term general hospital (02) | DRG 280 ==
LOC: C.ER 22:02 → C.9I 06-05 00:12
PROVIDERS: ADMIT Internal Medicine Cardiovascular Disease; ATTEND Internal Medicine Cardiovascular Disease
PROC: 4A023N7 Measurement of Cardiac Sampling and Pressure, Left Heart, Percutaneous Approach (ICD-10-PCS; 2018-06-09)
PROC: B211YZZ Fluoroscopy of Multiple Coronary Arteries using Other Contrast (ICD-10-PCS; 2018-06-09)
PROC: B548ZZA Ultrasonography of Superior Vena Cava, Guidance (ICD-10-PCS; 2018-06-10)
PROC: 5A1D70Z Performance of Urinary Filtration, Intermittent, Less than 6 Hours Per Day (ICD-10-PCS; 2018-06-10)
PROC: 02HV33Z Insertion of Infusion Device into Superior Vena Cava, Percutaneous Approach (ICD-10-PCS; principal; 2018-06-10 11:00)
DX: I21.4 Non-ST elevation (NSTEMI) myocardial infarction (principal); N18.6 End stage renal disease; I13.11 Hypertensive heart and chronic kidney disease without heart failure, with stage 5 chronic kidney disease, or end stage renal disease; E87.2 Acidosis; I16.1 Hypertensive emergency; N03.9 Chronic nephritic syndrome with unspecified morphologic changes; N25.81 Secondary hyperparathyroidism of renal origin; I25.10 Atherosclerotic heart disease of native coronary artery without angina pectoris; D63.1 Anemia in chronic kidney disease; E11.22 Type 2 diabetes mellitus with diabetic chronic kidney disease; E66.9 Obesity, unspecified; E11.21 Type 2 diabetes mellitus with diabetic nephropathy; E78.5 Hyperlipidemia, unspecified; E83.39 Other disorders of phosphorus metabolism; Z95.5 Presence of coronary angioplasty implant and graft; Z98.84 Bariatric surgery status; Z68.36 Body mass index [BMI] 36.0-36.9, adult

== ENCOUNTER 2018-12-24 12:37 | Outpatient (CLI) | payer OTHER | END 2018-12-24 12:38 | disposition home or self-care (01) | LOC: C.PAT 12:37 | DX: N18.6 End stage renal disease (principal) ==

== ENCOUNTER 2018-12-31 06:35 | Day surgery (SDC) | payer OTHER ==
[2018-12-24 13:31] VITALS: BMI 35.2
[2018-12-31] MEDS ORDERED: Midazolam 2 MG/2 ML VIAL ONE (09:31)
[2018-12-31 09:32] LABS: CALCIUM 8.5 mg/dl (8.6-10.4)
[2018-12-31] MEDS ORDERED: ceFAZolin 1 gm in NS 0 GM/0 ML BAG IVPB ONE (09:34)
[2018-12-31] MEDS ORDERED: HEPARIN-NS 5,000 UNITS/500 ML 0 UNIT/0 ML BAG IV ONE (09:34)
[2018-12-31] MEDS ORDERED: ceFAZolin 1 gm in NS 1 GM/100 ML BAG IVPB ONE (09:47)
[2018-12-31] MEDS ORDERED: Oxycodone/Acetaminophen 5/325 mg Tab PO PRN (12:04)
--- NOTE | 2018-12-31 12:04 | PCM.SURG1 ---
Surgeon's Initial Post Op Note - Surgeon's Notes Surgeon: Dr. Byrnes Building Official: Dr. Fang PGY3 Type of Anesthesia: General LMA Anesthesia Administered By: Dr. Jeong Pre-Operative Diagnosis: ESRD on HD Operative Findings: see dictation Post-Operative Diagnosis: same Operation Performed: revision of L AVF Specimen/Specimens Removed: none Estimated Blood Loss: EBL {In ML}: 50 Blood Products Given: N/A Drains Used: No Drains Post-Op Condition: Good Date of Surgery/Procedure: 12/31/18 Time of Surgery/Procedure: 12:04
[2018-12-31] MEDS ORDERED: HYDROmorphone 0.5 mg/0.5 ml ISec IVP PRN (12:05)
[2018-12-31 13:33] VITALS: RESP 15; O2SAT 97
[2018-12-31 13:54] VITALS: BP 118/69; PULSE 85; TEMP 97.5
--- NOTE | 2019-01-01 06:36 | OP ---
PROCEDURE DATE: 12/31/2018 PREOPERATIVE DIAGNOSIS: Immature fistula, left arm. POSTOPERATIVE DIAGNOSIS: Immature fistula, left arm. PROCEDURE CARRIED OUT: Revision of AV fistula, left arm with basilic vein transposition. SURGEON: Slava Byrnes Jr., MD EMG TECHNICIAN: July Fang DO ANESTHESIOLOGIST: Krzysztof Jeong MD INDICATIONS: The patient is a middle-aged man with renal insufficiency, presents with catheter. He had a fistula created in his arm, which has not matured and . OPERATIVE FINDINGS: The fistula ultrasound was very misleading. The superior portion towards the axilla was of good size, measuring almost 11 mm in diameter and was very well formed. However, the proximal portion, which was the basilic vein fistula was atretic and all the flow was through the brachial vein. Although, it was not immediate preop ultrasound exam. So, we had to then dissect from the elbow up, dissected at the brachial vein adjacent to the brachial artery, got this all, ligated all tributaries and this was then to the upper portion, which was of excellent size and caliber. After we had done this, we had excellent flow through the fistula and we then terminated the procedure and approximated the skin, the subcutaneous tissues placed in the graft at the arterialized fistula in the immediate subcutaneous position. Blood loss was 50 mL. Heparin was not given or reversed. Antibiotics were given prior to beginning the procedure. Procedure carried out was revision of AV fistula, left arm with basilic vein transposition. The operation was more difficult than usual due to the confluence of the brachial and basilic vein, but I am quite happy with the size, caliber, and flow through this vessel. Slava Byrnes Jr., MD cc: Thelma Guillen MD
== END 2018-12-31 14:01 | disposition home or self-care (01) ==
LOC: C.SDS 06:35
PROVIDERS: ATTEND Surgery Vascular Surgery
DX: T82.898A Other specified complication of vascular prosthetic devices, implants and grafts, initial encounter (principal); I12.0 Hypertensive chronic kidney disease with stage 5 chronic kidney disease or end stage renal disease; N18.6 End stage renal disease
CPT/HCPCS: 36415; 36820; 80048; 82948; J0690; J2250; J3010; J7040

== ENCOUNTER 2019-01-22 13:23 | Inpatient (IN) | payer OTHER ==
[2019-01-22 13:23] VITALS: BMI 35.2
[2019-01-22] MEDS ORDERED: Sodium Chloride 0.9% 500 ML IV ONE (14:29)
[2019-01-22] MEDS ORDERED: Sodium Chloride 0.9% 1,000 ML IV SCH (14:30)
--- NOTE | 2019-01-22 14:41 | C.PDOC ---
History Of Present Illness 48 year old male with pmhx of DM, HTN, CAD(5 stents), ESRD(HD /) presents to ED with complaints of suspected GI bleed. Patient reports over the past 2 days, he has experienced 2 episodes of hematemesis consisting of liquid with clots of blood, and 3-4 episodes of black stools. Patient reports weakness over the past few days with multiple falls 2/2 weakness/lightheadedness. Pt reports a fall in dialysis on Saturday, and another fall this morning in the bathtub with no trauma to head or LOC; however pt reports fecal incontinence during event. Patient admits to concern of his oral consumption of Francesca Spring soap over the past month. Patient says he was initially intrigued by the scent, and then began using it to brush his teeth when he ran out of toothpaste, and continued PO ingestion; consuming approximately 1 bar of soap over the past month. Pt is recent ESRD 2/2 HTN/DM since 05/2018 after sustaining an VT requiring stents. Patient missed dialysis this afternoon in order to come to ED for evaluation of suspected GI bleed. Denies MICHAEL, LOC, chest pain, cough, SOB, history of GI bleed in past. <Romelia Garcia - Last Filed: 01/22/19 16:01> History Per: Patient History/Exam Limitations: no limitations Onset/Duration Of Symptoms: Days Current Symptoms Are (Timing): Still Present Number Of Bleeding Episodes: Multiple: (2 episodes of hematemesis, 3-4 melenic BMs) Amount of Blood Loss: Medium Associated Symptoms: Hematemesis (with blood clots), Melena, Lightheadedness Currently Taking: Aspirin <Romelia Garcia - Last Filed: 01/22/19 16:01> <Ever Chavira DO - Last Filed: 01/22/19 18:34> Chief Complaint (Nursing): GI Problem Past Medical History Reviewed: Historical Data, Nursing Documentation, Vital Signs Vital Signs: Last Vital Signs Temp 97.8 F 01/22/19 13:31 Pulse 96 H 01/22/19 13:31 Resp 20 01/22/19 13:31 BP 108/72 01/22/19 13:31 Pulse Ox 100 01/22/19 13:31 - Medical History PMH: CAD, Diabetes, Fractures (NASAL ), HTN, Peripheral Edema, End Stage Renal Disease, Chronic Kidney Disease, Sleep Apnea (C PAP) Denies: Colonic Polyps Surgical History: Coronary Stent (5 STENTS TOTAL), Endoscopy (2015) Other Surgeries: Gastric sleeve(2017) - [facility] Procedures (06/05/18) FLUOROSCOPY OF MULTIPLE CORONARY ARTERIES USING OTH CONTRAST (06/05/18) INSERTION OF INFUSION DEV INTO SUP VENA CAVA, PERC APPROACH (06/05/18) MEASURE OF CARDIAC SAMPL & PRESSURE, L HEART, PERC APPROACH (06/05/18) ULTRASONOGRAPHY OF SUPERIOR VENA CAVA, GUIDANCE (06/05/18) Family History: States: Unknown Family Hx - Social History Hx Tobacco Use: No Hx Alcohol Use: No Hx Substance Use: No - Immunization History Hx Influenza Vaccination: No Hx Pneumococcal Vaccination: No <Romelia Garcia - Last Filed: 01/22/19 16:01> Vital Signs: Last Vital Signs Temp 98.8 F 01/22/19 18:05 Pulse 96 H 01/22/19 18:05 Resp 16 01/22/19 18:05 BP 94/58 L 01/22/19 18:05 Pulse Ox 100 01/22/19 18:05 - [facility] Procedures (06/05/18) FLUOROSCOPY OF MULTIPLE CORONARY ARTERIES USING OTH CONTRAST (06/05/18) INSERTION OF INFUSION DEV INTO SUP VENA CAVA, PERC APPROACH (06/05/18) MEASURE OF CARDIAC SAMPL & PRESSURE, L HEART, PERC APPROACH (06/05/18) ULTRASONOGRAPHY OF SUPERIOR VENA CAVA, GUIDANCE (06/05/18) <Ever Chavira DO - Last Filed: 01/22/19 18:34> Review Of Systems Constitutional: Positive for: Weakness Cardiovascular: Positive for: Light Headedness. Negative for: Chest Pain, Palpitations Respiratory: Negative for: Shortness of Breath, Hemoptysis Gastrointestinal: Positive for: Melena, Hematemesis Genitourinary: Positive for: Other (no urine production) Neurological: Positive for: Weakness. Negative for: Confusion <Romelia Garcia - Last Filed: 01/22/19 16:01> Physical Exam - Physical Exam Appears: Non-toxic, Confused Skin: Warm, Dry, Pale, No Cyanotic, No Ecchymosis Head: Atraumatic, Normacephalic Eye(s): bilateral: Abnormal Pupil (constricted), Conjunctiva Pale Oral Mucosa: Dry Tongue: No Bite Neck: Normal Cardiovascular: Rhythm Regular, Other (tachycardic) Respiratory: Decreased Breath Sounds, No Rales, No Rhonchi Gastrointestinal/Abdominal: Bowel Sounds, No Soft, No Tenderness, No Distention, No Guarding, No Rebound Back: Normal Inspection Extremity: No Tenderness, Pedal Edema, No Calf Tenderness, No Capillary Refill Neurological/Psych: Oriented x3, Normal Motor, Normal Sensation, Other (somnolent) <Romelia Garcia - Last Filed: 01/22/19 16:01> ED Course And Treatment O2 Sat by Pulse Oximetry: 100 <Romelia Garcia - Last Filed: 01/22/19 16:01> - Laboratory Results Result Diagrams: 01/22/19 16:01 01/22/19 16:01 Lab Results: PT 12.9 SECONDS (9.7-12.2) H 01/22/19 16:01 INR 1.2 01/22/19 16:01 APTT 28 SECONDS (21-34) 01/22/19 16:01 Troponin I 1.3800 ng/mL (0.00-0.120) H* 01/22/19 16:01 Total Bilirubin 0.3 mg/dL (0.2-1.3) 01/22/19 16:01 AST 24 U/L (17-59) 01/22/19 16:01 ALT 8 U/L (21-72) L D 01/22/19 16:01 Alkaline Phosphatase 55 U/L (38-126) 01/22/19 16:01 Total Protein 6.1 g/dL (6.3-8.3) L 01/22/19 16:01 Albumin 3.8 g/dL (3.5-5.0) 01/22/19 16:01 Globulin 2.4 gm/dL (2.2-3.9) 01/22/19 16:01 Albumin/Globulin Ratio 1.6 (1.0-2.1) 01/22/19 16:01 <Ever Chavira DO - Last Filed: 01/22/19 18:34> Critical Care Time - Critical Care Note Total Time (in mins): 120 Documented critical care: time excludes all time spent performing seperately billable procedures. <Ever Chavira DO - Last Filed: 01/22/19 18:34> Medical Decision Making Medical Decision Making: CBC CMP Mg/Phos PT/PTT Type & Screen troponin EKG CXR CT head CT A/P Guaiac + IVF 500cc bolus, +60/hr Protonix bolus/drip <Romelia Garcia - Last Filed: 01/22/19 16:01> Disposition - Disposition Disposition Time: 16:01 <Romelia Garcia - Last Filed: 01/22/19 16:01> <Ever Chavira DO - Last Filed: 01/22/19 18:34> - Disposition Condition: SERIOUS - Clinical Impression Clinical Impression: Gastrointestinal hemorrhage, ESRD (end stage renal disease), Hypotension, Anemia
--- NOTE | 2019-01-22 15:25 | RAD ---
HISTORY: GI bleed COMPARISON: Chest x-ray performed 12/24/18 TECHNIQUE: Chest, one view. FINDINGS: Examination limited by habitus and hypoinflation. Right IJ approach dialysis catheter with distal tips at the SVC. LUNGS: Patchy right lower lobe atelectasis/pneumonia. Please note that chest x-ray has limited sensitivity for the detection of pulmonary masses. PLEURA: No significant pleural effusion identified. No definite pneumothorax . CARDIOVASCULAR: Cardiomegaly. No significant atherosclerotic calcification present. OSSEOUS STRUCTURES: No acute osseous abnormality identified. VISUALIZED UPPER ABDOMEN: Unremarkable. OTHER FINDINGS: None. IMPRESSION: Right IJ approach dialysis catheter with distal tips at the SVC. Cardiomegaly. Patchy right lower lobe atelectasis/pneumonia.
[2019-01-22 16:08] LABS: BASO % 0.2 % (0.0-2.0); LYMPH # 2.7 K/uL (1.0-4.3); LYMPH % 12.5 % (20.0-40.0); MEAN CELL VOLUME 105.3 fL (80.0-94.0); MEAN CORPUSCULAR HEMOGLOBIN 33.9 pg (27.0-31.0); MEAN CORPUSCULAR HGB CONC 32.2 g/dL (33.0-37.0); MONO # 1.4 K/uL (0.0-0.8); MONO % 6.4 % (0.0-10.0); NEUT # 17.3 K/uL (1.8-7.0); NEUT % 80.9 % (50.0-75.0); NRBC % 0.1 % (0.0-2.0); RBC 1.25 Mil/uL (4.40-5.90); RED CELL DISTRIBUTION WIDTH 15.5 % (11.5-14.5)
[2019-01-22] MEDS: Pantoprazole 80 MG in Sodium Chloride 0.9% 100 ML IVP SCH (16:15)
[2019-01-22 16:16] LABS: INR 1.2; PROTHROMBIN TIME 12.9 SECONDS (9.7-12.2)
[2019-01-22 16:28] LABS: HEMOGLOBIN 4.2 g/dL (12.0-18.0)
[2019-01-22 16:29] LABS: WHITE BLOOD COUNT 21.3 K/uL (4.8-10.8)
[2019-01-22 16:43] LABS: ALB/GLOB RATIO 1.6 (1.0-2.1); ALBUMIN 3.8 g/dL (3.5-5.0); CALCIUM 9.6 mg/dl (8.6-10.4)
--- NOTE | 2019-01-22 17:09 | CT ---
Date of service: 01/22/2019 PROCEDURE: CT HEAD WITHOUT CONTRAST. HISTORY: r/o ICH COMPARISON: None available. TECHNIQUE: Axial computed tomography images were obtained through the head/brain without intravenous contrast. Radiation dose: Total exam DLP = 1071.31 mGy-cm. This CT exam was performed using one or more of the following dose reduction techniques: Automated exposure control, adjustment of the mA and/or kV according to patient size, and/or use of iterative reconstruction technique. FINDINGS: HEMORRHAGE: No intracranial hemorrhage. BRAIN: No mass effect or edema. Dense intracranial atherosclerotic calcifications. 3.2 x 1.9 cm CSF density structure impressing upon the superior margins of the vermis appears consistent with an arachnoid cyst. Scattered probable tiny lacunar-type infarcts. Scattered periventricular and subcortical white matter hypodensities, which are nonspecific, but often seen with chronic microvascular ischemic disease. Please note that MRI with diffusion imaging is more sensitive in the detection of acute ischemic event. VENTRICLES: No hydrocephalus. CALVARIUM: Unremarkable. PARANASAL SINUSES: Mucosal thickening of the ethmoid air cells. Remainder the visualized paranasal sinuses appear clear. MASTOID AIR CELLS: Unremarkable as visualized. No inflammatory changes. OTHER FINDINGS: None. IMPRESSION: Scattered probable tiny lacunar-type infarcts. Nonspecific white matter changes. 3.2 x 1.9 cm CSF density structure impressing upon the superior margins of the vermis appears consistent with an arachnoid cyst.
--- NOTE | 2019-01-22 17:17 | CT ---
PROCEDURE: CT Abdomen and Pelvis without Oral or IV contrast. HISTORY: vomiting blood with dark stool COMPARISON: None available. TECHNIQUE: Contiguous axial images of the abdomen and pelvis. No oral or IV contrast administered. Coronal and Sagittal reformats generated and reviewed. Radiation dose: Total exam DLP = 1233.78 mGy-cm. This CT exam was performed using one or more of the following dose reduction techniques: Automated exposure control, adjustment of the mA and/or kV according to patient size, and/or use of iterative reconstruction technique. FINDINGS: There is limited evaluation of the solid organs without the administration of IV contrast. LOWER THORAX: Right middle lobe diffuse patchy consolidation consistent with pneumonia. There is no visible pleural effusion or pneumothorax. Moderate hiatal hernia. LIVER: Unremarkable unenhanced appearance. GALLBLADDER AND BILE DUCTS: Unremarkable unenhanced appearance. PANCREAS: Unremarkable unenhanced appearance. SPLEEN: Unremarkable unenhanced appearance. ADRENALS: Left adrenal gland hypertrophy. The right adrenal gland appears unremarkable. KIDNEYS AND URETERS: No hydronephrosis or obstructing renal calculus. BLADDER: The urinary bladder appears unremarkable. REPRODUCTIVE: The prostate gland measures approximately 3.8 x 4.7 cm. APPENDIX: The appendix appears within normal limits of caliber. No secondary signs of acute appendicitis. BOWEL: Postsurgical gastric changes. The stomach is nondistended. Lack of oral contrast limits evaluation for bowel pathology. The bowel loops appear within normal limits of caliber without evidence of intestinal obstruction. PERITONEUM: No significant free fluid. No definite free air. LYMPH NODES: No bulky lymphadenopathy identified. VASCULATURE: Atherosclerotic calcifications of the aorta and branches. No aortic aneurysm. BONES: No acute osseous abnormality is detected. OTHER FINDINGS: Fat containing umbilical hernia. 9 mm fat containing ventral hernia. Bilateral fat containing inguinal hernias. IMPRESSION: Patchy diffuse consolidations throughout the included right middle lobe consistent with pneumonia. Recommend follow-up upon completion of treatment to ensure complete resolution. Left adrenal gland hypertrophy. Moderate hiatal hernia. Postsurgical gastric changes. Fat containing umbilical hernia. 9 mm fat containing ventral hernia. Bilateral fat containing inguinal hernias.
[2019-01-22] MEDS ORDERED: Paricalcitol 2 mcg/ml Inj IV ONE (17:46)
[2019-01-22] MEDS ORDERED: Epoetin Alfa Dialysis 40000 UNIT/ml Inj IV ONE (17:53)
[2019-01-22 19:39] LABS: TROPONIN I 1.38 ng/mL (0.00-0.120)
[2019-01-22] MEDS ORDERED: Vancomycin 1 gm/NS 200 ml 1 GM/200 ML BAG IVPB ONE (21:28)
[2019-01-22] MEDS ORDERED: Gentamicin 160 MG in Sodium Chloride 0.9% 100 ML IVPB ONE (21:28)
--- NOTE | 2019-01-22 21:37 | CP.PCM.CON ---
History of Present Illness - History of Present Illness History of Present Illness: pt is seen and examined during hd, full consult is dictated#[id number] 1.UGI bleed 2.ESRD 3.Severe Anemia 4. Hypotension 5. left ue wound 5. chills , r/o sepsis 6. s/p hypotension pt is being dialyzed receiving 3 units PRBC check cbc in 4 hous GI consult to r/o PUD, gastritis as pt is igesting soap check cardiac enzymes Past Patient History - Past Medical History & Family History Past Medical History?: Yes - Past Social History Smoking Status: Former Smoker - CARDIAC Hx Cardiac Disorders: Yes Hx Hypertension: Yes Hx Peripheral Edema: Yes - PULMONARY Hx Respiratory Disorders: Yes Hx Sleep Apnea: Yes (C PAP) - NEUROLOGICAL Hx Neurological Disorder: No - HEENT Hx HEENT Problems: Yes (CONTACTS) - RENAL Hx Chronic Kidney Disease: Yes Hx Dialysis: Yes (ESRD ON HD) Date of Last Dialysis Treatment: 01/22/19 - ENDOCRINE/METABOLIC Hx Endocrine Disorders: Yes Hx Diabetes Mellitus Type 2: Yes (NO MEDS) - HEMATOLOGICAL/ONCOLOGICAL Hx Blood Disorders: No - INTEGUMENTARY Hx Dermatological Problems: No - MUSCULOSKELETAL/RHEUMATOLOGICAL Hx Musculoskeletal Disorders: Yes Hx Falls: No Hx Fractures: Yes (NASAL ) - GASTROINTESTINAL Hx Gastrointestinal Disorders: Yes Hx Gastroesophageal Reflux: Yes - GENITOURINARY/GYNECOLOGICAL Hx Genitourinary Disorders: No Other/Comment: DOES NOT PASS URINE - PSYCHIATRIC Hx Psychophysiologic Disorder: No Hx Substance Use: No - SURGICAL HISTORY Hx Surgeries: Yes Hx Coronary Stent: Yes (5 STENTS TOTAL) - ANESTHESIA Hx Anesthesia: Yes Hx Anesthesia Reactions: No Hx Malignant Hyperthermia: No Meds Allergies/Adverse Reactions: Allergies Allergy/AdvReac Type Severity Reaction Status Date / Time No Known Allergies Allergy Verified 01/22/19 13:36 - Medications Medications: Current Medications Ferric Sodium Gluconate Complex (Ferrlecit) 125 mg IVPB DAILY CLARICE Stop: 01/31/19 10:01 Sodium Chloride (Sodium Chloride 0.9%) 1,000 mls @ 60 mls/hr IV .[id number] CLARICE Last Admin: 01/22/19 16:15 Dose: 60 mls/hr Pantoprazole Sodium 80 mg/ (Sodium Chloride) 100 mls @ 10 mls/hr IVP .Q10H CLARICE Last Admin: 01/22/19 16:15 Dose: 10 mls/hr Results - Vital Signs Recent Vital Signs: Last Vital Signs Temp 97.4 F L 01/22/19 20:42 Pulse 98 H 01/22/19 19:12 Resp 20 01/22/19 19:12 BP 124/80 01/22/19 20:42 Pulse Ox 100 01/22/19 19:12 - Labs Result Diagrams: 01/22/19 16:01 01/22/19 16:01 Labs: Laboratory Results - last 24 hr 01/22/19 01/22/19 01/22/19 16:01 16:01 16:01 WBC 21.3 H D RBC 1.25 L Hgb 4.2 L* D Hct 13.1 L MCV 105.3 H MCH 33.9 H MCHC 32.2 L RDW 15.5 H Plt Count 194 MPV 8.0 Neut % (Auto) 80.9 H Lymph % (Auto) 12.5 L Nye % (Auto) 6.4 Eos % (Auto) 0.0 Baso % (Auto) 0.2 Neut # (Auto) 17.3 H Lymph # (Auto) 2.7 Nye # (Auto) 1.4 H Eos # (Auto) 0.0 Baso # (Auto) 0.0 PT 12.9 H INR 1.2 APTT 28 Sodium 135 Potassium 5.1 Chloride 95 L Carbon Dioxide 19 L Anion Gap 26 H BUN 121 H* D Creatinine 13.8 H* D Est GFR ( Amer) 5 Est GFR (Non-Af Amer) 4 Random Glucose 141 H D Calcium 9.6 Phosphorus 3.4 Magnesium 2.2 Total Bilirubin 0.3 AST 24 ALT 8 L D Alkaline Phosphatase 55 Troponin I 1.3800 H* Total Protein 6.1 L Albumin 3.8 Globulin 2.4 Albumin/Globulin Ratio 1.6 Blood Type Antibody Screen 01/22/19 16:01 WBC RBC Hgb Hct MCV MCH MCHC RDW Plt Count MPV Neut % (Auto) Lymph % (Auto) Nye % (Auto) Eos % (Auto) Baso % (Auto) Neut # (Auto) Lymph # (Auto) Nye # (Auto) Eos # (Auto) Baso # (Auto) PT INR APTT Sodium Potassium Chloride Carbon Dioxide Anion Gap BUN Creatinine Est GFR ( Amer) Est GFR (Non-Af Amer) Random Glucose Calcium Phosphorus Magnesium Total Bilirubin AST ALT Alkaline Phosphatase Troponin I Total Protein Albumin Globulin Albumin/Globulin Ratio Blood Type B NEGATIVE Antibody Screen Negative
[2019-01-23 01:43] LABS: BASO # 0.1 K/uL (0.0-0.2); BASO % 0.5 % (0.0-2.0); EOS % 0.1 % (0.0-4.0); HEMOGLOBIN 6.6 g/dL (12.0-18.0); LYMPH # 2.5 K/uL (1.0-4.3); LYMPH % 14.4 % (20.0-40.0); MEAN CELL VOLUME 95.6 fL (80.0-94.0); MEAN CORPUSCULAR HEMOGLOBIN 33.2 pg (27.0-31.0); MEAN CORPUSCULAR HGB CONC 34.7 g/dL (33.0-37.0); MEAN PLATELET VOLUME 8.3 fL (7.2-11.7); MONO # 1.6 K/uL (0.0-0.8); MONO % 9.5 % (0.0-10.0); NEUT # 12.9 K/uL (1.8-7.0); NEUT % 75.5 % (50.0-75.0); NRBC % 0.1 % (0.0-2.0); RED CELL DISTRIBUTION WIDTH 16.6 % (11.5-14.5); WHITE BLOOD COUNT 17.1 K/uL (4.8-10.8)
[2019-01-23] MEDS ORDERED: HYDROmorphone 1 mg/ml ISec IVP STA (02:31)
[2019-01-23] MEDS: Pantoprazole 80 MG in Sodium Chloride 0.9% 100 ML IVP SCH ×2 (02:33→10:00)
--- NOTE | 2019-01-23 06:03 | CON ---
DATE: 01/22/2019 RENAL CONSULTATION LOCATION: The patient is located in ICU, bed 15. REQUESTED BY: Sophie Perez MD REASON FOR RENAL CONSULTATION: Severe anemia, acute GI bleed, hyperkalemia, for emergency hemodialysis. HISTORY OF PRESENT ILLNESS: Mr. Albin Ugalde is a 48-year-old obese male with a past medical history significant for longstanding hypertension, nephrotic-range proteinuria, secondary hyperparathyroidism, end-stage renal disease on hemodialysis for the last six to seven months, status post left upper extremity AV fistula placement about two months ago and status post revision of AV fistula and superficialization on 01/01/2019. The patient came to the emergency room after calling the patient's home by the registered nurse for followup after GI bleed on Saturday. As per the registered nurse in the dialysis unit, the patient was in usual state of health when presented to the dialysis center on Saturday. Almost at the end of the treatment, the patient suddenly fell from the chair and vomited coffee-ground vomitus and also later on, the patient moved his bowel, which was also dark colored stool, and the patient was hypertensive, given IV fluids about 500 mL. Subsequently, the patient was advised to go to emergency room. The patient initially refused, and dialysis team called the patient's girlfriend, kelliee, and advised to go to the hospital. The patient refused and his fiancee took the patient home and apparently as per the patient now claims he had one coffee-ground vomitus on Saturday night prior to the last hemodialysis at the center. He went home after dialysis on Saturday, and he had another vomiting and also three to four black stools and also feeling dizzy, lightheaded, and feeling hot in the house and history of fall in the house. Myself and dialysis team tried to reach the patient whole day multiple times without response from the patient's fiancee. The dialysis nurse tried again this morning, and the patient was contacted and advised to go to the hospital immediately. The patient presented to the emergency room and complains feeling weak, tired, and hypotensive and also found to have hemoglobin of 4. The patient was initially given 500 mL bolus as per the ER physician. Case was discussed with the ER physician and advised to give another 1 L of normal saline bolus and scheduled for a stat hemodialysis and also transfuse at least 3 units of packed RBC during dialysis. The patient is admitted to ICU, and the patient is being dialyzed receiving third unit of packed RBC. The patient also claims he was using [place] spring soap, and he was addicted to the smell and he likes to use the soap and brushing his teeth with the soap and also started eating the soap gradually. He ate about one soap in the last one month as per the patient. The patient also claims he goggled the side effects of the soap, and he claims he noticed hypotension and GI bleed also. The patient is not in acute distress. Complains of chills during dialysis. No shortness of breath. The patient does complain some mild chest discomfort prior to the admission of the ER. PAST MEDICAL HISTORY: Significant for hypertension, obesity, gastric sleeve surgery, also end-stage renal disease, hyperlipidemia, nephrotic-range proteinuria. PAST SURGICAL HISTORY: Coronary artery disease, status post multiple stents placement in 2018, and also status post left upper extremity AV fistula and status post PermCath placement. ALLERGIES: NO KNOWN DRUG ALLERGIES. SOCIAL HISTORY: No smoking. No alcohol. No drugs. PERSONAL HISTORY: He is single. He has a fiancee. CURRENT MEDICATIONS: Include as follows: Clonidine, amlodipine, Renvela, Crestor, Protonix, metoprolol, losartan, hydralazine, Plavix, aspirin, and Sensipar. REVIEW OF SYSTEMS: Significant for upper GI bleed, coffee-ground vomitus since Saturday x2-3 and also black stool 3-4 since Saturday, significant for also anemia, weakness, and chest discomfort. All other review of systems reviewed and are negative. PHYSICAL EXAMINATION: VITAL SIGNS: As follows: His blood pressure in the emergency room initial one is 108/72, subsequently his blood pressure dropped to 83/41; pulse 94; respiration 22; temperature 97.8; saturation 100%. Height 5 feet and 7 inches. Weight is 229 pounds. GENERAL: Mr. Ugalde is a 48-year-old obese, male, moderately built, moderately nourished, not in distress. HEENT: Pupils are normal and reactive to light and accommodation. Conjunctivae pale. Sclerae anicteric. Tongue is moist and trachea is midline. LUNGS: Symmetric on both sides. Bilateral breath sounds present. Clear to auscultation. CARDIOVASCULAR SYSTEM: [place] at the fifth intercostal space, midclavicular line. S1 and S2 audible. No murmur. No gallop. ABDOMEN: Normal in appearance. Soft, tympanitic. No guarding. No rigidity. No hepatosplenomegaly. CENTRAL NERVOUS SYSTEM: The patient is alert, awake, oriented x3. Nonfocal neuro examination. Cranial nerves II through XII grossly intact. Sensory and motor system is within normal limits. EXTREMITIES: No cyanosis, no clubbing, no edema. CURRENT LABORATORY DATA: Include as follows: WBC 21.3, hemoglobin 4.2, hematocrit is 13.1, and platelets 194. PT 12.9, PTT 28, INR 1.2. Sodium 135, potassium 5.1, chloride 95, CO2 of 19, BUN 121, creatinine 13.8, glucose 141, calcium 9.6, phosphorus 3.4, magnesium 2.2. Total bili 0.3, AST 24, ALT 8, alkaline phosphatase 55. Troponin 1.38. Total protein 6.1, albumin is 3.8. Other reports: Chest x-ray as of 01/22/2019; impression: Right internal jugular approach dialysis catheter with a distal tip at SVC, cardiomegaly and patchy right lower lobe atelectasis or pneumonia. CT of the head as of 01/22/2019; impression: Scattered probable tiny lacunar type infarction, nonspecific white matter changes, 3.2 x 1.9 cm CSF density, structure impressing the superior margins of the vermis appears consistent with an arachnoid cyst. CT of the abdomen and pelvis as of 01/22/2019; impression: Patchy diffuse consolidation throughout the included right middle lobe consistent with pneumonia. Recommended followup upon completion of treatment to ensure complete resolution. Left adrenal gland hypertrophy and moderate hiatal hernia, post-surgical gastric changes, fat containing umbilical hernia and bilateral fat containing inguinal hernias. ASSESSMENT: In summary, Mr. Ugalde is a 48-year-old middle-aged male with past medical history significant for hypertension, coronary artery disease, hyperlipidemia, status post multiple stents about eight months ago, end-stage renal disease, nephrotic-range proteinuria, status post gastric sleeve in 2017, status post left upper extremity arteriovenous fistula placement about two months ago, status post superficialization of fistula on 01/01/2019, was eating soap, was having coffee-ground vomitus since Saturday x2-3 and also black stool three to four since Saturday who was admitted with low hemoglobin and hematocrit, chest discomfort, weakness, and also chills with elevated white blood cell counts, low hemoglobin and hematocrit and metabolic acidosis and hyperkalemia. 1. Severe anemia secondary to upper gastrointestinal bleed, most likely in view of coffee-ground vomitus and black stools for the last two to three days, rule out peptic ulcer disease, rule out gastritis. 2. Status post hypotension secondary to gastrointestinal bleed. The patient was given IV fluids normal saline 500 mL to 1 L in the emergency room. 3. Metabolic acidosis. 4. Mild hyperkalemia. The patient is being dialyzed and receiving 3 units of packed red blood cells during dialysis and also we will do blood culture. 5. Right lung pneumonia, rule out sepsis with elevated white blood cell count. We will do blood culture x2 and we will given 1 g vancomycin and gentamicin 160 mg. Consider infectious disease consult for possible pneumonia versus sepsis, rule out infected arteriovenous fistula site superficial ulcer. 6. Subarachnoid cyst. 7. Bilateral inguinal hernia and umbilical hernia. 8. Left adrenal hypertrophy. PLAN: Continue his current medications and keep n.p.o. and Gastroenterology consult and also start H2 blockers or PPIs. Repeat CBC and CMP in the a.m. We will start him on Protonix 40 mg IV piggyback every 12 hours, and also we will start him on Zosyn 2.25 g IV piggyback every 8 hours. We will follow with you. Thank you for allowing me to participate in your patient's care and follow up blood cultures and urine cultures. Time spent is 90 minutes. Case also discussed with the ER physician this afternoon and also discussed with the ICU attending in rounds and discussed with the patient's nurse and also dialysis nurse regarding the patient's condition and for emergency hemodialysis. Thelma Guillen MD
[2019-01-23 06:54] LABS: ALB/GLOB RATIO 1.4 (1.0-2.1); CALCIUM 8.4 mg/dl (8.6-10.4)
[2019-01-23] MEDS: Piperacill/Tazo 2.25gm in Dex 2.25 GM/50 ML BAG IVPB SCH ×3 (07:53→22:42)
[2019-01-23] MEDS: Ferric Sodium Gluconat Complex 62.5 mg/5 ml Vial IVPB SCH (10:30)
--- NOTE | 2019-01-23 10:52 | CARD ---
APPROVED REPORT Date of service: 01/22/2019 EKG Measurement Heart [id number] <Conclusion> Normal sinus rhythm Left ventricular hypertrophy with repolarization abnormality Prolonged QT Abnormal ECG
[2019-01-23 10:53] LABS: BASO # 0.1 K/uL (0.0-0.2); MEAN CORPUSCULAR HGB CONC 34.5 g/dL (33.0-37.0); MONO # 1.5 K/uL (0.0-0.8); RBC 2.44 Mil/uL (4.40-5.90); RED CELL DISTRIBUTION WIDTH 17.8 % (11.5-14.5)
[2019-01-23 10:59] LABS: BASO % 0.5 % (0.0-2.0); EOS % 0.2 % (0.0-4.0); HEMOGLOBIN 7.8 g/dL (12.0-18.0); LYMPH # 2.5 K/uL (1.0-4.3); LYMPH % 17.2 % (20.0-40.0); MEAN CORPUSCULAR HEMOGLOBIN 31.7 pg (27.0-31.0); MEAN PLATELET VOLUME 8.2 fL (7.2-11.7); MONO % 10.3 % (0.0-10.0); NEUT # 10.3 K/uL (1.8-7.0); NEUT % 71.8 % (50.0-75.0); NRBC % 0.1 % (0.0-2.0); WHITE BLOOD COUNT 14.3 K/uL (4.8-10.8)
[2019-01-23 11:00] LABS: MEAN CELL VOLUME 92.1 fL (80.0-94.0)
[2019-01-23] MEDS ORDERED: Pantoprazole 80 MG in Sodium Chloride 0.9% 100 ML IVPB SCH (14:15)
[2019-01-23 15:29] LABS: BENZODIAZEPINES, UR NEGATIVE (NEGATIVE); OPIATES, UR NEGATIVE (NEGATIVE); PHENCYCLIDINE, UR NEGATIVE (NEGATIVE)
[2019-01-23 15:36] LABS: BARBITURATES, UR NEGATIVE (NEGATIVE)
[2019-01-23] MEDS: SILVASORB ANTIMICROBIAL WOUND GEL TOP SCH (15:38)
[2019-01-23 17:15] LABS: BASO # 0.1 K/uL (0.0-0.2); BASO % 0.5 % (0.0-2.0); EOS % 0.2 % (0.0-4.0); HEMOGLOBIN 8.5 g/dL (12.0-18.0); LYMPH # 2.4 K/uL (1.0-4.3); LYMPH % 18.1 % (20.0-40.0); MEAN CELL VOLUME 91.6 fL (80.0-94.0); MEAN CORPUSCULAR HEMOGLOBIN 31.5 pg (27.0-31.0); MEAN CORPUSCULAR HGB CONC 34.4 g/dL (33.0-37.0); MEAN PLATELET VOLUME 7.9 fL (7.2-11.7); MONO # 1.3 K/uL (0.0-0.8); MONO % 9.6 % (0.0-10.0); NEUT # 9.6 K/uL (1.8-7.0); NEUT % 71.6 % (50.0-75.0); NRBC % 0.3 % (0.0-2.0); RBC 2.71 Mil/uL (4.40-5.90); RED CELL DISTRIBUTION WIDTH 18.2 % (11.5-14.5); WHITE BLOOD COUNT 13.4 K/uL (4.8-10.8)
--- NOTE | 2019-01-23 18:35 | CP.PCM.CON ---
<Viral Ceron - Last Filed: 01/23/19 18:18> History of Present Illness - History of Present Illness History of Present Illness: 47yo M. PMHx HTN, stage 4 CKD, CAD, stents x 2. p/w chest pain, NSTEMI, ESRD on HD T//Sat presented hospital with hemetemesis and maroon colored stool x2 days. States he has been ingesting soap (spring for 1 month). Denies chest pain, sob, abdominal pain, diarrhea, constipation, ingestion of Nsaids or ETOH. Pt found to have hemoglobin of 4.2, and received 1 units of PRBC with HD on 01/22 and 1 unit PRBC this am. Admitted to ICU for close monitoring in light of acute GI bleed. Past Patient History - Past Medical History & Family History Past Medical History?: Yes - Past Social History Smoking Status: Former Smoker - CARDIAC Hx Cardiac Disorders: Yes Hx Hypertension: Yes Hx Peripheral Edema: Yes - PULMONARY Hx Respiratory Disorders: Yes Hx Sleep Apnea: Yes (C PAP) - NEUROLOGICAL Hx Neurological Disorder: No - HEENT Hx HEENT Problems: Yes (CONTACTS) - RENAL Hx Chronic Kidney Disease: Yes Hx Dialysis: Yes (ESRD ON HD) Date of Last Dialysis Treatment: 01/22/19 - ENDOCRINE/METABOLIC Hx Endocrine Disorders: Yes Hx Diabetes Mellitus Type 2: Yes (NO MEDS) - HEMATOLOGICAL/ONCOLOGICAL Hx Blood Disorders: No - INTEGUMENTARY Hx Dermatological Problems: No - MUSCULOSKELETAL/RHEUMATOLOGICAL Hx Musculoskeletal Disorders: Yes Hx Falls: No Hx Fractures: Yes (NASAL ) - GASTROINTESTINAL Hx Gastrointestinal Disorders: Yes Hx Gastroesophageal Reflux: Yes - GENITOURINARY/GYNECOLOGICAL Hx Genitourinary Disorders: No Other/Comment: DOES NOT PASS URINE - PSYCHIATRIC Hx Psychophysiologic Disorder: No Hx Substance Use: No - SURGICAL HISTORY Hx Surgeries: Yes Hx Coronary Stent: Yes (5 STENTS TOTAL) - ANESTHESIA Hx Anesthesia: Yes Hx Anesthesia Reactions: No Hx Malignant Hyperthermia: No Meds Allergies/Adverse Reactions: Allergies Allergy/AdvReac Type Severity Reaction Status Date / Time No Known Allergies Allergy Verified 01/22/19 13:36 - Medications Medications: Current Medications Ferric Sodium Gluconate Complex (Ferrlecit) 125 mg IVPB DAILY [facility] Stop: 01/31/19 10:01 Last Admin: 01/23/19 10:30 Dose: 125 mg Piperacillin Sod/Tazobactam Sod (Zosyn 2.25 Gm Iv Premix) 2.25 gm in 50 mls @ 100 mls/hr IVPB Q8 [facility]; Protocol Last Admin: 01/23/19 14:00 Dose: 100 mls/hr Pantoprazole Sodium 80 mg/ (Sodium Chloride) 100 mls @ 10 mls/hr IVPB .Q10H [facility] Last Admin: 01/23/19 14:15 Dose: 10 mls/hr Metoprolol Tartrate (Lopressor) 25 mg PO BIDBS [facility] Last Admin: 01/23/19 15:38 Dose: 25 mg Physical Exam - Constitutional Appears: No Acute Distress - Head Exam Head Exam: NORMAL INSPECTION - Eye Exam Eye Exam: Normal appearance - ENT Exam ENT Exam: Mucous Membranes Moist - Respiratory Exam Respiratory Exam: Clear to Auscultation Bilateral. absent: Rales, Wheezes - Cardiovascular Exam Cardiovascular Exam: REGULAR RHYTHM. absent: Systolic Murmur - GI/Abdominal Exam GI & Abdominal Exam: Normal Bowel Sounds, Soft. absent: Tenderness - Extremities Exam Extremities exam: Positive for: normal inspection - Neurological Exam Neurological exam: Alert, Oriented x3 - Psychiatric Exam Psychiatric exam: Normal Affect - Skin Skin Exam: Normal Color Results - Vital Signs Recent Vital Signs: Last Vital Signs Temp 98.6 F 01/23/19 17:00 Pulse 90 01/23/19 17:00 Resp 12 01/23/19 17:00 BP 101/61 01/23/19 17:00 Pulse Ox 99 01/23/19 15:23 - Labs Result Diagrams: 01/23/19 17:06 01/23/19 06:34 Labs: Laboratory Results - last 24 hr 01/22/19 01/22/19 01/22/19 16:01 16:01 16:01 WBC RBC Hgb Hct MCV MCH MCHC RDW Plt Count MPV Neut % (Auto) Lymph % (Auto) Carver % (Auto) Eos % (Auto) Baso % (Auto) Neut # (Auto) Lymph # (Auto) Carver # (Auto) Eos # (Auto) Baso # (Auto) Smear Path Review Sodium Potassium Chloride Carbon Dioxide Anion Gap BUN Creatinine Est GFR ( Amer) Est GFR (Non-Af Amer) Random Glucose Calcium Phosphorus Magnesium Total Bilirubin AST ALT Alkaline Phosphatase Troponin I 1.3800 H* Total Protein Albumin Globulin Albumin/Globulin Ratio Urine Opiates Screen Urine Methadone Screen Ur Barbiturates Screen Ur Phencyclidine Scrn Ur Amphetamines Screen U Benzodiazepines Scrn U Oth Cocaine Metabols U Cannabinoids Screen Blood Type B NEGATIVE Antibody Screen Negative 01/23/19 01/23/19 01/23/19 01:40 06:34 09:30 WBC 17.1 H 14.3 H RBC 2.00 L 2.44 L Hgb 6.6 L D 7.8 L Hct 19.1 L 22.5 L MCV 95.6 H D 92.1 D MCH 33.2 H 31.7 H MCHC 34.7 34.5 RDW 16.6 H 17.8 H Plt Count 133 120 L MPV 8.3 8.2 Neut % (Auto) 75.5 H 71.8 Lymph % (Auto) 14.4 L 17.2 L Carver % (Auto) 9.5 10.3 H Eos % (Auto) 0.1 0.2 Baso % (Auto) 0.5 0.5 Neut # (Auto) 12.9 H 10.3 H Lymph # (Auto) 2.5 2.5 Carver # (Auto) 1.6 H 1.5 H Eos # (Auto) 0.0 0.0 Baso # (Auto) 0.1 0.1 Smear Path Review Sodium 136 Potassium 4.0 Chloride 100 Carbon Dioxide 27 Anion Gap 13 BUN 63 H Creatinine 8.2 H* D Est GFR ( Amer) 8 Est GFR (Non-Af Amer) 7 Random Glucose 104 D Calcium 8.4 L Phosphorus 3.7 Magnesium 1.9 Total Bilirubin 0.7 AST 31 ALT 15 L D Alkaline Phosphatase 42 Troponin I Total Protein 5.2 L Albumin 3.0 L D Globulin 2.2 Albumin/Globulin Ratio 1.4 Urine Opiates Screen Urine Methadone Screen Ur Barbiturates Screen Ur Phencyclidine Scrn Ur Amphetamines Screen U Benzodiazepines Scrn U Oth Cocaine Metabols U Cannabinoids Screen Blood Type Antibody Screen 01/23/19 01/23/19 01/23/19 09:30 14:51 17:06 WBC RBC Hgb Hct MCV MCH MCHC RDW Plt Count MPV Neut % (Auto) Lymph % (Auto) Carver % (Auto) Eos % (Auto) Baso % (Auto) Neut # (Auto) Lymph # (Auto) Carver # (Auto) Eos # (Auto) Baso # (Auto) Smear Path Review Sodium Potassium Chloride Carbon Dioxide Anion Gap BUN Creatinine Est GFR ( Amer) Est GFR (Non-Af Amer) Random Glucose Calcium Phosphorus Magnesium Total Bilirubin AST ALT Alkaline Phosphatase Troponin I 7.0600 H* 2.7900 H* Total Protein Albumin Globulin Albumin/Globulin Ratio Urine Opiates Screen Negative Urine Methadone Screen Negative Ur Barbiturates Screen Negative Ur Phencyclidine Scrn Negative Ur Amphetamines Screen Negative U Benzodiazepines Scrn Negative U Oth Cocaine Metabols Negative U Cannabinoids Screen Negative Blood Type Antibody Screen 01/23/19 17:06 WBC 13.4 H RBC 2.71 L Hgb 8.5 L Hct 24.8 L MCV 91.6 MCH 31.5 H MCHC 34.4 RDW 18.2 H Plt Count 118 L MPV 7.9 Neut % (Auto) 71.6 Lymph % (Auto) 18.1 L Carver % (Auto) 9.6 Eos % (Auto) 0.2 Baso % (Auto) 0.5 Neut # (Auto) 9.6 H Lymph # (Auto) 2.4 Carver # (Auto) 1.3 H Eos # (Auto) 0.0 Baso # (Auto) 0.1 Smear Path Review Sodium Potassium Chloride Carbon Dioxide Anion Gap BUN Creatinine Est GFR ( Amer) Est GFR (Non-Af Amer) Random Glucose Calcium Phosphorus Magnesium Total Bilirubin AST ALT Alkaline Phosphatase Troponin I Total Protein Albumin Globulin Albumin/Globulin Ratio Urine Opiates Screen Urine Methadone Screen Ur Barbiturates Screen Ur Phencyclidine Scrn Ur Amphetamines Screen U Benzodiazepines Scrn U Oth Cocaine Metabols U Cannabinoids Screen Blood Type Antibody Screen Assessment & Plan - Assessment and Plan (Free Text) Assessment: 47yo M. PMHx HTN, stage 4 CKD, CAD, stents x 2. p/w chest pain, NSTEMI, ESRD on HD T//Sat presented hospital with hemetemesis and maroon colored stool x2 days. States he has been ingesting soap (spring for 1 month). Denies chest pain, sob, abdominal pain, diarrhea, constipation, ingestion of Nsaids or ETOH. Pt found to have hemoglobin of 4.2, and received 2 units of PRBC with HD on 01/22 and 1 unit PRBC this am. Admitted to ICU for close monitoring of light of acute GI bleed. Neuro: -AO x3 Cardio: - Hemodynamically stable, BP in 100's systolic not requiring pressor support - Hx of CAD w/ 5 stents total - Troponinemia: 1.3>7.06>2.79 trending down. EKG no ischemic changes - Cardiology on board and aware, Dr. Browne - ASA and Plavix held in light of GI bleed Pulm - Breathing comfortably on rm air, O2sat >90% GI - No new episodes of hemetemisis pr melena - Protonix ggt - Stool occult (+), Upper GI bleed possible caustic injury from soap ingesting soap. Called Poison control, no recommendations - GI consulted, Dr. Reyes - NPO Renal - ESRD on HD T//Sat - Recieved dialysis yesterday - Nephrology on board - EPO - Monitor lytes Heme - Hg 4.2>6.6>7.8>8.5 Stable - Ferric IV - Platelets 118 ID - Afebrile, Leukocytosis 21.3>17>13, no bands - UA rare bacteria, LES and Nitrate negative - Cxray R. LL Atelectasis vs. PNU - On Zosyn - F/U Bcxs and ucx PPX - DVT: SCD for now in light of active GI bleed - GI: on protonix ggt Discussed case with Dr. Antonio Ceron, PGY2 <Fady Alvarez S - Last Filed: 01/23/19 18:58> Meds - Medications Medications: Current Medications Ferric Sodium Gluconate Complex (Ferrlecit) 125 mg IVPB DAILY [facility] Stop: 01/31/19 10:01 Last Admin: 01/23/19 10:30 Dose: 125 mg Piperacillin Sod/Tazobactam Sod (Zosyn 2.25 Gm Iv Premix) 2.25 gm in 50 mls @ 100 mls/hr IVPB Q8 [facility]; Protocol Last Admin: 01/23/19 14:00 Dose: 100 mls/hr Pantoprazole Sodium 80 mg/ (Sodium Chloride) 100 mls @ 10 mls/hr IVPB .Q10H [facility] Last Admin: 01/23/19 14:15 Dose: 10 mls/hr Metoprolol Tartrate (Lopressor) 25 mg PO BIDBS [facility] Last Admin: 01/23/19 15:38 Dose: 25 mg Results - Vital Signs Recent Vital Signs: Last Vital Signs Temp 98.6 F 01/23/19 17:00 Pulse 90 01/23/19 17:00 Resp 12 01/23/19 17:00 BP 101/61 01/23/19 17:00 Pulse Ox 99 01/23/19 15:23 - Labs Result Diagrams: 01/23/19 17:06 01/23/19 06:34 Labs: Laboratory Results - last 24 hr 01/22/19 01/22/19 01/22/19 16:01 16:01 16:01 WBC RBC Hgb Hct MCV MCH MCHC RDW Plt Count MPV Neut % (Auto) Lymph % (Auto) [place]ver % (Auto) Eos % (Auto) Baso % (Auto) Neut # (Auto) Lymph # (Auto) Carver # (Auto) Eos # (Auto) Baso # (Auto) Smear Path Review Sodium Potassium Chloride Carbon Dioxide Anion Gap BUN Creatinine Est GFR ( Amer) Est GFR (Non-Af Amer) Random Glucose Calcium Phosphorus Magnesium Total Bilirubin AST ALT Alkaline Phosphatase Troponin I 1.3800 H* Total Protein Albumin Globulin Albumin/Globulin Ratio Urine Opiates Screen Urine Methadone Screen Ur Barbiturates Screen Ur Phencyclidine Scrn Ur Amphetamines Screen U Benzodiazepines Scrn U Oth Cocaine Metabols U Cannabinoids Screen Blood Type B NEGATIVE Antibody Screen Negative 01/23/19 01/23/19 01/23/19 01:40 06:34 09:30 WBC 17.1 H 14.3 H RBC 2.00 L 2.44 L Hgb 6.6 L D 7.8 L Hct 19.1 L 22.5 L MCV 95.6 H D 92.1 D MCH 33.2 H 31.7 H MCHC 34.7 34.5 RDW 16.6 H 17.8 H Plt Count 133 120 L MPV 8.3 8.2 Neut % (Auto) 75.5 H 71.8 Lymph % (Auto) 14.4 L 17.2 L Carver % (Auto) 9.5 10.3 H Eos % (Auto) 0.1 0.2 Baso % (Auto) 0.5 0.5 Neut # (Auto) 12.9 H 10.3 H Lymph # (Auto) 2.5 2.5 Carver # (Auto) 1.6 H 1.5 H Eos # (Auto) 0.0 0.0 Baso # (Auto) 0.1 0.1 Smear Path Review Sodium 136 Potassium 4.0 Chloride 100 Carbon Dioxide 27 Anion Gap 13 BUN 63 H Creatinine 8.2 H* D Est GFR ( Amer) 8 Est GFR (Non-Af Amer) 7 Random Glucose 104 D Calcium 8.4 L Phosphorus 3.7 Magnesium 1.9 Total Bilirubin 0.7 AST 31 ALT 15 L D Alkaline Phosphatase 42 Troponin I Total Protein 5.2 L Albumin 3.0 L D Globulin 2.2 Albumin/Globulin Ratio 1.4 Urine Opiates Screen Urine Methadone Screen Ur Barbiturates Screen Ur Phencyclidine Scrn Ur Amphetamines Screen U Benzodiazepines Scrn U Oth Cocaine Metabols U Cannabinoids Screen Blood Type Antibody Screen 01/23/19 01/23/19 01/23/19 09:30 14:51 17:06 WBC RBC Hgb Hct MCV MCH MCHC RDW Plt Count MPV Neut % (Auto) Lymph % (Auto) Carver % (Auto) Eos % (Auto) Baso % (Auto) Neut # (Auto) Lymph # (Auto) Carver # (Auto) Eos # (Auto) Baso # (Auto) Smear Path Review Sodium Potassium Chloride Carbon Dioxide Anion Gap BUN Creatinine Est GFR ( Amer) Est GFR (Non-Af Amer) Random Glucose Calcium Phosphorus Magnesium Total Bilirubin AST ALT Alkaline Phosphatase Troponin I 7.0600 H* 2.7900 H* Total Protein Albumin Globulin Albumin/Globulin Ratio Urine Opiates Screen Negative Urine Methadone Screen Negative Ur Barbiturates Screen Negative Ur Phencyclidine Scrn Negative Ur Amphetamines Screen Negative U Benzodiazepines Scrn Negative U Oth Cocaine Metabols Negative U Cannabinoids Screen Negative Blood Type Antibody Screen 01/23/19 17:06 WBC 13.4 H RBC 2.71 L Hgb 8.5 L Hct 24.8 L MCV 91.6 MCH 31.5 H MCHC 34.4 RDW 18.2 H Plt Count 118 L MPV 7.9 Neut % (Auto) 71.6 Lymph % (Auto) 18.1 L Carver % (Auto) 9.6 Eos % (Auto) 0.2 Baso % (Auto) 0.5 Neut # (Auto) 9.6 H Lymph # (Auto) 2.4 Carver # (Auto) 1.3 H Eos # (Auto) 0.0 Baso # (Auto) 0.1 Smear Path Review Sodium Potassium Chloride Carbon Dioxide Anion Gap BUN Creatinine Est GFR ( Amer) Est GFR (Non-Af Amer) Random Glucose Calcium Phosphorus Magnesium Total Bilirubin AST ALT Alkaline Phosphatase Troponin I Total Protein Albumin Globulin Albumin/Globulin Ratio Urine Opiates Screen Urine Methadone Screen Ur Barbiturates Screen Ur Phencyclidine Scrn Ur Amphetamines Screen U Benzodiazepines Scrn U Oth Cocaine Metabols U Cannabinoids Screen Blood Type Antibody Screen Attending/Attestation - Attestation I have personally seen and examined this patient.: Yes I have fully participated in the care of the patient.: Yes I have reviewed all pertinent clinical information: Yes Notes (Text): 01/23/19 18:54 Patient seen and examined in the intensive care unit. Case discussed with housestaff in the morning rounds. Transfuse packed RBCs GI workup Follow-up H&H Continue ICU observation Continue hemodialysis
--- NOTE | 2019-01-23 20:04 | CP.PCM.HP ---
Past Patient History - Past Medical History & Family History Past Medical History?: Yes - Past Social History Smoking Status: Former Smoker - CARDIAC Hx Cardiac Disorders: Yes Hx Hypertension: Yes Hx Peripheral Edema: Yes - PULMONARY Hx Respiratory Disorders: Yes Hx Sleep Apnea: Yes (C PAP) - NEUROLOGICAL Hx Neurological Disorder: No - HEENT Hx HEENT Problems: Yes (CONTACTS) - RENAL Hx Chronic Kidney Disease: Yes Hx Dialysis: Yes (ESRD ON HD) Date of Last Dialysis Treatment: 01/22/19 - ENDOCRINE/METABOLIC Hx Endocrine Disorders: Yes Hx Diabetes Mellitus Type 2: Yes (NO MEDS) - HEMATOLOGICAL/ONCOLOGICAL Hx Blood Disorders: No - INTEGUMENTARY Hx Dermatological Problems: No - MUSCULOSKELETAL/RHEUMATOLOGICAL Hx Musculoskeletal Disorders: Yes Hx Falls: No Hx Fractures: Yes (NASAL ) - GASTROINTESTINAL Hx Gastrointestinal Disorders: Yes Hx Gastroesophageal Reflux: Yes - GENITOURINARY/GYNECOLOGICAL Hx Genitourinary Disorders: No Other/Comment: DOES NOT PASS URINE - PSYCHIATRIC Hx Psychophysiologic Disorder: No Hx Substance Use: No - SURGICAL HISTORY Hx Surgeries: Yes Hx Coronary Stent: Yes (5 STENTS TOTAL) - ANESTHESIA Hx Anesthesia: Yes Hx Anesthesia Reactions: No Hx Malignant Hyperthermia: No Meds Allergies/Adverse Reactions: Allergies Allergy/AdvReac Type Severity Reaction Status Date / Time No Known Allergies Allergy Verified 01/22/19 13:36 Physical Exam - Constitutional Appears: Well - Head Exam Head Exam: ATRAUMATIC, NORMAL INSPECTION, NORMOCEPHALIC - Eye Exam Eye Exam: EOMI, Normal appearance, PERRL Pupil Exam: NORMAL ACCOMODATION, PERRL - ENT Exam ENT Exam: Mucous Membranes Moist, Normal Exam - Neck Exam Neck exam: Positive for: Normal Inspection - Respiratory Exam Respiratory Exam: Decreased Breath Sounds - Cardiovascular Exam Cardiovascular Exam: REGULAR RHYTHM, +S1, +S2 - GI/Abdominal Exam GI & Abdominal Exam: Diminished Bowel Sounds, Soft - Rectal Exam Rectal Exam: Deferred - Neurological Exam Neurological exam: Oriented x3 Results - Vital Signs Recent Vital Signs: Last Vital Signs Temp 98.6 F 01/23/19 17:00 Pulse 98 H 01/23/19 18:51 Resp 14 01/23/19 18:40 BP 119/63 01/23/19 17:51 Pulse Ox 91 L 01/23/19 18:51 - Labs Result Diagrams: 01/23/19 17:06 01/23/19 06:34 Labs: Laboratory Results - last 24 hr 01/22/19 01/22/19 01/23/19 16:01 16:01 01:40 WBC 17.1 H RBC 2.00 L Hgb 6.6 L D Hct 19.1 L MCV 95.6 H D MCH 33.2 H MCHC 34.7 RDW 16.6 H Plt Count 133 MPV 8.3 Neut % (Auto) 75.5 H Lymph % (Auto) 14.4 L [place] % (Auto) 9.5 Eos % (Auto) 0.1 Baso % (Auto) 0.5 Neut # (Auto) 12.9 H Lymph # (Auto) 2.5 [place] # (Auto) 1.6 H Eos # (Auto) 0.0 Baso # (Auto) 0.1 Smear Path Review Sodium Potassium Chloride Carbon Dioxide Anion Gap BUN Creatinine Est GFR ( Amer) Est GFR (Non-Af Amer) Random Glucose Calcium Phosphorus Magnesium Total Bilirubin AST ALT Alkaline Phosphatase Troponin I Total Protein Albumin Globulin Albumin/Globulin Ratio Urine Opiates Screen Urine Methadone Screen Ur Barbiturates Screen Ur Phencyclidine Scrn Ur Amphetamines Screen U Benzodiazepines Scrn U Oth Cocaine Metabols U Cannabinoids Screen Blood Type B NEGATIVE Antibody Screen Negative 01/23/19 01/23/19 01/23/19 06:34 09:30 09:30 WBC 14.3 H RBC 2.44 L Hgb 7.8 L Hct 22.5 L MCV 92.1 D MCH 31.7 H MCHC 34.5 RDW 17.8 H Plt Count 120 L MPV 8.2 Neut % (Auto) 71.8 Lymph % (Auto) 17.2 L [place] % (Auto) 10.3 H Eos % (Auto) 0.2 Baso % (Auto) 0.5 Neut # (Auto) 10.3 H Lymph # (Auto) 2.5 [place] # (Auto) 1.5 H Eos # (Auto) 0.0 Baso # (Auto) 0.1 Smear Path Review Sodium 136 Potassium 4.0 Chloride 100 Carbon Dioxide 27 Anion Gap 13 BUN 63 H Creatinine 8.2 H* D Est GFR ( Amer) 8 Est GFR (Non-Af Amer) 7 Random Glucose 104 D Calcium 8.4 L Phosphorus 3.7 Magnesium 1.9 Total Bilirubin 0.7 AST 31 ALT 15 L D Alkaline Phosphatase 42 Troponin I 7.0600 H* Total Protein 5.2 L Albumin 3.0 L D Globulin 2.2 Albumin/Globulin Ratio 1.4 Urine Opiates Screen Urine Methadone Screen Ur Barbiturates Screen Ur Phencyclidine Scrn Ur Amphetamines Screen U Benzodiazepines Scrn U Oth Cocaine Metabols U Cannabinoids Screen Blood Type Antibody Screen 01/23/19 01/23/19 01/23/19 14:51 17:06 17:06 WBC 13.4 H RBC 2.71 L Hgb 8.5 L Hct 24.8 L MCV 91.6 MCH 31.5 H MCHC 34.4 RDW 18.2 H Plt Count 118 L MPV 7.9 Neut % (Auto) 71.6 Lymph % (Auto) 18.1 L [place] % (Auto) 9.6 Eos % (Auto) 0.2 Baso % (Auto) 0.5 Neut # (Auto) 9.6 H Lymph # (Auto) 2.4 [place] # (Auto) 1.3 H Eos # (Auto) 0.0 Baso # (Auto) 0.1 Smear Path Review Sodium Potassium Chloride Carbon Dioxide Anion Gap BUN Creatinine Est GFR ( Amer) Est GFR (Non-Af Amer) Random Glucose Calcium Phosphorus Magnesium Total Bilirubin AST ALT Alkaline Phosphatase Troponin I 2.7900 H* Total Protein Albumin Globulin Albumin/Globulin Ratio Urine Opiates Screen Negative Urine Methadone Screen Negative Ur Barbiturates Screen Negative Ur Phencyclidine Scrn Negative Ur Amphetamines Screen Negative U Benzodiazepines Scrn Negative U Oth Cocaine Metabols Negative U Cannabinoids Screen Negative Blood Type Antibody Screen
--- NOTE | 2019-01-23 23:41 | CP.PCM.PN ---
Subjective - Date & Time of Evaluation Date of Evaluation: 01/23/19 Time of Evaluation: 12:50 - Subjective Subjective: pt is seen and examined, follow up consult is dictated #[id number] for hd in am, transfuse 4 th unit prbc this afternoon Objective - Vital Signs/Intake and Output Vital Signs (last 24 hours): Temp Pulse Resp BP Pulse Ox 98.6 F 98 H 14 119/63 91 L 01/23/19 17:00 01/23/19 18:51 01/23/19 18:40 01/23/19 17:51 01/23/19 18:51 Intake and Output: 01/23/19 01/24/19 18:59 06:59 Intake Total 1405 Output Total 300 Balance 1105 - Medications Medications: Current Medications Ferric Sodium Gluconate Complex (Ferrlecit) 125 mg IVPB DAILY [facility] Stop: 01/31/19 10:01 Last Admin: 01/23/19 10:30 Dose: 125 mg Piperacillin Sod/Tazobactam Sod (Zosyn 2.25 Gm Iv Premix) 2.25 gm in 50 mls @ 100 mls/hr IVPB Q8 [facility]; Protocol Last Admin: 01/23/19 22:42 Dose: 100 mls/hr Metoprolol Tartrate (Lopressor) 25 mg PO BIDBS [facility] Last Admin: 01/23/19 15:38 Dose: 25 mg Pantoprazole Sodium (Protonix Inj) 40 mg IVP Q12H [facility] Last Admin: 01/23/19 23:21 Dose: 40 mg - Labs Labs: 01/23/19 17:06 01/23/19 06:34 PT 12.9 SECONDS (9.7-12.2) H 01/22/19 16:01 INR 1.2 01/22/19 16:01 APTT 28 SECONDS (21-34) 01/22/19 16:01
[2019-01-24 00:01] LABS: INR 1.1; PROTHROMBIN TIME 12.2 SECONDS (9.7-12.2)
--- NOTE | 2019-01-24 00:19 | PN ---
DATE: 01/23/2019 LOCATION: ICU 15. SUBJECTIVE: This is a 48-year-old male, seen and examined initially for GI consultation on 01/22/2019, re-examined again today without significant clinical changes with left upper extremity clean dressing with reported low-grade temperature on and off, with post blood transfusion. The entire chart is reviewed including but not limited to the most recent lab and radiology study results, current and the previous medication lists, current and the previous medical events. Case was discussed with the staff at length. It has to be mentioned that the most recent lab results showed hemoglobin of 8.5, hematocrit 24.8, with white blood cells of 13.4 with thrombocytopenia of 118, with elevated troponin level of 2.79 the latest with low albumin and low total protein with increased BUN to 63, creatinine 8.2, calcium 8.4 with albumin 3, total protein 5.2. Most recently done CAT scan of the abdomen and pelvis done yesterday report is seen with possible pneumonia and moderate sized hiatus hernia with post-surgical gastric changes as well as umbilical hernia. Bilateral fat containing inguinal hernia seen also. PHYSICAL EXAMINATION: GENERAL: A 48-year-old male, seen initially for GI consultation on 01/22/2019, re-examined again today, appears to be somewhat awake, alert. VITAL SIGNS: Afebrile with pulse of 86, respiratory rate 20 to 22, blood pressure of 114/64. HEENT: Showed pale, dry oral mucous membrane and nonicteric sclerae. LUNGS: Few scattered crepitation. Decreased air entry bilaterally. HEART: Positive S1 and S2. ABDOMEN: Soft. Mild generalized tenderness. No mass or organomegaly. No rebound tenderness or guarding. EXTREMITIES: Clean left upper extremity dressing with mild edema, no clubbing or cyanosis. NEUROLOGIC: No reported new neurological deficits, sensory or motor. IMPRESSION: 1. Severe anemia. The possibility of gastrointestinal blood loss was raised upper versus lower. 2. Abnormal troponin level, to rule out myocardial infarction. 3. Multiple past medical histories including mainly but not limited to hypertension, coronary artery disease who is status post five cardiac stents insertion. 4. Diabetes mellitus. 5. End-stage renal disease, on hemodialysis. 6. Electrolyte imbalance. 7. Abnormal CAT scan of the abdomen and pelvis with umbilical hernia as well as bilateral inguinal hernias. SUGGESTIONS: 1. Continue current management. 2. The patient may need endoscopic evaluation of the GI tract only when the patient is more stable clinically due to the recent history of chest pain with possible IA. 3. Proton pump inhibitors. Antireflux measures. 4. Further recommendations to follow and cancer markers to be ordered. 5. The patient will need again for cardiology workup before any aggressive GI procedures to be done. Nasir Forman MD
--- NOTE | 2019-01-24 05:20 | PN ---
DATE: 01/23/2019 FOLLOWUP RENAL CONSULTATION LOCATION: The patient is located in ICU bed 15. REQUESTED BY: Sophie Perez MD REASON FOR FOLLOWUP: End-stage renal disease with upper GI bleed, for further evaluation and rule out sepsis. SUBJECTIVE: Mr. Ugalde is a 48-year-old elderly obese male with a history of hypertension, nephrotic-range proteinuria, status post gastric sleeve surgery in 2017, coronary artery disease status post stents x2 with ESRD, on hemodialysis for the last 6 to 8 months, status post AV fistula placement about 2 months ago, status post superficial ligation of the fistula on 01/01/2019, was admitted with coffee-ground vomitus since Saturday night one time and also another episode in the dialysis on Saturday. The patient refused initially to come to the emergency room and the patient was taken home by his fiancee and the patient came to the hospital yesterday after multiple attempts of reaching the patient by the dialysis team and ultimately the patient answered the phone and I advised to come to the emergency room. The patient was admitted with the chief complaints of feeling weak, tired status post fall in the house and also eating [place] soap in the house for the last 1 month little by little as per the patient and admitted with severe anemia, hemoglobin about 4 and black stool and also history of coffee-ground vomitus. The patient underwent hemodialysis yesterday evening and received 3 units of packed RBC and also given 1 g vancomycin and gentamicin for possible sepsis, possibly infected AV fistula site and cellulitis. The patient is feeling slightly better this morning. No chest pain, no palpitation. No fever, no cough. No abdominal pain. No nausea, vomiting, diarrhea. He has elevated troponin levels since admission. PHYSICAL EXAMINATION: VITAL SIGNS: This morning as follows: His blood pressure this morning 111/59, pulse 97, respirations about 17, temperature 98.6, saturation 99% on 2 liters nasal cannula. Height 5 feet 7 inches, weight is 223 pounds. GENERAL: Mr. Ugalde is a 48-year-old middle-aged obese male, well-built, well-nourished, not in distress. HEENT: Pupils normal, reactive to light and accommodation. Conjunctivae slightly pale. Sclerae anicteric. Tongue is moist. Trachea is midline. No thyroid enlargement. LUNGS: Symmetric on both sides. Bilateral breath sounds present. Clear to auscultation. CARDIOVASCULAR SYSTEM: Brady at the fifth intercostal space, midclavicular line. S1, S2 audible. No murmur or gallop. ABDOMEN: Normal in appearance. Soft, tympanitic. No guarding, no rigidity. No hepatosplenomegaly. CENTRAL NERVOUS SYSTEM: The patient is alert, awake and oriented x3. Nonfocal neuro examination. Cranial nerves II through XII grossly intact. Sensory and motor system is within normal limits. EXTREMITIES: No cyanosis, no clubbing, no edema. LABORATORY DATA: Includes as follows: As of 01/23/2019, WBC 17.1, hemoglobin 6.6, hematocrit is 19.1, platelets 133. As of 01/23/2019, this morning, sodium 136, potassium is 4, chloride 100, CO2 of 27, BUN 63, creatinine 8.2, glucose 104 and total protein 5.2, albumin is 3. Urine tox screen is negative. This morning, WBC 14.3, hemoglobin 7.8, hematocrit is 22.5, platelets 120 and troponin first one is 1.38 and the second one this morning at 09:30 of 7.06 and at 1706 hours, troponin level is 2.799. MRSA screening is negative and other cultures are pending at this time. ASSESSMENT AND PLAN: In summary, Mr. Ugalde is a 48-year-old elderly, obese male with history of hypertension, nephrotic-range proteinuria status post gastric sleeve surgery, coronary artery disease, hyperlipidemia, status post coronary stents x2 in 2018, was admitted with coffee-ground vomitus and black stool since Saturday with low hemoglobin and hematocrit and requiring transfusion of 3 units of packed red blood cells during dialysis yesterday and also 1 unit this afternoon with bilateral infiltrates, right more than the left, started on intravenous antibiotics. 1. Acute blood loss and anemia, most likely secondary to upper gastrointestinal bleed. 2. Ingestion of the soap, rule out gastritis, rule out peptic ulcer disease from ingestion of the soap. 3. Pneumonia. 4. Hypertension. 5. Non-ST elevation myocardial infarction, most likely secondary to demand ischemia, secondary to severe anemia. Troponin levels starts improving. Continue to follow up with Cardiology. Continue his current medications, Dilaudid 1 mg x1 last night and Ferrlecit 125 mg intravenous daily and metoprolol 25 mg by mouth two times a day and Zosyn 2.5 g intravenous every 8 hours and Protonix 40 mg intravenous every 12 hours. We will schedule for hemodialysis in the morning and continue antibiotics. Case discussed with congressional representative Dr. Fady Alvarez in rounds this morning and also discussed with Intensive Care Unit residents and advised to transfuse the fourth unit this afternoon and hemoglobin and hematocrit is stable. Follow up with Gastrointestinal and Cardiology for further management. Thelma Guillen MD
[2019-01-24] MEDS: Piperacill/Tazo 2.25gm in Dex 2.25 GM/50 ML BAG IVPB SCH ×3 (05:58→22:30)
[2019-01-24 06:22] LABS: BASO % 0.3 % (0.0-2.0); EOS # 0.1 K/uL (0.0-0.7); EOS % 0.7 % (0.0-4.0); HEMOGLOBIN 8.8 g/dL (12.0-18.0); LYMPH # 2.1 K/uL (1.0-4.3); LYMPH % 15.6 % (20.0-40.0); MEAN CELL VOLUME 91.9 fL (80.0-94.0); MEAN CORPUSCULAR HEMOGLOBIN 31.1 pg (27.0-31.0); MEAN CORPUSCULAR HGB CONC 33.9 g/dL (33.0-37.0); MEAN PLATELET VOLUME 8.2 fL (7.2-11.7); MONO # 1.4 K/uL (0.0-0.8); MONO % 10.8 % (0.0-10.0); NEUT # 9.5 K/uL (1.8-7.0); NEUT % 72.6 % (50.0-75.0); NRBC % 0.8 % (0.0-2.0); RBC 2.84 Mil/uL (4.40-5.90); RED CELL DISTRIBUTION WIDTH 18.5 % (11.5-14.5); WHITE BLOOD COUNT 13.1 K/uL (4.8-10.8)
[2019-01-24 06:52] LABS: ALB/GLOB RATIO 1.4 (1.0-2.1); ALBUMIN 3.3 g/dL (3.5-5.0); CALCIUM 8.5 mg/dl (8.6-10.4)
[2019-01-24] MEDS: Ferric Sodium Gluconat Complex 62.5 mg/5 ml Vial IVPB SCH (09:24)
[2019-01-24] MEDS: Sucralfate 1 gm/10 ml Oral Susp UD PO SCH ×3 (09:24→17:51)
[2019-01-24] MEDS: SILVASORB ANTIMICROBIAL WOUND GEL TOP SCH (09:25)
--- NOTE | 2019-01-24 10:52 | CP.PCM.PN ---
Subjective - Date & Time of Evaluation Date of Evaluation: 01/24/19 Time of Evaluation: 10:51 - Subjective Subjective: pt is seen and examined, follow up consult is dictated #[id number] for hd today, uf goal is about 2 -2.5 lit Objective - Vital Signs/Intake and Output Vital Signs (last 24 hours): Temp Pulse Resp BP Pulse Ox 97.9 F 92 H 16 150/98 H 97 01/24/19 08:00 01/24/19 10:00 01/24/19 10:00 01/24/19 09:40 01/24/19 09:40 Intake and Output: 01/24/19 01/24/19 06:59 18:59 Intake Total 70 50 Output Total 120 Balance -50 50 - Medications Medications: Current Medications Epoetin Ender (Procrit) 12,000 unit SC TTS [facility] Ferric Sodium Gluconate Complex (Ferrlecit) 125 mg IVPB DAILY [facility] Stop: 01/31/19 10:01 Last Admin: 01/24/19 09:24 Dose: 125 mg Piperacillin Sod/Tazobactam Sod (Zosyn 2.25 Gm Iv Premix) 2.25 gm in 50 mls @ 100 mls/hr IVPB Q8 [facility]; Protocol Last Admin: 01/24/19 05:58 Dose: 100 mls/hr Metoprolol Tartrate (Lopressor) 25 mg PO BID [facility] Last Admin: 01/24/19 09:24 Dose: 25 mg Pantoprazole Sodium (Protonix Inj) 40 mg IVP Q12H [facility] Last Admin: 01/23/19 23:21 Dose: 40 mg Paricalcitol (Zemplar) 2 mcg IV TTS [facility] Sucralfate (Carafate Oral Susp) 1 gm PO TID [facility] Last Admin: 01/24/19 09:24 Dose: 1 gm - Labs Labs: 01/24/19 06:16 01/24/19 06:14 PT 12.2 SECONDS (9.7-12.2) 01/23/19 23:52 INR 1.1 01/23/19 23:52 APTT 27 SECONDS (21-34) 01/23/19 23:52
--- NOTE | 2019-01-24 12:21 | PN ---
DATE: 01/24/2019 LOCATION: ICU 15. SUBJECTIVE: This is a 48-year-old male seen and examined early in rounds without new significant clinical changes or evidence of active GI bleeding this morning. No reported actual chest pain, palpitation or significant increase of shortness of breath. The entire chart is reviewed including but not limited to the most recent lab results; and today's white blood cells is 13.1, hemoglobin 8.8, hematocrit 26.1 with normal platelet count, but a BUN of 32, creatinine 10.8, calcium 8.5 with reported before increased troponin level and albumin 3.3, total protein 5.6 with normal CEA and CA 19 - 9. Most recently done abdominopelvic CAT scan, report reviewed again indicative of pneumonia and moderate hiatus hernia with postsurgical gastric changes as well as umbilical hernia and bilateral inguinal hernia. PHYSICAL EXAMINATION: GENERAL: A 48-year-old male. VITAL SIGNS: Afebrile with pulse of 86, respiratory rate 20-24, blood pressure 124/74. HEENT: Showed pale, dry oral mucoid membrane. Nonicteric sclerae. LUNGS: Few scattered crepitation. Decreased air entry at bases. HEART: Positive S1 and S2. ABDOMEN: Soft with mild generalized tenderness. No mass or organomegaly. No rebound tenderness or guarding. IMPRESSION: 1. Gastrointestinal blood loss, acute, upper versus lower. 2. Rule out occult gastrointestinal malignancy. 3. Abnormal CAT scan with evidence of pneumonia, bilateral inguinal hernia and umbilical hernia. 4. Myocardial infarction, very recent history. 5. Known history of hypertension, renal insufficiency with electrolyte imbalance. 6. End-stage renal disease, on hemodialysis. 7. Known history of diabetes mellitus. 8. Reported history of coronary artery disease with status post cardiac stent insertion. SUGGESTIONS: 1. Continue current management. 2. Blood transfusion. 3. No aggressive GI workup in the meantime until the patient is more stable clinically. 4. Further recommendation to follow. Nasir Forman MD
--- NOTE | 2019-01-24 12:31 | CP.PCM.PN ---
Subjective - Date & Time of Evaluation Date of Evaluation: 01/24/19 Time of Evaluation: 09:00 - Subjective Subjective: Patient awake, alert lying in bed. PAtient has no complaints, does provide h/o black color stool. as ner nursing, no Gi procedure anticipated. Objective - Vital Signs/Intake and Output Vital Signs (last 24 hours): Temp Pulse Resp BP Pulse Ox 98.6 F 72 18 127/82 97 01/24/19 10:50 01/24/19 12:00 01/24/19 12:00 01/24/19 12:00 01/24/19 09:40 Intake and Output: 01/24/19 01/24/19 06:59 18:59 Intake Total 70 50 Output Total 120 Balance -50 50 - Medications Medications: Current Medications Epoetin Ender (Procrit) 12,000 unit SC TTS [facility] Ferric Sodium Gluconate Complex (Ferrlecit) 125 mg IVPB DAILY [facility] Stop: 01/31/19 10:01 Last Admin: 01/24/19 09:24 Dose: 125 mg Piperacillin Sod/Tazobactam Sod (Zosyn 2.25 Gm Iv Premix) 2.25 gm in 50 mls @ 100 mls/hr IVPB Q8 [facility]; Protocol Last Admin: 01/24/19 05:58 Dose: 100 mls/hr Metoprolol Tartrate (Lopressor) 25 mg PO BID [facility] Last Admin: 01/24/19 09:24 Dose: 25 mg Pantoprazole Sodium (Protonix Inj) 40 mg IVP Q12H [facility] Last Admin: 01/23/19 23:21 Dose: 40 mg Paricalcitol (Zemplar) 2 mcg IV TTS [facility] Sucralfate (Carafate Oral Susp) 1 gm PO TID [facility] Last Admin: 01/24/19 09:24 Dose: 1 gm - Labs Labs: 01/24/19 06:16 01/24/19 06:14 PT 12.2 SECONDS (9.7-12.2) 01/23/19 23:52 INR 1.1 01/23/19 23:52 APTT 27 SECONDS (21-34) 01/23/19 23:52 - Constitutional Appears: Non-toxic, No Acute Distress - Head Exam Head Exam: ATRAUMATIC, NORMAL INSPECTION - Eye Exam Eye Exam: EOMI, Normal appearance Pupil Exam: NORMAL ACCOMODATION - ENT Exam ENT Exam: Mucous Membranes Moist - Neck Exam Neck Exam: Normal Inspection - Respiratory Exam Respiratory Exam: Clear to Ausculation Bilateral, NORMAL BREATHING PATTERN - Cardiovascular Exam Cardiovascular Exam: REGULAR RHYTHM, +S1, +S2 - GI/Abdominal Exam GI & Abdominal Exam: Soft, Normal Bowel Sounds. absent: Tenderness - Extremities Exam Extremities Exam: Pedal Edema - Neurological Exam Neurological Exam: Alert, Awake, Oriented x3 Assessment and Plan - Assessment and Plan (Free Text) Assessment: 47yo M. PMHx HTN, stage 4 CKD, CAD, stents x 2. p/w chest pain, NSTEMI, ESRD on HD T//Sat presented hospital with hemetemesis and maroon colored stool x2 days. States he has been ingesting soap (spring for 1 month). 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 deficiency anemia, in this case, patient had severe anemia, for which patient received PRBC -anemia: s/p PRBC, now hemodyanmically stable -no GI intervention anticiapted, will start protonix q12 and oral carafate 1gm TID -monitor serial cbc, patient remains hemodynamically stable -ESRD on HD: contineu HD as per renal -at risk of CAD: with multipe history stent (last stent placed unknown): hold antiplatelets, and restart as per cardiology, continue all other av glenn adriana and statin -continue dvt ppx no heparin (scds) - 2nd Gi bleed -continue protonx rx -Patient remains hemodynamically stbale -start full liquids -continue to monitor on telemetry
[2019-01-24] MEDS: EPOETIN ALFA 10,000 UNIT/ML ML SC SCH (13:44)
[2019-01-24] MEDS: Paricalcitol 2 mcg/ml Inj IV SCH (13:46)
--- NOTE | 2019-01-24 15:42 | CP.PCM.PN ---
Subjective - Date & Time of Evaluation Date of Evaluation: 01/24/19 - Subjective Subjective: patient seen today no nausea, no vomitng, no fever, no dizziness, no shortness of breath, no diarrhea Objective - Vital Signs/Intake and Output Vital Signs (last 24 hours): Temp Pulse Resp BP Pulse Ox 98.1 F 87 14 149/110 H 92 L 01/24/19 12:00 01/24/19 15:23 01/24/19 15:23 01/24/19 15:24 01/24/19 15:23 Intake and Output: 01/24/19 01/24/19 06:59 18:59 Intake Total 70 150 Output Total 120 2500 Balance -50 -2350 - Medications Medications: Current Medications Epoetin Ender (Procrit) 12,000 unit SC TTS [facility] Last Admin: 01/24/19 13:44 Dose: 12,000 unit Ferric Sodium Gluconate Complex (Ferrlecit) 125 mg IVPB DAILY [facility] Stop: 01/31/19 10:01 Last Admin: 01/24/19 09:24 Dose: 125 mg Piperacillin Sod/Tazobactam Sod (Zosyn 2.25 Gm Iv Premix) 2.25 gm in 50 mls @ 100 mls/hr IVPB Q8 [facility]; Protocol Last Admin: 01/24/19 14:59 Dose: 100 mls/hr Metoprolol Tartrate (Lopressor) 25 mg PO BID [facility] Last Admin: 01/24/19 09:24 Dose: 25 mg Pantoprazole Sodium (Protonix Inj) 40 mg IVP Q12H [facility] Last Admin: 01/24/19 14:59 Dose: 40 mg Paricalcitol (Zemplar) 2 mcg IV TTS [facility] Last Admin: 01/24/19 13:46 Dose: 2 mcg Sucralfate (Carafate Oral Susp) 1 gm PO TID [facility] Last Admin: 01/24/19 14:59 Dose: 1 gm - Labs Labs: 01/24/19 06:16 01/24/19 06:14 PT 12.2 SECONDS (9.7-12.2) 01/23/19 23:52 INR 1.1 01/23/19 23:52 APTT 27 SECONDS (21-34) 01/23/19 23:52 - Constitutional Appears: Well - Head Exam Head Exam: ATRAUMATIC, NORMAL INSPECTION, NORMOCEPHALIC - Eye Exam Eye Exam: EOMI, Normal appearance, PERRL Pupil Exam: NORMAL ACCOMODATION, PERRL - ENT Exam ENT Exam: Mucous Membranes Moist, Normal Exam - Neck Exam Neck Exam: Full ROM, Normal Inspection. absent: Lymphadenopathy - Respiratory Exam Respiratory Exam: Decreased Breath Sounds - Cardiovascular Exam Cardiovascular Exam: REGULAR RHYTHM, +S1, +S2 - GI/Abdominal Exam GI & Abdominal Exam: Soft, Diminished Bowel Sounds - Rectal Exam Rectal Exam: Deferred - Neurological Exam Neurological Exam: Oriented x3 Assessment and Plan - Assessment and Plan (Free Text) Plan: labs reviewed medications reviewed vitals reviewed carafate oral susp ferrlecit lopressor procrit protonix ec tab zemplar zosyn
--- NOTE | 2019-01-25 05:05 | PN ---
DATE: 01/24/2019 LOCATION: The patient is located in ICU, bed 19. REQUESTED BY: Dr. Tyrese Perez. REASON FOR FOLLOWUP: End-stage renal disease, continuation of hemodialysis and anemia, status post upper GI bleed. SUBJECTIVE: Mr. Ugalde is a 48-year-old elderly obese male with a history of longstanding hypertension, hyperlipidemia, nephrotic-range proteinuria, end-stage renal disease, coronary artery disease, status post stents x2 and gastric sleeve surgery who was admitted with coffee-ground vomitus for 2 to 3 days prior to the admission and black stool for 3 days and severe anemia, hemoglobin about 4, requiring immediate transfusion of 3 units of packed RBC during dialysis on and received another unit of packed RBC yesterday morning. Now, H and H is stable. The patient is feeling better. Denies any chest pain or palpitation. Denies any fever or cough. No abdominal pain. No nausea, vomiting, or diarrhea. The patient was seen and examined during hemodialysis this afternoon with an UF goal about 2.5 to 3 liters. PHYSICAL EXAMINATION: His vital signs and physical exam as follows. VITAL SIGNS: Blood pressure this morning 150/98, pulse about 90, respirations 20 and temperature 98.6. Saturation 97%. Height 5 feet 7 inches and weight is 230 pounds. GENERAL: Mr. Ugalde is 48-year-old elderly obese male, well-built, well-nourished, not in acute distress. HEENT: Pupils normal and accommodation. Conjunctiva pink. Sclerae anicteric. Tongue is moist and trachea is midline. LUNGS: Symmetric on both sides. Bilateral breath sounds present. Clear to auscultation. CARDIOVASCULAR SYSTEM: [place] at the fifth intercostal space midclavicular area. S1 and S2 audible. No murmur or gallop. ABDOMEN: Normal in appearance, soft, tympanic. No guarding. No splenomegaly. CENTRAL NERVOUS SYSTEM: The patient is alert, awake, oriented x3. Nonfocal neuro examination. Cranial nerves II through XII grossly intact. Sensory and motor system is within normal limits. EXTREMITIES: No cyanosis, no clubbing, no edema. CURRENT MEDICATIONS: Include as follows, Carafate oral syrup 1 g p.o. t.i.d., Ferrlecit 125 mg daily, metoprolol 50 mg p.o. b.i.d., Procrit 12,000 units three times a week, Protonix 40 mg IV every 12 hours, Zemplar 2 mcg three times a week and Zosyn 2.25 g IV every 8 hours. LABORATORY DATA: Include as follows, as of 01/24/2019, WBC 13.1, hemoglobin 8.8, hematocrit is 26.1, platelets 144. Sodium 135, potassium 3.6, chloride 99, CO2 of 25, BUN 72, creatinine 10.8, glucose 99, calcium 8.5, phosphorus 4.4, magnesium 2.1, total bili 0.7, AST 35, ALT 8, alkaline phosphatase 54, total protein 5.6, albumin is 3.3. CEA is 1.1 and CA 19-9 is 4.6 and troponin level third set is 2.79 as of 01/23/2019. Blood culture x2 negative and MRSA screening was negative. In summary, Mr. Ugalde is a 48-year-old obese -[place] male with a history of hypertension, end-stage renal disease, nephrotic-range proteinuria, coronary artery disease, status post stents x2, was admitted with black stool and also coffee-ground vomitus and eating soap for the last 1 month. 1. End-stage renal disease, secondary to hypertensive nephrosclerosis, cannot rule out underlying chronic glomerulonephritis such as focal segmental glomerulosclerosis. 2. End-stage renal disease. 3. Anemia, secondary to acute blood loss, most likely secondary to upper gastrointestinal bleed, secondary to eating soap and possible gastric irritation and ulcers. PLAN: Continue metoprolol, continue Procrit, continue Zemplar and Carafate. Follow with GI for further management and continue Zosyn for possible pneumonia versus CHF. Repeat chest x-ray in a.m. Thank you for allowing me to participate in your patient's care. Thelma Guillen MD
[2019-01-25] MEDS: Piperacill/Tazo 2.25gm in Dex 2.25 GM/50 ML BAG IVPB SCH ×3 (06:37→21:23)
[2019-01-25 07:00] LABS: BASO # 0.1 K/uL (0.0-0.2); BASO % 0.7 % (0.0-2.0); EOS # 0.3 K/uL (0.0-0.7); EOS % 2.4 % (0.0-4.0); HEMOGLOBIN 9.8 g/dL (12.0-18.0); LYMPH # 2.3 K/uL (1.0-4.3); LYMPH % 20.8 % (20.0-40.0); MEAN CORPUSCULAR HEMOGLOBIN 30.8 pg (27.0-31.0); MEAN CORPUSCULAR HGB CONC 32.8 g/dL (33.0-37.0); MEAN PLATELET VOLUME 7.8 fL (7.2-11.7); MONO # 1.2 K/uL (0.0-0.8); MONO % 10.6 % (0.0-10.0); NEUT # 7.2 K/uL (1.8-7.0); NEUT % 65.5 % (50.0-75.0); NRBC % 0.3 % (0.0-2.0); RBC 3.17 Mil/uL (4.40-5.90); RED CELL DISTRIBUTION WIDTH 18.6 % (11.5-14.5)
[2019-01-25 08:07] LABS: ALB/GLOB RATIO 1.3 (1.0-2.1); ALBUMIN 3.2 g/dL (3.5-5.0); CALCIUM 8.6 mg/dl (8.6-10.4)
[2019-01-25] MEDS: Sucralfate 1 gm/10 ml Oral Susp UD PO SCH ×3 (10:09→18:31)
[2019-01-25] MEDS: Ferric Sodium Gluconat Complex 62.5 mg/5 ml Vial IVPB SCH (10:10)
--- NOTE | 2019-01-25 11:58 | PN ---
DATE: 01/25/2019 LOCATION: ICU 15. SUBJECTIVE: This is a 48-year-old male, seen early in rounds today without reported active bleeding this morning or reported significant chest pain or palpitation. No significant increase of shortness of breath. The entire chart is reviewed including but not limited to the most recent lab and radiology study results and today's lab showed white blood cells 11, hemoglobin 9.8, hematocrit 29.8 with normal platelet count, potassium 3.5, BUN 35, creatinine 8.4, glucose 144 with albumin 3.2, total protein 5.7. On record, the most recent CAT scan of the abdomen and pelvis reviewed again. PHYSICAL EXAMINATION: GENERAL: A 48-year-old male, appears to be awake, alert. VITAL SIGNS: Afebrile with pulse of 72, respiratory rate 20 to 22, blood pressure of 140/78. HEENT: Showed pale, dry oral mucous membrane. Nonicteric sclerae. LUNGS: Few scattered crepitation. Decreased air entry at bases. HEART: Positive S1 and S2. ABDOMEN: Soft with mild generalized tenderness. No mass or organomegaly. No rebound tenderness or guarding. EXTREMITIES: Lower extremities edematous changes. No clubbing or cyanosis. IMPRESSION: 1. End-stage renal disease. 2. Recently reported active gastrointestinal bleeding with anemia, upper versus lower, to rule out occult gastrointestinal malignancy, no further bleeding this morning. 3. Abnormal CAT scan of the abdomen and pelvis. 4. Pneumonia, bilateral inguinal hernia with umbilical hernia per the CAT scan. 5. Myocardia infarction, by recent history. 6. Electrolyte imbalance. 7. Known history of diabetes mellitus, coronary artery disease, status post cardiac stent insertion by history. SUGGESTIONS: 1. Continue current management. 2. Adjust anticoagulation intake. 3. Repeat stool for occult blood. 4. Further recommendation to follow. Nasir Forman MD
[2019-01-25] MEDS: SILVASORB ANTIMICROBIAL WOUND GEL TOP SCH (14:25)
--- NOTE | 2019-01-25 14:35 | CON ---
DATE OF CONSULTATION: 01/23/2019 REASON FOR CONSULTATION: GI bleeding and elevated troponin. HISTORY OF PRESENT ILLNESS: The patient is a 48-year-old -Citizen Of [place] male, who has a history of hypertension, coronary artery disease, underwent five stenting in May 2018 according to the patient at [facility]. The patient developed renal failure and is on hemodialysis since then, three times a week, Saturday, , and Saturday. The patient stated that he developed a strange habit of smelling soap, specifically Francesca Spring, and he started to use it for toothbrushing, and he incidentally swallowed some of it. The patient subsequently developed upper GI bleeding with black stool. The patient has been on aspirin and Plavix as an outpatient according to him and had no issues with his stomach in the past. SOCIAL HISTORY: The patient is a nonsmoker. He used to work as a account maintenance representative, currently on disability. MEDICATIONS: Current medications Ferrlecit infusion, Protonix drip, and Zosyn 2.25 g intravenously every 8 hours. The patient did receive packed RBCs transfusion yesterday, although the [employer] database does not confirm that. REVIEW OF SYSTEMS: No dizziness or syncope. No fever or chills. No hemoptysis. PHYSICAL EXAMINATION: GENERAL: The patient is a middle-aged male who does not appear to be in acute distress. VITAL SIGNS: Blood pressure 128/77, heart rate 99, temperature 98.7, and respirations 21. HEENT: Pale conjunctivae. CHEST: Clear. HEART: S1 and S2, regular. ABDOMEN: Soft. EXTREMITIES: 1+ pitting edema. LABORATORY DATA: Today's hemoglobin and hematocrit are 7.8 and 22.5 following packed RBC transfusion. Admitting hemoglobin and hematocrit were 4.2 and 13.1 yesterday. INR is 1.2. PTT is 28. Today's SMA-7: Sodium 136, potassium 4, chloride 100, CO2 of 27, glucose 104, BUN 63, creatinine 8.2. Troponin was 1.38 and 7.0. Yesterday's EKG revealed sinus rhythm, heart rate of 97, non-specific lateral ST-segment changes, LVH. Echocardiographic study performed in May of 2018 revealed borderline concentric LVH with normal systolic function, grade [address] pattern[address] Head [address] scan without contrast, scattered probably tiny lacunar-type infarct, nonspecific white matter changes, a 3.2 x 1.9 cm CSF density structure impressing upon the superior margin of the vermis, appears consistent with an arachnoid cyst. ASSESSMENT: 1. Acute gastrointestinal bleeding. 2. Non-ST elevation myocardial infarction. 3. History of five coronary stenting in May of 2018 according to the patient for three-vessel disease. 4. End-stage renal disease, on hemodialysis. RECOMMENDATIONS: Continue current Protonix infusion and Ferrlecit infusion. At this time, anticoagulation and antiplatelets are absolutely contraindicated, and the patient will undergo upper and lower endoscopy on an urgent basis. I will start Lopressor 25 mg twice a day. Repeat 12-lead EKG and obtain an echocardiographic study as well as urine for drug screen. I will discuss with Dr. Alba the nature of the stents that were placed in May 2018. John Coello MD
--- NOTE | 2019-01-25 15:27 | PN ---
DATE: 01/24/2019 SUBJECTIVE: The patient is still having black tarry stool, which I inspected myself at the bedside commode. No hematemesis. He did show me his list of medications, which included Plavix 75 mg daily, and I discussed the case with Dr. Alba who stated that he placed a drug-eluting stent. PHYSICAL EXAMINATION: VITAL SIGNS: Blood pressure 149/110, heart rate 87, temperature 98.1. HEENT: Pale conjunctivae. CHEST: Clear. HEART: S1 and S2, regular. EXTREMITIES: No edema. LABORATORY DATA: Today's hemoglobin and hematocrit 8.8 and 26.1, white count 15.1, and platelet count 144,000. Today's SMA-7: Sodium 135, potassium 3.6, chloride 99, CO2 of 25, glucose 99, BUN 72, and creatinine 10.8. Calcium is 8.5. Yesterday's troponins were 7.06 followed by 2.79. ASSESSMENT: 1. Acute gastrointestinal bleed, requiring packed RBC transfusion. 2. Non ST-elevation myocardial infarction. 3. History of multiple coronary stentings in 05/2018. 4. End-stage renal disease, on hemodialysis. 5. Uncontrolled hypertension. RECOMMENDATIONS: Continue Carafate 1 g t.i.d. Continue sodium gluconate infusion. Increase Lopressor to 50 mg twice a day and continue Procrit 12,000 units subcutaneously TTS and Zosyn 2.25 g intravenously every 8 hours. I discussed the case with the jumbo operator. For as long as the patient is still experiencing melena, antiplatelet will be withheld and that will be considered once melena stops and the patient is cleared by green pipefitter. The case was discussed yesterday with Dr. Corado who is planning to do upper and lower endoscopy. I will review the echocardiographic study, which was performed at the bedside yesterday and repeat 12-lead EKG. John Coello MD
--- NOTE | 2019-01-25 15:39 | CP.PCM.PN ---
Subjective - Date & Time of Evaluation Date of Evaluation: 01/25/19 Time of Evaluation: 15:39 - Subjective Subjective: pt is seen and examined, follow up consult is dictated # h/h is stable stable hd tx yesterday repeat cxr,cbc,bmp Objective - Vital Signs/Intake and Output Vital Signs (last 24 hours): Temp Pulse Resp BP Pulse Ox 98.3 F 75 18 152/75 H 98 01/25/19 12:00 01/25/19 12:00 01/25/19 12:00 01/25/19 12:00 01/25/19 12:00 Intake and Output: 01/25/19 01/25/19 06:59 18:59 Intake Total 850 Output Total 100 Balance 750 - Medications Medications: Current Medications Epoetin Ender (Procrit) 12,000 unit SC TTS [facility] Last Admin: 01/24/19 13:44 Dose: 12,000 unit Ferric Sodium Gluconate Complex (Ferrlecit) 125 mg IVPB DAILY [facility] Stop: 01/31/19 10:01 Last Admin: 01/25/19 10:10 Dose: 125 mg Piperacillin Sod/Tazobactam Sod (Zosyn 2.25 Gm Iv Premix) 2.25 gm in 50 mls @ 100 mls/hr IVPB Q8 [facility]; Protocol Last Admin: 01/25/19 14:26 Dose: 100 mls/hr Metoprolol Tartrate (Lopressor) 50 mg PO BID [facility] Last Admin: 01/25/19 10:10 Dose: 50 mg Pantoprazole Sodium (Protonix Inj) 40 mg IVP Q12H [facility] Last Admin: 01/25/19 10:10 Dose: 40 mg Pantoprazole Sodium (Protonix Ec Tab) 40 mg PO Q12H [facility] Paricalcitol (Zemplar) 2 mcg IV TTS [facility] Last Admin: 01/24/19 13:46 Dose: 2 mcg Sucralfate (Carafate Oral Susp) 1 gm PO TID [facility] Last Admin: 01/25/19 10:09 Dose: 1 gm - Labs Labs: 01/25/19 06:56 01/25/19 06:56 PT 12.2 SECONDS (9.7-12.2) 01/23/19 23:52 INR 1.1 01/23/19 23:52 APTT 27 SECONDS (21-34) 01/23/19 23:52
[2019-01-25] MEDS: Pantoprazole 40 mg EC Tab PO SCH (18:31)
--- NOTE | 2019-01-25 21:22 | CP.PCM.PN ---
Subjective - Date & Time of Evaluation Date of Evaluation: 01/25/19 - Subjective Subjective: patient seen and examined today no nausea no vomiting no fever no dizziness no diarrhea no shortness of breath Objective - Vital Signs/Intake and Output Vital Signs (last 24 hours): Temp Pulse Resp BP Pulse Ox 98.6 F 78 20 129/79 98 01/25/19 16:00 01/25/19 16:00 01/25/19 16:00 01/25/19 16:00 01/25/19 12:00 Intake and Output: 01/25/19 01/26/19 18:59 06:59 Intake Total 940 Output Total 100 Balance 840 - Medications Medications: Current Medications Epoetin Ender (Procrit) 12,000 unit SC TTS [facility] Last Admin: 01/24/19 13:44 Dose: 12,000 unit Ferric Sodium Gluconate Complex (Ferrlecit) 125 mg IVPB DAILY [facility] Stop: 01/31/19 10:01 Last Admin: 01/25/19 10:10 Dose: 125 mg Piperacillin Sod/Tazobactam Sod (Zosyn 2.25 Gm Iv Premix) 2.25 gm in 50 mls @ 100 mls/hr IVPB Q8 [facility]; Protocol Last Admin: 01/25/19 14:26 Dose: 100 mls/hr Metoprolol Tartrate (Lopressor) 50 mg PO BID [facility] Last Admin: 01/25/19 18:31 Dose: 50 mg Pantoprazole Sodium (Protonix Ec Tab) 40 mg PO Q12H [facility] Last Admin: 01/25/19 18:31 Dose: 40 mg Paricalcitol (Zemplar) 2 mcg IV TTS [facility] Last Admin: 01/24/19 13:46 Dose: 2 mcg Sucralfate (Carafate Oral Susp) 1 gm PO TID [facility] Last Admin: 01/25/19 18:31 Dose: 1 gm - Labs Labs: 01/25/19 06:56 01/25/19 06:56 PT 12.2 SECONDS (9.7-12.2) 01/23/19 23:52 INR 1.1 01/23/19 23:52 APTT 27 SECONDS (21-34) 01/23/19 23:52 - Constitutional Appears: Well - Head Exam Head Exam: ATRAUMATIC, NORMAL INSPECTION, NORMOCEPHALIC - Eye Exam Eye Exam: EOMI, Normal appearance, PERRL Pupil Exam: NORMAL ACCOMODATION, PERRL - ENT Exam ENT Exam: Mucous Membranes Moist, Normal Exam - Neck Exam Neck Exam: Full ROM, Normal Inspection. absent: Lymphadenopathy - Respiratory Exam Respiratory Exam: Decreased Breath Sounds - Cardiovascular Exam Cardiovascular Exam: REGULAR RHYTHM, +S1, +S2 - GI/Abdominal Exam GI & Abdominal Exam: Soft, Diminished Bowel Sounds - Rectal Exam Rectal Exam: Deferred - Neurological Exam Neurological Exam: Oriented x3 Assessment and Plan - Assessment and Plan (Free Text) Plan: for colonoscopy tomorrow morning with GI doctor follow up with hemoglobin patient claims he still has tarry black stool but is clearing up and is black in nature follow up with GI doctor follow up with surgeon follow up with renal doctor hemodialysis as per renal doctor carafate oral susp ferrlecit lopressor procrit protonix ec tab zemplar zosyn medications reivewed labs reviewed vitals reviewed
--- NOTE | 2019-01-25 23:08 | PN ---
DATE: 01/25/2019 SUBJECTIVE: The patient stated that his black stool has improved. He denies any significant chest pain. PHYSICAL EXAMINATION: VITAL SIGNS: Blood pressure 129/79, heart rate 78, temperature 98.6, and respirations 20. HEENT: Pale conjunctivae. CHEST: Clear. HEART: S1, S2 regular. EXTREMITIES: No edema. LABORATORY DATA: Today's hemoglobin and hematocrit 9.8 and 29.8, white count 11, and platelet count 168,000. Today's SMA-7; sodium 136, potassium 3.5, chloride 102, CO2 of 24, glucose 144, BUN 35, and creatinine 8.4. ASSESSMENT: 1. Acute gastrointestinal bleeding. 2. Status post multiple coronary stenting in May of 2018. 3. End-stage renal disease, on hemodialysis. RECOMMENDATIONS: Continue Carafate 1 g t.i.d., Lopressor 50 mg twice a day, Protonix 40 mg intravenously every 12 hours, Zosyn at 2.25 g intravenously every 8 hours. Start Plavix 75 mg daily if cleared by Dr. Forman. The patient can undergo upper and lower endoscopy; however, at the bedside and not in the endoscopy suite with close blood pressure monitoring. John Coello MD
--- NOTE | 2019-01-26 02:49 | PN ---
DATE: 01/25/2019 FOLLOWUP RENAL CONSULTATION LOCATION: The patient is located in the ICU, bed 15 under telemetry. REASON FOR FOLLOWUP: End-stage renal disease, anemia, upper GI bleed. REQUESTED BY: Sophie Perez MD SUBJECTIVE: Mr. Ugalde is a 48-year-old middle-aged obese male with a past medical history significant for longstanding hypertension, nephrotic-range proteinuria, coronary artery disease, hyperlipidemia, status post stents x2, end-stage renal disease, on hemodialysis three times a week for the last six to eight months, status post left upper extremity AV fistula placement about a few months ago, status post superficialization of fistula on 01/01/2019 who was admitted with coffee-ground vomitus and black stool since Saturday night. Initially, the patient refused to go to the hospital on Saturday when the patient had a coffee-ground vomitus and refused to go to the hospital, and his fiancee took him to the home and never responded until morning when dialysis team tried to contact him multiple times on Saturday. Ultimately, the patient decided to come to the hospital on after contacting by the nursing staff from the dialysis unit. The patient was found to have severe anemia with a hemoglobin of 4 and mild hyperkalemia. The patient underwent emergent hemodialysis with transfusion of 3 units of packed RBCs during dialysis. The patient is feeling much better. No complaints. No chest pain. No palpitation. No fever. No cough. Complains of loose bowel movement. PHYSICAL EXAMINATION: VITAL SIGNS: This afternoon as follows: Blood pressure 152/75, pulse 75, respiration 18, temperature 98.3, saturation 98%. Height 5 feet 7 inches, and weight is 212 pounds. GENERAL: Mr. Ugalde is a 48-year-old middle-aged obese male, well built, well nourished, not in distress. HEENT: Pupils are normal and reactive to light and accommodation. Conjunctivae pink. Sclerae anicteric. Tongue is moist. Trachea is midline. LUNGS: Symmetric on both sides. Bilateral breath sounds present. Clear to auscultation. CEREBROVASCULAR SYSTEM: [place] at the fifth intercostal space, midclavicular line. S1 and S2 audible. No murmur or gallop. ABDOMEN: Normal in appearance. Soft, tympanitic. No guarding. No rigidity. No hepatosplenomegaly. CENTRAL NERVOUS SYSTEM: The patient is alert, awake, oriented x3. Nonfocal neuro examination. Cranial nerves II through XII grossly intact. Sensory and motor system is within normal limits. EXTREMITIES: No cyanosis, no clubbing, no edema. CURRENT MEDICATIONS: Include as follows: Carafate 1 g p.o. t.i.d., Ferrlecit, 125 mg IV daily, metoprolol 50 mg p.o. b.i.d., Procrit 12,000 units three times a week, Protonix 40 mg p.o. every 12 hours, Zemplar 2 mcg three times a week, and Zosyn 2.25 g IV every 8 hours. LABORATORY DATA: Include as follows: As of 01/25/2019, WBC 11, hemoglobin 9.8, hematocrit is 29.8, platelets 168. Sodium 136, potassium 3.5, chloride 102, CO2 of 24, BUN 33, creatinine 8.4, glucose 144, calcium 8.6, phosphorus 3.6, magnesium 1.9. Total bili 0.5, AST 21, ALT 8, alkaline phosphatase 57, total protein 5.7, albumin is 3.2. CEA 1.1. CA19-9 is 4.6. Blood culture x2 negative, day-2. Urine culture negative from 01/23/2019. MRSA screening was negative. ASSESSMENT AND PLAN: In summary, Mr. Albin Ugalde is a 48-year-old middle-aged obese male with hypertension, hyperlipidemia, coronary artery disease, status post stents, end-stage renal disease who was admitted with the chief complaints of black stool, coffee-ground vomitus and also history of eating Pashto spring soap for the last one month with low hemoglobin and hematocrit. 1. End-stage renal disease. Continue hemodialysis three times a week on Saturday, and Saturday. 2. Anemia secondary to upper gastrointestinal bleed, rule out peptic ulcer disease, rule out gastritis. 3. Coronary artery disease. 4. [id number] myocardial infarction, most likely secondary to demand ischemia, rule out stenosis of the recent stents. 5. Hypertension. Blood pressure is stable. Continue his current medications and continue antibiotics. Repeat chest x-ray. The patient is scheduled for possible upper endoscopy tomorrow. Continue gastrointestinal prophylaxis, Carafate and also Protonix. Continue Ferrlecit. Continue Zemplar and Procrit. Repeat complete blood cell count, basic metabolic panel. Repeat chest x-ray. Thank you for allowing me to participate in your patient's care. Thelma Guillen MD
[2019-01-26] MEDS: Piperacill/Tazo 2.25gm in Dex 2.25 GM/50 ML BAG IVPB SCH ×3 (05:34→21:47)
[2019-01-26] MEDS: Pantoprazole 40 mg EC Tab PO SCH ×2 (05:34→18:11)
[2019-01-26] MEDS: Ferric Sodium Gluconat Complex 62.5 mg/5 ml Vial IVPB SCH (11:01)
[2019-01-26] MEDS: SILVASORB ANTIMICROBIAL WOUND GEL TOP SCH (11:01)
[2019-01-26] MEDS: Sucralfate 1 gm/10 ml Oral Susp UD PO SCH ×3 (11:02→18:11)
--- NOTE | 2019-01-26 12:36 | PN ---
DATE: 01/26/2019 LOCATION: 560, bed A. SUBJECTIVE: This is a 48-year-old male seen and examined early in rounds out of the intensive care unit with complaint of mild generalized tenderness and malaise with intermittent period of nausea and dyspepsia. The entire chart is reviewed including but not limited to the most recent lab and radiology study results, current and the previous medication list, current and the previous medical events and today's lab results showed blood glucose level of 107. However, the patient still has leukocytosis, low hemoglobin and hematocrit with low albumin and low total protein but normal cancer markers of CEA and CA 19-9. On record, the patient had elevated troponin level which subsequently was decreased and cardiology evaluation was requested, as I was informed he agreed for EGD to be performed due to the patient's anemia and the clinical presentation. Abdominal and CAT scan reports are seen. PHYSICAL EXAMINATION: GENERAL: This is a 48-year-old male awake, alert, oriented. VITAL SIGNS: Afebrile with pulse of 74, respiratory rate 20-22, blood pressure 148/82. HEENT: Showed pale, dry oral mucous membrane. Nonicteric sclerae. LUNGS: Few scattered crepitation. Decreased air entry at bases. HEART: Positive S1 and S2. ABDOMEN: Soft with mild generalized tenderness. No mass or organomegaly. No rebound tenderness or guarding. EXTREMITIES: Without significant clubbing, cyanosis or edema. NEUROLOGIC: No reported new neurological deficit, sensory or motor. IMPRESSION: 1. End-stage renal disease. 3. Anemia that could be secondary to gastrointestinal blood loss, upper versus lower versus anemia secondary to chronic disease. 4. Recently reported active gastrointestinal bleeding with subsequent drop of hemoglobin and hematocrit. 5. Abnormal CAT scan of abdomen and pelvis. 6. Pneumonia, bilateral inguinal hernia with umbilical hernia by CAT scan reports. 7. Reported elevated troponin level with possible recent myocardial infarction. 8. Malnutrition with hypoalbuminemia and hypoproteinemia 9. Known history of coronary artery disease with status post coronary artery bypass graft, by history. 10. Poorly controlled diabetes mellitus. SUGGESTIONS: 1. Continue current management. 2. The patient for EGD at a.m. Further recommendations to follow. Nasir Forman MD [facility] # [id number]
--- NOTE | 2019-01-26 14:38 | CP.PCM.PN ---
Subjective - Date & Time of Evaluation Date of Evaluation: 01/26/19 - Subjective Subjective: patient seen today no nausea no vomiting no fever no dizziness no diarrhea no sob Objective - Vital Signs/Intake and Output Vital Signs (last 24 hours): Temp Pulse Resp BP Pulse Ox 98.2 F 77 18 152/90 H 97 01/26/19 06:48 01/26/19 07:48 01/26/19 06:48 01/26/19 06:48 01/26/19 06:48 Intake and Output: 01/26/19 01/26/19 06:59 18:59 Intake Total 330 Output Total 0 Balance 330 - Medications Medications: Current Medications Clopidogrel Bisulfate (Plavix) 75 mg PO DAILY [facility] Last Admin: 01/26/19 14:16 Dose: 75 mg Epoetin Ender (Procrit) 12,000 unit SC TTS [facility] Last Admin: 01/24/19 13:44 Dose: 12,000 unit Ferric Sodium Gluconate Complex (Ferrlecit) 125 mg IVPB DAILY [facility] Stop: 01/31/19 10:01 Last Admin: 01/26/19 11:01 Dose: 125 mg Piperacillin Sod/Tazobactam Sod (Zosyn 2.25 Gm Iv Premix) 2.25 gm in 50 mls @ 100 mls/hr IVPB Q8 [facility]; Protocol Last Admin: 01/26/19 14:16 Dose: 100 mls/hr Metoprolol Tartrate (Lopressor) 50 mg PO BID [facility] Last Admin: 01/26/19 11:02 Dose: 50 mg Pantoprazole Sodium (Protonix Ec Tab) 40 mg PO Q12H [facility] Last Admin: 01/26/19 05:34 Dose: 40 mg Paricalcitol (Zemplar) 2 mcg IV TTS [facility] Last Admin: 01/24/19 13:46 Dose: 2 mcg Sucralfate (Carafate Oral Susp) 1 gm PO TID [facility] Last Admin: 01/26/19 14:16 Dose: 1 gm - Labs Labs: 01/25/19 06:56 01/25/19 06:56 PT 12.2 SECONDS (9.7-12.2) 01/23/19 23:52 INR 1.1 01/23/19 23:52 APTT 27 SECONDS (21-34) 01/23/19 23:52 - Constitutional Appears: Well - Head Exam Head Exam: ATRAUMATIC, NORMAL INSPECTION, NORMOCEPHALIC - Eye Exam Eye Exam: EOMI, Normal appearance, PERRL Pupil Exam: NORMAL ACCOMODATION, PERRL - ENT Exam ENT Exam: Mucous Membranes Moist, Normal Exam - Neck Exam Neck Exam: Full ROM, Normal Inspection. absent: Lymphadenopathy - Respiratory Exam Respiratory Exam: Decreased Breath Sounds - Cardiovascular Exam Cardiovascular Exam: REGULAR RHYTHM, +S1, +S2 - GI/Abdominal Exam GI & Abdominal Exam: Soft, Diminished Bowel Sounds - Rectal Exam Rectal Exam: Deferred - Neurological Exam Neurological Exam: Oriented x3 Assessment and Plan - Assessment and Plan (Free Text) Plan: vitals reviewed labs reviewed medications reviewed carafate oral susp ferrlecit lopressor procrit protonix ec tab zemplar zosyn Hemoglobin is 9.8 and 29.8 hematocrit The creatinine 12.3 Follow-up with renal for hemodialysis as ordered WBC is 11 Hemoglobin is more stable Patient is on IV iron Status post GI Patient for EGD bib morning it was canceled today so it is for tomorrow morning Follow-up with the cardiology renal and ID k is 3.5 but will not supplement
--- NOTE | 2019-01-26 19:49 | CP.PCM.PN ---
Subjective - Date & Time of Evaluation Date of Evaluation: 01/26/19 Time of Evaluation: 19:48 - Subjective Subjective: pt is seen and examined by me, follow up consult is dictated #[id number] for hd in am, egd in am check cxr Objective - Vital Signs/Intake and Output Vital Signs (last 24 hours): Temp Pulse Resp BP Pulse Ox 98.2 F 77 18 152/90 H 97 01/26/19 06:48 01/26/19 07:48 01/26/19 06:48 01/26/19 06:48 01/26/19 06:48 Intake and Output: 01/26/19 01/27/19 18:59 06:59 Intake Total 420 Output Total 1 Balance 419 - Medications Medications: Current Medications Clopidogrel Bisulfate (Plavix) 75 mg PO DAILY [facility] Last Admin: 01/26/19 14:16 Dose: 75 mg Epoetin Ender (Procrit) 12,000 unit SC TTS [facility] Last Admin: 01/24/19 13:44 Dose: 12,000 unit Ferric Sodium Gluconate Complex (Ferrlecit) 125 mg IVPB DAILY [facility] Stop: 01/31/19 10:01 Last Admin: 01/26/19 11:01 Dose: 125 mg Piperacillin Sod/Tazobactam Sod (Zosyn 2.25 Gm Iv Premix) 2.25 gm in 50 mls @ 100 mls/hr IVPB Q8 [facility]; Protocol Last Admin: 01/26/19 14:16 Dose: 100 mls/hr Metoprolol Tartrate (Lopressor) 50 mg PO BID [facility] Last Admin: 01/26/19 18:11 Dose: 50 mg Pantoprazole Sodium (Protonix Ec Tab) 40 mg PO Q12H [facility] Last Admin: 01/26/19 18:11 Dose: 40 mg Paricalcitol (Zemplar) 2 mcg IV TTS [facility] Last Admin: 01/24/19 13:46 Dose: 2 mcg Sucralfate (Carafate Oral Susp) 1 gm PO TID [facility] Last Admin: 01/26/19 18:11 Dose: 1 gm - Labs Labs: 01/25/19 06:56 01/25/19 06:56 PT 12.2 SECONDS (9.7-12.2) 01/23/19 23:52 INR 1.1 01/23/19 23:52 APTT 27 SECONDS (21-34) 01/23/19 23:52
--- NOTE | 2019-01-26 21:07 | PN ---
DATE: 01/26/2019 SUBJECTIVE: The patient reports no melena today. He denies any chest pain. PHYSICAL EXAMINATION: VITAL SIGNS: Blood pressure 152/90, heart rate 73, temperature 98.2, and respirations 18. HEENT: Normocephalic. CHEST: Clear. HEART: S1 and S2, regular. EXTREMITIES: No edema. LABORATORY DATA: Today's blood sugar is 107 and 126 respectively. Blood culture is negative after three days. ASSESSMENT: 1. Coronary artery disease, status post multiple coronary artery stenting in 05/2018. 2. End-stage renal disease, on hemodialysis. 3. Acute gastrointestinal bleeding, requiring packed RBC transfusion. RECOMMENDATIONS: Continue ferric gluconate 125 mg IV piggyback daily. Continue Carafate 1 g t.i.d., Procrit 12,000 units subcutaneously TTS. Continue Lopressor 50 mg twice a day, Zosyn 2.25 g intravenously every 8 hours. Start Plavix at 75 mg daily once cleared by Dr. Reyes. In the meantime, the patient is scheduled for endoscopy tomorrow. John Coello MD
[2019-01-27] MEDS: Piperacill/Tazo 2.25gm in Dex 2.25 GM/50 ML BAG IVPB SCH ×3 (06:34→21:37)
[2019-01-27] MEDS: Pantoprazole 40 mg EC Tab PO SCH ×2 (06:35→18:10)
--- NOTE | 2019-01-27 06:47 | PN ---
DATE: 01/26/2019 FOLLOWUP RENAL CONSULTATION LOCATION: The patient is located in room 560, bed B. REQUESTED BY: Sophie Perez MD REASON FOR FOLLOWUP: End-stage renal disease, continuation of hemodialysis. SUBJECTIVE: Mr. Ugalde is a 48-year-old obese male with a history of longstanding hypertension, coronary artery disease, hyperlipidemia, nephrotic-range proteinuria, status post acute DC, status post coronary stents about a year ago, end-stage renal disease, on hemodialysis three times a week of Saturday, and Saturday for the last six to eight months and also status post left upper extremity AV fistula placement., superficialization of the AV fistula on 01/11/2019 who was admitted with coffee-ground vomitus and black stool for two days prior to the admission with a history of ingestion of the soap for the last one month prior to the admission. The patient was found to have very low H and H, hemoglobin about 4, requiring admission to the ICU and immediate dialysis with transfusion of 3 units of packed RBC. The patient denies any headache or dizziness. Denies any chest pain or palpitation. The patient was also found to have elevated troponin levels, more than 7. The patient denies any chest pain or palpitation. Denies any fever or cough. No abdominal pain. No nausea, vomiting or diarrhea. Denies any black stools at this time. PHYSICAL EXAMINATION: VITAL SIGNS: As follows: Blood pressure 124/82, pulse 82, respiration 20, temperature 97.7, saturation 98%. Height 5 feet 7 inches, and weight is 212 pounds. GENERAL: Mr. Ugalde is a 48-year-old obese male, well built, well nourished, not in distress. HEENT: Pupils are normal and reactive to light and accommodation. Conjunctivae pink. Sclerae anicteric. Tongue is moist and trachea is midline. LUNGS: Symmetric on both sides. Bilateral breath sounds present. Clear to auscultation. CARDIOVASCULAR SYSTEM: [place] at the fifth intercostal space, midclavicular line. S1 and S2 audible. No murmur or gallop. ABDOMEN: Normal in appearance. Soft, tympanitic. No guarding. No rigidity. No hepatosplenomegaly. CENTRAL NERVOUS SYSTEM: The patient is alert, awake, oriented x3. Nonfocal neuro examination. Cranial nerves II through XII grossly intact. Sensory and motor system is within normal limits. EXTREMITIES: No cyanosis, no clubbing, no edema. CURRENT MEDICATIONS: Include as follows: Carafate 1 g p.o. t.i.d., Ferrlecit 125 mg daily, Lopressor 50 mg p.o. b.i.d., Plavix 75 mg p.o. daily, Procrit 12,000 units three times a week, Protonix 40 mg p.o. every 12 hours, Zemplar 2 mcg and Zosyn 2.25 g IV every 8 hours. LABORATORY DATA: No new labs available for today. As of 01/25/2019, WBC 11, hemoglobin 9.8, hematocrit is 29.8, platelet 168. Sodium 136, potassium 3.5, chloride 102, CO2 of 24, BUN 35, creatinine 8.4, glucose 144, calcium 8.6, phosphorus 3.6, magnesium 1.9. Total bili 0.4, AST 21, ALT 8, alkaline phosphatase 57, total protein 5.7, albumin 3.2. Accu-Cheks: 126, 107, 123. ASSESSMENT AND PLAN: In summary, Mr. Ugalde is 48-year-old obese male with history of longstanding hypertension, coronary artery disease, hyperlipidemia, end-stage renal disease who was admitted with black stools and also coffee-ground vomitus, increased white blood cell count and bilateral infiltrates. 1. End-stage renal disease. Continue hemodialysis three times a week on Saturday, and Saturday. 2. Anemia secondary to recent gastrointestinal bleed, status post transfusion of about 4 units of packed red blood cells since admission. 3. Non-ST elevation myocardial infarction. 4. Status post upper gastrointestinal bleed, rule out peptic ulcer disease, rule out gastritis. Awaiting for endoscopy for possible esophagogastroduodenoscopy in the morning. We will coordinate with esophagogastroduodenoscopy and hemodialysis schedule. Continue his current medications including Carafate, Ferrlecit, metoprolol, Plavix, Procrit, Protonix, and Zemplar. 5. Pneumonia. Continue antibiotic Zosyn 2.25 g intravenous every 8 hours. Repeat chest x-ray in the morning. Thelma Guillen MD [facility] # [id number]
[2019-01-27 08:11] LABS: CALCIUM 8.2 mg/dl (8.6-10.4)
[2019-01-27] MEDS: Sucralfate 1 gm/10 ml Oral Susp UD PO SCH ×3 (09:18→18:10)
[2019-01-27] MEDS: SILVASORB ANTIMICROBIAL WOUND GEL TOP SCH (09:44)
[2019-01-27] MEDS: Ferric Sodium Gluconat Complex 62.5 mg/5 ml Vial IVPB SCH (09:44)
--- NOTE | 2019-01-27 10:52 | RAD ---
Chest x-ray two views HISTORY: Infiltrate. COMPARISON: None available. Findings: Right central venous catheter tip extending into the SVC. Mild venous congestion. Mild patchy increased markings in the right infrahilar region. Tortuous ectatic aorta. Mild cardiomegaly. Degenerative changes in the spine. Surgical clips in the upper abdomen. Impression: Right central venous catheter tip extending into the SVC. Mild venous congestion. Mild patchy increased markings in the right infrahilar region. Tortuous ectatic aorta. Mild cardiomegaly.
[2019-01-27] MEDS ORDERED: Sodium Chloride 0.9% 500 ML IV ONE (12:16)
[2019-01-27] MEDS ORDERED: Midazolam 2 MG/2 ML VIAL ONE (12:25)
[2019-01-27] MEDS ORDERED: Propofol 10 mg/ml Inj (20 ML) ONE (12:25)
[2019-01-27] MEDS ORDERED: Peg-Electrolyte Oral Soln 4L (Golytely) PO ONE (13:00)
[2019-01-27] MEDS ORDERED: Epoetin Alfa 10,000 unit/ml Dialysis SC SCH (15:00)
[2019-01-27] MEDS ORDERED: EPOETIN ALFA 10,000 UNIT/ML ML SC SCH (15:00)
[2019-01-27] MEDS ORDERED: Epoetin Alfa Dialysis 2000 U/ML Inj IV SCH (15:00)
[2019-01-27] MEDS: Paricalcitol 2 mcg/ml Inj IV SCH (15:12)
[2019-01-27] MEDS: EPOETIN ALFA 10,000 UNIT/ML ML SC SCH (15:14)
--- NOTE | 2019-01-27 15:41 | CARD ---
APPROVED REPORT Date of service: 01/24/2019 EKG Measurement Heart [id number] <Conclusion> Normal sinus rhythm Left ventricular hypertrophy with repolarization abnormality Prolonged QT Abnormal ECG
[2019-01-27] MEDS ORDERED: Bisacodyl 5mg EC Tab PO ONE (17:00)
--- NOTE | 2019-01-27 17:20 | PN ---
DATE: 01/27/2019 SUBJECTIVE: The patient underwent upper endoscopy. He is currently in the recovery room. The findings were consistent with grade A reflux esophagitis, medium-sized hiatus hernia, erythematous mucosa in the antrum, normal exam of the duodenum. No specimen was collected. The patient denies any chest pain. No reported arrhythmia or hypotension. PHYSICAL EXAMINATION: VITAL SIGNS: Blood pressure 134/81, heart rate 73, temperature 98.1, respirations 20. HEENT: Normocephalic. CHEST: Clear. HEART: S1, S2. Regular. EXTREMITIES: No edema. LABORATORIES: Today's BUN and creatinine are 54 and 12.3 respectively. ASSESSMENT: 1. Status post melena requiring packed red blood cell transfusion. 2. Coronary artery disease, status post multiple coronary artery stenting in 05/2018. 3. End-stage renal disease, on hemodialysis. RECOMMENDATIONS: Resume Lopressor 50 mg twice a day, Plavix 75 mg once a day, and Zosyn 2.25 g intravenously every 8 hours. The patient will undergo hemodialysis tomorrow and will be scheduled for colonoscopy tomorrow. Case was discussed with Dr. Reyes, the burglary investigator. John Coello MD
--- NOTE | 2019-01-27 18:36 | CP.PCM.PN ---
Subjective - Date & Time of Evaluation Date of Evaluation: 01/27/19 Time of Evaluation: 08:30 - Subjective Subjective: patient seen and examined today no nausea, no vomiting, no diarrhea, no fever, no sob Objective - Vital Signs/Intake and Output Vital Signs (last 24 hours): Temp Pulse Resp BP Pulse Ox 98.2 F 76 20 155/97 H 100 01/27/19 17:59 01/27/19 17:59 01/27/19 17:59 01/27/19 17:59 01/27/19 17:59 Intake and Output: 01/27/19 01/27/19 06:59 18:59 Intake Total 300 110 Balance 300 110 - Medications Medications: Current Medications Clopidogrel Bisulfate (Plavix) 75 mg PO DAILY [facility] Last Admin: 01/27/19 09:18 Dose: Not Given Epoetin Ender (Procrit) 10,000 unit SC TTS [facility] Epoetin Ender (Procrit) 2,000 u IV TTS [facility] Ferric Sodium Gluconate Complex (Ferrlecit) 125 mg IVPB DAILY [facility] Stop: 01/31/19 10:01 Last Admin: 01/27/19 09:44 Dose: 125 mg Piperacillin Sod/Tazobactam Sod (Zosyn 2.25 Gm Iv Premix) 2.25 gm in 50 mls @ 100 mls/hr IVPB Q8 [facility]; Protocol Last Admin: 01/27/19 13:33 Dose: Not Given Metoclopramide HCl (Reglan) 5 mg IVP Q6 [facility] Stop: 01/28/19 12:46 Last Admin: 01/27/19 18:12 Dose: 5 mg Metoprolol Tartrate (Lopressor) 50 mg PO BID [facility] Last Admin: 01/27/19 18:11 Dose: 50 mg Pantoprazole Sodium (Protonix Ec Tab) 40 mg PO Q12H [facility] Last Admin: 01/27/19 18:10 Dose: 40 mg Paricalcitol (Zemplar) 2 mcg IV TTS [facility] Last Admin: 01/27/19 15:12 Dose: 2 mcg Sucralfate (Carafate Oral Susp) 1 gm PO TID [facility] Last Admin: 01/27/19 18:10 Dose: 1 gm - Labs Labs: 01/25/19 06:56 01/27/19 07:45 PT 12.2 SECONDS (9.7-12.2) 01/23/19 23:52 INR 1.1 01/23/19 23:52 APTT 27 SECONDS (21-34) 01/23/19 23:52 - Constitutional Appears: Well - Head Exam Head Exam: ATRAUMATIC, NORMAL INSPECTION, NORMOCEPHALIC - Eye Exam Eye Exam: EOMI, Normal appearance, PERRL Pupil Exam: NORMAL ACCOMODATION, PERRL - Neck Exam Neck Exam: Full ROM, Normal Inspection. absent: Lymphadenopathy - Respiratory Exam Respiratory Exam: Decreased Breath Sounds - Cardiovascular Exam Cardiovascular Exam: REGULAR RHYTHM, +S1, +S2 - GI/Abdominal Exam GI & Abdominal Exam: Soft, Diminished Bowel Sounds - Rectal Exam Rectal Exam: Deferred - Neurological Exam Neurological Exam: Oriented x3 Assessment and Plan - Assessment and Plan (Free Text) Plan: vitals reviewed labs reviewed medications reviewed carafate oral susp ferrlecit lopressor procrit protonix ec tab zemplar zosyn patients labs, vitals and medications reviewed
--- NOTE | 2019-01-27 19:29 | CP.PCM.PN ---
Subjective - Date & Time of Evaluation Date of Evaluation: 01/27/19 Time of Evaluation: 19:29 - Subjective Subjective: pt is seen and examined, follow up consult is dictated #[id number] s/p egd today s/p hd today, uf 3.1 lit Objective - Vital Signs/Intake and Output Vital Signs (last 24 hours): Temp Pulse Resp BP Pulse Ox 98.2 F 76 20 155/97 H 100 01/27/19 17:59 01/27/19 17:59 01/27/19 17:59 01/27/19 17:59 01/27/19 17:59 Intake and Output: 01/27/19 01/28/19 18:59 06:59 Intake Total 110 Balance 110 - Medications Medications: Current Medications Clopidogrel Bisulfate (Plavix) 75 mg PO DAILY [facility] Last Admin: 01/27/19 09:18 Dose: Not Given Epoetin Ender (Procrit) 10,000 unit SC TTS [facility] Epoetin Ender (Procrit) 2,000 u IV TTS [facility] Ferric Sodium Gluconate Complex (Ferrlecit) 125 mg IVPB DAILY [facility] Stop: 01/31/19 10:01 Last Admin: 01/27/19 09:44 Dose: 125 mg Piperacillin Sod/Tazobactam Sod (Zosyn 2.25 Gm Iv Premix) 2.25 gm in 50 mls @ 100 mls/hr IVPB Q8 [facility]; Protocol Last Admin: 01/27/19 13:33 Dose: Not Given Metoclopramide HCl (Reglan) 5 mg IVP Q6 [facility] Stop: 01/28/19 12:46 Last Admin: 01/27/19 18:12 Dose: 5 mg Metoprolol Tartrate (Lopressor) 50 mg PO BID [facility] Last Admin: 01/27/19 18:11 Dose: 50 mg Pantoprazole Sodium (Protonix Ec Tab) 40 mg PO Q12H [facility] Last Admin: 01/27/19 18:10 Dose: 40 mg Paricalcitol (Zemplar) 2 mcg IV TTS [facility] Last Admin: 01/27/19 15:12 Dose: 2 mcg Sucralfate (Carafate Oral Susp) 1 gm PO TID [facility] Last Admin: 01/27/19 18:10 Dose: 1 gm - Labs Labs: 01/25/19 06:56 04/16/19 07:45 PT 12.2 SECONDS (9.7-12.2) 01/23/19 23:52 INR 1.1 01/23/19 23:52 APTT 27 SECONDS (21-34) 01/23/19 23:52
[2019-01-27] MEDS ORDERED: Bisacodyl 5mg EC Tab PO STA (22:49)
--- NOTE | 2019-01-28 03:46 | PN ---
DATE: 01/27/2019 FOLLOWUP RENAL CONSULTATION LOCATION: The patient is located in room 560, bed B. REQUESTED BY: Sophie Perez MD REASON FOR FOLLOWUP: End-stage renal disease, continuation of hemodialysis. HISTORY OF PRESENT ILLNESS: Mr. Ugalde is a 48-year-old middle-aged obese male with a past medical history significant for hypertension, hyperlipidemia, nephrotic range proteinuria, end-stage renal disease, coronary artery disease, status post stents x2, status post gastric sleeve surgery in 2017 who was admitted with coffee-ground vomitus and melena for two days prior to the admission. The patient was also ingesting [employer] soap. The patient is not in acute distress. The patient underwent EGD this morning. Denies any chest pain or palpitation. Denies any fever or cough. No abdominal pain. No nausea, vomiting, diarrhea. The patient is scheduled for colonoscopy in a.m. PHYSICAL EXAMINATION: VITAL SIGNS: As follows: Blood pressure 155/97, pulse 76, respirations 20, temperature 98.2, saturation 100%. Height 5 feet 7 inches, weight is 212 pounds. GENERAL: Mr. Ugalde is a 48-year-old middle-aged obese male, well-built, well-nourished, not in acute distress. HEENT: Pupils normal and reactive to light and accommodation. Conjunctivae pink. Sclerae anicteric. Tongue is moist. Trachea is midline. LUNGS: Symmetric on both sides. Bilateral breath sounds present. Clear to auscultation. CARDIOVASCULAR SYSTEM: [place] at the fifth intercostal space, midclavicular line. S1, S2 audible. No murmur or gallop. ABDOMEN: Normal in appearance. Soft, tympanitic. No guarding. No rigidity. No hepatosplenomegaly. CENTRAL NERVOUS SYSTEM: The patient is alert, awake, oriented x3. Nonfocal neuro examination. Cranial nerves II through XII grossly intact. Sensory and motor system is within normal limits. EXTREMITIES: No cyanosis, no clubbing, no edema. CURRENT MEDICATIONS: Include as follows: Carafate 1 g p.o. t.i.d.; Ferrlecit 125 mg IV daily; metoprolol 50 mg p.o. b.i.d.; Plavix 75 mg daily; Procrit 10,000 units 3 times a week, and 2000 units 3 times a week; total of 12,000 units; Protonix 40 mg p.o. every 12 hours; Reglan 5 mg IV every 6 hours, Zemplar 2 mcg three times a week, Zosyn 2.5 g IV every 8 hours. MRSA screening was negative on 01/22/2019. Blood culture x2 negative day 4 from 01/23/2019. Urine culture was also negative. Other reports, chest x-ray as of 01/27/2019, impression, right central venous catheter tip extending into the SVC and mild venous congestion and mild patchy increased marking in the right infrahilar region tortuous ectatic aorta, mild cardiomegaly. IMPRESSION AND PLAN: In summary, Mr. Ugalde is a 48-year-old middle-aged obese male with a history of hypertension, hyperlipidemia, nephrotic range proteinuria, end-stage renal disease, coronary artery disease status post stents x2, on hemodialysis three times a week, Saturday, , Saturday, status post gastric sleeve surgery who was admitted with coffee-ground vomitus, melena, and severe anemia, hemoglobin 4, requiring transfusion of 4 units of packed RBC since admission. The patient underwent further esophagogastroduodenoscopy this morning. 1. End-stage renal disease. Continue hemodialysis three times a week; Saturday, , Saturday. The patient underwent hemodialysis today and had ultrafiltration about 3.1 liters. 2. Hypertension. 3. Anemia secondary to recent gastrointestinal bleed. Status post esophagogastroduodenoscopy, impression, earlier grade A reflex esophagitis, medium-sized hiatal hernia, erythematous mucosa in the antrum, normal examined duodenum, no specimen was collected. Recommendation was to perform colonoscopy for tomorrow and use of Carafate tablets 1 g p.o. 4 times daily for 8 weeks. 4. Non-ST elevation myocardial infarction, most likely secondary to demand ischemia, secondary to severe anemia and hypotension. The patient is asymptomatic at this time. Continue metoprolol. Follow up with Cardiology. The patient is scheduled for colonoscopy in a.m. Thank you for allowing me to participate in your patient's care. Thelma Guillen MD
[2019-01-28] MEDS: Piperacill/Tazo 2.25gm in Dex 2.25 GM/50 ML BAG IVPB SCH ×2 (06:11→21:52)
[2019-01-28] MEDS: Pantoprazole 40 mg EC Tab PO SCH ×2 (06:34→18:04)
[2019-01-28] MEDS: SILVASORB ANTIMICROBIAL WOUND GEL TOP SCH (10:58)
[2019-01-28] MEDS: Sucralfate 1 gm/10 ml Oral Susp UD PO SCH ×3 (10:58→18:04)
[2019-01-28] MEDS: Ferric Sodium Gluconat Complex 62.5 mg/5 ml Vial IVPB SCH ×2 (10:58→13:08)
[2019-01-28] MEDS ORDERED: Propofol 10 mg/ml Inj (20 ML) ONE (11:11)
[2019-01-28 14:07] LABS: BASO # 0.1 K/uL (0.0-0.2); BASO % 0.9 % (0.0-2.0); EOS # 0.2 K/uL (0.0-0.7); EOS % 1.8 % (0.0-4.0); HEMOGLOBIN 11.6 g/dL (12.0-18.0); LYMPH # 2.4 K/uL (1.0-4.3); LYMPH % 22.7 % (20.0-40.0); MEAN CORPUSCULAR HEMOGLOBIN 32.2 pg (27.0-31.0); MEAN CORPUSCULAR HGB CONC 33.9 g/dL (33.0-37.0); MEAN PLATELET VOLUME 7.6 fL (7.2-11.7); MONO # 0.9 K/uL (0.0-0.8); MONO % 8.7 % (0.0-10.0); NEUT # 7.1 K/uL (1.8-7.0); NEUT % 65.9 % (50.0-75.0); NRBC % 0.2 % (0.0-2.0); RBC 3.61 Mil/uL (4.40-5.90); RED CELL DISTRIBUTION WIDTH 19.4 % (11.5-14.5); WHITE BLOOD COUNT 10.8 K/uL (4.8-10.8)
--- NOTE | 2019-01-28 16:43 | CP.PCM.PN ---
Subjective - Date & Time of Evaluation Date of Evaluation: 01/28/19 Time of Evaluation: 16:42 - Subjective Subjective: pt i seen and examined, follow up consult is dictated #[id number] for hd in am s/p egd on01/27, colonoscopy on01/28/2019 Objective - Vital Signs/Intake and Output Vital Signs (last 24 hours): Temp Pulse Resp BP Pulse Ox 98 F 88 20 134/82 96 01/28/19 16:18 01/28/19 16:18 01/28/19 16:18 01/28/19 16:18 01/28/19 16:18 Intake and Output: 01/28/19 01/28/19 06:59 18:59 Intake Total 300 500 Balance 300 500 - Medications Medications: Current Medications Clopidogrel Bisulfate (Plavix) 75 mg PO DAILY [facility] Last Admin: 01/28/19 10:58 Dose: Not Given Epoetin Ender (Procrit) 10,000 unit SC TTS [facility] Epoetin Ender (Procrit) 2,000 u IV TTS [facility] Ferric Sodium Gluconate Complex (Ferrlecit) 125 mg IVPB DAILY [facility] Stop: 01/31/19 10:01 Last Admin: 01/28/19 13:08 Dose: 125 mg Hydrocortisone (Anusol-Hc) [address] BID [facility] Piperacillin Sod/Tazobactam Sod (Zosyn 2.25 Gm Iv Premix) 2.25 gm in 50 mls @ 100 mls/hr IVPB Q8 [facility]; Protocol Last Admin: 01/28/19 06:11 Dose: 100 mls/hr Metoprolol Tartrate (Lopressor) 50 mg PO BID [facility] Last Admin: 01/28/19 10:58 Dose: Not Given Pantoprazole Sodium (Protonix Ec Tab) 40 mg PO Q12H [facility] Last Admin: 01/28/19 06:34 Dose: Not Given Paricalcitol (Zemplar) 2 mcg IV TTS [facility] Last Admin: 01/27/19 15:12 Dose: 2 mcg Sucralfate (Carafate Oral Susp) 1 gm PO TID [facility] Last Admin: 01/28/19 13:08 Dose: 1 gm - Labs Labs: 01/28/19 14:04 01/28/19 10:17 PT 12.2 SECONDS (9.7-12.2) 04/12/19 23:52 INR 1.1 01/23/19 23:52 APTT 27 SECONDS (21-34) 01/23/19 23:52
[2019-01-28] MEDS: Hydrocortisone 2.5% Rectal Cream(30 gm) PR SCH (18:05)
--- NOTE | 2019-01-28 19:29 | CP.PCM.PN ---
Subjective - Date & Time of Evaluation Date of Evaluation: 01/28/19 - Subjective Subjective: patient seen today no nausea, no vomiting, no diarrhea, no dizziness, no fever, no shortness of breath Objective - Vital Signs/Intake and Output Vital Signs (last 24 hours): Temp Pulse Resp BP Pulse Ox 98 F 88 20 134/82 96 01/28/19 16:18 01/28/19 16:18 01/28/19 16:18 01/28/19 16:18 01/28/19 16:18 Intake and Output: 01/28/19 01/29/19 18:59 06:59 Intake Total 500 Balance 500 - Medications Medications: Current Medications Clopidogrel Bisulfate (Plavix) 75 mg PO DAILY [facility] Last Admin: 01/28/19 10:58 Dose: Not Given Epoetin Ender (Procrit) 10,000 unit SC TTS [facility] Epoetin Ender (Procrit) 2,000 u IV TTS [facility] Ferric Sodium Gluconate Complex (Ferrlecit) 125 mg IVPB DAILY [facility] Stop: 01/31/19 10:01 Last Admin: 01/28/19 13:08 Dose: 125 mg Hydrocortisone (Anusol-Hc) 0 gm LA BID [facility] Last Admin: 01/28/19 18:05 Dose: 1 appl Piperacillin Sod/Tazobactam Sod (Zosyn 2.25 Gm Iv Premix) 2.25 gm in 50 mls @ 100 mls/hr IVPB Q8 [facility]; Protocol Last Admin: 01/28/19 06:11 Dose: 100 mls/hr Metoprolol Tartrate (Lopressor) 50 mg PO BID [facility] Last Admin: 01/28/19 18:04 Dose: 50 mg Pantoprazole Sodium (Protonix Ec Tab) 40 mg PO Q12H [facility] Last Admin: 01/28/19 18:04 Dose: 40 mg Paricalcitol (Zemplar) 2 mcg IV TTS [facility] Last Admin: 01/27/19 15:12 Dose: 2 mcg Sucralfate (Carafate Oral Susp) 1 gm PO TID [facility] Last Admin: 01/28/19 18:04 Dose: 1 gm - Labs Labs: 01/28/19 14:04 01/28/19 10:17 PT 12.2 SECONDS (9.7-12.2) 01/23/19 23:52 INR 1.1 01/23/19 23:52 APTT 27 SECONDS (21-34) 01/23/19 23:52 - Constitutional Appears: Well - Head Exam Head Exam: ATRAUMATIC, NORMAL INSPECTION, NORMOCEPHALIC - Eye Exam Eye Exam: EOMI, Normal appearance, PERRL Pupil Exam: NORMAL ACCOMODATION, PERRL - ENT Exam ENT Exam: Mucous Membranes Moist, Normal Exam - Neck Exam Neck Exam: Full ROM, Normal Inspection. absent: Lymphadenopathy - Respiratory Exam Respiratory Exam: Decreased Breath Sounds - Cardiovascular Exam Cardiovascular Exam: REGULAR RHYTHM, +S1, +S2 - GI/Abdominal Exam GI & Abdominal Exam: Soft, Diminished Bowel Sounds - Rectal Exam Rectal Exam: Deferred - Neurological Exam Neurological Exam: Oriented x3 Assessment and Plan - Assessment and Plan (Free Text) Plan: carafate oral susp ferrlecit lopressor procrit protonix ec tab zemplar zosyn medications reviewed labs reviewed vitals reviewed
--- NOTE | 2019-01-28 22:16 | PN ---
DATE: 01/28/2019 SUBJECTIVE: The patient underwent colonoscopy today with polypectomy. The impression was nonbleeding external and internal hemorrhoids, one 5 mm polyp in the mid descending colon removed with cold biopsy forceps, resected and retrieved. Physical Exam HEENT : pale conjunctive Neck No JVD Chest; Clear Heart S1S2 regular Ext. trace Edema ASSESSMENT: 1. Acute gastrointestinal bleeding, requiring packed red blood cell transfusion. 2. Coronary artery disease, status post multiple coronary artery stenting in May of last year. 3. End-stage renal disease, on hemodialysis. 4. Status post polypectomy of 5 mm polyp today. RECOMMENDATIONS: Case was discussed with Dr. Sophie Perez, primary physician. The patient is being maintained on Ferrlecit infusion, Carafate 1 g t.i.d., Lopressor 50 mg twice a day, Zosyn 2.25 g intravenously every 8 hours, Aspirin and Plavix are on hold, to be started tomorrow by Dr. Reyes, the [facility]. John Coello MD [id number]
--- NOTE | 2019-01-29 04:22 | PN ---
DATE: 01/28/2019 LOCATION: Room 560, bed B. REQUESTED BY: Sophie Perez MD REASON FOR FOLLOWUP: End-stage renal disease, anemia. SUBJECTIVE: Mr. Ugalde is 48-year-old obese, male with a past medical history significant for longstanding hypertension; status post gastric sleeve surgery and nephrotic-range proteinuria; end-stage renal disease, on hemodialysis three times a week, Saturday, , Saturday; coronary artery disease status post stents x2 who was admitted with coffee-ground vomitus and black stool for two days prior to the admission and also history of ingestion of the soap 1 month prior to the admission. The patient was admitted to ICU requiring emergency hemodialysis and transfusion of 4 units of packed RBC in the first 24 hours. The patient is feeling better. The patient underwent EGD yesterday and underwent colonoscopy today. The patient is feeling better. Denies any black stool. Denies any nausea, vomiting, or diarrhea. No chest pain or palpitation. No swelling of the legs. PHYSICAL EXAMINATION: VITAL SIGNS: As follows, blood pressure 134/82, pulse 88, respirations 20, temperature 98, saturation 96%. Height 5 feet 7 inches, weight is 212 pounds. GENERAL: Mr. Ugalde is 48-year-old obese, middle aged, male with a history of hypertension and end-stage renal disease. Not in acute distress. HEENT: Pupils normal and reactive to light and accommodation. Conjunctivae pink. Sclerae anicteric. Tongue is moist and trachea is midline. LUNGS: Symmetric on both sides. Bilateral breath sounds present. Clear to auscultation. CVS: [place] at the fifth intercostal space midclavicular area. S1 and S2 audible. No murmur or gallop. ABDOMEN: Normal in appearance. Soft, tympanic. No guarding. No hepatosplenomegaly. [employer]: The patient is alert, awake, oriented x3. Nonfocal neuro examination. Cranial nerves II through XII grossly intact. Sensory and motor system is within normal limits. EXTREMITIES: No cyanosis. No clubbing. No edema. MEDICATIONS: His current medications include as follows, Anusol HC and Carafate 1 g p.o. t.i.d., Ferrlecit 125 mg daily, metoprolol 50 mg p.o. b.i.d., Plavix 75 mg daily, Procrit 12,000 units three times a week, Protonix 40 mg p.o. every 12 hours, Zemplar 2 mcg IV three times a week, and Zosyn 2.25 g IV piggyback every 8 hours. LABORATORY DATA: His lab data include as follows, as of 01/28/2019, WBC 10.2, hemoglobin 11.6, hematocrit 34.3, platelets 256. Sodium 134, potassium 3.8, chloride 99, CO2 of 28, BUN 27, creatinine 9, glucose 86, calcium 9. Accu-Cheks 87 and 127. DIAGNOSTIC DATA: Colonoscopy report with the peripheral and distal rectal exam was normal and nonbleeding external and internal hemorrhoids were found. During retroflexion, the hemorrhoids were large. Also anal fissure is seen. A 5-mm polyp was found in the mid descending colon. The polyp was sessile. The polyp was removed with cold biopsy forceps resection and retrieval complete. A few medium diverticula were found in the ascending colon. There was no evidence of diverticular bleeding. The exam was otherwise normal throughout the examined colon. ASSESSMENT AND PLAN: In summary, Mr. Ugalde is a 48-year-old obese, middle aged, male with history of hypertension; gastric sleeve surgery; coronary artery disease, status post stents x2; end-stage renal disease, on hemodialysis three times a week, Saturday, , Saturday; was admitted with coffee-ground vomitus and black stool and subsequently the patient was found to have severe anemia with hemoglobin of 4, requiring transfusion of 4 units of packed red blood cells on admission and emergency hemodialysis. The patient is not in distress. Denies any black stool status post EGD yesterday, that is 01/27/2019, and colonoscopy 01/28/2019. No active bleeding and the patient has external and internal hemorrhoids and also an esophagogastroduodenoscopy, esophagitis. 1. End-stage renal disease. Continue hemodialysis three times a week, Saturday, , Saturday. 2. Anemia secondary to recent gastrointestinal bleed. Most likely secondary to ingestion of soap and esophagitis. 3. Hypertension. 4. Rule out pneumonia. Chest x-ray is improving. The patient received almost six days of intravenous antibiotic. We will discontinue from tomorrow. The patient is stable from the renal standpoint. The patient may be discharged post dialysis. We will follow with you. Thank you for allowing me to participate in your patient's care. Thelma Guillen MD
[2019-01-29] MEDS: Pantoprazole 40 mg EC Tab PO SCH ×2 (05:25→05:27)
[2019-01-29] MEDS: Piperacill/Tazo 2.25gm in Dex 2.25 GM/50 ML BAG IVPB SCH ×2 (05:25→14:08)
--- NOTE | 2019-01-29 09:18 | PN ---
DATE: 01/29/2019 LOCATION: 560, bed B. SUBJECTIVE: This is a 48-year-old male seen and examined in rounds without significant clinical changes post upper and lower endoscopy. On record, the patient denied any actual nondominant pain. No chest pain or palpitation or significant increase of shortness of breath this morning. Today's lab results still pending. However, the patient still has low hemoglobin and hematocrit with increased blood glucose level on and off, BUN 27, creatinine 9, compatible with the patient. Known history of renal failure. PHYSICAL EXAMINATION: GENERAL: This is a 48-year-old male, afebrile, awake, alert, oriented with pulse of 76, respiratory rate 20-22, blood pressure of 128/80. HEENT: Showed pale, dry, mucous membrane. Nonicteric sclerae. LUNGS: Few scattered crepitation. Decreased air entry at bases. HEART: Positive S1 and S2. ABDOMEN: Soft with mild generalized tenderness. No mass or organomegaly. No rebound tenderness or guarding. IMPRESSION: 1. Anemia with peptic ulcer disease and small colon polyp as well as diverticulosis by endoscopic workup recently. 2. End-stage renal disease, on hemodialysis. 3. Known history of hypertension. 4. Recent history of gastrointestinal blood loss, none this morning. SUGGESTIONS: 1. Continue current management. 2. Follow pathology report. 3. The patient will need endoscopic evaluation of the lower GI tract after 3-5 years pending the outcome of the pathology report. Nasir Forman MD
[2019-01-29] MEDS: Sucralfate 1 gm/10 ml Oral Susp UD PO SCH ×2 (10:08→14:08)
[2019-01-29] MEDS: Hydrocortisone 2.5% Rectal Cream(30 gm) PR SCH (10:08)
[2019-01-29] MEDS: SILVASORB ANTIMICROBIAL WOUND GEL TOP SCH (10:43)
[2019-01-29] MEDS: Paricalcitol 2 mcg/ml Inj IV SCH (11:25)
[2019-01-29] MEDS: Ferric Sodium Gluconat Complex 62.5 mg/5 ml Vial IVPB SCH (11:26)
--- NOTE | 2019-01-29 11:29 | CP.PCM.PN ---
Subjective - Date & Time of Evaluation Date of Evaluation: 01/29/19 Time of Evaluation: 11:28 - Subjective Subjective: pt is seen and examined, follow up consult is dictated #[id number] seen in hd, uf goal is 3 lit Objective - Vital Signs/Intake and Output Vital Signs (last 24 hours): Temp Pulse Resp BP Pulse Ox 97.8 F 86 18 148/73 99 01/29/19 09:45 01/29/19 09:45 01/29/19 09:45 01/29/19 10:45 01/29/19 09:45 - Medications Medications: Current Medications Clopidogrel Bisulfate (Plavix) 75 mg PO DAILY [facility] Last Admin: 01/29/19 10:43 Dose: Not Given Epoetin Ender (Procrit) 4,000 unit IV TTS [facility] Ferric Sodium Gluconate Complex (Ferrlecit) 125 mg IVPB DAILY [facility] Stop: 01/31/19 10:01 Last Admin: 01/29/19 11:26 Dose: 125 mg Hydrocortisone (Anusol-Hc) 0 gm [place] BID [facility] Last Admin: 01/29/19 10:08 Dose: Not Given Piperacillin Sod/Tazobactam Sod (Zosyn 2.25 Gm Iv Premix) 2.25 gm in 50 mls @ 100 mls/hr IVPB Q8 [facility]; Protocol Stop: 01/29/19 23:59 Last Admin: 01/29/19 05:25 Dose: 100 mls/hr Metoprolol Tartrate (Lopressor) 50 mg PO BID [facility] Last Admin: 01/29/19 10:09 Dose: Not Given Pantoprazole Sodium (Protonix Ec Tab) 40 mg PO Q12H [facility] Last Admin: 01/29/19 05:27 Dose: Not Given Paricalcitol (Zemplar) 2 mcg IV TTS [facility] Last Admin: 01/29/19 11:25 Dose: 2 mcg Sucralfate (Carafate Oral Susp) 1 gm PO TID [facility] Last Admin: 01/29/19 10:08 Dose: Not Given - Labs Labs: 01/28/19 14:04 01/28/19 10:17 PT 12.2 SECONDS (9.7-12.2) 01/23/19 23:52 INR 1.1 01/23/19 23:52 APTT 27 SECONDS (21-34) 01/23/19 23:52
[2019-01-29] MEDS ORDERED: EPOETIN ALFA 4,000 UNIT/ML ML Dialysis IV SCH (11:30)
--- NOTE | 2019-01-29 11:32 | CP.PCM.PN ---
Subjective - Date & Time of Evaluation Date of Evaluation: 01/29/19 - Subjective Subjective: patient seen and examined today no nausea no vomiting no fever no shortness of breath no dizziness no diarrhea Objective - Vital Signs/Intake and Output Vital Signs (last 24 hours): Temp Pulse Resp BP Pulse Ox 97.8 F 86 18 148/73 99 01/29/19 09:45 01/29/19 09:45 01/29/19 09:45 01/29/19 10:45 01/29/19 09:45 - Medications Medications: Current Medications Clopidogrel Bisulfate (Plavix) 75 mg PO DAILY [facility] Last Admin: 01/29/19 10:43 Dose: Not Given Epoetin Ender (Procrit) 4,000 unit IV TTS [facility] Ferric Sodium Gluconate Complex (Ferrlecit) 125 mg IVPB DAILY [facility] Stop: 01/31/19 10:01 Last Admin: 01/29/19 11:26 Dose: 125 mg Hydrocortisone (Anusol-Hc) 0 gm [place] BID [facility] Last Admin: 01/29/19 10:08 Dose: Not Given Piperacillin Sod/Tazobactam Sod (Zosyn 2.25 Gm Iv Premix) 2.25 gm in 50 mls @ 100 mls/hr IVPB Q8 [facility]; Protocol Stop: 01/29/19 23:59 Last Admin: 01/29/19 05:25 Dose: 100 mls/hr Metoprolol Tartrate (Lopressor) 50 mg PO BID [facility] Last Admin: 01/29/19 10:09 Dose: Not Given Pantoprazole Sodium (Protonix Ec Tab) 40 mg PO Q12H [facility] Last Admin: 01/29/19 05:27 Dose: Not Given Paricalcitol (Zemplar) 2 mcg IV TTS [facility] Last Admin: 01/29/19 11:25 Dose: 2 mcg Sucralfate (Carafate Oral Susp) 1 gm PO TID [facility] Last Admin: 01/29/19 10:08 Dose: Not Given - Labs Labs: 01/28/19 14:04 01/28/19 10:17 PT 12.2 SECONDS (9.7-12.2) 01/23/19 23:52 INR 1.1 01/23/19 23:52 APTT 27 SECONDS (21-34) 01/23/19 23:52 - Constitutional Appears: Well - Head Exam Head Exam: ATRAUMATIC, NORMAL INSPECTION, NORMOCEPHALIC - Eye Exam Eye Exam: EOMI, Normal appearance, PERRL Pupil Exam: NORMAL ACCOMODATION, PERRL - ENT Exam ENT Exam: Mucous Membranes Moist, Normal Exam - Neck Exam Neck Exam: Full ROM, Normal Inspection. absent: Lymphadenopathy - Respiratory Exam Respiratory Exam: Decreased Breath Sounds - Cardiovascular Exam Cardiovascular Exam: REGULAR RHYTHM, +S1, +S2 - GI/Abdominal Exam GI & Abdominal Exam: Soft, Diminished Bowel Sounds - Rectal Exam Rectal Exam: Deferred - Neurological Exam Neurological Exam: Oriented x3 Assessment and Plan - Assessment and Plan (Free Text) Plan: medications reviewed labs reviewed vitals reviewed anusol-hc carafate oral susp ferrlecit lopressor plavix procrit protonix ec tab zemplar zosyn
--- NOTE | 2019-01-29 14:59 | CP.PCM.PN ---
Subjective - Date & Time of Evaluation Date of Evaluation: 01/29/19 Time of Evaluation: 14:59 - Subjective Subjective: patient seen and examined at the bedside Objective - Vital Signs/Intake and Output Vital Signs (last 24 hours): Temp Pulse Resp BP Pulse Ox 98 F 87 16 126/82 98 01/29/19 13:15 01/29/19 13:15 01/29/19 13:15 01/29/19 13:15 01/29/19 13:15 - Medications Medications: Current Medications Aspirin (Ecotrin) 81 mg PO DAILY [facility] Last Admin: 01/29/19 14:08 Dose: 81 mg Clopidogrel Bisulfate (Plavix) 75 mg PO DAILY [facility] Last Admin: 01/29/19 14:08 Dose: 75 mg Epoetin Ender (Procrit) 4,000 unit IV TTS [facility] Last Admin: 01/29/19 11:34 Dose: 4,000 unit Ferric Sodium Gluconate Complex (Ferrlecit) 125 mg IVPB DAILY [facility] Stop: 01/31/19 10:01 Last Admin: 01/29/19 11:26 Dose: 125 mg Hydrocortisone (Anusol-Hc) 0 gm [place] BID [facility] Last Admin: 01/29/19 10:08 Dose: Not Given Piperacillin Sod/Tazobactam Sod (Zosyn 2.25 Gm Iv Premix) 2.25 gm in 50 mls @ 100 mls/hr IVPB Q8 [facility]; Protocol Stop: 01/29/19 23:59 Last Admin: 01/29/19 14:08 Dose: 100 mls/hr Metoprolol Tartrate (Lopressor) 50 mg PO BID [facility] Last Admin: 01/29/19 10:09 Dose: Not Given Pantoprazole Sodium (Protonix Ec Tab) 40 mg PO Q12H [facility] Last Admin: 01/29/19 05:27 Dose: Not Given Paricalcitol (Zemplar) 2 mcg IV TTS [facility] Last Admin: 01/29/19 11:25 Dose: 2 mcg Sucralfate (Carafate Oral Susp) 1 gm PO TID [facility] Last Admin: 01/29/19 14:08 Dose: 1 gm - Labs Labs: 01/28/19 14:04 01/28/19 10:17 PT 12.2 SECONDS (9.7-12.2) 01/23/19 23:52 INR 1.1 01/23/19 23:52 APTT 27 SECONDS (21-34) 01/23/19 23:52 Assessment and Plan - Assessment and Plan (Free Text) Assessment: FOLLOW UP WITH PMD CONTINUE HD SCHEDULE CONTINUE HOME MEDICTION ACTIVITY TOLERATED CALL DR Coleman BANERJEE OR GOT TO THE EMERGENCY ROOM IF SYMPTOM RETURN OR WORSENING
--- NOTE | 2019-01-29 15:19 | CARD ---
APPROVED REPORT Date of service: 01/23/2019 EXAM: Two-dimensional and M-mode echocardiogram with Doppler and color Doppler. Other Information Quality : TDSRhythm : INDICATION Status/Post PA 2D DIMENSIONS IVSd1.1 (0.7-1.1cm)LVDd4.5 (3.9-5.9cm) PWd1.2 (0.7-1.1cm)LA Ntmzas11 (18-58mL) LVDs3.8 (2.5-4.0cm)FS (%) 14.5 % LVEF (%)55.0 (>50%)LVEF (Nance's)58.15 % M-Mode DIMENSIONS Left Atrium (MM)4.07 (2.5-4.0cm)IVSd0.99 (0.7-1.1cm) Aortic Root3.61 (2.2-3.7cm)LVDd2.86 (4.0-5.6cm) Aortic Cusp Exc.2.43 (1.5-2.0cm)PWd3.46 (0.7-1.1cm) FS (%) 53 %LVDs4.38 (2.0-3.8cm) LVEF (%)55 (>50%) Mitral Valve MV E Svqxlidt182.5cm/sE/A ratio0.0 TDI Lateral E' Peak V6.80cm/sMedial E' Peak V8.42cm/sE/Lateral E'20.8 E/Medial E'16.8 Tricuspid Valve TR Peak [id number]/sTR Peak Gr.[id number] LEFT VENTRICLE The left ventricle is normal size. There is normal left ventricular wall thickness. The left ventricular function is normal. The left ventricular ejection fraction is within the normal range. No regional wall motion abnormalities noted. A. FIB, LV FILLING PRESSURE IS PROBABLY INCREASED No left ventricle thrombus noted on this study. There is no ventricular septal defect visualized. There is no left ventricular aneurysm. There is no mass noted in the left ventricle. RIGHT VENTRICLE The right ventricle is normal size. There is normal right ventricular wall thickness. The right ventricular systolic function is normal. ATRIA The left atrium is mildly dilated. The right atrium size is normal. The interatrial septum is intact with no evidence for an atrial septal defect. AORTIC VALVE The aortic valve is normal in structure and function. No aortic regurgitation is present. There is no aortic valvular stenosis. There is no aortic valvular vegetation. MITRAL VALVE The mitral valve is normal in structure and function. There is no evidence of mitral valve prolapse. There is no mitral valve stenosis. Mitral regurgitation is mild. TRICUSPID VALVE The tricuspid valve is normal in structure and function. There is mild to moderate tricuspid regurgitation. Right ventricular systolic pressure is estimated at greater than 60 mmHg. There is moderate-severe pulmonary hypertension. There is no tricuspid valve prolapse or vegetation. There is no tricuspid valve stenosis. PULMONIC VALVE The pulmonary valve is normal in structure and function. There is no pulmonic valvular regurgitation. There is no pulmonic valvular stenosis. GREAT VESSELS The aortic root is normal in size. The ascending aorta is normal in size. The pulmonary artery is normal. The IVC is normal in size and collapses >50% with inspiration. PERICARDIAL EFFUSION The pericardium appears normal. There is no pleural effusion. <Conclusion> There is normal left ventricular wall thickness. The left ventricular function is normal. The left ventricular ejection fraction is within the normal range. No regional wall motion abnormalities noted. A. FIB, LV FILLING PRESSURE IS PROBABLY INCREASED The left atrium is mildly dilated. Mitral regurgitation is mild. There is mild to moderate tricuspid regurgitation. Right ventricular systolic pressure is estimated at greater than 60 mmHg. There is moderate-severe pulmonary hypertension.
[2019-01-29 15:54] VITALS: BP 133/82; PULSE 89; RESP 20; TEMP 98.1; O2SAT 99
--- NOTE | 2019-01-29 19:14 | PN ---
DATE: 01/29/2019 SUBJECTIVE: The patient is currently undergoing hemodialysis. He denies any chest pain. No reported rectal bleeding. PHYSICAL EXAMINATION: VITAL SIGNS: Blood pressure 136/82, heart rate 87, temperature 98, respirations 16. HEENT: Normocephalic. CHEST: Clear. HEART: S1 and S2, regular. EXTREMITIES: Trace leg edema. LABORATORY DATA: Today's hemoglobin and hematocrit are 11.6 and 34.3. White count and platelet count are within normal limits. Today's SMA-7 prior to hemodialysis showed sodium 134, potassium 3.8, chloride 99, CO2 of 28, glucose 86, BUN 27 and creatinine 9. ASSESSMENT: 1. Status post rectal bleeding, requiring packed red blood cell transfusion. 2. Coronary artery disease, status post multiple coronary stenting in 05/2018. 3. End-stage renal disease, on hemodialysis. 4. Reflux esophagitis. 5. Status post polypectomy. RECOMMENDATIONS: Continue current Ferrlecit infusion. Continue Carafate at 1 g t.i.d. Resume Plavix at 75 mg once a day and aspirin 81 mg once a day. Continue Procrit 4000 units intravenously TTS, continue Zosyn at 2.25 g every 8 hours. Continue Lopressor 50 mg twice a day. John Coello MD
--- NOTE | 2019-01-29 22:09 | PN ---
DATE: 01/29/2019 FOLLOWUP RENAL CONSULTATION LOCATION: The patient is located in room 560, bed B. REQUESTED BY: Sophie Perez MD REASON FOR FOLLOWUP: End-stage renal disease, anemia, continuation of hemodialysis, status post upper GI bleed. SUBJECTIVE: Mr. Ugalde is a 48-year-old middle-aged obese male with a past medical history significant for longstanding hypertension, nephrotic range proteinuria, end-stage renal disease, coronary artery disease, status post stents x2, status post left upper extremity AV fistula, and superficial ligation of the fistula on 01/01/2019, who was admitted with chief complaints of coffee-ground vomitus and black stool. The patient also claims he is eating [employer] [place] soap. The patient denies any chest pain or palpitation on admission, complains of feeling weak and tired and the patient was found to have severe anemia, hemoglobin of 4, requiring admission to the ICU and immediate dialysis and transfusion of 3 units of packed RBC during dialysis on admission, and subsequently, the patient received another unit of packed RBC, totally the patient received 4 units of packed RBC. The patient was seen and examined during dialysis this morning. Denies any complaints, eager to go home. PHYSICAL EXAMINATION: VITAL SIGNS: As follows: Blood pressure 126/82, pulse 82, respirations 16, temperature 98 and saturation 100%. Height 5 feet 7 inches, weight is 212 pounds. GENERAL: Mr. Ugalde is a 48-year-old middle-aged male, well-built, well-nourished, not in distress. HEENT: Pupils normal, reactive to light and accommodation. Conjunctivae pink. Sclerae anicteric. Tongue is moist and trachea is midline. LUNGS: Symmetric on both sides. Bilateral breath sounds present. Clear to auscultation. CVS: Reform at the fifth intercostal space, midclavicular line. S1, S2 audible. No murmur or gallop. ABDOMEN: Normal in appearance. Soft, tympanitic. No guarding. No rigidity. No hepatosplenomegaly. [employer]: The patient is alert, awake and oriented x3. Nonfocal neuro examination. Cranial nerves II-XII grossly intact. Sensory and motor system is within normal limits. EXTREMITIES: No cyanosis, no clubbing, no edema. CURRENT LABORATORY DATA: Include as follows as of 01/28/2019, WBC 10.8, hemoglobin 11.6, hematocrit is 34.3, platelets 256. Sodium 134, potassium 3.8, chloride 19, CO2 of 28, BUN 27, creatinine 9, glucose 86, calcium is 9. Accu-Cheks 127, 85 and 106. As of 01/23/2019, blood culture x2 were negative and urine culture is negative as of 01/23/2019. The patient underwent esophagogastroduodenoscopy on Saturday and colonoscopy on Saturday. Esophagogastroduodenoscopy consists of LA grade A reflex esophagitis and medium-sized hiatal hernia, erythematous mucosa in the antrum, a normal examined duodenum, no specimens collected. Colonoscopy report as of 01/28/2019, nonbleeding external and internal hemorrhoids, 5 mm polyp in the mid descending colon removed with cold biopsy forceps, resected and retrieved. ASSESSMENT AND PLAN: In summary, Mr. Ugalde is a 48-year-old middle-aged obese male, was admitted with upper GI bleed, anemia, coffee-ground vomitus and melena and also mild hyperkalemia, status post transfusion of 4 units of packed red blood cells on admission. He used Analpram-HC cream 2.5% applied topically b.i.d. for 8 weeks. The patient has hypertension, end-stage renal disease, status post GI bleed, status post transfusion, status post colonoscopy and esophagogastroduodenoscopy. 1. End-stage renal disease. Continue hemodialysis three times a week, Saturday, , and Saturday. 2. Hypertension. Blood pressure is stable. 3. Status post upper gastrointestinal bleed. 4. Status post anemia and transfusion. Hemoglobin and hematocrit stable. The patient is stable from the renal standpoint to discharge. The patient was seen and examined during dialysis, had ultrafiltration about 2.9 liters. Thank you for allowing me to participate in your patient's care. Thelma Guillen MD
--- NOTE | 2019-01-30 07:06 | CON ---
DATE: 01/22/2019 LOCATION: 560, bed B. This is a 48-year-old male, seen and examined initially for GI consultation as requested by the admitting medical team on 01/22/2019. A short handwritten consultation sheet left at the chart after my physical examination, GI consultation, and after discussing the entire case with the staff on 01/22/2019. HISTORY OF PRESENT ILLNESS: This is a 48-year-old male with multiple complicated past medical history who was admitted to the hospital with episodes of hematemesis, reported clots and trace of fresh blood as per the patient himself, followed by more than one episode of melena with crampy abdominal pain, generalized weakness and malaise, slight headache without any reported trauma or loss of consciousness. The patient was not able to follow with his hemodialysis recently due to above. PAST MEDICAL HISTORY: Including but not limited to, 1. Hypertension. 2. End-stage renal disease, on hemodialysis. 3. Coronary artery disease with status post cardiac stent insertion. 4. Peptic ulcer disease. 5. History of diabetes mellitus. 6. Status post gastric sleeve done about 2 years ago. FAMILY HISTORY: Unknown. SOCIAL HISTORY: Denied any recent history of cigarette smoking or alcohol intake. LABORATORY DATA: Initial blood workup at the time of the consultation showed white blood cells of 21.3, hemoglobin 4.2, hematocrit 13.1 with normal platelet count, PT 12.9 with normal PTT, CO2 content of 19 indicative of metabolic acidosis, BUN 121, creatinine 13.8, glucose 122, but elevated troponin level to 1.38 with low total protein. The patient had abdominal and pelvic CT scan as well as chest x-ray, official report is seen with reported pneumonia with left adrenal gland hypertrophy and hiatus hernia with postsurgical gastric changes as well as umbilical hernia with bilateral fat containing inguinal hernia. PHYSICAL EXAMINATION: GENERAL: A 48-year-old male, appears to be awake, alert, oriented. Denied any actual chest pain or palpitation at that time, but mild abdominal pain with nausea and dyspepsia. VITAL SIGNS: The patient is afebrile with heart rate of 98, respiratory rate 20 to 22, blood pressure of 98/56. HEENT: Showed pale, dry oral mucoid membrane. Nonicteric sclerae. LYMPH: No lymph node or lymphadenitis. LUNGS: Few scattered crepitation with decreased air entry at bases. HEART: Positive S1 and S2 with increased rate. ABDOMEN: Soft, mildly obese, mildly distended with mild generalized tenderness. No mass or organomegaly. No rebound tenderness or guarding. EXTREMITIES: Without significant clubbing or cyanosis but lower extremity edematous changes. NEUROLOGIC: No reported new neurological deficits, sensory or motor. It has to be mentioned that the patient has small umbilical hernia as well as bilateral inguinal hernias, easily reducible. IMPRESSION: 1. Severe anemia, with reported hematemesis and melena, to rule out upper versus lower gastrointestinal blood loss, to rule out gastric versus duodenal ulcer, to rule out occult gastrointestinal malignancy. 2. Abnormal CAT scan of the abdomen and pelvis. 3. Elevated troponin level to rule out possible acute myocardial infarction. 4. Multiple past medical history as mentioned above. 5. Poorly controlled diabetes mellitus with possible diabetic gastroparesis. 6. End-stage renal disease, on hemodialysis. 7. Electrolyte imbalance, most likely secondary to above. SUGGESTIONS: 1. Agree with your plan. 2. Blood transfusion to keep hemoglobin around 10 g percent with hemodialysis. 3. Cancer markers. 4. Proton pump inhibitors IV. 5. Full cardiology evaluation before any aggressive GI procedures. 6. Hold any anticoagulation. No heparin in hemodialysis. 7. The patient will need endoscopic evaluation of the upper and lower GI tract due to his severe symptomatic anemia as well as due to his clinical previous complaints and presentation. 8. Further recommendation to follow. Thank you for letting me participate in your patient's case management. Nasir Forman MD
== END 2019-01-29 16:18 | disposition home or self-care (01) | DRG 377 ==
LOC: C.ER 13:23 → C.9E 17:06 → C.9I 17:54 → C.5S 01-26 07:06
PROVIDERS: ADMIT Internal Medicine Nephrology; ATTEND Internal Medicine Nephrology
PROC: 5A1D70Z Performance of Urinary Filtration, Intermittent, Less than 6 Hours Per Day (ICD-10-PCS; 2019-01-22)
PROC: 30233N1 Transfusion of Nonautologous Red Blood Cells into Peripheral Vein, Percutaneous Approach (ICD-10-PCS; 2019-01-22)
PROC: 5A1D70Z Performance of Urinary Filtration, Intermittent, Less than 6 Hours Per Day (ICD-10-PCS; 2019-01-24)
PROC: 5A1D70Z Performance of Urinary Filtration, Intermittent, Less than 6 Hours Per Day (ICD-10-PCS; 2019-01-27)
PROC: 0DJ08ZZ Inspection of Upper Intestinal Tract, Via Natural or Artificial Opening Endoscopic (ICD-10-PCS; principal; 2019-01-27 12:16)
PROC: 0DBM8ZX Excision of Descending Colon, Via Natural or Artificial Opening Endoscopic, Diagnostic (ICD-10-PCS; 2019-01-28)
PROC: 5A1D70Z Performance of Urinary Filtration, Intermittent, Less than 6 Hours Per Day (ICD-10-PCS; 2019-01-29)
DX: K92.2 Gastrointestinal hemorrhage, unspecified (principal); N18.6 End stage renal disease; I21.4 Non-ST elevation (NSTEMI) myocardial infarction; J18.9 Pneumonia, unspecified organism; I12.0 Hypertensive chronic kidney disease with stage 5 chronic kidney disease or end stage renal disease; D62 Acute posthemorrhagic anemia; E46 Unspecified protein-calorie malnutrition; E87.2 Acidosis; N25.81 Secondary hyperparathyroidism of renal origin; K31.89 Other diseases of stomach and duodenum; D12.4 Benign neoplasm of descending colon; K57.30 Diverticulosis of large intestine without perforation or abscess without bleeding; K44.9 Diaphragmatic hernia without obstruction or gangrene; K60.2 Anal fissure, unspecified; K64.8 Other hemorrhoids; K21.0 Gastro-esophageal reflux disease with esophagitis; K64.4 Residual hemorrhoidal skin tags; E11.22 Type 2 diabetes mellitus with diabetic chronic kidney disease; E11.65 Type 2 diabetes mellitus with hyperglycemia; E77.8 Other disorders of glycoprotein metabolism; E87.5 Hyperkalemia; G93.0 Cerebral cysts; I25.10 Atherosclerotic heart disease of native coronary artery without angina pectoris; K42.9 Umbilical hernia without obstruction or gangrene; K40.20 Bilateral inguinal hernia, without obstruction or gangrene, not specified as recurrent; T55.0X1A Toxic effect of soaps, accidental (unintentional), initial encounter; E78.5 Hyperlipidemia, unspecified; G47.30 Sleep apnea, unspecified; E66.9 Obesity, unspecified; R29.6 Repeated falls; W07.XXXA Fall from chair, initial encounter; Z79.02 Long term (current) use of antithrombotics/antiplatelets; Z79.899 Other long term (current) drug therapy; Z87.11 Personal history of peptic ulcer disease; I25.2 Old myocardial infarction; Z87.891 Personal history of nicotine dependence; Z95.1 Presence of aortocoronary bypass graft; Z95.5 Presence of coronary angioplasty implant and graft; Z98.84 Bariatric surgery status; Z99.2 Dependence on renal dialysis; Y92.9 Unspecified place or not applicable